=== PATIENT | female | born 1945 | race Caucasian/White ===

== ENCOUNTER 2025-06-29 09:47 | Emergency (ER) | payer BC, SELFPAY ==
[2025-06-29] VITALS (12 sets, daily range): BP systolic 107–180; BP diastolic 24–76; PULSE 50–60; RESP 14–22; TEMP 36.6–36.9; O2SAT 93–97; BMI 31.1
--- NOTE | ~2025-06-29 | CT_ITS ---
CLINICAL HISTORY: fall CT cervical spine without contrast Comparison: None provided Findings: Mild grade 1 anterolisthesis at C4-5 and C7-T1. Vertebral body height overall maintained. No acute fracture identified. Craniocervical junction is intact. Multilevel degenerative changes most significantly involving C5-6 and C6-7. Multilevel facet arthropathy Prevertebral soft tissues within normal limits. Thyroid is unremarkable. Bilateral atherosclerotic vascular disease. No consolidation or effusion at the lung apices. Mild emphysematous changes. IMPRESSION: 1. No acute findings. 2. Multilevel degenerative changes. 3. Mild grade 1 anterolisthesis C4-5 and C7-T1. This document has been electronically signed by: Sidra Ramirez MD on 06/29/2025 20:55:02
--- NOTE | ~2025-06-29 | XR_ITS ---
CLINICAL HISTORY: ams 1 view chest x-ray Comparison: None provided Findings: The heart is enlarged. Atherosclerotic vascular disease of the aortic arch. Low lung volumes. No definite consolidation, significant pleural effusion or pneumothorax. No acute fracture. Degenerative changes 3 views right shoulder and thoracic spine. Impression: No acute findings. This document has been electronically signed by: Sidra Ramirez MD on 06/29/2025 18:29:23
--- NOTE | ~2025-06-29 | CT_ITS ---
EXAMINATION: CT HEAD WITHOUT CONTRAST CLINICAL INFORMATION: ams, found laying on ground at somepoint COMPARISON: None available. TECHNIQUE: Contiguous axial imaging was performed from the skull base to vertex without intravenous administration of contrast. This CT examination was performed using dose optimization techniques as appropriate, variously including the following: *Automated exposure control *Adjustment of mA and/or kV according to patient size (this includes techniques or standardized protocols for targeted exams where dose is matched to indication/reason for exam; i.e. extremities or head) *Use of iterative reconstruction technique DLP: 732 mGy-cm FINDINGS: No acute cortical disruption in the bony calvarium or the included skull base. No acute intracranial hemorrhage, mass effect, midline shift, hydrocephalus or herniation. Bilateral multifocal patchy and confluent deep periventricular white matter hypodensities involving centrum semiovale and mckeon radiata both hemispheres. Questionable hypodensity in the left mid conrad. Normal position of the cerebellar tonsils. No gross masses in the sellar suprasellar region. Calcified plaques in the cavernous supracavernous segments both ICAs. Jain-white matter differentiation is normal. No air-fluid levels in the paranasal sinuses. Tympanic cavities and mastoid cells are aerated. No gross hemorrhage in the intraconal or extraconal compartments of the orbits. CT/CT head/brain wo IV con IMPRESSION: No acute fracture, bony calvarium. No acute intracranial hemorrhage. Extensive white matter disease likely related to small vessel occlusive disease. Superimposed acute nonhemorrhagic ischemia cannot be entirely excluded. Electronically signed by: Hugh Lorenz MD 06/29/2025 11:19 AM EDT
--- NOTE | ~2025-06-29 | CT_ITS ---
CLINICAL HISTORY: fall CT head without contrast Comparison: CT/SR - CT HEAD WITHOUT IV CONTRAST - 06/29/25 10:55 EDT Findings: No intra-axial mass, midline shift, hydrocephalus, or acute hemorrhage. There is atrophy. There are nonspecific bilateral supratentorial white matter hypodensities most suggestive of white matter ischemic changes. Atherosclerotic vascular disease. The visualized paranasal sinuses and mastoid air cells are normal. The orbits are unremarkable. Moderate size right frontal scalp hematoma and swelling. No skull fracture. IMPRESSION: 1. No acute intracranial findings. 2. Moderate right frontal scalp hematoma and swelling with no associated acute fracture. This document has been electronically signed by: Sidra Ramirez MD on 06/29/2025 20:59:09
--- NOTE | ~2025-06-29 | XR_ITS ---
CLINICAL HISTORY: fall 3 view left hand Comparison: None provided Findings: No acute fracture. No dislocation. Severe degenerative changes at 1st carpometacarpal joint and at articulation of scaphoid with the trapezium. Mild degenerative changes of interphalangeal joints. Diffuse demineralization. No erosions. IMPRESSION: 1. No acute findings. 2. Degenerative changes and diffuse demineralization. This document has been electronically signed by: Sidra Ramirez MD on 06/29/2025 19:43:12
--- NOTE | 2025-06-29 09:51 | ECG_ITS ---
Test Reason : AMS Blood Pressure : */* mmHG Vent. Rate : 55 BPM Atrial Rate : 55 BPM P-R Int : 166 ms QRS Dur : 82 ms QT Int : 448 ms P-R-T Axes : 36 -3 13 degrees QTcB Int : 428 ms Sinus bradycardia Septal infarct , age undetermined Abnormal ECG No previous ECGs available Referred By: Lashell Morejon Electronically Signed By: GE BARRERA
--- NOTE | 2025-06-29 09:53 | ED.GENADULT ---
HPI - General Adult General Chief complaint: Altered Mental Status Stated complaint: DEMENTIA Time Seen by Provider: 06/29/25 09:53 Source: patient and EMS Mode of arrival: EMS Limitations: altered mental status History of Present Illness ED Provider: JEREMIAH Morejon HPI narrative: 79-year-old female history of dementia presents from memory care unit with EMS where she lives reports that since Wednesday she has been having auditory hallucinations, they have found her lying on the ground speaking to the Silver[employer] . When I asked patient why she is here she says I do not know I feel fine they just picked me up and brought me here. She denies complaints of pain. She is only oriented to person, not place, time or situation. When I asked her who she lives with she tells me she lives with her step parents her siblings and other people at home EMS adamantly declines that this is the case. Patient is a very poor historian and is acutely confused. No known falls or trauma however unclear Related Data Home Medications ?Medication ?Instructions ?Recorded ?Confirmed acetaminophen 325 mg tablet 650 mg PO Q6H PRN Pain (Scale 06/30/25 06/30/25 Score 1-3) amlodipine 2.5 mg tablet 2.5 mg PO DAILY 06/30/25 06/30/25 ascorbic acid (vitamin C) 500 mg 500 mg PO BID 06/30/25 06/30/25 tablet aspirin 81 mg tablet,delayed 81 mg PO DAILY 06/30/25 06/30/25 release atorvastatin 80 mg tablet 80 mg PO BEDTIME 06/30/25 06/30/25 bupropion HCl 150 mg 24 hr tablet, 150 mg PO DAILY 06/30/25 extended release bupropion HCl 75 mg tablet 37.5 mg PO BID 06/30/25 calcium 600 mg (as 1 tab PO BID 06/30/25 06/30/25 carbonate)-vitamin D3 10 mcg (400 unit) tablet (Calcium 600 + D(3)) cholecalciferol (vitamin D3) 25 25 mcg PO DAILY 06/30/25 06/30/25 mcg (1,000 unit) tablet (Vitamin D3) dextromethorphan HBr 15 mg capsule 30 mg PO Q6H PRN Cough 06/30/25 06/30/25 docusate sodium 100 mg capsule 100 mg PO BID 06/30/25 06/30/25 donepezil 5 mg tablet 5 mg PO DAILY 06/30/25 06/30/25 gabapentin 100 mg capsule 100 mg PO BEDTIME 06/30/25 06/30/25 levothyroxine 75 mcg tablet 75 mcg PO DAILY@0606/30/25 06/30/25 melatonin 5 mg tablet 5 mg PO BEDTIME 06/30/25 06/30/25 mirtazapine 15 mg tablet 15 mg PO BEDTIME 06/30/25 06/30/25 multivitamin 1 tab PO DAILY 06/30/25 06/30/25 omeprazole 20 mg capsule,delayed 20 mg PO DAILY@0606/30/25 06/30/25 release propranolol 20 mg tablet 10 mg PO DAILY 06/30/25 06/30/25 propranolol 20 mg tablet 20 mg PO BEDTIME 06/30/25 06/30/25 pyridoxine (vitamin B6) 100 mg 100 mg PO BID 06/30/25 06/30/25 tablet risedronate 35 mg tablet 35 mg PO THOMAS@0606/30/25 06/30/25 sennosides 8.6 mg tablet (senna) 17.2 mg PO BEDTIME 06/30/25 06/30/25 simethicone 80 mg chewable tablet 80 mg PO BID 06/30/25 06/30/25 vitamin E (dl, acetate) 180 mg 540 mg PO DAILY 06/30/25 (400 unit) capsule Allergies Allergy/AdvReac Type Severity Reaction Status Date / Time Unable to Assess Allergy Verified 06/29/25 10:04 Review of Systems Review of Systems: Yes all other systems are reviewed and are negative PMFSH Past Medical History Attestation statement: The following information was validated with the patient. Source: old records reviewed and nursing notes reviewed Social History Social History Smoked in Last 30 Days: No Use of substances other than those prescribed or required for medical reasons: No Advance Directives: No Advance Directives Information Provided: Yes Do you have a plan to hurt others: No Plan Physical Exam ED Exam Exam: Appearance: Alert.? Oriented X1 to person not place, time or situation.? No acute distress.? Head: Normocephalic, atraumatic, no step-offs or deformities Eyes: Pupils equal, round and reactive to light.? ENT: Pharynx normal.? Neck: Normal inspection.? Neck supple.? CVS: Normal heart rate and rhythm.? Pulses normal.? Respiratory: No respiratory distress.? Breath sounds normal.? Abdomen: Soft and nontender.? Skin: Skin warm and dry.? Normal skin color.? Normal skin turgor.? Extremities: No lower extremity edema.? No calf ttp. 5/5 strength to bilateral upper and lower extremities Back: No midline tenderness, no C-spine tenderness, full range of motion, no CVA tenderness bilaterally Neuro: Oriented X 1.? No motor deficit.? No sensory deficit. Vital Signs: Vital Signs - 24 hr 06/29/25 16:48 06/29/25 18:10 06/29/25 19:12 Temperature 97.8 F 97.8 F 97.8 F Pulse Rate 54 55 57 Respiratory Rate 16 16 22 H Blood Pressure 124/62 115/52 L 155/60 H Pulse Oximetry 93 94 95 Oxygen Delivery Method Room Air Room Air Room Air Oxygen Flow Rate 06/29/25 19:25 06/29/25 19:48 06/29/25 20:10 Temperature 97.8 F 97.8 F 98.4 F Pulse Rate 57 52 50 Respiratory Rate 22 H 14 16 Blood Pressure 155/60 H 121/43 L 131/24 L Pulse Oximetry 95 95 93 Oxygen Delivery Method Room Air Room Air Oxygen Flow Rate 06/29/25 22:00 06/29/25 23:11 06/30/25 02:43 Temperature 97.8 F 97.7 F Pulse Rate 54 55 68 Respiratory Rate 19 16 14 Blood Pressure 134/42 L 107/39 L 115/44 L Pulse Oximetry 95 94 Oxygen Delivery Method Room Air Room Air Oxygen Flow Rate 06/30/25 04:00 06/30/25 08:33 06/30/25 15:13 Temperature 97.9 F Pulse Rate 55 65 61 Respiratory Rate 15 14 18 Blood Pressure 99/76 119/51 L 106/42 L Pulse Oximetry 92 97 96 Oxygen Delivery Method Room Air Nasal Cannula Room Air Oxygen Flow Rate 2 BMI result Body Mass Index 31.1 Course Reevaluation(s) Reevaluation #1: Unremarkable labs, UA. CXR pending. Head CT with no acute intracranial hemorrhage. Extensive white matter disease likely related to small-vessel occlusive disease superimposed acute nonhemorrhagic ischemia can not be entirely expose however no headache, dizziness, unremarkable neurological assessment. Plan- PT / CM, psych and PT . Patient is coming from a dementia unit however her mental status seems to be worsening. Would like clearance from care team. Time: 18:22 Reevaluation #2: Chest x-ray with no acute findings. Reevaluation #3: 06/30/25Dr. Kulwinder Parra's notes 06:30 Patient in physician observation for psychiatric evaluation.? Patient has been in the emergency department for 20 hours. No acute events reported overnight. No current complaints. VS stable.? Patient is pending CARE team and psychiatry evaluation to determine treatment and disposition. Will continue to monitor. 10:56 Patient was seen by care team. Patient does have dementia in his in a residential facility memory unit and has a guardian. The patient was sent in since she was found on the ground talking to God. According to the care team clinician, patient does not appear to be a danger to others or to herself. Care team's recommendation was to continue to pursue a psychiatric consult to see if this patient may benefit from medication changes or [facility] psychiatric admission. Patient will be kept in physician observation until disposition can be determined. We will continue to monito 15:48 Physician observation ended at 15:48 hours.The patient was seen by our psychiatrist, Dr. Froylan Bass. I did discuss the patient's presentation and disposition with him. At this time, he did not think that the patient needs to be admitted for [facility]-psychiatric evaluation and states the patient can be sent back to her memory unit for further management and evaluation by her providers. Therefore the patient will be discharged back to her long-term care facility. Medications Administered Discontinued Medications Generic Name Dose Route Start Last Admin Trade Name Freq PRN Reason Stop Dose Admin Acetaminophen 650 mg 06/29/25 22:04 06/29/25 22:08 Acetaminophen 325 Mg Tablet PO 06/29/25 22:05 650 mg ONCE ONE Administration Medical Decision Making Medical Decision Making [facility] Narrative: [id number] 79-year-old female presents with altered mental status &hallucinations coming in via ambulance. Physical exam patient pleasantly confused. only oriented to person. History and physical exam concerning for metabolic derangements, urinary infection . No signs of trauma less suspicious for intracranial hemorrhage, stroke. Plan labs, imaging, urine. 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 No signs of trauma less suspicious for intracranial hemorrhage, stroke.) Admission/Observation Consideration of admission/observation: Escalation of care including admission/observation considered (possible ) Lab Data MDM Lab Attestation statement: I reviewed the patient's lab results. 06/29/25 10:48 06/29/25 10:48 Labs: Lab Results 06/29/25 06/29/25 Range/Units 10:48 13:34 WBC 8.0 (4.8-10.8) X10*3/uL RBC 4.53 (4.20-5.50) X10*6/uL Hgb 13.4 (12.0-16.0) g/dl Hct 41.7 (37.0-47.0) % MCV 92.1 (80.0-98.0) fL MCH 29.6 (27.0-33.0) pg MCHC 32.1 (31.0-35.0) g/dl RDW 13.2 (11.0-16.0) % Plt Count 189 (160-400) X10*3/uL MPV 10.1 (9.4-12.3) fL Immature Gran % (Auto) 0.1 (0.0-0.4) % Neut % (Auto) 63.8 (45-73) % Lymph % (Auto) 22.9 (20-40) % Hunt % (Auto) 7.8 (2-11) % Eos % (Auto) 4.7 H (0-4) % Baso % (Auto) 0.7 (0-2) % Lymph # (Auto) 1.8 (1.2-4.9) X10*3/uL Hunt # (Auto) 0.6 (0.1-1.2) X10*3/uL Eos # (Auto) 0.4 (0.0-0.4) X10*3/uL Baso # (Auto) 0.1 (0.0-0.2) X10*3/uL Abs Immat Gran (auto) 0.01 (0.00-0.03) X10*3/uL Absolute Neuts (auto) 5.1 (2.0-8.3) x10*3/uL Absolute Nucleated RBC 0.000 (0.0-0.012) X10*3/uL Nucleated RBC % (auto) 0.0 (0.0-0.2) /100WBC Sodium 142 (135-145) mmol/L Potassium 4.1 (3.3-5.1) mmol/L Chloride 108 (96-108) mmol/L Carbon Dioxide 29 (22-29) mmol/L Anion Gap 9 L (12-20) BUN 20 H (9-16) mg/dL Creatinine 0.59 (0.5-1.4) mg/dL Estim Creat Clear Calc 80.1 Estimated GFR > 60 Random Glucose 83 (60-115) mg/dL Calcium 9.0 (8.4-10.2) mg/dL Magnesium 2.0 (1.6-2.6) mg/dL Total Bilirubin 0.7 (0.0-1.0) mg/dL AST 38 H (5-31) U/L ALT 37 H (0-31) U/L Alkaline Phosphatase 77 (39-117) U/L Troponin I High Sens < 2.7 (<3.5-17.0) ng/L Total Protein 7.0 (6.5-8.0) g/dL Albumin 3.9 (3.5-5.0) g/dL Urine Color Yellow Urine Appearance Clear Urine pH 7.0 (5.0-9.0) Ur Specific [place] 1.010 (1.005-1.025) Urine Protein Negative (Neg-Trace) mg/dL Urine Glucose (UA) Negative (Negative) mg/dL Urine Ketones Negative (Negative) mg/dL Urine Blood Negative (Negative) Urine Nitrite Negative (Negative) Ur Leukocyte Esterase Negative (Negative) Independent Interpretation I performed an independent interpretation of an: EKG Radiology Impression Discussion of test interpretation with radiology: I have reviewed the radiologist's reading. External Record Review No previous records to review on file Chronic Conditions Patient?s care impacted by: Other (dementia ) Social Determinants Patient?s care significantly limited by Social Determinants of Health including: Other Social Determinant of Health Critical Care Time Critical Care Time Critical Care Time: No Discharge Plan Discharge Clinical Impression: Altered mental status Patient Disposition: er [facility] Transfer Details: [facility] Additional Instructions: Your CBC, comprehensive metabolic panel, troponin and urinalysis were negative. The CT scan head revealed no intracranial findings that were significant, you did have a frontal lobe hematoma but no skull fracture/broken bones. You were seen by our care team clinician who did not think that you are a harm to herself or others You were seen by our psychiatrist Dr. Kaiden Bass. In his opinion, he did not think that you needed acute hospitalization in a [facility]-psychiatric unit and that you can be discharged back to your memory care unit for further treatment and management. Continue taking medications as prescribed by your providers. Follow-up with your doctor in 2 days. Please return to the emergency department if your symptoms get worse or if you develop any symptoms that are concerning to you. Prescriptions: No Action amlodipine 2.5 mg Tablet 2.5 mg PO DAILY aspirin 81 mg Tablet,Delayed Release (Dr/Ec) 81 mg PO DAILY atorvastatin 80 mg Tablet 80 mg PO BEDTIME bupropion HCl 150 mg Tablet Extended Release 24 Hr 150 mg PO DAILY bupropion HCl 75 mg Tablet 37.5 mg PO BID calcium carbonate-vitamin D3 [Calcium 600 + D(3)] 600 mg-10 mcg (400 unit) Tablet 1 tab PO BID dextromethorphan HBr 15 mg Capsule 30 mg PO Q6H PRN (Reason: Cough) Rx Instructions: DO NOT EXCEED 120 MG IN 24 HOURS docusate sodium 100 mg Capsule 100 mg PO BID donepezil 5 mg Tablet 5 mg PO DAILY gabapentin 100 mg Capsule 100 mg PO BEDTIME levothyroxine 75 mcg Tablet 75 mcg PO DAILY@0600 melatonin 5 mg Tablet 5 mg PO BEDTIME mirtazapine 15 mg Tablet 15 mg PO BEDTIME multivitamin Tablet 1 tab PO DAILY omeprazole 20 mg Capsule,Delayed Release(Dr/Ec) 20 mg PO DAILY@0630 propranolol 20 mg Tablet 10 mg PO DAILY propranolol 20 mg Tablet 20 mg PO BEDTIME risedronate 35 mg Tablet 35 mg PO THOMAS@0600 Rx Instructions: administer at least 30 minutes before the first food or drink of the day other than water. sennosides [senna] 8.6 mg Tablet 17.2 mg PO BEDTIME simethicone 80 mg Tablet,Chewable 80 mg PO BID acetaminophen 325 mg Tablet 650 mg PO Q6H PRN (Reason: Pain (Scale Score 1-3)) pyridoxine (vitamin B6) 100 mg Tablet 100 mg PO BID ascorbic acid (vitamin C) 500 mg Tablet 500 mg PO BID cholecalciferol (vitamin D3) [Vitamin D3] 25 mcg (1,000 unit) Tablet 25 mcg PO DAILY vitamin E (dl, acetate) 180 mg (400 unit) capsule 540 mg PO DAILY Print Language: Ukrainian
--- OUTSIDE RECORDS SUMMARY | 2025-06-29 10:43 | XMS_ITS | Encounter Summary ---
Author Organization [facility] Address [address] [place] [address] Care Team Providers Care Dbas Name Role Phone Physician, No Pcp Primary Care Provider Unavaila ble Encounter Details Date Type Department Care Team (Late st Contact Info) Description 05/15/2025 Lab Requisition [facility] - Main Lab [address] [facility] [place] [address] Calin Lobo FNP [address] [place] [id number] Hyperlipidemia, unspecified; Disorientation, unspecified; Weakness; Vitamin D deficiency, unspecified Social History Tobacco Use Types Packs/Day Years Used Date Smoking Tobacco: Never Assessed Comments Unknown Sex and Gender Information Value Date Recorded Sex Assigned at Female 10/25/2024 11:18 AM EST Legal Sex Female 4:43 PM EST Gender Identity Female 10/25/2024 11:18 AM EST Sexual Orientation Not on file documented as of this encounter Functional Status * Are you deaf or do you have serious difficulty hearing? Answer Date of Assessment Author No 10/21/2024 1:47 PM Maureen Carroll RN * Are you blind or do you have serious difficulty seeing, even when wearing glasses? Answer Date of Assessment Author No 10/21/2024 1:47 PM Maureen Carroll RN * Do you have serious difficulty walking or climbing stairs? Answer Date of Assessment Author No 10/21/2024 1:47 PM Maureen Carroll RN * Do you have serious difficulty dressing or bathing? Answer Date of Assessment Author No 10/21/2024 1:47 PM Maureen Carroll RN * Because of a physical, mental, or emotional condition, do you have serious difficulty doing errandsalone such as visiting the doctor? Answer Date of Assessment Author No 10/21/2024 1:47 PM Maureen Carroll RN documented as of this encounter Mental Status * Because of a physical, mental, or emotional condition, do you have serious difficulty concentrating, remembering, or making decisions? (5 years old or older) Answer Entry Date Author No 10/21/2024 1:47 PM Maureen Carroll RN documented in this encounter Plan of Treatment Not on file documented as of this encounter Procedures Procedure Name Priority Date/Time Associated Diagnosis Comments LIPID PANEL WITH REFLEX TO DIRECT LDL Routine 05/16/2025 6:17 AM EDT Hyperlipidemia, unspecified Disorientation, unspecified Weakness Vitamin D deficiency, unspecified VITAMIN D 25 HYDROXY Routine 05/16/2025 6:17 AM EDT Hyperlipidemia, unspecified Disorientation, unspecified Weakness Vitamin D deficiency, unspecified FOLATE Routine 05/16/2025 6:17 AM EDT Hyperlipidemia, unspecified Disorientation, unspecified Weakness Vitamin D deficiency, unspecified VITAMIN B12 Routine 05/16/2025 6:17 AM EDT Hyperlipidemia, unspecified Disorientation, unspecified Weakness Vitamin D deficiency, unspecified documented in this encounter Results * Vitamin D 25 hydroxy (05/16/2025 6:17 AM EDT) Vit D, 25-Hydroxy 44.6 30.0 - 80.0 ng/mL LAB CHEMISTRY METHOD 05/16/2025 11:24 AM EDT [facility] Blood Venous blood specimen / Unknown Venipuncture / Unknown 05/16/2025 6:17 AM EDT 05/16/2025 8:18 AM EDT aClin Lobo [employer] LAB BLOOD ORDERABLES Final Res ult Performing Organization Address [facility]/ZIP Co de Phone Number [facility] [address] [place] [address], [place] [phone] * Folate (05/16/2025 6:17 AM EDT) Pathologist [facility] Folate 5.6 2.8 - 17.0 ng/ml LAB CHEMISTRY METHOD 05/16/2025 9:40 AM EDT [facility] Blood Venous blood specimen / Unknown Venipuncture / Unknown 05/16/2025 6:17 AM EDT 05/16/2025 8:18 AM EDT us Calin Lobo [facility] BLOOD ORDERABLES Final Res ult Performing Organization Address [facility] Co de Phone Number [facility] [address] [place] [address], [place] [phone] * Vitamin B12 (05/16/2025 6:17 AM EDT) [facility] Vitamin B-12 430 250 - 900 pcg/mL LAB CHEMISTRY METHOD 05/16/2025 9:40 AM EDT [facility] Blood Venous blood specimen / Unknown Venipuncture / Unknown 05/16/2025 6:17 AM EDT 05/16/2025 8:18 AM EDT Calin Lobo [facility] BLOOD ORDERABLES Final Res ult Performing Organization Address [facility]/ZIP Co de Phone Number [facility] [address] [place] [address], [place] [phone] * Lipid panel with reflex to direct LDL (05/16/2025 6:17 AM EDT) [facility] Cholesterol 145 0 - 200 mg/dL LAB CHEMISTRY METHOD 05/16/2025 9:18 AM EDT [facility] Triglycerides 75 0 - 150 mg/dL LAB CHEMISTRY METHOD 05/16/2025 9:18 AM EDT [facility] HDL 54 >=40 mg/dL LAB CHEMISTRY METHOD 05/16/2025 9:18 AM EDT [facility] LDL Calculated 76 0 - 100 mg/dL LAB CHEMISTRY METHOD 05/16/2025 9:18 AM EDT [facility] VLDL Cholesterol Fredy 15 mg/dL LAB CHEMISTRY METHOD 05/16/2025 9:18 AM EDT [facility] Non HDL Chol. (LDL+VLDL) 91 <145 mg/dL LAB CHEMISTRY METHOD 05/16/2025 9:18 AM EDT [facility] Chol/HDL Ratio 2.7 0.0 - 4.4 LAB CHEMISTRY METHOD 05/16/2025 9:18 AM EDT [facility] Blood Venous blood specimen / Unknown Venipuncture / Unknown 05/16/2025 6:17 AM EDT 05/16/2025 8:18 AM EDT Calin SAPP LAB BLOOD ORDERABLES Final Res ult [facility] [address] [place] [address], documented in this encounter Visit Diagnoses Diagnosis Hyperlipidemia, unspecified Disorientation, unspecified Weakness Other malaise and fatigue Vitamin D deficiency, unspecified documented in this encounter Care Teams Dbas Relationship Specialty Start Date End Date Physician, No Pcp PCP - General 10/21/24 documented as of this encounter
[2025-06-29 10:52] LABS: MANUAL DIFF FLAG NO
[2025-06-29 10:57] LABS: Hematocrit 41.7 % (37.0-47.0); Hemoglobin 13.4 g/dl (12.0-16.0); Imm Gran Abs Auto 0.01 X10*3/uL (0.00-0.03); Imm Gran Pct Auto 0.1 % (0.0-0.4); Lymphocytes Absolute Auto 1.8 X10*3/uL (1.2-4.9); Mean Corpuscular HGB Conc 32.1 g/dl (31.0-35.0); Mean Corpuscular Hemoglobin 29.6 pg (27.0-33.0); Mean Corpuscular Volume 92.1 fL (80.0-98.0); NRBC Abs Auto 0.000 X10*3/uL (0.0-0.012); NRBC Pct Auto 0.0 /100WBC (0.0-0.2); Platelet Count 189 X10*3/uL (160-400); Red Blood Count 4.53 X10*6/uL (4.20-5.50); White Blood Count 8.0 X10*3/uL (4.8-10.8)
[2025-06-29 11:10] LABS: Alanine Aminotransferase 37 U/L (0-31); Albumin Level 3.9 g/dL (3.5-5.0); Alkaline Phosphatase 77 U/L (39-117); Anion Gap 9 (12-20); Aspartate Amino Transferase 38 U/L (5-31); Blood Urea Nitrogen 20 mg/dL (9-16); Calcium 9.0 mg/dL (8.4-10.2); Carbon Dioxide 29 mmol/L (22-29); Chloride 108 mmol/L (96-108); Creatinine Clr Calc Pharmacy 80.1; Estimated Glomerular Filt Rate > 60; Magnesium 2.0 mg/dL (1.6-2.6); Potassium 4.1 mmol/L (3.3-5.1); Sodium 142 mmol/L (135-145); Total Protein 7.0 g/dL (6.5-8.0)
[2025-06-29 11:18] LABS: Troponin-I High Sensitivity < 2.7 ng/L (<3.5-17.0)
--- NOTE | 2025-06-29 11:36 | PC.NURSE ---
Patient noted to be talking to herself. Patient only person in room. When asked who she was talking to? Patient replied Im talking to a doctor or a nurse in my head Patient denies SI HI from voices in her head
[2025-06-29 13:40] LABS: Appearance Urine Clear; Glucose Urine UA Negative (Negative); PH 7.0 (5.0-9.0); Specific Gravity - Urine 1.010 (1.005-1.025)
--- NOTE | 2025-06-29 19:15 | PC.NURSE ---
Addendum entered by Maria Teresa Gonsales RN 06/30/25 06:48: pt noted to desat while sleeping to 87-88%, placed pt on 2L and improvement to 93-96%. Addendum entered by Maria Teresa Gonsales RN 06/29/25 22:01: while reassessing pt at this time, noticed pt saying no aloud and asked her why she said no and pt stated someone in my head when asked who was in her head she said she thinks its her sister but cant remember what she said to her. Addendum entered by Maria Teresa Gonsales RN 06/29/25 21:02: this headline writer wrote right hand contusion in error it is the left hand. Original Note: assumed care for pt at 1900, pt was not in room at the time was in the restroom with EDT. Upon return to the room per EDT, pt was getting back into bed and slipped off the cushion of the bed and fell on the floor. Pt was able to get back into the bed with staff assistance. Pt reporting pain in head and right hand. Pt noted to have contusion on head and right hand. Pt assessed by MD Chicas, pending orders. Pt alert and oriented at her baseline, pupils PERRLA. Pt given ice pack for contusion to her head. Pt having xrays done at this time in room.
[2025-06-30 02:43] VITALS: BP 115/44; PULSE 68; RESP 14; TEMP 36.5; O2SAT 94
[2025-06-30 04:00] VITALS: BP 99/76; PULSE 55; RESP 15; O2SAT 92
[2025-06-30 08:33] VITALS: BP 119/51; PULSE 65; RESP 14; O2SAT 97
--- NOTE | 2025-06-30 10:10 | PC.NURSE ---
Assumed care of pt approx 0700, pt resting in bed quietly with resp even and unlabored. Denies any pain at this time
--- NOTE | 2025-06-30 10:44 | PHA.MEDREC ---
Pharmacy Consult ? Medication Reconciliation Pharmacy has completed the medication reconciliation.Med rec complete, based on list from [facility]
[2025-06-30 15:13] VITALS: BP 106/42; PULSE 61; RESP 18; TEMP 36.6; O2SAT 96
--- NOTE | 2025-06-30 17:24 | PM.PSYCN ---
History of Present Illness Date of Service: 06/30/25 Chief Complaint: DEMENTIA Requesting physician: Frankie Chicas Sources of Information: patient interviewed, chart reviewed and crisis/core team assessment reviewed HPI Narrative: 79 year old female with dementia, residing in a locked dementia unit. 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 Psychiatry was asked to assess whether patient needs to be hospitalized. Patient is seen in the ED. She is laying in a hospital bed. She is alert and awake and only oriented to person. She had a fall while in the ED and had a head CT with scalp hematoma but no intracranial pathology or fracture. Patient was observed by RN to be self dialoguing yesterday but not today. She reports she doesn't remember hearing voices or seeing visions. She denies feeling sad or depressed and feels fine . She has not had any aggression or behavioral dysregulation since being in the ED. There is a reported remote (dating back to 2016) record of her being on a Yo's order. She was reportedly on Abilify but it has since been discontinued. Past Psychiatric History: Full information not available at this time. Remote history of being on a Yo's order. [facility] Family History: Unavailable Social History: Lives on a memory unit since 2016. 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 Never . No children. Reports having a good childhood. Substance History: Unknown Trauma History: Unknown Diagnostics Vital Signs (24Hr): Vital Signs - 24 hr 06/29/25 18:10 06/29/25 19:12 06/29/25 19:25 Temperature 97.8 F 97.8 F 97.8 F Pulse Rate 55 57 57 Respiratory Rate 16 22 H 22 H Blood Pressure 115/52 L 155/60 H 155/60 H Pulse Oximetry 94 95 95 Oxygen Delivery Method Room Air Room Air Oxygen Flow Rate 06/29/25 19:48 06/29/25 20:10 06/29/25 22:00 Temperature 97.8 F 98.4 F 97.8 F Pulse Rate 52 50 54 Respiratory Rate 14 16 19 Blood Pressure 121/43 L 131/24 L 134/42 L Pulse Oximetry 95 93 95 Oxygen Delivery Method Room Air Room Air Room Air Oxygen Flow Rate 06/29/25 23:11 06/30/25 02:43 06/30/25 04:00 Temperature 97.7 F Pulse Rate 55 68 55 Respiratory Rate 16 14 15 Blood Pressure 107/39 L 115/44 L 99/76 Pulse Oximetry 94 92 Oxygen Delivery Method Room Air Room Air Oxygen Flow Rate 06/30/25 08:33 06/30/25 15:13 Temperature 97.9 F Pulse Rate 65 61 Respiratory Rate 14 18 Blood Pressure 119/51 L 106/42 L Pulse Oximetry 97 96 Oxygen Delivery Method Nasal Cannula Room Air Oxygen Flow Rate 2 BMI result Body Mass Index 31.1 Labs 06/29/25 10:48 06/29/25 10:48 Labs: Laboratory Results - last 48 hr 06/29/25 06/29/25 10:48 13:34 WBC 8.0 RBC 4.53 Hgb 13.4 Hct 41.7 MCV 92.1 MCH 29.6 MCHC 32.1 RDW 13.2 Plt Count 189 MPV 10.1 Immature Gran % (Auto) 0.1 Neut % (Auto) 63.8 Lymph % (Auto) 22.9 [place] % (Auto) 7.8 Eos % (Auto) 4.7 H Baso % (Auto) 0.7 Lymph # (Auto) 1.8 [place] # (Auto) 0.6 Eos # (Auto) 0.4 Baso # (Auto) 0.1 Abs Immat Gran (auto) 0.01 Absolute Neuts (auto) 5.1 Absolute Nucleated RBC 0.000 Nucleated RBC % (auto) 0.0 Sodium 142 Potassium 4.1 Chloride 108 Carbon Dioxide 29 Anion Gap 9 L BUN 20 H Creatinine 0.59 Estim Creat Clear Calc 80.1 Estimated GFR > 60 Random Glucose 83 Calcium 9.0 Magnesium 2.0 Total Bilirubin 0.7 AST 38 H ALT 37 H Alkaline Phosphatase 77 Troponin I High Sens < 2.7 Total Protein 7.0 Albumin 3.9 Urine Color Yellow Urine Appearance Clear Urine pH 7.0 Ur Specific [place] 1.010 Urine Protein Negative Urine Glucose (UA) Negative Urine Ketones Negative Urine Blood Negative Urine Nitrite Negative Ur Leukocyte Esterase Negative Imaging Radiology Impressions: ITS Impressions Head CT 06/29/25 10:55 IMPRESSION: No acute fracture, bony calvarium. No acute intracranial hemorrhage. Extensive white matter disease likely related to small vessel occlusive disease. Superimposed acute nonhemorrhagic ischemia cannot be entirely excluded. 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 Hallucinations: None (Reported she believed she was talking to [place] while at her residence) Delusions: Not Present (Reported she believed she was talking to [place] while at her residence) Thought Process: Disoriented and Confusion Thought Content: positive for Disoriented and positive for Poverty of Content Medications Allergies Allergies Allergy/AdvReac Type Severity Reaction Status Date / Time Unable to Assess Allergy Verified 06/29/25 10:04 Assessment & Plan Assessment & Plan (1) Dementia: Status: Acute Code(s): F03.90 - Unspecified dementia, unspecified severity, without behavioral disturbance, psychotic disturbance, mood disturbance, and anxiety (2) Altered mental status: Status: Acute Code(s): R41.82 - Altered mental status, unspecified Plan 79 year old with severe dementia with a remote unclear psychiatric history presented with altered mental status. She has not presented with gross psychosis, with agitation or behavioral disturbance while in the ED. Psychiatry was consulted to determine level of care. Based on her presentation, patient doesn't seem to warrant acute inpatient psychiatric hospitalization. She could benefit from further OP evaluation and clarification of her prior mental health diagnoses and subsequent management. Total time managing care of this patient today ____ minutes.
--- NOTE | 2025-06-30 17:34 | PC.NURSE ---
Attempted to call report to marco nevarez- was informed no nurse is available to give nurse to nurse. Memory unit staff aware pt will be d/c to them.
[2025-06-30 18:50] VITALS: BP 115/56; PULSE 57; RESP 16; TEMP 36.7; O2SAT 95
[2025-06-30 18:59] VITALS: BP 115/56; PULSE 57; RESP 16; TEMP 36.7; O2SAT 95
== END 2025-06-30 19:00 ==
PROVIDERS: Physician Assistant; Emergency Provider Emergency Medicine Emergency Medical Services; PCP Internal Medicine
DX: R41.82 Altered mental status, unspecified (principal); S09.90XA Unspecified injury of head, initial encounter; W19.XXXA Unspecified fall, initial encounter; Y93.9 Activity, unspecified; Y92.239 Unspecified place in hospital as the place of occurrence of the external cause; Y99.9 Unspecified external cause status; R44.0 Auditory hallucinations; F03.90 Unspecified dementia, unspecified severity, without behavioral disturbance, psychotic disturbance, mood disturbance, and anxiety
CPT/HCPCS: 36415; 70450; 71045; 72125; 73130; 80053; 81003; 83735; 84484; 85025; 93005; 99285; S9485

== ENCOUNTER → 2025-06-29 09:51 | Outpatient (BNV) | payer BC, SELFPAY | PROVIDERS: Emergency Provider Emergency Medicine Emergency Medical Services; PCP Internal Medicine; Visit Provider Internal Medicine | DX: R00.1 Bradycardia, unspecified (principal); R94.31 Abnormal electrocardiogram [ECG] [EKG] | CPT/HCPCS: 93010 ==

== ENCOUNTER → 2025-06-29 10:00 | Outpatient (BNV) | payer BC, SELFPAY | PROVIDERS: Emergency Provider Emergency Medicine Emergency Medical Services; PCP Internal Medicine; Visit Provider Radiology Diagnostic Radiology | DX: M50.322 Other cervical disc degeneration at C5-C6 level (principal); R41.82 Altered mental status, unspecified; I51.7 Cardiomegaly; M18.12 Unilateral primary osteoarthritis of first carpometacarpal joint, left hand | CPT/HCPCS: 70450; 71045; 72125; 73130 ==

== ENCOUNTER → 2025-06-29 10:23 | Outpatient (BNV) | payer BC, SELFPAY | PROVIDERS: Emergency Provider Emergency Medicine Emergency Medical Services; PCP Internal Medicine; Visit Provider Psychiatry & Neurology Psychiatry | DX: F03.90 Unspecified dementia, unspecified severity, without behavioral disturbance, psychotic disturbance, mood disturbance, and anxiety (principal); R41.82 Altered mental status, unspecified | CPT/HCPCS: 99284 ==

== ENCOUNTER 2025-07-01 11:24 | Inpatient (IN) | payer BC, SELFPAY ==
[2025-07-01] VITALS (9 sets, daily range): BP systolic 156–186; BP diastolic 70–80; PULSE 56–70; RESP 15–18; TEMP 36.3–37; O2SAT 96–99; BMI 31.8
--- NOTE | ~2025-07-01 | CT_ITS ---
EXAMINATION: CT HEAD WITHOUT CONTRAST CLINICAL INFORMATION: head trauma, repetitive, acute COMPARISON: Head CT on June 29, 2025 TECHNIQUE: Contiguous axial imaging was performed from the skull base to vertex without intravenous administration of contrast. This CT examination was performed using dose optimization techniques as appropriate, variously including the following: *Automated exposure control *Adjustment of mA and/or kV according to patient size (this includes techniques or standardized protocols for targeted exams where dose is matched to indication/reason for exam; i.e. extremities or head) *Use of iterative reconstruction technique FINDINGS: Brain parenchyma: No shift of midline structures. No mass effect or parenchymal hemorrhage. Moderate amount of confluent hypodensity in the white matter of bilateral cerebral hemispheres, likely representing a manifestation of chronic small vessel ischemic changes. Ventricles/extra-axial spaces: Prominence of the ventricles and extra-axial CSF spaces represents brain volume loss. Asymmetric enlargement of the left side sylvian fissure reflecting asymmetric more prominent local brain volume loss, likely sequela from prior insult/infarct. No hydrocephalus. No extra-axial fluid collection. Calvarium/extracranial structures: No depressed calvarial fracture. Interval decrease in size of the right frontal scalp hematoma. Paranasal sinuses are clear. Mastoid air cells are clear. CT/CT head/brain wo IV con IMPRESSION: 1. No acute intracranial findings. 2. Interval decrease in the right frontal scalp hematoma. Electronically signed by: Durga Benavides MD 07/04/2025 06:14 PM EDT
--- NOTE | ~2025-07-01 | XR_ITS ---
CLINICAL HISTORY: left hand pain 3 view left hand Comparison: CR - XR HAND LT MIN 3V - 06/29/25 19:11 EDT Findings: Bones intact. No dislocations. Moderately severe arthritic change, most pronounced at the level of the 1st carpometacarpal joint. No erosions. No radiopaque foreign body. IMPRESSION: 1. No acute findings This document has been electronically signed by: Nicci Garcia MD on 07/01/2025 14:25:49
--- NOTE | ~2025-07-01 | XR_ITS ---
CLINICAL HISTORY: rt wrist pain 4 view right wrist Comparison: None provided Findings: No acute fracture. No dislocation. Osteopenia is present. Moderately severe arthritic change. Multiple small degenerative cysts within the carpus. No radiopaque foreign body. IMPRESSION: 1. No acute findings This document has been electronically signed by: Nicci Garcia MD on 07/01/2025 14:20:29
--- NOTE | 2025-07-01 11:27 | ED.GENADULT ---
HPI - General Adult General Chief complaint: Altered Mental Status Stated complaint: AH,ERRATIC BEH,BRUISES/HAND,SEEN RECENTLY FOR SAME Time Seen by Provider: 07/01/25 11:25 Source: patient and EMS Mode of arrival: EMS Limitations: other (poor historian ) History of Present Illness ED Provider: JEREMIAH Morejon HPI narrative: This is a 79-year-old female hx dementia presenting with erratic behavior from a memory unit. She was seen here a few days for same complaint. According to EMS she has been hallucinating and hallucinations have been worsening over the past few days. EMS also notes that patient has bruising to the left hand, this is new. Unclear exactly how patient got bruising. Patient adamantly tells me that she did not fall or have any trauma however she is unable to tell me how she got the bruises. She denies pain. She is alert and oriented x4 however seems slightly agitated upon initial assessment. Denies chest pain, shortness breath, nausea, vomiting, abdominal pain, changes in urinary or bowel habits. Related Data Home Medications ?Medication ?Instructions ?Recorded ?Confirmed acetaminophen 325 mg tablet 650 mg PO Q6H PRN Pain (Scale 06/30/25 07/01/25 Score 1-3) amlodipine 2.5 mg tablet 2.5 mg PO DAILY 06/30/25 07/01/25 ascorbic acid (vitamin C) 500 mg 500 mg PO BID 06/30/25 07/01/25 tablet aspirin 81 mg tablet,delayed 81 mg PO DAILY 06/30/25 07/01/25 release atorvastatin 80 mg tablet 80 mg PO BEDTIME 06/30/25 07/01/25 bupropion HCl 75 mg tablet 37.5 mg PO BID 06/30/25 07/01/25 calcium 600 mg (as 1 tab PO BID 06/30/25 07/01/25 carbonate)-vitamin D3 10 mcg (400 unit) tablet (Calcium 600 + D(3)) cholecalciferol (vitamin D3) 25 25 mcg PO DAILY 06/30/25 07/01/25 mcg (1,000 unit) tablet (Vitamin D3) dextromethorphan HBr 15 mg capsule 30 mg PO Q6H PRN Cough 06/30/25 07/01/25 docusate sodium 100 mg capsule 100 mg PO BID 06/30/25 07/01/25 donepezil 5 mg tablet 5 mg PO DAILY 06/30/25 07/01/25 gabapentin 100 mg capsule 100 mg PO BEDTIME 06/30/25 07/01/25 levothyroxine 75 mcg tablet 75 mcg PO DAILY@0606/30/25 07/01/25 melatonin 5 mg tablet 5 mg PO BEDTIME 06/30/25 07/01/25 multivitamin 1 tab PO DAILY 06/30/25 07/01/25 omeprazole 20 mg capsule,delayed 20 mg PO DAILY@0606/30/25 07/01/25 release risedronate 35 mg tablet 35 mg PO THOMAS@0606/30/25 07/01/25 sennosides 8.6 mg tablet (senna) 17.2 mg PO BEDTIME 06/30/25 07/01/25 simethicone 80 mg chewable tablet 80 mg PO BID 06/30/25 07/01/25 vitamin E (dl, acetate) 180 mg 540 mg PO DAILY 06/30/25 07/01/25 (400 unit) capsule escitalopram oxalate 10 mg tablet 10 mg PO DAILY 07/01/25 07/01/25 acetylcysteine 600 mg capsule 600 mg PO BID 07/02/25 07/02/25 aripiprazole 5 mg tablet 5 mg PO DAILY 07/02/25 07/02/25 bismuth subsalicylate 262 mg 2 tab PO Q6H PRN Diarrhea 07/02/25 07/02/25 chewable tablet (Pepto-Bismol) fluticasone propionate 50 1 spray intranasal DAILY 07/02/25 07/02/25 mcg/actuation nasal spray,suspension mupirocin 2 % topical ointment 1 appl topical BID 07/02/25 07/02/25 olopatadine 0.2 % eye drops 1 drp ophthalmic (eye) DAILY 07/02/25 07/02/25 (Pataday Once Daily Relief) ondansetron 4 mg disintegrating 4 mg PO Q8H PRN Nausea And Vomiting 07/02/25 07/02/25 tablet trazodone 50 mg tablet 50 mg PO BEDTIME 07/02/25 07/02/25 triamcinolone acetonide 0.025 % 1 appl topical BID 07/02/25 07/02/25 topical cream Allergies Allergy/AdvReac Type Severity Reaction Status Date / Time Unable to Assess Allergy Verified 07/01/25 11:55 Review of Systems Review of Systems: Yes all other systems are reviewed and are negative [facility] Past Medical History Attestation statement: The following information was validated with the patient. Source: old records reviewed and nursing notes reviewed Social History Social History Household Members: Other Household Members Other:: Retirement/Memory Housing: Residential Do you presently have visiting nurse or other home services: Yes (Retirement/Memory) Alcohol intake: former Patient Tobacco Use Status: Never used Tobacco Smoked in Last 30 Days: No Use of substances other than those prescribed or required for medical reasons: No Currently Displaying Signs/Symptoms of Drug Intoxication Withdrawal: No Have you been hit, kicked, punched, or otherwise hurt by someone within the past year? If so, by whom?: No Do you feel safe in your current relationship?: Yes Is there a partner from a previous relationship who is making you feel unsafe now?: No Are you made to feel afraid or neglected: No Advance Directives: No Advance Directives Information Provided: Yes Do you have thoughts of harming others: None Do you have a plan to hurt others: No Plan Recently lost weight without trying: No Nutrition Risks: No Nutritional Risk Patient : No : No Poor oral hygiene: Yes service: No Sexual orientation: Straight/Heterosexual Physical Exam ED Exam Exam: Appearance: Alert.? Oriented X3.? No acute distress.? Head: Normocephalic, atraumatic, no step-offs or deformities Eyes: Pupils equal, round and reactive to light.? ENT: Pharynx normal.? Neck: Normal inspection.? Neck supple.? CVS: Normal heart rate and rhythm.? Pulses normal.? Respiratory: No respiratory distress.? Breath sounds normal.? Abdomen: Soft and nontender.? Skin: Skin warm and dry.? Normal skin color.? Normal skin turgor.? Extremities: No lower extremity edema.? No calf ttp. 5/5 strength to bilateral upper and lower extremities + right wrist w/ ecchymosis medial and lateral aspect. + right digits 2-5 w/ significant echymosis but full rom. Normal distatl sensation to b/l UE. Full rom to wrist and fingers Back: No midline tenderness, no C-spine tenderness, full range of motion, no CVA tenderness bilaterally Neuro: Oriented X 3.? No motor deficit.? No sensory deficit. CN 2-12 intact Vital Signs: Vital Signs - 24 hr 07/02/25 19:42 07/02/25 21:09 07/03/25 06:00 Temperature 98.2 F 97.8 F Pulse Rate 73 73 67 Respiratory Rate 16 18 Blood Pressure 147/65 H 147/65 H 148/75 H Pulse Oximetry 96 95 Oxygen Delivery Method Room Air Room Air 07/03/25 14:00 Temperature 98 F Pulse Rate 71 Respiratory Rate 16 Blood Pressure 140/64 H Pulse Oximetry 95 Oxygen Delivery Method Room Air BMI result Body Mass Index 31.8 vss Course Reevaluation(s) Reevaluation #1: Tried calling gaurdian, no answer. Left VM for call back. Time: 11:53 Reevaluation #2: Tried calling guardian again, no answer. Time: 12:31 Reevaluation #3: CBC unremarkable. Chemistry no acute findings needing intervention. Urine without infection. X-ray of hand and wrist with no acute findings. At this time patient will be placed into observation to allow more time to meet with care team as patient has been seen within the last few days and sent here twice for suspected psych. She has been medically cleared. Time: 17:18 Additional Reevaluation(s): To note, patient was seen here on 06/29/2025 and she had a head CT done which was negative it appears as though patient fell during that visit had a repeat scan and had moderate right frontal scalp hematoma and swelling with no fracture. Patient was seen by psychiatry at that time who deemed that patient did not need geriatric admission. Due to continuous psychiatric symptoms will order a psych consult at this time. At this time physician observation initiated. This will allow more time for patient to be observed by the psychiatric team. Time: 20:20 Date: 07/01/25 Provider: Kulwinder Parra MD Patient in physician observation for psychiatric evaluation.? Patient was evaluated by the CARE team clinician I obtained the following information. The patient was seen here yesterday for new onset of samaritan delusions, evaluated by care team and and our psychiatrist, Dr. Bass. The psychiatrist felt that the patient can be discharged back to her her care facility since she was in a locked memory unit and could get outpatient treatment for her delusions. According to the care team clinician, the patient was banging her head on the floor and was getting commands from God to hit herself. She apparently was jumping in stopping as well and was not able to be redirected by her memory unit staff therefore she was sent back to the emergency department. Given these findings, patient was placed on a Section 12 and needs to be considered for possible [facility]-psychiatric admission. Therefore I will obtain a psychiatric consult to help with the disposition. We will continue to monitor the patient until disposition can be determined. Time: 08:47 Date: 07/03/25 Provider: Destiny Vance DO Patient in physician observation for case management/ psychiatric needs. No acute events reported overnight.? No current issues or complaints. VS stable. Patient is had psych consult they felt she didn't warrant inpatient admission. I am touching base with CM this AM to figure out disposition. Will continue to monitor. 07/03/2025 14:56 patient will be admitted to psych unit this will end of the observation status Dr. Herrera Consultations Consultation #1: Time: 15:43 Date: 07/03/25 Provider: Destiny Vance DO Physician observation ended at 1543. Patient to be admitted as inpatient to psychiatry. Medications Administered Generic Name Dose Route Start Last Admin Trade Name oBbq PRN Reason Stop Dose Admin Amlodipine Besylate 2.5 mg 07/02/25 09:00 07/05/25 09:09 Amlodipine Besylate 2.5 Mg Tablet PO 2.5 mg DAILY DIANELYS Administration Protocol Aripiprazole 5 mg 07/04/25 21:00 07/04/25 20:52 Aripiprazole 5 Mg Tablet PO 5 mg BEDTIME DIANELYS Administration Ascorbic Acid 500 mg 07/02/25 09:00 07/05/25 09:08 Ascorbic Acid 500 Mg Tablet PO 500 mg BID DIANELYS Administration Aspirin 81 mg 07/02/25 09:00 07/05/25 09:07 Aspirin Enteric Coated 81 Mg Tablet. PO 81 mg DAILY DIANELYS Administration Atorvastatin Calcium 80 mg 07/02/25 21:00 07/04/25 20:53 Atorvastatin Calcium 80 Mg Tablet PO 80 mg BEDTIME DIANELYS Administration Calcium Carbonate/Cholecalciferol 500 mg 07/02/25 09:00 07/05/25 09:07 Calcium + Vitamin D 250 Mg Tablet PO 500 mg BID DIANELYS Administration Docusate Sodium 100 mg 07/01/25 21:45 07/05/25 09:09 Docusate Sodium 100 Mg Capsule PO 100 mg BID DIANELYS Administration Donepezil HCl 5 mg 07/02/25 09:00 07/05/25 09:08 Donepezil Hcl 5 Mg Tablet PO 5 mg DAILY DIANELYS Administration Escitalopram Oxalate 10 mg 07/02/25 09:00 07/05/25 09:08 Escitalopram Oxalate 10 Mg Tablet PO 10 mg DAILY DIANELYS Administration Fluticasone Propionate 1 spray 07/04/25 09:00 07/05/25 09:08 Fluticasone Propionate Nasal 16 Gm [place] NOSTRIL-B 1 spray DAILY DIANELYS Administration Gabapentin 100 mg 07/01/25 21:45 07/04/25 20:53 Gabapentin 100 Mg Capsule PO 100 mg BEDTIME DIANELYS Administration Ketotifen Fumarate 1 drop 07/03/25 21:00 07/05/25 09:09 Ketotifen Fumarate 0.025% Oph 5 Ml Drpbtl EYE-BOTH 1 drop BID DIANELYS Administration Levothyroxine Sodium 75 mcg 07/02/25 06:00 07/05/25 05:41 Levothyroxine Sodium 75 Mcg Tablet PO 75 mcg DAILY@0600 DIANELYS Administration Melatonin 6 mg 07/02/25 21:00 07/04/25 20:53 Melatonin 3 Mg Tablet PO 6 mg BEDTIME DIANELYS Administration Mirtazapine 15 mg 07/01/25 21:45 07/04/25 20:53 Mirtazapine 15 Mg Tablet PO 15 mg BEDTIME DIANELYS Administration Multivitamins/Vitamin C 1 tab 07/02/25 09:00 07/05/25 09:08 Multivitamin Tablet PO 1 tab DAILY DIANELYS Administration Omeprazole 20 mg 07/02/25 06:30 07/05/25 05:41 Omeprazole 20 Mg Capsule.Dr PO 20 mg DAILY@0630 DIANELYS Administration Propranolol HCl 10 mg 07/02/25 09:00 07/05/25 09:08 Propranolol Hcl 10 Mg Tablet PO 10 mg DAILY DIANELYS Administration Protocol Propranolol HCl 20 mg 07/01/25 21:45 07/04/25 20:52 Propranolol Hcl 20 Mg Tablet PO 20 mg BEDTIME DIANELYS Administration Protocol Pyridoxine HCl 100 mg 07/02/25 09:00 07/05/25 09:07 Pyridoxine Hcl (Vitamin B6) 50 Mg Tablet PO 100 mg BID DIANELYS Administration Senna 17.2 mg 07/01/25 21:45 07/04/25 20:52 Sennosides 8.6 Mg Tablet PO 17.2 mg BEDTIME DIANELYS Administration Simethicone 80 mg 07/01/25 21:45 07/05/25 09:09 Simethicone 80 Mg Tab.Chew PO 80 mg BID DIANELYS Administration Vitamin D 25 mcg 07/02/25 09:00 07/05/25 09:09 Cholecalciferol (Vitamin D3) 25 Mcg Tablet PO 25 mcg DAILY DIANELYS Administration Vitamin E 540 mg 07/02/25 09:00 07/05/25 09:07 Vitamin E (Dl,Tocopheryl Acet) 180 Mg (400 Unit) Capsule PO 540 mg DAILY DIANELYS Administration Discontinued Medications Generic Name Dose Route Start Last Admin Trade Name Freq PRN Reason Stop Dose Admin Bupropion HCl 37.5 mg 07/01/25 21:45 07/02/25 10:17 Bupropion Hcl 75 Mg Tablet PO 37.5 mg BID DIANELYS Administration Bupropion HCl 150 mg 07/02/25 09:00 07/05/25 09:07 Bupropion Hcl Xl 150 Mg Tab.Er.24h PO 150 mg DAILY DIANELYS Administration Melatonin 6 mg 07/01/25 21:41 07/01/25 22:52 Melatonin 3 Mg Tablet PO 07/01/25 21:42 6 mg ONCE STA Administration Melatonin 6 mg 07/02/25 02:38 07/02/25 02:43 Melatonin 3 Mg Tablet PO 07/02/25 02:39 6 mg ONCE ONE Administration Olanzapine 5 mg 07/02/25 13:03 07/02/25 19:57 Olanzapine 5 Mg Tablet PO 5 mg Q5H PRN Administration agitation Risperidone 0.5 mg 07/02/25 13:15 07/04/25 08:42 Risperidone 0.5 Mg Tablet PO 0.5 mg BID DIANELYS Administration Medical Decision Making Medical Decision Making [facility] Narrative: 1149 79-year-old female presents with altered mental status, hallucinations and erratic behavior from memory unit. She was seen here a few days medically cleared and discharged back there. She arrives with new bruises. Patient is not a good historian and I am unable to obtain a history or review of systems from this patient. On exam No lower extremity edema.? No calf ttp. 5/5 strength to bilateral upper and lower extremities + right wrist w/ ecchymosis medial and lateral aspect. + right digits 2-5 w/ significant echymosis but full rom. Normal distatl sensation to b/l UE. Full rom to wrist and fingers History and physical exam concerning for dementia versus psychosis versus UTI. Ecchymosis likely due to self-inflicted injuries unlikely fracture, dislocation, neurovascular compromise, threat to limb. Plan labs, imaging, urine, imaging Differential Diagnosis Differential Diagnoses: The differential diagnosis associated with the presentation includes (History and physical exam concerning for dementia versus psychosis versus UTI. Ecchymosis likely due to self-inflicted injuries unlikely fracture, dislocation, neurovascular compromise, threat to limb.) Admission/Observation Consideration of admission/observation: Escalation of care including admission/observation considered (possible ) Lab Data MDM Lab Attestation statement: I reviewed the patient's lab results. 07/01/25 12:43 07/01/25 12:43 Labs: Lab Results 07/01/25 07/01/25 07/02/25 Range/Units 12:43 16:10 13:09 WBC 7.4 (4.8-10.8) X10*3/uL RBC 4.39 (4.20-5.50) X10*6/uL Hgb 13.2 (12.0-16.0) g/dl Hct 40.6 (37.0-47.0) % MCV 92.5 (80.0-98.0) fL MCH 30.1 (27.0-33.0) pg MCHC 32.5 (31.0-35.0) g/dl RDW 13.2 (11.0-16.0) % Plt Count 211 (160-400) X10*3/uL MPV 10.6 (9.4-12.3) fL Immature Gran % (Auto) 0.4 (0.0-0.4) % Neut % (Auto) 64.0 (45-73) % Lymph % (Auto) 24.0 (20-40) % [place] % (Auto) 7.5 (2-11) % Eos % (Auto) 3.6 (0-4) % Baso % (Auto) 0.5 (0-2) % Lymph # (Auto) 1.8 (1.2-4.9) X10*3/uL [place] # (Auto) 0.6 (0.1-1.2) X10*3/uL Eos # (Auto) 0.3 (0.0-0.4) X10*3/uL Baso # (Auto) 0.0 (0.0-0.2) X10*3/uL Abs Immat Gran (auto) 0.03 (0.00-0.03) X10*3/uL Absolute Neuts (auto) 4.8 (2.0-8.3) x10*3/uL Absolute Nucleated RBC 0.000 (0.0-0.012) X10*3/uL Nucleated RBC % (auto) 0.0 (0.0-0.2) /100WBC Sodium 142 (135-145) mmol/L Potassium 4.0 (3.3-5.1) mmol/L Chloride 109 H (96-108) mmol/L Carbon Dioxide 25 (22-29) mmol/L Anion Gap 12 (12-20) BUN 30 H (9-16) mg/dL Creatinine 0.67 (0.5-1.4) mg/dL Estim Creat Clear Calc 71.3 Estimated GFR > 60 Random Glucose 117 H (60-115) mg/dL Calcium 8.9 (8.4-10.2) mg/dL Magnesium 1.9 (1.6-2.6) mg/dL Total Bilirubin 0.5 (0.0-1.0) mg/dL AST 36 H (5-31) U/L ALT 33 H (0-31) U/L Alkaline Phosphatase 73 (39-117) U/L Total Protein 7.1 (6.5-8.0) g/dL Albumin 3.9 (3.5-5.0) g/dL Triglycerides 144 (<150) mg/dL Cholesterol 162 (<200) mg/dL LDL Cholesterol, Calc 84 (<100) mg/dL HDL Cholesterol 50 (>40) mg/dL TSH 2.90 (0.32-4.0) uIU/mL Urine Color Yellow Urine Appearance Clear Urine pH 5.5 (5.0-9.0) Ur Specific [place] 1.025 (1.005-1.025) Urine Protein Negative (Neg-Trace) mg/dL Urine Glucose (UA) Negative (Negative) mg/dL Urine Ketones 15 (Negative) mg/dL Urine Blood Negative (Negative) Urine Nitrite Negative (Negative) Ur Leukocyte Esterase Small (1+) H (Negative) Urine RBC 0-2 (0-2) /HPF Urine WBC 6-10 H (0-5) /HPF Ur Squamous Epith Cells 0-2 (0-2) /HPF Urine Bacteria None Seen (None Seen) Hyaline Casts 0-2 (0-2) /LPF TETE Screen NEGATIVE (NEGATIVE) TETE Titer TNP TETE Titer 2 TNP TETE Titer 3 TNP TETE Pattern TNP TETE Pattern 2 TNP TETE Pattern 3 TNP Independent Interpretation I performed an independent interpretation of an: Plain X-Ray (negative hand and wrist ) Radiology Impression Discussion of test interpretation with radiology: I have reviewed the radiologist's reading. Independent Historian Clinical information obtained from an independent historian. History obtained from or confirmed by: EMS External Record Review External record reviewed: Inpatient record, Office record, Outpatient record, Prior outpatient labs, Prior outpatient radiology, Primary care record and Outside ED record Chronic Conditions Patient?s care impacted by: Other (dementia ) Critical Care Time Critical Care Time Critical Care Time: No Discharge Plan Discharge Clinical Impression: Dementia, Hallucinations, Psychosis Patient Disposition: Admitted As Inpatient Interventions: Admission Worksheet (ED) Last Done: 07/03/25 15:43 Discharge Date/Time: 07/03/25 15:46
--- NOTE | 2025-07-01 12:20 | PC.NURSE ---
Patient alert and responsive. Has bruising to bilateral hands- patients unable to recall how bruising occurred. She denies pain or discomfort, states she woke up this morning and next thing she recalls she was on her way to the hospital
--- OUTSIDE RECORDS SUMMARY | 2025-07-01 12:24 | XMS_ITS | Encounter Summary ---
Author Organization [facility] Address [address] [place] [address] Care Team Providers Care Traffic Control Technician Name Role Phone Physician, No Pcp Primary Care Provider Unavaila ble Encounter Details Date Type Department Care Team (Late st Contact Info) Description 05/15/2025 Lab Requisition [facility] - Main Lab [address] [facility] [place] [address] Calin Lobo FNP [address] [place] [id number] Hyperlipidemia, unspecified; Disorientation, unspecified; Weakness; Vitamin D [...] LAB CHEMISTRY METHOD 05/16/2025 11:24 AM EDT [facility] Blood Venous blood specimen / Unknown Venipuncture / Unknown 05/16/2025 6:17 AM EDT 05/16/2025 8:18 AM EDT Calin Lobo [employer] LAB BLOOD ORDERABLES Final Res ult Performing Organization Address [facility]/ZIP Co de Phone Number [facility] [address] [place] [address], [place] [phone] * Folate (05/16/2025 6:17 AM EDT) Pathologist [facility] Folate 5.6 2.8 - 17.0 ng/ml LAB CHEMISTRY METHOD 05/16/2025 9:40 AM EDT [facility] Blood Venous blood specimen / Unknown Venipuncture / Unknown 05/16/2025 6:17 AM EDT 05/16/2025 8:18 AM EDT us Calin Lobo [facility] LAB BLOOD ORDERABLES Final Res ult Performing Organization Address [facility] Co de Phone Number [facility] [address] [place] [address], [place] [phone] * Vitamin B12 (05/16/2025 6:17 AM EDT) [facility] Vitamin B-12 430 250 - 900 pcg/mL LAB CHEMISTRY METHOD 05/16/2025 9:40 AM EDT [facility] Blood Venous blood specimen / Unknown Venipuncture / Unknown 05/16/2025 6:17 AM EDT 05/16/2025 8:18 AM EDT Calin Lobo [facility] LAB BLOOD ORDERABLES Final Res ult Performing Organization Address [facility]/ZIP Co de Phone Number [facility] [address] [place] [address], [place] [phone] * Lipid panel with reflex to direct LDL (05/16/2025 6:17 AM EDT) [facility] Cholesterol 145 0 - 200 mg/dL LAB CHEMISTRY METHOD 05/16/2025 9:18 AM EDT [facility] Triglycerides 75 0 - 150 mg/dL LAB CHEMISTRY METHOD 05/16/2025 9:18 AM EDT [facility] HDL 54 >=40 mg/dL LAB CHEMISTRY METHOD 05/16/2025 9:18 AM EDT [facility] LDL Calculated 76 0 - 100 mg/dL LAB CHEMISTRY METHOD 05/16/2025 9:18 AM EDT [facility] VLDL Cholesterol Fredy 15 mg/dL LAB CHEMISTRY METHOD 05/16/2025 9:18 AM EDT [facility] Non HDL Chol. (LDL+VLDL) 91 <145 mg/dL LAB CHEMISTRY METHOD 05/16/2025 9:18 AM EDT [facility] Chol/HDL Ratio 2.7 0.0 - 4.4 LAB CHEMISTRY METHOD 05/16/2025 9:18 AM EDT [facility] Blood Venous blood specimen / Unknown Venipuncture / Unknown 05/16/2025 6:17 AM EDT 05/16/2025 8:18 AM EDT Calin SAPP LAB BLOOD ORDERABLES Final Res ult [facility] [address] [place] [address], documented in this encounter Visit Diagnoses Diagnosis Hyperlipidemia, unspecified Disorientation, unspecified Weakness Other malaise and fatigue Vitamin D deficiency, unspecified documented in this encounter Care Teams Traffic Control Technician Relationship Specialty Start Date End Date Physician, No Pcp PCP - General 10/21/24 documented as of this encounter
[2025-07-01 12:48] LABS: MANUAL DIFF FLAG NO
[2025-07-01 12:57] LABS: Hematocrit 40.6 % (37.0-47.0); Hemoglobin 13.2 g/dl (12.0-16.0); Imm Gran Abs Auto 0.03 X10*3/uL (0.00-0.03); Imm Gran Pct Auto 0.4 % (0.0-0.4); Lymphocytes Absolute Auto 1.8 X10*3/uL (1.2-4.9); Mean Corpuscular HGB Conc 32.5 g/dl (31.0-35.0); Mean Corpuscular Hemoglobin 30.1 pg (27.0-33.0); Mean Corpuscular Volume 92.5 fL (80.0-98.0); NRBC Abs Auto 0.000 X10*3/uL (0.0-0.012); NRBC Pct Auto 0.0 /100WBC (0.0-0.2); Platelet Count 211 X10*3/uL (160-400); Red Blood Count 4.39 X10*6/uL (4.20-5.50); White Blood Count 7.4 X10*3/uL (4.8-10.8)
[2025-07-01 13:03] LABS: Alanine Aminotransferase 33 U/L (0-31); Albumin Level 3.9 g/dL (3.5-5.0); Alkaline Phosphatase 73 U/L (39-117); Anion Gap 12 (12-20); Aspartate Amino Transferase 36 U/L (5-31); Blood Urea Nitrogen 30 mg/dL (9-16); Calcium 8.9 mg/dL (8.4-10.2); Carbon Dioxide 25 mmol/L (22-29); Chloride 109 mmol/L (96-108); Creatinine Clr Calc Pharmacy 71.3; Estimated Glomerular Filt Rate > 60; Magnesium 1.9 mg/dL (1.6-2.6); Potassium 4.0 mmol/L (3.3-5.1); Sodium 142 mmol/L (135-145); Total Protein 7.1 g/dL (6.5-8.0)
[2025-07-01 16:20] LABS: Appearance Urine Clear; Glucose Urine UA Negative (Negative); PH 5.5 (5.0-9.0); Specific Gravity - Urine 1.025 (1.005-1.025); UMIC TRIGGER UACC YES
[2025-07-01 16:34] LABS: UACC Culture Trigger YES
--- NOTE | 2025-07-01 17:04 | PC.NURSE ---
Ambulates to bathroom with assistance, diet order entered, denies pain or discomfort
--- NOTE | 2025-07-01 21:26 | PC.NURSE ---
Med req completed.
[2025-07-02] VITALS (8 sets, daily range): BP systolic 137–174; BP diastolic 64–82; PULSE 51–73; RESP 16–18; TEMP 36.5–36.9; O2SAT 93–96
--- NOTE | 2025-07-02 07:22 | PC.NURSE ---
Patient had liquid stool this am.
[2025-07-02] MEDS: Aspirin Enteric Coated 81 MG TABLET.DR PO (09:02)
[2025-07-02] MEDS: Vitamin E (Dl,Tocopheryl Acet) 180 MG (400 UNIT) CAPSULE 540 MG PO (09:02)
[2025-07-02] MEDS: Calcium + Vitamin D 250 MG TABLET 500 MG PO ×2 (09:02→19:57)
[2025-07-02] MEDS: buPROPion HCl XL 150 MG TAB.ER.24H PO (09:03)
--- NOTE | 2025-07-02 10:33 | PC.NURSE ---
Patient moved to overflow bed 2. Patient calm and cooperative, denies auditory/visual hallucinations at this time. Healed bruising noted on wrists and forehead. Denies pain and SOB. Call scott in reach. Patient awaiting psych consult.
--- NOTE | 2025-07-02 12:02 | PC.NURSE ---
Patient heard talking to herself. Asked patient who she was talking to, patient responded im talking to angels telling them im trying to help people Pt neeraj SI HI no visual hallucinations. Bed alarm on
--- NOTE | 2025-07-02 13:43 | PC.NURSE ---
Patient made multiple attempts to get out of bed unassisted, Patient stated I want to get on the floor and pray to god Patient easily redirected back to bed. Bed alarm activated and tab alarm secured to patients left upper shoulder.
[2025-07-02 13:45] LABS: Cholesterol 162 mg/dL (<200); HDL Cholesterol 50 mg/dL (>40); Triglycerides 144 mg/dL (<150)
--- NOTE | 2025-07-02 16:19 | PHA.MEDREC ---
Pharmacy Consult ? Medication Reconciliation Pharmacy has completed the medication reconciliation. Med rec completed by speaking to RN at [facility]
--- NOTE | 2025-07-03 04:55 | PC.NURSE ---
Patient very confused and self dialoguing. Cooperative with care and ambulated to br to void although high falls risk and unsteady on her feet. One assist with walker oob. Lip smacking or making chewing sounds with nothing in her mouth. Very poor dentation. No issues swallowing. Eyes reddened. Impulsive and attempting to get oob twice. Bed alarm and all safety measures in place. Patient slept throughout the night.
[2025-07-03 06:00] VITALS: BP 148/75; PULSE 67; RESP 18; TEMP 36.6; O2SAT 95
--- NOTE | 2025-07-03 07:36 | PC.NURSE ---
Patient is a 79 yo sent from her memory care unit for psychiatric evaluation.?She was recently evaluated for the same complaint of gross psychosis with agitation and behavioral disturbances. Patient was evaluated by the CARE team clinician. The patient was seen here yesterday for new onset of voodoo delusions, evaluated by care team and and our psychiatrist, Dr. Bass. The psychiatrist felt that the patient can be discharged back to her her care facility since she was in a locked memory unit and could get outpatient treatment for her delusions. According to the care team clinician, the patient was banging her head on the floor and was getting commands from God to hit herself. She apparently was jumping in stopping as well and was not able to be redirected by her memory unit staff therefore she was sent back to the emergency department. Given these findings, patient was placed on a Section 12 and needs to be considered for possible [facility]-psychiatric admission. Patient alert to name. Impulsive and noted to pick at her skin. Large bruises noted to bilat forehead and left hand. Respirations even and non-labored. Abdomen soft, non-tender with positive bowel sounds. Positive pedal pulses with no edema.
[2025-07-03] MEDS: Aspirin Enteric Coated 81 MG TABLET.DR PO (08:23)
[2025-07-03] MEDS: Calcium + Vitamin D 250 MG TABLET 500 MG PO ×2 (08:24→21:04)
[2025-07-03] MEDS: buPROPion HCl XL 150 MG TAB.ER.24H PO (08:24)
[2025-07-03] MEDS: Vitamin E (Dl,Tocopheryl Acet) 180 MG (400 UNIT) CAPSULE 540 MG PO (10:14)
[2025-07-03 14:00] VITALS: BP 140/64; PULSE 71; RESP 16; TEMP 36.6; O2SAT 95
--- NOTE | 2025-07-03 16:05 | PM.EVENT ---
Event Note Date of Service: 07/03/25 Event Note: records reviewed pt seen sec 12 b completed . Pt refused to sign Time Spent With Patient Time: Total time managing care of this patient today ____ minutes.
[2025-07-03 17:45] VITALS: BP 127/62; PULSE 65; RESP 18; TEMP 36.3; O2SAT 94
--- NOTE | 2025-07-03 18:13 | PC.NURSE ---
Farrah is a 79 year-old female, presented by sonia from [facility] memory unit. Pt with increased auditory hallucinations. Pt was banging her head on the floor, jumping/stomping. Has diagnosis of Dementia, unspecified psychosis, delusional D/o, and MDD. Upon arrival to the unit patient is alert, oriented to self only. VSS, wt 75.8 KG, Ht 5feet 3 inches. Skin check completed; bruising on entire forehead noted, left two fingers and right wrist. Denies pain or discomfort. Otherwise skin wnl. During assessment process patient with memory and cognitive impairments, tangential. Hearing voices, mostly angels talking to her/friendly voices. Pt believes she lives in an apartment in [facility]. Speech is clear. Patricia Noland is her legal guardian. Patient ambulates independently, no device. Legal status 12B.
[2025-07-03 19:29] VITALS: BMI 28.7
[2025-07-03 19:56] VITALS: BP 159/71; PULSE 60; RESP 16; TEMP 36.8; O2SAT 92
[2025-07-03 21:08] VITALS: BP 159/71; PULSE 60
[2025-07-03] MEDS: Ketotifen Fumarate 0.025% Oph 5 ML DRPBTL 1 DROP EYE-BOTH (21:08)
[2025-07-04 08:00] VITALS: BP 129/64; PULSE 58; RESP 16; TEMP 36.3; O2SAT 95
[2025-07-04] MEDS: Vitamin E (Dl,Tocopheryl Acet) 180 MG (400 UNIT) CAPSULE 540 MG PO (08:40)
[2025-07-04] MEDS: buPROPion HCl XL 150 MG TAB.ER.24H PO (08:40)
[2025-07-04 08:41] VITALS: BP 129/64
[2025-07-04 08:42] VITALS: BP 129/64
[2025-07-04] MEDS: Calcium + Vitamin D 250 MG TABLET 500 MG PO ×2 (08:42→20:52)
[2025-07-04] MEDS: Ketotifen Fumarate 0.025% Oph 5 ML DRPBTL 1 DROP EYE-BOTH ×2 (08:43→20:57)
[2025-07-04] MEDS: Aspirin Enteric Coated 81 MG TABLET.DR PO (08:47)
--- NOTE | 2025-07-04 09:07 | HO.PSYADMNOT ---
HPI Date of Service: 07/04/25 Chief Complaint: psychosis HPI Narrative: per CARE team claus, pt [facility] from [facility] memory care unit due to exacerbation of AH and self-harming behaviors (head-banging). reported h/o dementia, psychosis, depression. she was described as being not oriented to person, place, or time upon evaluation. she reported CAH of god telling me to hit myself. pt was recently tapered off of abilify for unclear reasons. presentation was described as off-baseline by legal guardian. on interview with MD, pt was quite sedated, very difficult to rouse. she was able to answer only a few questions briefly. history taken from chart and MIKAYLA Thao. Past Psychiatric History: Full information not available at this time. Remote history of being on a Yo's order. Medical Evaluation Reviewed: Yes PMF Narrative: HTN HLD hypothyroid Family History: Unavailable Social History: Lives on a memory unit since 2016. 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 Never . No children. Reports having a good childhood. Substance History: pt reports h/o alcohol use. denies recent use. no other substance use Hx available. Trauma History: Unknown Diagnostics Vital Signs (24Hr): Vital Signs - 24 hr 07/03/25 14:00 07/03/25 17:45 07/03/25 19:56 Temperature 98 F 97.3 F 98.2 F Pulse Rate 71 65 60 Respiratory Rate 16 18 16 Blood Pressure 140/64 H 127/62 159/71 H Pulse Oximetry 95 94 92 Oxygen Delivery Method Room Air Room Air Room Air 07/03/25 21:08 07/04/25 08:41 07/04/25 08:42 Temperature Pulse Rate 60 Respiratory Rate Blood Pressure 159/71 H 129/64 129/64 Pulse Oximetry Oxygen Delivery Method BMI result Body Mass Index 28.7 Labs 07/01/25 12:43 07/01/25 12:43 Labs: Laboratory Results - last 48 hr 07/02/25 13:09 Triglycerides 144 Cholesterol 162 LDL Cholesterol, Calc 84 HDL Cholesterol 50 TSH 2.90 Meds/Allergies Meds Home Medications ?Medication ?Instructions ?Recorded ?Confirmed ?Type acetaminophen 325 mg tablet 650 mg PO Q6H PRN Pain (Scale 06/30/25 07/01/25 History Score 1-3) amlodipine 2.5 mg tablet 2.5 mg PO DAILY 06/30/25 07/01/25 History ascorbic acid (vitamin C) 500 mg 500 mg PO BID 06/30/25 07/01/25 History tablet aspirin 81 mg tablet,delayed 81 mg PO DAILY 06/30/25 07/01/25 History release atorvastatin 80 mg tablet 80 mg PO BEDTIME 06/30/25 07/01/25 History bupropion HCl 75 mg tablet 37.5 mg PO BID 06/30/25 07/01/25 History calcium 600 mg (as 1 tab PO BID 06/30/25 07/01/25 History carbonate)-vitamin D3 10 mcg (400 unit) tablet (Calcium 600 + D(3)) cholecalciferol (vitamin D3) 25 25 mcg PO DAILY 06/30/25 07/01/25 History mcg (1,000 unit) tablet (Vitamin D3) dextromethorphan HBr 15 mg capsule 30 mg PO Q6H PRN Cough 06/30/25 07/01/25 History docusate sodium 100 mg capsule 100 mg PO BID 06/30/25 07/01/25 History donepezil 5 mg tablet 5 mg PO DAILY 06/30/25 07/01/25 History gabapentin 100 mg capsule 100 mg PO BEDTIME 06/30/25 07/01/25 History levothyroxine 75 mcg tablet 75 mcg PO DAILY@59906/30/25 07/01/25 History melatonin 5 mg tablet 5 mg PO BEDTIME 06/30/25 07/01/25 History multivitamin 1 tab PO DAILY 06/30/25 07/01/25 History omeprazole 20 mg capsule,delayed 20 mg PO DAILY@0606/30/25 07/01/25 History release risedronate 35 mg tablet 35 mg PO THOMAS@0606/30/25 07/01/25 History sennosides 8.6 mg tablet (senna) 17.2 mg PO BEDTIME 06/30/25 07/01/25 History simethicone 80 mg chewable tablet 80 mg PO BID 06/30/25 07/01/25 History vitamin E (dl, acetate) 180 mg 540 mg PO DAILY 06/30/25 07/01/25 History (400 unit) capsule escitalopram oxalate 10 mg tablet 10 mg PO DAILY 07/01/25 07/01/25 History acetylcysteine 600 mg capsule 600 mg PO BID 07/02/25 07/02/25 History aripiprazole 5 mg tablet 5 mg PO DAILY 07/02/25 07/02/25 History bismuth subsalicylate 262 mg 2 tab PO Q6H PRN Diarrhea 07/02/25 07/02/25 History chewable tablet (Pepto-Bismol) fluticasone propionate 50 1 spray intranasal DAILY 07/02/25 07/02/25 History mcg/actuation nasal spray,suspension mupirocin 2 % topical ointment 1 appl topical BID 07/02/25 07/02/25 History olopatadine 0.2 % eye drops 1 drp ophthalmic (eye) DAILY 07/02/25 07/02/25 History (Pataday Once Daily Relief) ondansetron 4 mg disintegrating 4 mg PO Q8H PRN Nausea And Vomiting 07/02/25 07/02/25 History tablet trazodone 50 mg tablet 50 mg PO BEDTIME 07/02/25 07/02/25 History triamcinolone acetonide 0.025 % 1 appl topical BID 07/02/25 07/02/25 History topical cream Allergies Allergies Allergy/AdvReac Type Severity Reaction Status Date / Time Unable to Assess Allergy Verified 07/01/25 11:55 Mental Status Exam Mental Status Exam Narrative: in bed sleeping, difficult to rouse, falling back asleep within seconds. able to say her mood is fine, denies SI/SIBI/HI. does not answer re AVH. hospital garb, soft mumbled speech. linear in brief interaction. Assessment & Plan Assessment & Plan (1) Dementia: Status: Acute Qualifiers: Dementia type: unspecified type Code(s): F03.90 - Unspecified dementia, unspecified severity, without behavioral disturbance, psychotic disturbance, mood disturbance, and anxiety (2) Psychosis: Status: Acute Qualifiers: Psychosis type: unspecified psychosis type Qualified Code(s): F29 - Unspecified psychosis not due to a substance or known physiological condition Code(s): F29 - Unspecified psychosis not due to a substance or known physiological condition Plan psychotic disorder, anti-psychotic recently stopped for unclear reasons. yo's order reviewed (abilify to 5 mg daily, seroquel to 50 mg daily are on the order). restart abilify 5 mg at HS. seroquel 25 BID PRN agitation. 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 Patient educated on: medication risk/benefits Reason for continued inpatient stay Substantial Risk for: harm to self, harm to others and inability to function Statement Statement: I have reviewed the history and physical and performed a pertinent examination on my patient. No changes have occurred unless specified. If the History and Physical was not performed prior to admission, the Hospitalist's service will be consulted for completing the admission physical. Time Spent With Patient Time: Total time managing care of this patient today _55___ minutes.
[2025-07-04 09:49] LABS: Anti Nuclear Antibody Screen NEGATIVE (NEGATIVE)
[2025-07-04 20:00] VITALS: BP 98/58; PULSE 76; RESP 18; TEMP 36.5; O2SAT 95
[2025-07-05 09:05] VITALS: BP 160/67; PULSE 50; RESP 18; TEMP 36.5; O2SAT 95
[2025-07-05] MEDS: Vitamin E (Dl,Tocopheryl Acet) 180 MG (400 UNIT) CAPSULE 540 MG PO (09:07)
[2025-07-05] MEDS: Calcium + Vitamin D 250 MG TABLET 500 MG PO ×2 (09:07→20:18)
[2025-07-05] MEDS: buPROPion HCl XL 150 MG TAB.ER.24H PO (09:07)
[2025-07-05] MEDS: Aspirin Enteric Coated 81 MG TABLET.DR PO (09:07)
[2025-07-05] MEDS: Ketotifen Fumarate 0.025% Oph 5 ML DRPBTL 1 DROP EYE-BOTH ×2 (09:09→20:21)
--- NOTE | 2025-07-05 11:54 | HO.PSYCHPN ---
Subjective Subjective Date of Service: 07/05/25 Reason For Visit: psychosis Interim History: awake, alert today. pleasant, cooperative. reports her mood is good. states she is eating and sleeping well. denies any pain. per staff, refusing PRNs. hot her head against the wall intentionally. citing CAH to bang head. eating well. sleepy much of the day. slept 8 hours overnight. taking scheduled meds. Mental Status Exam Mental Status Exam Narrative: adequately dressed and groomed, hospital attire. cooperative, no PMA/PMR. speech nml rate, decr amount, nml loudness, nml latency. thoughts linear and logical. affect flexible, normo-intense, non-labile. mood good. no SI/SIBI/HI/AVH expressed. Diagnostics Vital Signs (24Hr): Vital Signs - 24 hr 07/04/25 20:00 07/05/25 09:05 Temperature 97.7 F 97.7 F Pulse Rate 76 50 Respiratory Rate 18 18 Blood Pressure 98/58 L 160/67 H Pulse Oximetry 95 95 Oxygen Delivery Method Room Air Room Air BMI result Body Mass Index 28.7 Labs 07/01/25 12:43 07/01/25 12:43 Labs: Laboratory Results - last 48 hr 07/02/25 13:09 TEET Screen NEGATIVE TETE Titer TNP TETE Titer 2 TNP TETE Titer 3 TNP TETE Pattern TNP TETE Pattern 2 TNP TETE Pattern 3 TNP Imaging Radiology Impressions: ITS Impressions Head CT 07/04/25 16:13 IMPRESSION: 1. No acute intracranial findings. 2. Interval decrease in the right frontal scalp hematoma. Electronically signed by: Durga Benavides MD 07/04/2025 06:14 PM EDT Medications Medications Current Medications Acetaminophen (Acetaminophen 325 Mg Tablet) 650 mg PO Q6H PRN PRN Reason: Pain (Scale Score 1-3) Acetaminophen (Acetaminophen 325 Mg Tablet) 650 mg PO Q6H PRN PRN Reason: Headache/Pain, Scale 1-10 Al Hydroxide/Mg Hydroxide (Magnesium Hydrox/Alum Hydrox 30 Ml Oral.Susp) 30 ml PO Q6H PRN PRN Reason: Heartburn/Nausea Amlodipine Besylate (Amlodipine Besylate 2.5 Mg Tablet) 2.5 mg PO DAILY DIANELYS; Protocol Last Admin: 07/05/25 09:09 Dose: 2.5 mg Aripiprazole (Aripiprazole 5 Mg Tablet) 5 mg PO BEDTIME [facility] Last Admin: 07/04/25 20:52 Dose: 5 mg Ascorbic Acid (Ascorbic Acid 500 Mg Tablet) 500 mg PO BID [facility] Last Admin: 07/05/25 09:08 Dose: 500 mg Aspirin (Aspirin Enteric Coated 81 Mg Tablet.Dr) 81 mg PO DAILY [facility] Last Admin: 07/05/25 09:07 Dose: 81 mg Atorvastatin Calcium (Atorvastatin Calcium 80 Mg Tablet) 80 mg PO BEDTIME [facility] Last Admin: 07/04/25 20:53 Dose: 80 mg Bupropion HCl (Bupropion Hcl Xl 150 Mg Tab.Er.24h) 150 mg PO DAILY [facility] Last Admin: 07/05/25 09:07 Dose: 150 mg Calcium Carbonate/Cholecalciferol (Calcium + Vitamin D 250 Mg Tablet) 500 mg PO BID [facility] Last Admin: 07/05/25 09:07 Dose: 500 mg Docusate Sodium (Docusate Sodium 100 Mg Capsule) 100 mg PO BID [facility] Last Admin: 07/05/25 09:09 Dose: 100 mg Donepezil HCl (Donepezil Hcl 5 Mg Tablet) 5 mg PO DAILY [facility] Last Admin: 07/05/25 09:08 Dose: 5 mg Escitalopram Oxalate (Escitalopram Oxalate 10 Mg Tablet) 10 mg PO DAILY [facility] Last Admin: 07/05/25 09:08 Dose: 10 mg Fluticasone Propionate (Fluticasone Propionate Nasal 16 Gm [place]) 1 spray NOSTRIL-B DAILY [facility] Last Admin: 07/05/25 09:08 Dose: 1 spray Gabapentin (Gabapentin 100 Mg Capsule) 100 mg PO BEDTIME [facility] Last Admin: 07/04/25 20:53 Dose: 100 mg Hydroxyzine HCl (Hydroxyzine Hcl 25 Mg Tablet) 25 mg PO Q6H PRN PRN Reason: mild anxiety Ketotifen Fumarate (Ketotifen Fumarate 0.025% Oph 5 Ml Drpbtl) 1 drop EYE-BOTH BID [facility] Last Admin: 07/05/25 09:09 Dose: 1 drop Levothyroxine Sodium (Levothyroxine Sodium 75 Mcg Tablet) 75 mcg PO DAILY@0600 [facility] Last Admin: 07/05/25 05:41 Dose: 75 mcg Magnesium Hydroxide (Milk Of Magnesia 30 Ml Oral.Susp) 30 ml PO DAILY PRN PRN Reason: Constipation Melatonin (Melatonin 3 Mg Tablet) 6 mg PO BEDTIME [facility] Last Admin: 07/04/25 20:53 Dose: 6 mg Mirtazapine (Mirtazapine 15 Mg Tablet) 15 mg PO BEDTIME [facility] Last Admin: 07/04/25 20:53 Dose: 15 mg Multivitamins/Vitamin C (Multivitamin Tablet) 1 tab PO DAILY [facility] Last Admin: 07/05/25 09:08 Dose: 1 tab Omeprazole (Omeprazole 20 Mg Capsule.Dr) 20 mg PO DAILY@0630 [facility] Last Admin: 07/05/25 05:41 Dose: 20 mg Propranolol HCl (Propranolol Hcl 10 Mg Tablet) 10 mg PO DAILY [facility]; Protocol Last Admin: 07/05/25 09:08 Dose: 10 mg Propranolol HCl (Propranolol Hcl 20 Mg Tablet) 20 mg PO BEDTIME [facility]; Protocol Last Admin: 07/04/25 20:52 Dose: 20 mg Pyridoxine HCl (Pyridoxine Hcl (Vitamin B6) 50 Mg Tablet) 100 mg PO BID [facility] Last Admin: 07/05/25 09:07 Dose: 100 mg Quetiapine Fumarate (Quetiapine Fumarate 25 Mg Tablet) 25 mg PO BID PRN PRN Reason: agitation Senna (Sennosides 8.6 Mg Tablet) 17.2 mg PO BEDTIME [facility] Last Admin: 07/04/25 20:52 Dose: 17.2 mg Simethicone (Simethicone 80 Mg Tab.Chew) 80 mg PO BID [facility] Last Admin: 07/05/25 09:09 Dose: 80 mg Vitamin D (Cholecalciferol (Vitamin D3) 25 Mcg Tablet) 25 mcg PO DAILY [facility] Last Admin: 07/05/25 09:09 Dose: 25 mcg Vitamin E (Vitamin E (Dl,Tocopheryl Acet) 180 Mg (400 Unit) Capsule) 540 mg PO DAILY [facility] Last Admin: 07/05/25 09:07 Dose: 540 mg Allergies Allergies Allergy/AdvReac Type Severity Reaction Status Date / Time Unable to Assess Allergy Verified 07/01/25 11:55 Assessment & Plan Assessment & Plan (1) Dementia: Qualifiers: Dementia type: unspecified type Status: Acute Code(s): F03.90 - Unspecified dementia, unspecified severity, without behavioral disturbance, psychotic disturbance, mood disturbance, and anxiety (2) Psychosis: Qualifiers: Psychosis type: unspecified psychosis type Qualified Code(s): F29 - Unspecified psychosis not due to a substance or known physiological condition Status: Acute Code(s): F29 - Unspecified psychosis not due to a substance or known physiological condition Plan psychotic disorder, anti-psychotic recently stopped for unclear reasons. mina's order reviewed (abilify to 5 mg daily, seroquel to 50 mg daily are on the order). 07/04: restart abilify 5 mg at HS. seroquel 25 BID PRN agitation. 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 07/05: DC wellbutrin as it may increase anxiety and restlessness, increasing agitation. awake and alert today. no aggressive behaviors. continue current mgmt. Reason for continued inpatient stay Substantial Risk for: harm to others and inability to function Time Spent With Patient Time: Total time managing care of this patient today __25__ minutes.
[2025-07-05 20:00] VITALS: BP 117/58; PULSE 65; RESP 18; TEMP 36.4; O2SAT 93
[2025-07-05 20:19] VITALS: BP 117/58; PULSE 65
[2025-07-06 08:00] VITALS: BP 144/67; PULSE 61; RESP 16; TEMP 36.1; O2SAT 94
[2025-07-06] MEDS: Calcium + Vitamin D 250 MG TABLET 500 MG PO ×2 (08:25→20:36)
[2025-07-06] MEDS: Vitamin E (Dl,Tocopheryl Acet) 180 MG (400 UNIT) CAPSULE 540 MG PO (08:25)
[2025-07-06 08:26] VITALS: BP 144/67
[2025-07-06] MEDS: Aspirin Enteric Coated 81 MG TABLET.DR PO (08:26)
[2025-07-06] MEDS: Ketotifen Fumarate 0.025% Oph 5 ML DRPBTL 1 DROP EYE-BOTH (08:27)
[2025-07-06 08:31] VITALS: BP 144/67
--- NOTE | 2025-07-06 11:20 | P.PNPSI_ITS ---
Subjective Subjective Date of Service: 07/06/25 Reason For Visit: psychosis Interim History: in bed resting, rousable. bruises over forehead. pleasant, cooperative. reports some PEREZ as well as hand pain. some bruising on left hand, but hands with full ROM and use. pt states it is mild pain, willing to take tylenol. informed we will be continuing abilify to improve voices. pt acknowledges the effort on her behalf, thank susy SONI. does not recall head-banging episodes of last night. per staff, cheerful and relaxed. eating well. CAH not present yesterday days. taking meds. head-banging briefly at dinnertime and once more later in the evening, said voice of god was telling her to do it. slept well overnight. Mental Status Exam Mental Status Exam Narrative: adequately dressed and groomed, hospital attire. cooperative, no PMA/PMR. speech nml rate, decr amount, nml loudness, nml latency. thoughts linear and logical. affect flexible, normo-intense, non-labile. mood OK. no SI/SIBI/HI/AVH expressed. Diagnostics Vital Signs (24Hr): Vital Signs - 24 hr 07/05/25 20:00 07/05/25 20:19 07/06/25 08:00 Temperature 97.5 F 97 F Pulse Rate 65 65 61 Respiratory Rate 18 16 Blood Pressure 117/58 L 117/58 L 144/67 H Pulse Oximetry 93 94 Oxygen Delivery Method Room Air Room Air 07/06/25 08:26 07/06/25 08:31 Temperature Pulse Rate Respiratory Rate Blood Pressure 144/67 H 144/67 H Pulse Oximetry Oxygen Delivery Method BMI result Body Mass Index 28.7 Labs 07/01/25 12:43 07/01/25 12:43 Labs: Laboratory Results - last 48 hr 07/02/25 13:09 TETE Titer TNP TETE Titer 2 TNP TETE Titer 3 TNP TETE Pattern TNP TETE Pattern 2 TNP TETE Pattern 3 TNP Imaging Radiology Impressions: ITS Impressions Head CT 07/04/25 16:13 IMPRESSION: 1. No acute intracranial findings. 2. Interval decrease in the right frontal scalp hematoma. Electronically signed by: Durga Benavides MD 07/04/2025 06:14 PM EDT Medications Medications Current Medications Acetaminophen (Acetaminophen 325 Mg Tablet) 650 mg PO Q6H PRN PRN Reason: Pain (Scale Score 1-3) Acetaminophen (Acetaminophen 325 Mg Tablet) 650 mg PO Q6H PRN PRN Reason: Headache/Pain, Scale 1-10 Al Hydroxide/Mg Hydroxide (Magnesium Hydrox/Alum Hydrox 30 Ml Oral.Susp) 30 ml PO Q6H PRN PRN Reason: Heartburn/Nausea Amlodipine Besylate (Amlodipine Besylate 2.5 Mg Tablet) 2.5 mg PO DAILY [facility]; Protocol Last Admin: 07/06/25 08:26 Dose: 2.5 mg Aripiprazole (Aripiprazole 5 Mg Tablet) 5 mg PO BEDTIME [facility] Last Admin: 07/05/25 20:20 Dose: 5 mg Ascorbic Acid (Ascorbic Acid 500 Mg Tablet) 500 mg PO BID [facility] Last Admin: 07/06/25 08:26 Dose: 500 mg Aspirin (Aspirin Enteric Coated 81 Mg Tablet.Dr) 81 mg PO DAILY [facility] Last Admin: 07/06/25 08:26 Dose: 81 mg Atorvastatin Calcium (Atorvastatin Calcium 80 Mg Tablet) 80 mg PO BEDTIME [facility] Last Admin: 07/05/25 20:18 Dose: 80 mg Calcium Carbonate/Cholecalciferol (Calcium + Vitamin D 250 Mg Tablet) 500 mg PO BID [facility] Last Admin: 07/06/25 08:25 Dose: 500 mg Docusate Sodium (Docusate Sodium 100 Mg Capsule) 100 mg PO BID [facility] Last Admin: 07/06/25 08:26 Dose: 100 mg Donepezil HCl (Donepezil Hcl 5 Mg Tablet) 5 mg PO DAILY [facility] Last Admin: 07/06/25 08:24 Dose: 5 mg Escitalopram Oxalate (Escitalopram Oxalate 10 Mg Tablet) 10 mg PO DAILY [facility] Last Admin: 07/06/25 08:26 Dose: 10 mg Fluticasone Propionate (Fluticasone Propionate Nasal 16 Gm [place]) 1 spray NOSTRIL-B DAILY [facility] Last Admin: 07/06/25 08:27 Dose: 1 spray Gabapentin (Gabapentin 100 Mg Capsule) 100 mg PO BEDTIME [facility] Last Admin: 07/05/25 20:20 Dose: 100 mg Hydroxyzine HCl (Hydroxyzine Hcl 25 Mg Tablet) 25 mg PO Q6H PRN PRN Reason: mild anxiety Ketotifen Fumarate (Ketotifen Fumarate 0.025% Oph 5 Ml Drpbtl) 1 drop EYE-BOTH BID [facility] Last Admin: 07/06/25 08:27 Dose: 1 drop Levothyroxine Sodium (Levothyroxine Sodium 75 Mcg Tablet) 75 mcg PO DAILY@0600 [facility] Last Admin: 07/06/25 05:01 Dose: 75 mcg Magnesium Hydroxide (Milk Of Magnesia 30 Ml Oral.Susp) 30 ml PO DAILY PRN PRN Reason: Constipation Melatonin (Melatonin 3 Mg Tablet) 6 mg PO BEDTIME [facility] Last Admin: 07/05/25 20:17 Dose: 6 mg Mirtazapine (Mirtazapine 15 Mg Tablet) 15 mg PO BEDTIME [facility] Last Admin: 07/05/25 20:23 Dose: 15 mg Multivitamins/Vitamin C (Multivitamin Tablet) 1 tab PO DAILY [facility] Last Admin: 07/06/25 08:25 Dose: 1 tab Omeprazole (Omeprazole 20 Mg Capsule.Dr) 20 mg PO DAILY@0630 [facility] Last Admin: 07/06/25 05:49 Dose: 20 mg Propranolol HCl (Propranolol Hcl 10 Mg Tablet) 10 mg PO DAILY [facility]; Protocol Last Admin: 07/06/25 08:31 Dose: 10 mg Propranolol HCl (Propranolol Hcl 20 Mg Tablet) 20 mg PO BEDTIME [facility]; Protocol Last Admin: 07/05/25 20:19 Dose: 20 mg Pyridoxine HCl (Pyridoxine Hcl (Vitamin B6) 50 Mg Tablet) 100 mg PO BID [facility] Last Admin: 07/06/25 08:25 Dose: 100 mg Quetiapine Fumarate (Quetiapine Fumarate 25 Mg Tablet) 25 mg PO BID PRN PRN Reason: agitation Last Admin: 07/05/25 17:10 Dose: 25 mg Senna (Sennosides 8.6 Mg Tablet) 17.2 mg PO BEDTIME [facility] Last Admin: 07/05/25 20:19 Dose: 17.2 mg Simethicone (Simethicone 80 Mg Tab.Chew) 80 mg PO BID [facility] Last Admin: 07/06/25 08:24 Dose: 80 mg Vitamin D (Cholecalciferol (Vitamin D3) 25 Mcg Tablet) 25 mcg PO DAILY [facility] Last Admin: 07/06/25 08:25 Dose: 25 mcg Vitamin E (Vitamin E (Dl,Tocopheryl Acet) 180 Mg (400 Unit) Capsule) 540 mg PO DAILY [facility] Last Admin: 07/06/25 08:25 Dose: 540 mg Allergies Allergies Allergy/AdvReac Type Severity Reaction Status Date / Time Unable to Assess Allergy Verified 07/01/25 11:55 Assessment & Plan Assessment & Plan (1) Dementia: Qualifiers: Dementia behavioral or psychological symptom: unspecified whether behavioral, psychotic, or mood disturbance or anxiety Dementia severity: u nspecified severity Dementia type: unspecified type Qualified Code(s): F03.90 - Unspecified dementia, unspecified severity, without behavioral disturbance, psychotic disturbance, mood disturbance, and anxiety Status: Acute Code(s): F03.90 - Unspecified dementia, unspecified severity, without behavioral disturbance, psychotic disturbance, mood disturbance, and anxiety (2) Psychosis: Qualifiers: Psychosis type: unspecified psychosis type Qualified Code(s): F29 - Unspecified psychosis not due to a substance or known physiological condition Status: Acute Code(s): F29 - Unspecified psychosis not due to a substance or known physiological condition Plan psychotic disorder, anti-psychotic recently stopped for unclear reasons. mina's order reviewed (abilify to 5 mg daily, seroquel to 50 mg daily are on the order). 07/04: restart abilify 5 mg at HS. seroquel 25 BID PRN agitation. 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 07/05: DC wellbutrin as it may increase anxiety and restlessness, increasing agitation. awake and alert today. no aggressive behaviors. continue current mgmt. 07/06: remains calm and pleasant. 2 episodes of head-banging yesterday evening. commitment paperwork filed. Reason for continued inpatient stay Substantial Risk for: harm to self, inability to function and rapid decompensation Time Spent With Patient Time: Total time managing care of this patient today __35__ minutes.
[2025-07-06 20:00] VITALS: BP 135/63; PULSE 64; RESP 16; TEMP 36.8; O2SAT 94
[2025-07-07 08:00] VITALS: BP 132/62; PULSE 75; RESP 18; TEMP 36.6; O2SAT 98
[2025-07-07] MEDS: Vitamin E (Dl,Tocopheryl Acet) 180 MG (400 UNIT) CAPSULE 540 MG PO (09:10)
[2025-07-07] MEDS: Calcium + Vitamin D 250 MG TABLET 500 MG PO ×2 (09:10→20:57)
[2025-07-07] MEDS: Aspirin Enteric Coated 81 MG TABLET.DR PO (09:11)
[2025-07-07] MEDS: Ketotifen Fumarate 0.025% Oph 5 ML DRPBTL 1 DROP EYE-BOTH ×2 (09:14→20:56)
--- NOTE | 2025-07-07 10:25 | P.PNPSI_ITS ---
Subjective Subjective Date of Service: 07/07/25 Reason For Visit: psychosis Interim History: no issues. doesn't recall CAH to bang head. denies PEREZ, states mood is good. per staff, delusional, confused, religiously preoccupied. CAH to bang head on floor. remains on 1:1. Mental Status Exam Mental Status Exam Narrative: adequately dressed and groomed, own attire. cooperative, no PMA/PMR. speech nml rate, decr amount, nml loudness, nml latency. thoughts linear and logical. affect flexible, normo-intense, non-labile. mood good. denies AVH. no SI/SIBI/HI expressed. Diagnostics Vital Signs (24Hr): Vital Signs - 24 hr 07/06/25 20:00 Temperature 98.2 F Pulse Rate 64 Respiratory Rate 16 Blood Pressure 135/63 Pulse Oximetry 94 Oxygen Delivery Method Room Air BMI result Body Mass Index 28.7 Labs 07/01/25 12:43 07/01/25 12:43 Imaging Radiology Impressions: ITS Impressions Head CT 07/04/25 16:13 IMPRESSION: 1. No acute intracranial findings. 2. Interval decrease in the right frontal scalp hematoma. Electronically signed by: Durga Benavides MD 07/04/2025 06:14 PM EDT RP Medications Medications Current Medications Acetaminophen (Acetaminophen 325 Mg Tablet) 650 mg PO Q6H PRN PRN Reason: Pain (Scale Score 1-3) Acetaminophen (Acetaminophen 325 Mg Tablet) 650 mg PO Q6H PRN PRN Reason: Headache/Pain, Scale 1-10 Al Hydroxide/Mg Hydroxide (Magnesium Hydrox/Alum Hydrox 30 Ml Oral.Susp) 30 ml PO Q6H PRN PRN Reason: Heartburn/Nausea Amlodipine Besylate (Amlodipine Besylate 2.5 Mg Tablet) 2.5 mg PO DAILY [facility]; Protocol Last Admin: 07/07/25 09:11 Dose: 2.5 mg Aripiprazole (Aripiprazole 5 Mg Tablet) 5 mg PO BEDTIME [facility] Last Admin: 07/06/25 20:36 Dose: 5 mg Ascorbic Acid (Ascorbic Acid 500 Mg Tablet) 500 mg PO BID [facility] Last Admin: 07/07/25 09:11 Dose: 500 mg Aspirin (Aspirin Enteric Coated 81 Mg Tablet.) 81 mg PO DAILY [facility] Last Admin: 07/07/25 09:11 Dose: 81 mg Atorvastatin Calcium (Atorvastatin Calcium 80 Mg Tablet) 80 mg PO BEDTIME [facility] Last Admin: 07/06/25 20:37 Dose: 80 mg Calcium Carbonate/Cholecalciferol (Calcium + Vitamin D 250 Mg Tablet) 500 mg PO BID [facility] Last Admin: 07/07/25 09:10 Dose: 500 mg Docusate Sodium (Docusate Sodium 100 Mg Capsule) 100 mg PO BID [facility] Last Admin: 07/07/25 09:11 Dose: 100 mg Donepezil HCl (Donepezil Hcl 5 Mg Tablet) 5 mg PO DAILY [facility] Last Admin: 07/07/25 09:11 Dose: 5 mg Escitalopram Oxalate (Escitalopram Oxalate 10 Mg Tablet) 10 mg PO DAILY [facility] Last Admin: 07/07/25 09:11 Dose: 10 mg Fluticasone Propionate (Fluticasone Propionate Nasal 16 Gm [place]) 1 spray NOSTRIL-B DAILY [facility] Last Admin: 07/07/25 09:11 Dose: 1 spray Gabapentin (Gabapentin 100 Mg Capsule) 100 mg PO BEDTIME [facility] Last Admin: 07/06/25 20:36 Dose: 100 mg Hydroxyzine HCl (Hydroxyzine Hcl 25 Mg Tablet) 25 mg PO Q6H PRN PRN Reason: mild anxiety Ketotifen Fumarate (Ketotifen Fumarate 0.025% Oph 5 Ml Drpbtl) 1 drop EYE-BOTH BID [facility] Last Admin: 07/07/25 09:14 Dose: 1 drop Levothyroxine Sodium (Levothyroxine Sodium 75 Mcg Tablet) 75 mcg PO DAILY@0600 [facility] Last Admin: 07/07/25 05:48 Dose: 75 mcg Magnesium Hydroxide (Milk Of Magnesia 30 Ml Oral.Susp) 30 ml PO DAILY PRN PRN Reason: Constipation Melatonin (Melatonin 3 Mg Tablet) 6 mg PO BEDTIME [facility] Last Admin: 07/06/25 20:36 Dose: 6 mg Mirtazapine (Mirtazapine 15 Mg Tablet) 15 mg PO BEDTIME [facility] Last Admin: 07/06/25 20:36 Dose: 15 mg Multivitamins/Vitamin C (Multivitamin Tablet) 1 tab PO DAILY [facility] Last Admin: 07/07/25 09:11 Dose: 1 tab Omeprazole (Omeprazole 20 Mg Capsule.Dr) 20 mg PO DAILY@0630 [facility] Last Admin: 07/07/25 06:06 Dose: 20 mg Propranolol HCl (Propranolol Hcl 10 Mg Tablet) 10 mg PO DAILY [facility]; Protocol Last Admin: 07/07/25 09:11 Dose: 10 mg Propranolol HCl (Propranolol Hcl 20 Mg Tablet) 20 mg PO BEDTIME [facility]; Protocol Last Admin: 07/06/25 20:48 Dose: Not Given Pyridoxine HCl (Pyridoxine Hcl (Vitamin B6) 50 Mg Tablet) 100 mg PO BID [facility] Last Admin: 07/07/25 09:10 Dose: 100 mg Quetiapine Fumarate (Quetiapine Fumarate 25 Mg Tablet) 25 mg PO BID PRN PRN Reason: agitation Last Admin: 07/06/25 14:04 Dose: 25 mg Senna (Sennosides 8.6 Mg Tablet) 17.2 mg PO BEDTIME [facility] Last Admin: 07/06/25 20:37 Dose: 17.2 mg Simethicone (Simethicone 80 Mg Tab.Chew) 80 mg PO BID [facility] Last Admin: 07/07/25 09:11 Dose: 80 mg Vitamin D (Cholecalciferol (Vitamin D3) 25 Mcg Tablet) 25 mcg PO DAILY [facility] Last Admin: 07/07/25 09:11 Dose: 25 mcg Vitamin E (Vitamin E (Dl,Tocopheryl Acet) 180 Mg (400 Unit) Capsule) 540 mg PO DAILY [facility] Last Admin: 07/07/25 09:10 Dose: 540 mg Allergies Allergies Allergy/AdvReac Type Severity Reaction Status Date / Time Unable to Assess Allergy Verified 07/01/25 11:55 Assessment & Plan Assessment & Plan (1) Dementia: Qualifiers: Dementia behavioral or psychological symptom: unspecified whether behavioral, psychotic, or mood disturbance or anxiety Dementia severity: u nspecified severity Dementia type: unspecified type Qualified Code(s): F03.90 - Unspecified dementia, unspecified severity, without behavioral disturbance, psychotic disturbance, mood disturbance, and anxiety Status: Acute Code(s): F03.90 - Unspecified dementia, unspecified severity, without behavioral disturbance, psychotic disturbance, mood disturbance, and anxiety (2) Psychosis: Qualifiers: Psychosis type: unspecified psychosis type Qualified Code(s): F29 - Unspecified psychosis not due to a substance or known physiological condition Status: Acute Code(s): F29 - Unspecified psychosis not due to a substance or known physiological condition Plan psychotic disorder, anti-psychotic recently stopped for unclear reasons. mina's order reviewed (abilify to 5 mg daily, seroquel to 50 mg daily are on the order). 07/04: restart abilify 5 mg at HS. seroquel 25 BID PRN agitation. 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 07/05: DC wellbutrin as it may increase anxiety and restlessness, increasing agitation. awake and alert today. no aggressive behaviors. continue current mgmt. 07/06: remains calm and pleasant. 2 episodes of head-banging yesterday evening. commitment paperwork filed. 07/07: intermitten head-banging continues in response to CAH. change seroquel from PRN to scheduled. otherwise continue current mgmt. Reason for continued inpatient stay Substantial Risk for: harm to self and inability to function Time Spent With Patient Time: Total time managing care of this patient today __25__ minutes.
[2025-07-07 20:00] VITALS: BP 114/55; PULSE 70; RESP 18; TEMP 37; O2SAT 93
[2025-07-07 20:57] VITALS: BP 114/55; PULSE 70
[2025-07-08 08:00] VITALS: BP 138/62; PULSE 61; RESP 18; TEMP 36.8; O2SAT 94
[2025-07-08] MEDS: Aspirin Enteric Coated 81 MG TABLET.DR PO (09:18)
[2025-07-08] MEDS: Calcium + Vitamin D 250 MG TABLET 500 MG PO ×2 (09:18→21:01)
[2025-07-08] MEDS: Vitamin E (Dl,Tocopheryl Acet) 180 MG (400 UNIT) CAPSULE 540 MG PO (09:19)
[2025-07-08] MEDS: Ketotifen Fumarate 0.025% Oph 5 ML DRPBTL 1 DROP EYE-BOTH ×2 (09:19→22:07)
--- NOTE | 2025-07-08 14:03 | P.PNPSI_ITS ---
Subjective Subjective Date of Service: 07/08/25 Reason For Visit: psychosis Interim History: pleasant, cooperative. no complaints or requests. slept well, can't recall banging her head last night. per staff, head-banging much last night. slept OK. Mental Status Exam Mental Status Exam Narrative: adequately dressed and groomed, own attire. cooperative, no PMA/PMR. speech nml rate, decr amount, nml loudness, nml latency. thoughts linear and logical. affect flexible, normo-intense, non-labile. mood good. denies AVH. no SI/SIBI/HI expressed. Diagnostics Vital Signs (24Hr): Vital Signs - 24 hr 07/07/25 20:00 07/07/25 20:57 07/08/25 08:00 Temperature 98.6 F 98.2 F Pulse Rate 70 70 61 Respiratory Rate 18 18 Blood Pressure 114/55 L 114/55 L 138/62 Pulse Oximetry 93 94 Oxygen Delivery Method Room Air Room Air BMI result Body Mass Index 28.7 Labs 07/01/25 12:43 07/01/25 12:43 Imaging Radiology Impressions: ITS Impressions Head CT 07/04/25 16:13 IMPRESSION: 1. No acute intracranial findings. 2. Interval decrease in the right frontal scalp hematoma. Electronically signed by: Durga Benavides MD 07/04/2025 06:14 PM EDT Medications Medications Current Medications Acetaminophen (Acetaminophen 325 Mg Tablet) 650 mg PO Q6H PRN PRN Reason: Pain (Scale Score 1-3) Acetaminophen (Acetaminophen 325 Mg Tablet) 650 mg PO Q6H PRN PRN Reason: Headache/Pain, Scale 1-10 Al Hydroxide/Mg Hydroxide (Magnesium Hydrox/Alum Hydrox 30 Ml Oral.Susp) 30 ml PO Q6H PRN PRN Reason: Heartburn/Nausea Amlodipine Besylate (Amlodipine Besylate 2.5 Mg Tablet) 2.5 mg PO DAILY [facility]; Protocol Last Admin: 07/08/25 09:18 Dose: 2.5 mg Aripiprazole (Aripiprazole 5 Mg Tablet) 5 mg PO BEDTIME [facility] Last Admin: 07/07/25 20:57 Dose: 5 mg Ascorbic Acid (Ascorbic Acid 500 Mg Tablet) 500 mg PO BID [facility] Last Admin: 07/08/25 09:19 Dose: 500 mg Aspirin (Aspirin Enteric Coated 81 Mg Tablet.) 81 mg PO DAILY [facility] Last Admin: 07/08/25 09:18 Dose: 81 mg Atorvastatin Calcium (Atorvastatin Calcium 80 Mg Tablet) 80 mg PO BEDTIME [facility] Last Admin: 07/07/25 20:56 Dose: 80 mg Calcium Carbonate/Cholecalciferol (Calcium + Vitamin D 250 Mg Tablet) 500 mg PO BID [facility] Last Admin: 07/08/25 09:18 Dose: 500 mg Docusate Sodium (Docusate Sodium 100 Mg Capsule) 100 mg PO BID [facility] Last Admin: 07/08/25 09:19 Dose: 100 mg Donepezil HCl (Donepezil Hcl 5 Mg Tablet) 5 mg PO DAILY [facility] Last Admin: 07/08/25 09:18 Dose: 5 mg Escitalopram Oxalate (Escitalopram Oxalate 10 Mg Tablet) 10 mg PO DAILY [facility] Last Admin: 07/08/25 09:19 Dose: 10 mg Fluticasone Propionate (Fluticasone Propionate Nasal 16 Gm [place]) 1 spray NOSTRIL-B DAILY [facility] Last Admin: 07/08/25 09:19 Dose: 1 spray Gabapentin (Gabapentin 100 Mg Capsule) 100 mg PO BEDTIME [facility] Last Admin: 07/07/25 20:57 Dose: 100 mg Hydroxyzine HCl (Hydroxyzine Hcl 25 Mg Tablet) 25 mg PO Q6H PRN PRN Reason: mild anxiety Ketotifen Fumarate (Ketotifen Fumarate 0.025% Oph 5 Ml Drpb) 1 drop EYE-BOTH BID [facility] Last Admin: 07/08/25 09:19 Dose: 1 drop Levothyroxine Sodium (Levothyroxine Sodium 75 Mcg Tablet) 75 mcg PO DAILY@0600 [facility] Last Admin: 07/08/25 06:33 Dose: 75 mcg Magnesium Hydroxide (Milk Of Magnesia 30 Ml Oral.Susp) 30 ml PO DAILY PRN PRN Reason: Constipation Melatonin (Melatonin 3 Mg Tablet) 6 mg PO BEDTIME [facility] Last Admin: 07/07/25 20:56 Dose: 6 mg Mirtazapine (Mirtazapine 15 Mg Tablet) 15 mg PO BEDTIME [facility] Last Admin: 07/07/25 20:57 Dose: 15 mg Multivitamins/Vitamin C (Multivitamin Tablet) 1 tab PO DAILY [facility] Last Admin: 07/08/25 09:18 Dose: 1 tab Omeprazole (Omeprazole 20 Mg Capsule.) 20 mg PO DAILY@0630 [facility] Last Admin: 07/08/25 06:33 Dose: 20 mg Propranolol HCl (Propranolol Hcl 10 Mg Tablet) 10 mg PO DAILY [facility]; Protocol Last Admin: 07/08/25 09:19 Dose: 10 mg Propranolol HCl (Propranolol Hcl 20 Mg Tablet) 20 mg PO BEDTIME [facility]; Protocol Last Admin: 07/07/25 20:57 Dose: 20 mg Pyridoxine HCl (Pyridoxine Hcl (Vitamin B6) 50 Mg Tablet) 100 mg PO BID [facility] Last Admin: 07/08/25 09:19 Dose: 100 mg Quetiapine Fumarate (Quetiapine Fumarate 50 Mg Tablet) 50 mg PO BEDTIME [facility] Last Admin: 07/07/25 20:56 Dose: 50 mg Senna (Sennosides 8.6 Mg Tablet) 17.2 mg PO BEDTIME [facility] Last Admin: 07/07/25 20:57 Dose: 17.2 mg Simethicone (Simethicone 80 Mg Tab.Chew) 80 mg PO BID [facility] Last Admin: 07/08/25 09:18 Dose: 80 mg Vitamin D (Cholecalciferol (Vitamin D3) 25 Mcg Tablet) 25 mcg PO DAILY [facility] Last Admin: 07/08/25 09:18 Dose: 25 mcg Vitamin E (Vitamin E (Dl,Tocopheryl Acet) 180 Mg (400 Unit) Capsule) 540 mg PO DAILY [facility] Last Admin: 07/08/25 09:19 Dose: 540 mg Allergies Allergies Allergy/AdvReac Type Severity Reaction Status Date / Time Unable to Assess Allergy Verified 07/01/25 11:55 Assessment & Plan Assessment & Plan (1) Dementia: Qualifiers: Dementia behavioral or psychological symptom: unspecified whether behavioral, psychotic, or mood disturbance or anxiety Dementia severity: u nspecified severity Dementia type: unspecified type Qualified Code(s): F03.90 - Unspecified dementia, unspecified severity, without behavioral disturbance, psychotic disturbance, mood disturbance, and anxiety Status: Acute Code(s): F03.90 - Unspecified dementia, unspecified severity, without behavioral disturbance, psychotic disturbance, mood disturbance, and anxiety (2) Psychosis: Qualifiers: Psychosis type: unspecified psychosis type Qualified Code(s): F29 - Unspecified psychosis not due to a substance or known physiological condition Status: Acute Code(s): F29 - Unspecified psychosis not due to a substance or known physiological condition Plan psychotic disorder, anti-psychotic recently stopped for unclear reasons. mina's order reviewed (abilify to 5 mg daily, seroquel to 50 mg daily are on the order). 07/04: restart abilify 5 mg at HS. seroquel 25 BID PRN agitation. 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 07/05: DC wellbutrin as it may increase anxiety and restlessness, increasing agitation. awake and alert today. no aggressive behaviors. continue current mgmt. 07/06: remains calm and pleasant. 2 episodes of head-banging yesterday evening. commitment paperwork filed. 07/07: intermittent head-banging continues in response to CAH. change seroquel from PRN to scheduled. otherwise continue current mgmt. 07/08: head-banging yesterday simon. slept well overnight. continue current mgmt. Reason for continued inpatient stay Substantial Risk for: harm to self and inability to function Time Spent With Patient Time: Total time managing care of this patient today ____ minutes.
--- NOTE | 2025-07-08 17:49 | PC.NURSE ---
Pt attempting to get down on the floor and bang her head numerous times, redirected pt with prayers and coloring. Provider aware Zyprexa 5mg given with effect. Pt states I want to show respect to God. The angels are talking to me, telling me to tap my head on the floor. The livia wants me to tap my head on the ground a thousand times. Staff has to verbally redirect patient several times to keep her from tapping her head. pt continues on 1:1 for safety
[2025-07-08 19:40] VITALS: BP 147/97; PULSE 61; RESP 18; TEMP 36.9; O2SAT 94
[2025-07-08 21:02] VITALS: BP 147/67; PULSE 72
[2025-07-09 08:00] VITALS: BP 145/67; PULSE 62; RESP 18; TEMP 36.8; O2SAT 94
[2025-07-09] MEDS: Vitamin E (Dl,Tocopheryl Acet) 180 MG (400 UNIT) CAPSULE 540 MG PO (09:21)
[2025-07-09] MEDS: Calcium + Vitamin D 250 MG TABLET 500 MG PO ×2 (09:21→20:21)
[2025-07-09 09:22] VITALS: BP 145/67; PULSE 62
[2025-07-09] MEDS: Aspirin Enteric Coated 81 MG TABLET.DR PO (09:22)
[2025-07-09] MEDS: Ketotifen Fumarate 0.025% Oph 5 ML DRPBTL 1 DROP EYE-BOTH ×2 (09:23→20:22)
--- NOTE | 2025-07-09 12:24 | HO.PSYCHPN ---
Subjective Subjective Date of Service: 07/09/25 Reason For Visit: psychosis Interim History: stable presentation. does acknowledge AH today, says she can't recall what they say but that they were being polite. no requests or complaints. states she doesn't know why she is here, her recent h/o CAH to self-harm and her resultant SIB reviewed. Mental Status Exam Mental Status Exam Narrative: adequately dressed and groomed, own attire. cooperative, no PMA/PMR. speech nml rate, decr amount, nml loudness, nml latency. thoughts linear and logical. affect flexible, normo-intense, non-labile. mood good. endorses polite AH. no SI/SIBI/HI/VH expressed. Diagnostics Vital Signs (24Hr): Vital Signs - 24 hr 07/08/25 19:40 07/08/25 21:02 07/09/25 08:00 Temperature 98.4 F 98.2 F Pulse Rate 61 72 62 Respiratory Rate 18 18 Blood Pressure 147/97 H 147/67 H 145/67 H Pulse Oximetry 94 94 Oxygen Delivery Method Room Air Room Air 07/09/25 09:22 07/09/25 09:22 Temperature Pulse Rate 62 Respiratory Rate Blood Pressure 145/67 H 145/67 H Pulse Oximetry Oxygen Delivery Method BMI result Body Mass Index 28.7 Labs 07/01/25 12:43 07/01/25 12:43 Imaging Radiology Impressions: ITS Impressions Head CT 07/04/25 16:13 IMPRESSION: 1. No acute intracranial findings. 2. Interval decrease in the right frontal scalp hematoma. Electronically signed by: Durga Benavides MD 07/04/2025 06:14 PM EDT Medications Medications Current Medications Acetaminophen (Acetaminophen 325 Mg Tablet) 650 mg PO Q6H PRN PRN Reason: Pain (Scale Score 1-3) Acetaminophen (Acetaminophen 325 Mg Tablet) 650 mg PO Q6H PRN PRN Reason: Headache/Pain, Scale 1-10 Al Hydroxide/Mg Hydroxide (Magnesium Hydrox/Alum Hydrox 30 Ml Oral.Susp) 30 ml PO Q6H PRN PRN Reason: Heartburn/Nausea Amlodipine Besylate (Amlodipine Besylate 2.5 Mg Tablet) 2.5 mg PO DAILY [facility]; Protocol Last Admin: 07/09/25 09:22 Dose: 2.5 mg Aripiprazole (Aripiprazole 5 Mg Tablet) 5 mg PO BEDTIME [facility] Last Admin: 07/08/25 21:03 Dose: 5 mg Ascorbic Acid (Ascorbic Acid 500 Mg Tablet) 500 mg PO BID [facility] Last Admin: 07/09/25 09:20 Dose: 500 mg Aspirin (Aspirin Enteric Coated 81 Mg Tablet.Dr) 81 mg PO DAILY [facility] Last Admin: 07/09/25 09:22 Dose: 81 mg Atorvastatin Calcium (Atorvastatin Calcium 80 Mg Tablet) 80 mg PO BEDTIME [facility] Last Admin: 07/08/25 21:03 Dose: 80 mg Calcium Carbonate/Cholecalciferol (Calcium + Vitamin D 250 Mg Tablet) 500 mg PO BID [facility] Last Admin: 07/09/25 09:21 Dose: 500 mg Docusate Sodium (Docusate Sodium 100 Mg Capsule) 100 mg PO BID [facility] Last Admin: 07/09/25 09:20 Dose: 100 mg Donepezil HCl (Donepezil Hcl 5 Mg Tablet) 5 mg PO DAILY [facility] Last Admin: 07/09/25 09:21 Dose: 5 mg Escitalopram Oxalate (Escitalopram Oxalate 10 Mg Tablet) 10 mg PO DAILY [facility] Last Admin: 07/09/25 09:21 Dose: 10 mg Fluticasone Propionate (Fluticasone Propionate Nasal 16 Gm [place]) 1 spray NOSTRIL-B DAILY [facility] Last Admin: 07/09/25 09:23 Dose: 1 spray Gabapentin (Gabapentin 100 Mg Capsule) 100 mg PO BEDTIME [facility] Last Admin: 07/08/25 21:01 Dose: 100 mg Hydroxyzine HCl (Hydroxyzine Hcl 25 Mg Tablet) 25 mg PO Q6H PRN PRN Reason: mild anxiety Ketotifen Fumarate (Ketotifen Fumarate 0.025% Oph 5 Ml Drpbtl) 1 drop EYE-BOTH BID [facility] Last Admin: 07/09/25 09:23 Dose: 1 drop Levothyroxine Sodium (Levothyroxine Sodium 75 Mcg Tablet) 75 mcg PO DAILY@0600 [facility] Last Admin: 07/09/25 06:07 Dose: 75 mcg Magnesium Hydroxide (Milk Of Magnesia 30 Ml Oral.Susp) 30 ml PO DAILY PRN PRN Reason: Constipation Melatonin (Melatonin 3 Mg Tablet) 6 mg PO BEDTIME [facility] Last Admin: 07/08/25 21:03 Dose: 6 mg Mirtazapine (Mirtazapine 15 Mg Tablet) 15 mg PO BEDTIME [facility] Last Admin: 07/08/25 21:01 Dose: 15 mg Multivitamins/Vitamin C (Multivitamin Tablet) 1 tab PO DAILY [facility] Last Admin: 07/09/25 09:22 Dose: 1 tab Olanzapine (Olanzapine 5 Mg Tablet) 5 mg PO TID PRN PRN Reason: agitation Last Admin: 07/08/25 17:47 Dose: 5 mg Omeprazole (Omeprazole 20 Mg Capsule.Dr) 20 mg PO DAILY@0630 [facility] Last Admin: 07/09/25 06:07 Dose: 20 mg Propranolol HCl (Propranolol Hcl 10 Mg Tablet) 10 mg PO DAILY [facility]; Protocol Last Admin: 07/09/25 09:22 Dose: 10 mg Propranolol HCl (Propranolol Hcl 20 Mg Tablet) 20 mg PO BEDTIME [facility]; Protocol Last Admin: 07/08/25 21:02 Dose: 20 mg Pyridoxine HCl (Pyridoxine Hcl (Vitamin B6) 50 Mg Tablet) 100 mg PO BID [facility] Last Admin: 07/09/25 09:21 Dose: 100 mg Quetiapine Fumarate (Quetiapine Fumarate 50 Mg Tablet) 50 mg PO BEDTIME [facility] Last Admin: 07/08/25 21:03 Dose: 50 mg Senna (Sennosides 8.6 Mg Tablet) 17.2 mg PO BEDTIME [facility] Last Admin: 07/08/25 21:03 Dose: 17.2 mg Simethicone (Simethicone 80 Mg Tab.Chew) 80 mg PO BID [facility] Last Admin: 07/09/25 09:20 Dose: 80 mg Vitamin D (Cholecalciferol (Vitamin D3) 25 Mcg Tablet) 25 mcg PO DAILY [facility] Last Admin: 07/09/25 09:21 Dose: 25 mcg Vitamin E (Vitamin E (Dl,Tocopheryl Acet) 180 Mg (400 Unit) Capsule) 540 mg PO DAILY [facility] Last Admin: 07/09/25 09:21 Dose: 540 mg Allergies Allergies Allergy/AdvReac Type Severity Reaction Status Date / Time Unable to Assess Allergy Verified 07/01/25 11:55 Assessment & Plan Assessment & Plan (1) Dementia: Qualifiers: Dementia behavioral or psychological symptom: unspecified whether behavioral, psychotic, or mood disturbance or anxiety Dementia severity: unspecified severity Dementia type: unspecified type Qualified Code(s): F03.90 - Unspecified dementia, unspecified severity, without behavioral disturbance, psychotic disturbance, mood disturbance, and anxiety Status: Acute Code(s): F03.90 - Unspecified dementia, unspecified severity, without behavioral disturbance, psychotic disturbance, mood disturbance, and anxiety (2) Psychosis: Qualifiers: Psychosis type: unspecified psychosis type Qualified Code(s): F29 - Unspecified psychosis not due to a substance or known physiological condition Status: Acute Code(s): F29 - Unspecified psychosis not due to a substance or known physiological condition Plan psychotic disorder, anti-psychotic recently stopped for unclear reasons. mina's order reviewed (abilify to 5 mg daily, seroquel to 50 mg daily are on the order). 07/04: restart abilify 5 mg at HS. seroquel 25 BID PRN agitation. 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 07/05: DC wellbutrin as it may increase anxiety and restlessness, increasing agitation. awake and alert today. no aggressive behaviors. continue current mgmt. 07/06: remains calm and pleasant. 2 episodes of head-banging yesterday evening. commitment paperwork filed. 07/07: intermittent head-banging continues in response to CAH. change seroquel from PRN to scheduled. otherwise continue current mgmt. 07/08: head-banging yesterday simon. slept well overnight. continue current mgmt. 07/09: needing redirection from head-banging. slept 8 hours. pleasant, cooperative. continue current mgmt. Reason for continued inpatient stay Substantial Risk for: harm to self Time Spent With Patient Time: Total time managing care of this patient today ____ minutes.
[2025-07-09 20:00] VITALS: BP 113/60; PULSE 74; RESP 16; TEMP 36.3; O2SAT 93
[2025-07-10 08:50] VITALS: BP 146/66; PULSE 60; RESP 18; TEMP 36.4; O2SAT 97
[2025-07-10] MEDS: Vitamin E (Dl,Tocopheryl Acet) 180 MG (400 UNIT) CAPSULE 540 MG PO (09:09)
[2025-07-10] MEDS: Aspirin Enteric Coated 81 MG TABLET.DR PO (09:13)
[2025-07-10] MEDS: Ketotifen Fumarate 0.025% Oph 5 ML DRPBTL 1 DROP EYE-BOTH ×2 (09:14→22:19)
[2025-07-10] MEDS: Calcium + Vitamin D 250 MG TABLET 500 MG PO ×2 (09:18→22:21)
--- NOTE | 2025-07-10 12:22 | HO.PSYCHPN ---
Subjective Subjective Date of Service: 07/10/25 Reason For Visit: psychosis Interim History: initially denies PEREZ, then states she has a slight PEREZ. RN informed. denies any knowledge of CAH or head-banging, acting as if such things have never occurred and she is surprised to be hearing of them. per staff, anxiety 03/31. CAH to bang head, lower herself to floor yesteryday afternoon. eating. self-dialoguing eves, no SIB eves. slept 8 hours. Mental Status Exam Mental Status Exam Narrative: adequately dressed and groomed, hospital attire. cooperative, no PMA/PMR. speech nml rate, decr amount, nml loudness, nml latency. thoughts linear and logical. affect flexible, normo-intense, non-labile. mood good. denies AH. no SI/SIBI/HI/VH expressed. Diagnostics Vital Signs (24Hr): Vital Signs - 24 hr 07/09/25 20:00 07/10/25 08:50 Temperature 97.4 F 97.5 F Pulse Rate 74 60 Respiratory Rate 16 18 Blood Pressure 113/60 146/66 H Pulse Oximetry 93 97 Oxygen Delivery Method Room Air Room Air BMI result Body Mass Index 28.7 Labs 07/01/25 12:43 07/01/25 12:43 Imaging Radiology Impressions: [facility] Impressions Head CT 07/04/25 16:13 IMPRESSION: 1. No acute intracranial findings. 2. Interval decrease in the right frontal scalp hematoma. Electronically signed by: Durga Benavides MD 07/04/2025 06:14 PM EDT RP Medications Medications Current Medications Acetaminophen (Acetaminophen 325 Mg Tablet) 650 mg PO Q6H PRN PRN Reason: Pain (Scale Score 1-3) Acetaminophen (Acetaminophen 325 Mg Tablet) 650 mg PO Q6H PRN PRN Reason: Headache/Pain, Scale 1-10 Al Hydroxide/Mg Hydroxide (Magnesium Hydrox/Alum Hydrox 30 Ml Oral.Susp) 30 ml PO Q6H PRN PRN Reason: Heartburn/Nausea Amlodipine Besylate (Amlodipine Besylate 2.5 Mg Tablet) 2.5 mg PO DAILY [facility]; Protocol Last Admin: 07/10/25 09:11 Dose: 2.5 mg Aripiprazole (Aripiprazole 5 Mg Tablet) 5 mg PO BEDTIME [facility] Last Admin: 07/09/25 20:20 Dose: 5 mg Ascorbic Acid (Ascorbic Acid 500 Mg Tablet) 500 mg PO BID [facility] Last Admin: 07/10/25 09:10 Dose: 500 mg Aspirin (Aspirin Enteric Coated 81 Mg Tablet.Dr) 81 mg PO DAILY [facility] Last Admin: 07/10/25 09:13 Dose: 81 mg Atorvastatin Calcium (Atorvastatin Calcium 80 Mg Tablet) 80 mg PO BEDTIME [facility] Last Admin: 07/09/25 20:20 Dose: 80 mg Calcium Carbonate/Cholecalciferol (Calcium + Vitamin D 250 Mg Tablet) 500 mg PO BID [facility] Last Admin: 07/10/25 09:18 Dose: 500 mg Docusate Sodium (Docusate Sodium 100 Mg Capsule) 100 mg PO BID [facility] Last Admin: 07/10/25 09:17 Dose: 100 mg Donepezil HCl (Donepezil Hcl 5 Mg Tablet) 5 mg PO DAILY [facility] Last Admin: 07/10/25 09:11 Dose: 5 mg Escitalopram Oxalate (Escitalopram Oxalate 10 Mg Tablet) 10 mg PO DAILY [facility] Last Admin: 07/10/25 09:11 Dose: 10 mg Fluticasone Propionate (Fluticasone Propionate Nasal 16 Gm [place]) 1 spray NOSTRIL-B DAILY [facility] Last Admin: 07/10/25 09:18 Dose: 1 spray Gabapentin (Gabapentin 100 Mg Capsule) 100 mg PO BEDTIME [facility] Last Admin: 07/09/25 20:21 Dose: 100 mg Hydroxyzine HCl (Hydroxyzine Hcl 25 Mg Tablet) 25 mg PO Q6H PRN PRN Reason: mild anxiety Ketotifen Fumarate (Ketotifen Fumarate 0.025% Oph 5 Ml Drpbtl) 1 drop EYE-BOTH BID [facility] Last Admin: 07/10/25 09:14 Dose: 1 drop Levothyroxine Sodium (Levothyroxine Sodium 75 Mcg Tablet) 75 mcg PO DAILY@0600 [facility] Last Admin: 07/10/25 05:00 Dose: 75 mcg Magnesium Hydroxide (Milk Of Magnesia 30 Ml Oral.Susp) 30 ml PO DAILY PRN PRN Reason: Constipation Melatonin (Melatonin 3 Mg Tablet) 6 mg PO BEDTIME [facility] Last Admin: 07/09/25 20:20 Dose: 6 mg Mirtazapine (Mirtazapine 15 Mg Tablet) 15 mg PO BEDTIME [facility] Last Admin: 07/09/25 20:21 Dose: 15 mg Multivitamins/Vitamin C (Multivitamin Tablet) 1 tab PO DAILY [facility] Last Admin: 07/10/25 09:13 Dose: 1 tab Omeprazole (Omeprazole 20 Mg Capsule.Dr) 20 mg PO DAILY@0630 [facility] Last Admin: 07/10/25 05:30 Dose: 20 mg Propranolol HCl (Propranolol Hcl 10 Mg Tablet) 10 mg PO DAILY [facility]; Protocol Last Admin: 07/10/25 09:11 Dose: 10 mg Propranolol HCl (Propranolol Hcl 20 Mg Tablet) 20 mg PO BEDTIME [facility]; Protocol Last Admin: 07/09/25 20:20 Dose: 20 mg Pyridoxine HCl (Pyridoxine Hcl (Vitamin B6) 50 Mg Tablet) 100 mg PO BID [facility] Last Admin: 07/10/25 09:12 Dose: 100 mg Quetiapine Fumarate (Quetiapine Fumarate 50 Mg Tablet) 50 mg PO BEDTIME [facility] Last Admin: 07/09/25 20:21 Dose: 50 mg Senna (Sennosides 8.6 Mg Tablet) 17.2 mg PO BEDTIME [facility] Last Admin: 07/09/25 20:20 Dose: 17.2 mg Simethicone (Simethicone 80 Mg Tab.Chew) 80 mg PO BID [facility] Last Admin: 07/10/25 09:10 Dose: 80 mg Vitamin D (Cholecalciferol (Vitamin D3) 25 Mcg Tablet) 25 mcg PO DAILY [facility] Last Admin: 07/10/25 09:10 Dose: 25 mcg Vitamin E (Vitamin E (Dl,Tocopheryl Acet) 180 Mg (400 Unit) Capsule) 540 mg PO DAILY [facility] Last Admin: 07/10/25 09:09 Dose: 540 mg Allergies Allergies Allergy/AdvReac Type Severity Reaction Status Date / Time egg Allergy Intermediate Unknown Verified 07/10/25 03:24 monosodium glutamate (MSG) Allergy Intermediate Unknown Verified 07/10/25 03:25 caffeine Allergy Mild Unknown Verified 07/10/25 03:23 Assessment & Plan Assessment & Plan (1) Dementia: Qualifiers: Dementia behavioral or psychological symptom: unspecified whether behavioral, psychotic, or mood disturbance or anxiety Dementia severity: unspecified severity Dementia type: unspecified type Qualified Code(s): F03.90 - Unspecified dementia, unspecified severity, without behavioral disturbance, psychotic disturbance, mood disturbance, and anxiety Status: Acute Code(s): F03.90 - Unspecified dementia, unspecified severity, without behavioral disturbance, psychotic disturbance, mood disturbance, and anxiety (2) Psychosis: Qualifiers: Psychosis type: unspecified psychosis type Qualified Code(s): F29 - Unspecified psychosis not due to a substance or known physiological condition Status: Acute Code(s): F29 - Unspecified psychosis not due to a substance or known physiological condition Plan psychotic disorder, anti-psychotic recently stopped for unclear reasons. mina's order reviewed (abilify to 5 mg daily, seroquel to 50 mg daily are on the order). 07/04: restart abilify 5 mg at HS. seroquel 25 BID PRN agitation. 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 07/05: DC wellbutrin as it may increase anxiety and restlessness, increasing agitation. awake and alert today. no aggressive behaviors. continue current mgmt. 07/06: remains calm and pleasant. 2 episodes of head-banging yesterday evening. commitment paperwork filed. 07/07: intermittent head-banging continues in response to CAH. change seroquel from PRN to scheduled. otherwise continue current mgmt. 07/08: head-banging yesterday simon. slept well overnight. continue current mgmt. 07/09: needing redirection from head-banging. slept 8 hours. pleasant, cooperative. continue current mgmt. 07/10: some head-banging yesterday afternoon. self-dialoguing eves. none overnight, slept well. hearing continued to 07/26. continue current mgmt. Reason for continued inpatient stay Substantial Risk for: harm to self and inability to function Time Spent With Patient Time: Total time managing care of this patient today ____ minutes.
[2025-07-10 20:00] VITALS: BP 132/58; PULSE 73; RESP 18; TEMP 36.8; O2SAT 92
[2025-07-11 08:00] VITALS: BP 157/72; PULSE 67; RESP 14; TEMP 2.7; TEMP 36.9; O2SAT 94
[2025-07-11] MEDS: Aspirin Enteric Coated 81 MG TABLET.DR PO (08:29)
[2025-07-11] MEDS: Vitamin E (Dl,Tocopheryl Acet) 180 MG (400 UNIT) CAPSULE 540 MG PO (08:29)
[2025-07-11 08:30] VITALS: BP 157/72
[2025-07-11] MEDS: Calcium + Vitamin D 250 MG TABLET 500 MG PO ×2 (08:31→20:49)
--- NOTE | 2025-07-11 15:37 | HO.PSYCHPN ---
Subjective Subjective Date of Service: 07/11/25 Reason For Visit: psychosis Subjective Notes: Section 7 Interim History: Patient found lying in bed with sitter present in the room. She is calm and cooperative. She notes that she is eating and sleeping well. Pleasantly confused. She denies acute symptoms. According to staff, she attempted banging her head 30-40 times yesterday but none today; she still hears voices but they have not instructed her to bang her head today. Medication Compliance: Yes Side effects from medications: No Review of Systems Acute medical concerns: No Mental Status Exam Mental Status Exam Narrative: Appearance: Casually dressed, adequate hygiene Behavior: Calm and cooperative throughout the interview. Eye contact is appropriate, and there are no signs of psychomotor agitation or retardation Speech: Normal volume and prosody Thought process: Logical and goal-directed Thought content: Future oriented no self-harming thoughts, self dialoguing Mood: Euthymic Affect: Full, mood-congruent SI:denies HI:denies VH/AH: Hears voices Delusions: None Insight/judgment: Impaired insight and judgment Memory/cog: Alert, oriented to person Diagnostics Vital Signs (24Hr): Vital Signs - 24 hr 07/10/25 20:00 07/11/25 08:00 07/11/25 08:30 Temperature 98.2 F 36.9 F L Pulse Rate 73 67 Respiratory Rate 18 14 Blood Pressure 132/58 L 157/72 H 157/72 H Pulse Oximetry 92 94 Oxygen Delivery Method Room Air Room Air 07/11/25 08:30 Temperature Pulse Rate Respiratory Rate Blood Pressure 157/72 H Pulse Oximetry Oxygen Delivery Method BMI result Body Mass Index 28.7 Labs 07/01/25 12:43 07/01/25 12:43 Imaging Radiology Impressions: [facility] Impressions Head CT 07/04/25 16:13 IMPRESSION: 1. No acute intracranial findings. 2. Interval decrease in the right frontal scalp hematoma. Electronically signed by: Durga Benavides MD 07/04/2025 06:14 PM EDT Medications Medications Current Medications Acetaminophen (Acetaminophen 325 Mg Tablet) 650 mg PO Q6H PRN PRN Reason: Pain (Scale Score 1-3) Acetaminophen (Acetaminophen 325 Mg Tablet) 650 mg PO Q6H PRN PRN Reason: Headache/Pain, Scale 1-10 Al Hydroxide/Mg Hydroxide (Magnesium Hydrox/Alum Hydrox 30 Ml Oral.Susp) 30 ml PO Q6H PRN PRN Reason: Heartburn/Nausea Amlodipine Besylate (Amlodipine Besylate 2.5 Mg Tablet) 2.5 mg PO DAILY [facility]; Protocol Last Admin: 07/11/25 08:30 Dose: 2.5 mg Aripiprazole (Aripiprazole 5 Mg Tablet) 5 mg PO BEDTIME [facility] Last Admin: 07/10/25 21:38 Dose: 5 mg Ascorbic Acid (Ascorbic Acid 500 Mg Tablet) 500 mg PO BID [facility] Last Admin: 07/11/25 08:30 Dose: 500 mg Aspirin (Aspirin Enteric Coated 81 Mg Tablet.Dr) 81 mg PO DAILY [facility] Last Admin: 07/11/25 08:29 Dose: 81 mg Atorvastatin Calcium (Atorvastatin Calcium 80 Mg Tablet) 80 mg PO BEDTIME [facility] Last Admin: 07/10/25 22:03 Dose: 80 mg Calcium Carbonate/Cholecalciferol (Calcium + Vitamin D 250 Mg Tablet) 500 mg PO BID [facility] Last Admin: 07/11/25 08:31 Dose: 500 mg Docusate Sodium (Docusate Sodium 100 Mg Capsule) 100 mg PO BID [facility] Last Admin: 07/11/25 08:34 Dose: Not Given Donepezil HCl (Donepezil Hcl 5 Mg Tablet) 5 mg PO DAILY [facility] Last Admin: 07/11/25 08:30 Dose: 5 mg Escitalopram Oxalate (Escitalopram Oxalate 10 Mg Tablet) 10 mg PO DAILY [facility] Last Admin: 07/11/25 08:30 Dose: 10 mg Fluticasone Propionate (Fluticasone Propionate Nasal 16 Gm [place]) 1 spray NOSTRIL-B DAILY [facility] Last Admin: 07/11/25 12:53 Dose: Not Given Gabapentin (Gabapentin 100 Mg Capsule) 100 mg PO BEDTIME [facility] Last Admin: 07/10/25 21:37 Dose: 100 mg Hydroxyzine HCl (Hydroxyzine Hcl 25 Mg Tablet) 25 mg PO Q6H PRN PRN Reason: mild anxiety Ketotifen Fumarate (Ketotifen Fumarate 0.025% Oph 5 Ml Drpbtl) 1 drop EYE-BOTH BID [facility] Last Admin: 07/11/25 12:53 Dose: Not Given Levothyroxine Sodium (Levothyroxine Sodium 75 Mcg Tablet) 75 mcg PO DAILY@0600 [facility] Last Admin: 07/11/25 05:39 Dose: 75 mcg Magnesium Hydroxide (Milk Of Magnesia 30 Ml Oral.Susp) 30 ml PO DAILY PRN PRN Reason: Constipation Melatonin (Melatonin 3 Mg Tablet) 6 mg PO BEDTIME [facility] Last Admin: 07/10/25 21:36 Dose: 6 mg Mirtazapine (Mirtazapine 15 Mg Tablet) 15 mg PO BEDTIME [facility] Last Admin: 07/10/25 21:37 Dose: 15 mg Multivitamins/Vitamin C (Multivitamin Tablet) 1 tab PO DAILY [facility] Last Admin: 07/11/25 08:29 Dose: 1 tab Omeprazole (Omeprazole 20 Mg Capsule.Dr) 20 mg PO DAILY@0630 [facility] Last Admin: 07/11/25 06:10 Dose: 20 mg Propranolol HCl (Propranolol Hcl 10 Mg Tablet) 10 mg PO DAILY [facility]; Protocol Last Admin: 07/11/25 08:30 Dose: 10 mg Propranolol HCl (Propranolol Hcl 20 Mg Tablet) 20 mg PO BEDTIME [facility]; Protocol Last Admin: 07/10/25 21:37 Dose: 20 mg Pyridoxine HCl (Pyridoxine Hcl (Vitamin B6) 50 Mg Tablet) 100 mg PO BID [facility] Last Admin: 07/11/25 08:29 Dose: 100 mg Quetiapine Fumarate (Quetiapine Fumarate 50 Mg Tablet) 50 mg PO BEDTIME [facility] Last Admin: 07/10/25 21:37 Dose: 50 mg Senna (Sennosides 8.6 Mg Tablet) 17.2 mg PO BEDTIME [facility] Last Admin: 07/10/25 21:37 Dose: 17.2 mg Simethicone (Simethicone 80 Mg Tab.Chew) 80 mg PO BID [facility] Last Admin: 07/11/25 08:31 Dose: 80 mg Vitamin D (Cholecalciferol (Vitamin D3) 25 Mcg Tablet) 25 mcg PO DAILY [facility] Last Admin: 07/11/25 08:30 Dose: 25 mcg Vitamin E (Vitamin E (Dl,Tocopheryl Acet) 180 Mg (400 Unit) Capsule) 540 mg PO DAILY [facility] Last Admin: 07/11/25 08:29 Dose: 540 mg Allergies Allergies Allergy/AdvReac Type Severity Reaction Status Date / Time egg Allergy Intermediate Unknown Verified 07/10/25 03:24 monosodium glutamate (MSG) Allergy Intermediate Unknown Verified 07/10/25 03:25 caffeine Allergy Mild Unknown Verified 07/10/25 03:23 Assessment & Plan Assessment & Plan (1) Dementia: Qualifiers: Dementia behavioral or psychological symptom: unspecified whether behavioral, psychotic, or mood disturbance or anxiety Dementia severity: unspecified severity Dementia type: unspecified type Qualified Code(s): F03.90 - Unspecified dementia, unspecified severity, without behavioral disturbance, psychotic disturbance, mood disturbance, and anxiety Status: Acute Code(s): F03.90 - Unspecified dementia, unspecified severity, without behavioral disturbance, psychotic disturbance, mood disturbance, and anxiety (2) Psychosis: Qualifiers: Psychosis type: unspecified psychosis type Qualified Code(s): F29 - Unspecified psychosis not due to a substance or known physiological condition Status: Acute Code(s): F29 - Unspecified psychosis not due to a substance or known physiological condition Plan psychotic disorder, anti-psychotic recently stopped for unclear reasons. mina's order reviewed (abilify to 5 mg daily, seroquel to 50 mg daily are on the order). 07/04: restart abilify 5 mg at HS. seroquel 25 BID PRN agitation. 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 07/05: DC wellbutrin as it may increase anxiety and restlessness, increasing agitation. awake and alert today. no aggressive behaviors. continue current mgmt. 07/06: remains calm and pleasant. 2 episodes of head-banging yesterday evening. commitment paperwork filed. 07/07: intermittent head-banging continues in response to CAH. change seroquel from PRN to scheduled. otherwise continue current mgmt. 07/08: head-banging yesterday simon. slept well overnight. continue current mgmt. 07/09: needing redirection from head-banging. slept 8 hours. pleasant, cooperative. continue current mgmt. 07/10: some head-banging yesterday afternoon. self-dialoguing eves. none overnight, slept well. hearing continued to 07/26. continue current mgmt. 07/11: No head-banging today. Still hears voices but they have not instructed her to bang her head today. Self-dialoguing. Slept well. Pleasantly confused. Continue current treatment regimen. Reason for continued inpatient stay Substantial Risk for: harm to self and rapid decompensation Time Spent With Patient Time: Total time managing care of this patient today ____ minutes.
[2025-07-11 20:00] VITALS: BP 110/62; PULSE 66; RESP 16; TEMP 36.7; O2SAT 92
[2025-07-11] MEDS: Ketotifen Fumarate 0.025% Oph 5 ML DRPBTL 1 DROP EYE-BOTH (21:09)
[2025-07-12 08:00] VITALS: BP 142/67; PULSE 67; RESP 16; TEMP 36.1; O2SAT 94
[2025-07-12] MEDS: Vitamin E (Dl,Tocopheryl Acet) 180 MG (400 UNIT) CAPSULE 540 MG PO (08:52)
[2025-07-12] MEDS: Aspirin Enteric Coated 81 MG TABLET.DR PO (08:52)
[2025-07-12] MEDS: Calcium + Vitamin D 250 MG TABLET 500 MG PO ×2 (08:52→19:59)
[2025-07-12 08:53] VITALS: BP 142/67
[2025-07-12] MEDS: Ketotifen Fumarate 0.025% Oph 5 ML DRPBTL 1 DROP EYE-BOTH ×2 (08:53→20:05)
--- NOTE | 2025-07-12 10:48 | HO.PSYCHPN ---
Subjective Subjective Date of Service: 07/12/25 Reason For Visit: psychosis Interim History: lying in bed, pleasant, calm. cannot recall last head banging or CAH to do so. bruises on forehead less prominent than prior. reports she is sleeping fine. no other complaints or requests. per staff, denies dep/anx. c/o AH. eating well. flat, withdrawn. denies psych Sx. slept 8 hours. Mental Status Exam Mental Status Exam Narrative: adequately dressed and groomed, hospital attire. cooperative, no PMA/PMR. speech nml rate, decr amount, nml loudness, nml latency. thoughts linear and logical. affect flexible, normo-intense, non-labile. mood good. denies AH. no SI/SIBI/HI/VH expressed. Diagnostics Vital Signs (24Hr): Vital Signs - 24 hr 07/11/25 20:00 07/12/25 08:00 07/12/25 08:53 Temperature 98.1 F 96.9 F Pulse Rate 66 67 Respiratory Rate 16 16 Blood Pressure 110/62 142/67 H 142/67 H Pulse Oximetry 92 94 Oxygen Delivery Method Room Air Room Air 07/12/25 08:53 Temperature Pulse Rate Respiratory Rate Blood Pressure 142/67 H Pulse Oximetry Oxygen Delivery Method BMI result Body Mass Index 28.7 Labs 07/01/25 12:43 07/01/25 12:43 Imaging Radiology Impressions: ITS Impressions Head CT 07/04/25 16:13 IMPRESSION: 1. No acute intracranial findings. 2. Interval decrease in the right frontal scalp hematoma. Electronically signed by: Durga Benavides MD 07/04/2025 06:14 PM EDT Medications Medications Current Medications Acetaminophen (Acetaminophen 325 Mg Tablet) 650 mg PO Q6H PRN PRN Reason: Pain (Scale Score 1-3) Acetaminophen (Acetaminophen 325 Mg Tablet) 650 mg PO Q6H PRN PRN Reason: Headache/Pain, Scale 1-10 Al Hydroxide/Mg Hydroxide (Magnesium Hydrox/Alum Hydrox 30 Ml Oral.Susp) 30 ml PO Q6H PRN PRN Reason: Heartburn/Nausea Amlodipine Besylate (Amlodipine Besylate 2.5 Mg Tablet) 2.5 mg PO DAILY [facility]; Protocol Last Admin: 07/12/25 08:53 Dose: 2.5 mg Aripiprazole (Aripiprazole 5 Mg Tablet) 5 mg PO BEDTIME [facility] Last Admin: 07/11/25 20:48 Dose: 5 mg Ascorbic Acid (Ascorbic Acid 500 Mg Tablet) 500 mg PO BID [facility] Last Admin: 07/12/25 08:52 Dose: 500 mg Aspirin (Aspirin Enteric Coated 81 Mg Tablet.Dr) 81 mg PO DAILY [facility] Last Admin: 07/12/25 08:52 Dose: 81 mg Atorvastatin Calcium (Atorvastatin Calcium 80 Mg Tablet) 80 mg PO BEDTIME [facility] Last Admin: 07/11/25 20:48 Dose: 80 mg Calcium Carbonate/Cholecalciferol (Calcium + Vitamin D 250 Mg Tablet) 500 mg PO BID [facility] Last Admin: 07/12/25 08:52 Dose: 500 mg Docusate Sodium (Docusate Sodium 100 Mg Capsule) 100 mg PO BID [facility] Last Admin: 07/11/25 20:47 Dose: 100 mg Donepezil HCl (Donepezil Hcl 5 Mg Tablet) 5 mg PO DAILY [facility] Last Admin: 07/12/25 08:52 Dose: 5 mg Escitalopram Oxalate (Escitalopram Oxalate 10 Mg Tablet) 10 mg PO DAILY [facility] Last Admin: 07/12/25 08:53 Dose: 10 mg Fluticasone Propionate (Fluticasone Propionate Nasal 16 Gm [place]) 1 spray NOSTRIL-B DAILY [facility] Last Admin: 07/12/25 08:53 Dose: 1 spray Gabapentin (Gabapentin 100 Mg Capsule) 100 mg PO BEDTIME [facility] Last Admin: 07/11/25 20:47 Dose: 100 mg Hydroxyzine HCl (Hydroxyzine Hcl 25 Mg Tablet) 25 mg PO Q6H PRN PRN Reason: mild anxiety Ketotifen Fumarate (Ketotifen Fumarate 0.025% Oph 5 Ml Drpbtl) 1 drop EYE-BOTH BID [facility] Last Admin: 07/12/25 08:53 Dose: 1 drop Levothyroxine Sodium (Levothyroxine Sodium 75 Mcg Tablet) 75 mcg PO DAILY@0600 [facility] Last Admin: 07/12/25 05:50 Dose: 75 mcg Magnesium Hydroxide (Milk Of Magnesia 30 Ml Oral.Susp) 30 ml PO DAILY PRN PRN Reason: Constipation Melatonin (Melatonin 3 Mg Tablet) 6 mg PO BEDTIME [facility] Last Admin: 07/11/25 20:48 Dose: 6 mg Mirtazapine (Mirtazapine 15 Mg Tablet) 15 mg PO BEDTIME [facility] Last Admin: 07/11/25 20:49 Dose: 15 mg Multivitamins/Vitamin C (Multivitamin Tablet) 1 tab PO DAILY [facility] Last Admin: 07/12/25 08:52 Dose: 1 tab Omeprazole (Omeprazole 20 Mg Capsule.Dr) 20 mg PO DAILY@0630 [facility] Last Admin: 07/12/25 09:28 Dose: Not Given Propranolol HCl (Propranolol Hcl 10 Mg Tablet) 10 mg PO DAILY [facility]; Protocol Last Admin: 07/12/25 08:53 Dose: 10 mg Propranolol HCl (Propranolol Hcl 20 Mg Tablet) 20 mg PO BEDTIME [facility]; Protocol Last Admin: 07/11/25 20:48 Dose: 20 mg Pyridoxine HCl (Pyridoxine Hcl (Vitamin B6) 50 Mg Tablet) 100 mg PO BID [facility] Last Admin: 07/12/25 08:53 Dose: 100 mg Quetiapine Fumarate (Quetiapine Fumarate 50 Mg Tablet) 50 mg PO BEDTIME [facility] Last Admin: 07/11/25 20:48 Dose: 50 mg Senna (Sennosides 8.6 Mg Tablet) 17.2 mg PO BEDTIME [facility] Last Admin: 07/11/25 20:47 Dose: 17.2 mg Simethicone (Simethicone 80 Mg Tab.Chew) 80 mg PO BID [facility] Last Admin: 07/12/25 08:52 Dose: 80 mg Vitamin D (Cholecalciferol (Vitamin D3) 25 Mcg Tablet) 25 mcg PO DAILY [facility] Last Admin: 07/11/25 08:30 Dose: 25 mcg Vitamin E (Vitamin E (Dl,Tocopheryl Acet) 180 Mg (400 Unit) Capsule) 540 mg PO DAILY [facility] Last Admin: 07/12/25 08:52 Dose: 540 mg Allergies Allergies Allergy/AdvReac Type Severity Reaction Status Date / Time egg Allergy Intermediate Unknown Verified 07/10/25 03:24 monosodium glutamate (MSG) Allergy Intermediate Unknown Verified 07/10/25 03:25 caffeine Allergy Mild Unknown Verified 07/10/25 03:23 Assessment & Plan Assessment & Plan (1) Dementia: Qualifiers: Dementia behavioral or psychological symptom: unspecified whether behavioral, psychotic, or mood disturbance or anxiety Dementia severity: unspecified severity Dementia type: unspecified type Qualified Code(s): F03.90 - Unspecified dementia, unspecified severity, without behavioral disturbance, psychotic disturbance, mood disturbance, and anxiety Status: Acute Code(s): F03.90 - Unspecified dementia, unspecified severity, without behavioral disturbance, psychotic disturbance, mood disturbance, and anxiety (2) Psychosis: Qualifiers: Psychosis type: unspecified psychosis type Qualified Code(s): F29 - Unspecified psychosis not due to a substance or known physiological condition Status: Acute Code(s): F29 - Unspecified psychosis not due to a substance or known physiological condition Plan psychotic disorder, anti-psychotic recently stopped for unclear reasons. mina's order reviewed (abilify to 5 mg daily, seroquel to 50 mg daily are on the order). 07/04: restart abilify 5 mg at HS. seroquel 25 BID PRN agitation. 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 07/05: DC wellbutrin as it may increase anxiety and restlessness, increasing agitation. awake and alert today. no aggressive behaviors. continue current mgmt. 07/06: remains calm and pleasant. 2 episodes of head-banging yesterday evening. commitment paperwork filed. 07/07: intermittent head-banging continues in response to CAH. change seroquel from PRN to scheduled. otherwise continue current mgmt. 07/08: head-banging yesterday simon. slept well overnight. continue current mgmt. 07/09: needing redirection from head-banging. slept 8 hours. pleasant, cooperative. continue current mgmt. 07/10: some head-banging yesterday afternoon. self-dialoguing eves. none overnight, slept well. hearing continued to 07/26. continue current mgmt. 07/11: No head-banging today. Still hears voices but they have not instructed her to bang her head today. Self-dialoguing. Slept well. Pleasantly confused. Continue current treatment regimen. 07/12: can't recall last head banging or CAH to do so. sleeping well, eating well. no SIB in the past 24H. continue current mgmt. Reason for continued inpatient stay Substantial Risk for: harm to self, inability to function and rapid decompensation Time Spent With Patient Time: Total time managing care of this patient today ____ minutes.
[2025-07-12 20:00] VITALS: BP 112/54; PULSE 64; RESP 16; TEMP 36.9; O2SAT 92
--- NOTE | 2025-07-12 21:44 | PC.NURSE ---
Pt BP 112/54, held Propranolol
[2025-07-13 08:15] VITALS: BP 138/70; PULSE 63; RESP 14; TEMP 36.7; O2SAT 93
[2025-07-13] MEDS: Ketotifen Fumarate 0.025% Oph 5 ML DRPBTL 1 DROP EYE-BOTH ×2 (08:16→20:31)
[2025-07-13] MEDS: Vitamin E (Dl,Tocopheryl Acet) 180 MG (400 UNIT) CAPSULE 540 MG PO (08:16)
[2025-07-13] MEDS: Aspirin Enteric Coated 81 MG TABLET.DR PO (08:21)
[2025-07-13] MEDS: Calcium + Vitamin D 250 MG TABLET 500 MG PO ×2 (08:24→20:28)
--- NOTE | 2025-07-13 11:35 | HO.PSYCHPN ---
Subjective Subjective Date of Service: 07/13/25 Reason For Visit: psychosis Interim History: resting in bed after breakfast. denies any recollection of SIB last night or CAH recently. able to recall that that has been an issue for her recently, however. no questions or complaints. per staff, attempted to hit self in the head several times. isolative, fatigued, sleeping much of the day. taking meds. slept 8 hours overnight. Mental Status Exam Mental Status Exam Narrative: adequately dressed and groomed, hospital attire. cooperative, no PMA/PMR. speech nml rate, decr amount, nml loudness, nml latency. thoughts linear and logical. affect flexible, normo-intense, non-labile. mood good. denies AH. no SI/SIBI/HI/VH expressed. Diagnostics Vital Signs (24Hr): Vital Signs - 24 hr 07/12/25 20:00 07/13/25 08:15 Temperature 98.4 F 98.0 F Pulse Rate 64 63 Respiratory Rate 16 14 Blood Pressure 112/54 L 138/70 Pulse Oximetry 92 93 Oxygen Delivery Method Room Air Room Air BMI result Body Mass Index 28.7 Labs 07/01/25 12:43 07/01/25 12:43 Imaging Radiology Impressions: ITS Impressions Head CT 07/04/25 16:13 IMPRESSION: 1. No acute intracranial findings. 2. Interval decrease in the right frontal scalp hematoma. Electronically signed by: Durga Benavides MD 07/04/2025 06:14 PM EDT RP Medications Medications Current Medications Acetaminophen (Acetaminophen 325 Mg Tablet) 650 mg PO Q6H PRN PRN Reason: Pain (Scale Score 1-3) Acetaminophen (Acetaminophen 325 Mg Tablet) 650 mg PO Q6H PRN PRN Reason: Headache/Pain, Scale 1-10 Al Hydroxide/Mg Hydroxide (Magnesium Hydrox/Alum Hydrox 30 Ml Oral.Susp) 30 ml PO Q6H PRN PRN Reason: Heartburn/Nausea Amlodipine Besylate (Amlodipine Besylate 2.5 Mg Tablet) 2.5 mg PO DAILY [facility]; Protocol Last Admin: 07/13/25 08:21 Dose: 2.5 mg Aripiprazole (Aripiprazole 5 Mg Tablet) 5 mg PO BEDTIME [facility] Last Admin: 07/12/25 19:57 Dose: 5 mg Ascorbic Acid (Ascorbic Acid 500 Mg Tablet) 500 mg PO BID [facility] Last Admin: 07/13/25 08:18 Dose: 500 mg Aspirin (Aspirin Enteric Coated 81 Mg Tablet.Dr) 81 mg PO DAILY [facility] Last Admin: 07/13/25 08:21 Dose: 81 mg Atorvastatin Calcium (Atorvastatin Calcium 80 Mg Tablet) 80 mg PO BEDTIME [facility] Last Admin: 07/12/25 19:57 Dose: 80 mg Calcium Carbonate/Cholecalciferol (Calcium + Vitamin D 250 Mg Tablet) 500 mg PO BID [facility] Last Admin: 07/13/25 08:24 Dose: 500 mg Docusate Sodium (Docusate Sodium 100 Mg Capsule) 100 mg PO BID [facility] Last Admin: 07/13/25 08:23 Dose: Not Given Donepezil HCl (Donepezil Hcl 5 Mg Tablet) 5 mg PO DAILY [facility] Last Admin: 07/13/25 08:22 Dose: 5 mg Escitalopram Oxalate (Escitalopram Oxalate 10 Mg Tablet) 10 mg PO DAILY [facility] Last Admin: 07/13/25 08:22 Dose: 10 mg Fluticasone Propionate (Fluticasone Propionate Nasal 16 Gm [place]) 1 spray NOSTRIL-B DAILY [facility] Last Admin: 07/13/25 08:16 Dose: 1 spray Gabapentin (Gabapentin 100 Mg Capsule) 100 mg PO BEDTIME [facility] Last Admin: 07/12/25 19:59 Dose: 100 mg Hydroxyzine HCl (Hydroxyzine Hcl 25 Mg Tablet) 25 mg PO Q6H PRN PRN Reason: mild anxiety Last Admin: 07/12/25 14:44 Dose: 25 mg Ketotifen Fumarate (Ketotifen Fumarate 0.025% Oph 5 Ml Drpbtl) 1 drop EYE-BOTH BID [facility] Last Admin: 07/13/25 08:16 Dose: 1 drop Levothyroxine Sodium (Levothyroxine Sodium 75 Mcg Tablet) 75 mcg PO DAILY@0600 [facility] Last Admin: 07/13/25 05:53 Dose: 75 mcg Magnesium Hydroxide (Milk Of Magnesia 30 Ml Oral.Susp) 30 ml PO DAILY PRN PRN Reason: Constipation Melatonin (Melatonin 3 Mg Tablet) 6 mg PO BEDTIME [facility] Last Admin: 07/12/25 19:59 Dose: 6 mg Mirtazapine (Mirtazapine 15 Mg Tablet) 15 mg PO BEDTIME [facility] Last Admin: 07/12/25 19:59 Dose: 15 mg Multivitamins/Vitamin C (Multivitamin Tablet) 1 tab PO DAILY [facility] Last Admin: 07/13/25 08:22 Dose: 1 tab Omeprazole (Omeprazole 20 Mg Capsule.Dr) 20 mg PO DAILY@0630 [facility] Last Admin: 07/13/25 06:33 Dose: 20 mg Propranolol HCl (Propranolol Hcl 10 Mg Tablet) 10 mg PO DAILY [facility]; Protocol Last Admin: 07/13/25 08:18 Dose: 10 mg Propranolol HCl (Propranolol Hcl 20 Mg Tablet) 20 mg PO BEDTIME [facility]; Protocol Last Admin: 07/12/25 22:30 Dose: Not Given Pyridoxine HCl (Pyridoxine Hcl (Vitamin B6) 50 Mg Tablet) 100 mg PO BID [facility] Last Admin: 07/13/25 08:18 Dose: 100 mg Quetiapine Fumarate (Quetiapine Fumarate 50 Mg Tablet) 50 mg PO BEDTIME [facility] Last Admin: 07/12/25 19:58 Dose: 50 mg Senna (Sennosides 8.6 Mg Tablet) 17.2 mg PO BEDTIME [facility] Last Admin: 07/12/25 19:59 Dose: 17.2 mg Simethicone (Simethicone 80 Mg Tab.Chew) 80 mg PO BID [facility] Last Admin: 07/13/25 08:18 Dose: 80 mg Vitamin D (Cholecalciferol (Vitamin D3) 25 Mcg Tablet) 25 mcg PO DAILY [facility] Last Admin: 07/13/25 08:21 Dose: 25 mcg Vitamin E (Vitamin E (Dl,Tocopheryl Acet) 180 Mg (400 Unit) Capsule) 540 mg PO DAILY [facility] Last Admin: 07/13/25 08:16 Dose: 540 mg Allergies Allergies Allergy/AdvReac Type Severity Reaction Status Date / Time egg Allergy Intermediate Unknown Verified 07/10/25 03:24 monosodium glutamate (MSG) Allergy Intermediate Unknown Verified 07/10/25 03:25 caffeine Allergy Mild Unknown Verified 07/10/25 03:23 Assessment & Plan Assessment & Plan (1) Dementia: Qualifiers: Dementia behavioral or psychological symptom: unspecified whether behavioral, psychotic, or mood disturbance or anxiety Dementia severity: unspecified severity Dementia type: unspecified type Qualified Code(s): F03.90 - Unspecified dementia, unspecified severity, without behavioral disturbance, psychotic disturbance, mood disturbance, and anxiety Status: Acute Code(s): F03.90 - Unspecified dementia, unspecified severity, without behavioral disturbance, psychotic disturbance, mood disturbance, and anxiety (2) Psychosis: Qualifiers: Psychosis type: unspecified psychosis type Qualified Code(s): F29 - Unspecified psychosis not due to a substance or known physiological condition Status: Acute Code(s): F29 - Unspecified psychosis not due to a substance or known physiological condition Plan psychotic disorder, anti-psychotic recently stopped for unclear reasons. mina's order reviewed (abilify to 5 mg daily, seroquel to 50 mg daily are on the order). 07/04: restart abilify 5 mg at HS. seroquel 25 BID PRN agitation. 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 07/05: DC wellbutrin as it may increase anxiety and restlessness, increasing agitation. awake and alert today. no aggressive behaviors. continue current mgmt. 07/06: remains calm and pleasant. 2 episodes of head-banging yesterday evening. commitment paperwork filed. 07/07: intermittent head-banging continues in response to CAH. change seroquel from PRN to scheduled. otherwise continue current mgmt. 07/08: head-banging yesterday simon. slept well overnight. continue current mgmt. 07/09: needing redirection from head-banging. slept 8 hours. pleasant, cooperative. continue current mgmt. 07/10: some head-banging yesterday afternoon. self-dialoguing eves. none overnight, slept well. hearing continued to 07/26. continue current mgmt. 07/11: No head-banging today. Still hears voices but they have not instructed her to bang her head today. Self-dialoguing. Slept well. Pleasantly confused. Continue current treatment regimen. 07/12: can't recall last head banging or CAH to do so. sleeping well, eating well. no SIB in the past 24H. continue current mgmt. 07/13: head-banging again last night, say she doesn't recall it. calm, pleasant, cooperative today. continue current mgmt. Reason for continued inpatient stay Substantial Risk for: harm to self and inability to function Time Spent With Patient Time: Total time managing care of this patient today ____ minutes.
[2025-07-13 20:00] VITALS: BP 126/58; PULSE 67; RESP 16; TEMP 36.3; O2SAT 94
--- NOTE | 2025-07-14 07:47 | HO.PSYCHPN ---
Subjective Subjective Date of Service: 07/14/25 Reason For Visit: psychosis Subjective Notes: Section 7 Interim History: one-to-one observation for head banging, although none since 07/12. No management issues. Sleeping well. Reports not feeling depressed. Feels safe. No medication concerns. Appetite good. Medication Compliance: Yes Side effects from medications: No Review of Systems Acute medical concerns: No Review of Systems Review of Systems Nothing of note Mental Status Exam Mental Status Exam Narrative: adequately dressed and groomed, hospital attire. cooperative, no PMA/PMR. speech nml rate, decr amount, nml loudness, nml latency. thoughts linear and logical. affect flexible, normo-intense, non-labile. mood ok denies AH. feels safe. no SI/SIBI/HI/VH expressed. Diagnostics Vital Signs (24Hr): Vital Signs - 24 hr 07/13/25 08:15 07/13/25 20:00 Temperature 98.0 F 97.3 F Pulse Rate 63 67 Respiratory Rate 14 16 Blood Pressure 138/70 126/58 L Pulse Oximetry 93 94 Oxygen Delivery Method Room Air Room Air BMI result Body Mass Index 28.7 Labs 07/01/25 12:43 07/01/25 12:43 Imaging Radiology Impressions: ITS Impressions Head CT 07/04/25 16:13 IMPRESSION: 1. No acute intracranial findings. 2. Interval decrease in the right frontal scalp hematoma. Electronically signed by: Durga Benavides MD 07/04/2025 06:14 PM EDT RP Medications Medications Current Medications Acetaminophen (Acetaminophen 325 Mg Tablet) 650 mg PO Q6H PRN PRN Reason: Pain (Scale Score 1-3) Acetaminophen (Acetaminophen 325 Mg Tablet) 650 mg PO Q6H PRN PRN Reason: Headache/Pain, Scale 1-10 Al Hydroxide/Mg Hydroxide (Magnesium Hydrox/Alum Hydrox 30 Ml Oral.Susp) 30 ml PO Q6H PRN PRN Reason: Heartburn/Nausea Amlodipine Besylate (Amlodipine Besylate 2.5 Mg Tablet) 2.5 mg PO DAILY [facility]; Protocol Last Admin: 07/13/25 08:21 Dose: 2.5 mg Aripiprazole (Aripiprazole 5 Mg Tablet) 5 mg PO BEDTIME [facility] Last Admin: 07/13/25 20:28 Dose: 5 mg Ascorbic Acid (Ascorbic Acid 500 Mg Tablet) 500 mg PO BID [facility] Last Admin: 07/13/25 20:31 Dose: 500 mg Aspirin (Aspirin Enteric Coated 81 Mg Tablet.Dr) 81 mg PO DAILY [facility] Last Admin: 07/13/25 08:21 Dose: 81 mg Atorvastatin Calcium (Atorvastatin Calcium 80 Mg Tablet) 80 mg PO BEDTIME [facility] Last Admin: 07/13/25 20:29 Dose: 80 mg Calcium Carbonate/Cholecalciferol (Calcium + Vitamin D 250 Mg Tablet) 500 mg PO BID [facility] Last Admin: 07/13/25 20:28 Dose: 500 mg Docusate Sodium (Docusate Sodium 100 Mg Capsule) 100 mg PO BID [facility] Last Admin: 07/13/25 20:28 Dose: 100 mg Donepezil HCl (Donepezil Hcl 5 Mg Tablet) 5 mg PO DAILY [facility] Last Admin: 07/13/25 08:22 Dose: 5 mg Escitalopram Oxalate (Escitalopram Oxalate 10 Mg Tablet) 10 mg PO DAILY [facility] Last Admin: 07/13/25 08:22 Dose: 10 mg Fluticasone Propionate (Fluticasone Propionate Nasal 16 Gm [place]) 1 spray NOSTRIL-B DAILY [facility] Last Admin: 07/13/25 08:16 Dose: 1 spray Gabapentin (Gabapentin 100 Mg Capsule) 100 mg PO BEDTIME [facility] Last Admin: 07/13/25 20:31 Dose: 100 mg Hydroxyzine HCl (Hydroxyzine Hcl 25 Mg Tablet) 25 mg PO Q6H PRN PRN Reason: mild anxiety Last Admin: 07/12/25 14:44 Dose: 25 mg Ketotifen Fumarate (Ketotifen Fumarate 0.025% Oph 5 Ml Drpbtl) 1 drop EYE-BOTH BID [facility] Last Admin: 07/13/25 20:31 Dose: 1 drop Levothyroxine Sodium (Levothyroxine Sodium 75 Mcg Tablet) 75 mcg PO DAILY@0600 [facility] Last Admin: 07/14/25 06:08 Dose: 75 mcg Magnesium Hydroxide (Milk Of Magnesia 30 Ml Oral.Susp) 30 ml PO DAILY PRN PRN Reason: Constipation Melatonin (Melatonin 3 Mg Tablet) 6 mg PO BEDTIME [facility] Last Admin: 07/13/25 20:27 Dose: 6 mg Mirtazapine (Mirtazapine 15 Mg Tablet) 15 mg PO BEDTIME [facility] Last Admin: 07/13/25 20:31 Dose: 15 mg Multivitamins/Vitamin C (Multivitamin Tablet) 1 tab PO DAILY [facility] Last Admin: 07/13/25 08:22 Dose: 1 tab Omeprazole (Omeprazole 20 Mg Capsule.Dr) 20 mg PO DAILY@0630 [facility] Last Admin: 07/14/25 06:08 Dose: 20 mg Propranolol HCl (Propranolol Hcl 10 Mg Tablet) 10 mg PO DAILY [facility]; Protocol Last Admin: 07/13/25 08:18 Dose: 10 mg Propranolol HCl (Propranolol Hcl 20 Mg Tablet) 20 mg PO BEDTIME [facility]; Protocol Last Admin: 07/13/25 20:33 Dose: 20 mg Pyridoxine HCl (Pyridoxine Hcl (Vitamin B6) 50 Mg Tablet) 100 mg PO BID [facility] Last Admin: 07/13/25 20:31 Dose: 100 mg Quetiapine Fumarate (Quetiapine Fumarate 50 Mg Tablet) 50 mg PO BEDTIME [facility] Last Admin: 07/13/25 20:31 Dose: 50 mg Senna (Sennosides 8.6 Mg Tablet) 17.2 mg PO BEDTIME [facility] Last Admin: 07/13/25 20:31 Dose: 17.2 mg Simethicone (Simethicone 80 Mg Tab.Chew) 80 mg PO BID [facility] Last Admin: 07/13/25 20:27 Dose: 80 mg Vitamin D (Cholecalciferol (Vitamin D3) 25 Mcg Tablet) 25 mcg PO DAILY [facility] Last Admin: 07/13/25 08:21 Dose: 25 mcg Vitamin E (Vitamin E (Dl,Tocopheryl Acet) 180 Mg (400 Unit) Capsule) 540 mg PO DAILY [facility] Last Admin: 07/13/25 08:16 Dose: 540 mg Allergies Allergies Allergy/AdvReac Type Severity Reaction Status Date / Time egg Allergy Intermediate Unknown Verified 07/10/25 03:24 monosodium glutamate (MSG) Allergy Intermediate Unknown Verified 07/10/25 03:25 caffeine Allergy Mild Unknown Verified 07/10/25 03:23 Assessment & Plan Assessment & Plan (1) Dementia: Qualifiers: Dementia behavioral or psychological symptom: unspecified whether behavioral, psychotic, or mood disturbance or anxiety Dementia severity: unspecified severity Dementia type: unspecified type Qualified Code(s): F03.90 - Unspecified dementia, unspecified severity, without behavioral disturbance, psychotic disturbance, mood disturbance, and anxiety Status: Acute Code(s): F03.90 - Unspecified dementia, unspecified severity, without behavioral disturbance, psychotic disturbance, mood disturbance, and anxiety (2) Psychosis: Qualifiers: Psychosis type: unspecified psychosis type Qualified Code(s): F29 - Unspecified psychosis not due to a substance or known physiological condition Status: Acute Code(s): F29 - Unspecified psychosis not due to a substance or known physiological condition Plan psychotic disorder, anti-psychotic recently stopped for unclear reasons. mina's order reviewed (abilify to 5 mg daily, seroquel to 50 mg daily are on the order). 07/04: restart abilify 5 mg at HS. seroquel 25 BID PRN agitation. 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 07/05: DC wellbutrin as it may increase anxiety and restlessness, increasing agitation. awake and alert today. no aggressive behaviors. continue current mgmt. 07/06: remains calm and pleasant. 2 episodes of head-banging yesterday evening. commitment paperwork filed. 07/07: intermittent head-banging continues in response to CAH. change seroquel from PRN to scheduled. otherwise continue current mgmt. 07/08: head-banging yesterday simon. slept well overnight. continue current mgmt. 07/09: needing redirection from head-banging. slept 8 hours. pleasant, cooperative. continue current mgmt. 07/10: some head-banging yesterday afternoon. self-dialoguing eves. none overnight, slept well. hearing continued to 07/26. continue current mgmt. 07/11: No head-banging today. Still hears voices but they have not instructed her to bang her head today. Self-dialoguing. Slept well. Pleasantly confused. Continue current treatment regimen. 07/12: can't recall last head banging or CAH to do so. sleeping well, eating well. no SIB in the past 24H. continue current mgmt. 07/13: head-banging again last night, say she doesn't recall it. calm, pleasant, cooperative today. continue current mgmt. 07/14: No changes Reason for continued inpatient stay Substantial Risk for: harm to self and inability to function Time Spent With Patient Time: Total time managing care of this patient today ____ minutes.
[2025-07-14 07:55] VITALS: BP 140/63; PULSE 68; RESP 18; TEMP 36.5; O2SAT 94
[2025-07-14] MEDS: Aspirin Enteric Coated 81 MG TABLET.DR PO (08:17)
[2025-07-14] MEDS: Vitamin E (Dl,Tocopheryl Acet) 180 MG (400 UNIT) CAPSULE 540 MG PO (08:17)
[2025-07-14] MEDS: Calcium + Vitamin D 250 MG TABLET 500 MG PO ×2 (08:18→21:23)
[2025-07-14] MEDS: Ketotifen Fumarate 0.025% Oph 5 ML DRPBTL 1 DROP EYE-BOTH ×2 (08:19→21:23)
[2025-07-14 20:00] VITALS: BP 109/63; PULSE 69; RESP 16; TEMP 36.4; O2SAT 94
[2025-07-15 08:00] VITALS: BP 115/61; PULSE 66; RESP 18; TEMP 36.6; O2SAT 93
[2025-07-15] MEDS: Ketotifen Fumarate 0.025% Oph 5 ML DRPBTL 1 DROP EYE-BOTH ×2 (08:28→20:02)
[2025-07-15 08:30] VITALS: BP 115/61; PULSE 66
[2025-07-15] MEDS: Aspirin Enteric Coated 81 MG TABLET.DR PO (08:31)
[2025-07-15] MEDS: Vitamin E (Dl,Tocopheryl Acet) 180 MG (400 UNIT) CAPSULE 540 MG PO (08:31)
[2025-07-15] MEDS: Calcium + Vitamin D 250 MG TABLET 500 MG PO ×2 (08:31→20:01)
--- NOTE | 2025-07-15 10:22 | HO.PSYCHPN ---
Subjective Subjective Date of Service: 07/15/25 Reason For Visit: psychosis Subjective Notes: Section 7 Interim History: Remains on one-to-one observation for head banging- none since 07/12. No management issues. Sleeping well. Watching TV and pleasant. Reports not feeling depressed. Feels safe. No medication concerns. Appetite good. Review of Systems Review of Systems Nothing of note Mental Status Exam Mental Status Exam Narrative: adequately dressed and groomed, hospital attire in day are watching TV. cooperative, no PMA/PMR. speech nml rate, decr amount, nml loudness, nml latency. thoughts linear and logical. affect flexible, normo-intense, non-labile. mood ok denies AH. feels safe. no SI/SIBI/HI/VH expressed. Diagnostics Vital Signs (24Hr): Vital Signs - 24 hr 07/14/25 20:00 07/15/25 08:30 07/15/25 08:30 Temperature 97.5 F Pulse Rate 69 66 Respiratory Rate 16 Blood Pressure 109/63 115/61 115/61 Pulse Oximetry 94 Oxygen Delivery Method Room Air BMI result Body Mass Index 28.7 Labs 07/01/25 12:43 07/01/25 12:43 Imaging Radiology Impressions: ITS Impressions Head CT 07/04/25 16:13 IMPRESSION: 1. No acute intracranial findings. 2. Interval decrease in the right frontal scalp hematoma. Electronically signed by: Durga Benavides MD 07/04/2025 06:14 PM EDT RP Medications Medications Current Medications Acetaminophen (Acetaminophen 325 Mg Tablet) 650 mg PO Q6H PRN PRN Reason: Pain (Scale Score 1-3) Acetaminophen (Acetaminophen 325 Mg Tablet) 650 mg PO Q6H PRN PRN Reason: Headache/Pain, Scale 1-10 Al Hydroxide/Mg Hydroxide (Magnesium Hydrox/Alum Hydrox 30 Ml Oral.Susp) 30 ml PO Q6H PRN PRN Reason: Heartburn/Nausea Amlodipine Besylate (Amlodipine Besylate 2.5 Mg Tablet) 2.5 mg PO DAILY [facility]; Protocol Last Admin: 07/15/25 08:30 Dose: 2.5 mg Aripiprazole (Aripiprazole 5 Mg Tablet) 5 mg PO BEDTIME [facility] Last Admin: 07/14/25 21:24 Dose: 5 mg Ascorbic Acid (Ascorbic Acid 500 Mg Tablet) 500 mg PO BID [facility] Last Admin: 07/15/25 08:31 Dose: 500 mg Aspirin (Aspirin Enteric Coated 81 Mg Tablet.Dr) 81 mg PO DAILY [facility] Last Admin: 07/15/25 08:31 Dose: 81 mg Atorvastatin Calcium (Atorvastatin Calcium 80 Mg Tablet) 80 mg PO BEDTIME [facility] Last Admin: 07/14/25 21:24 Dose: 80 mg Calcium Carbonate/Cholecalciferol (Calcium + Vitamin D 250 Mg Tablet) 500 mg PO BID [facility] Last Admin: 07/15/25 08:31 Dose: 500 mg Docusate Sodium (Docusate Sodium 100 Mg Capsule) 100 mg PO BID [facility] Last Admin: 07/15/25 08:31 Dose: 100 mg Donepezil HCl (Donepezil Hcl 5 Mg Tablet) 5 mg PO DAILY [facility] Last Admin: 07/15/25 08:31 Dose: 5 mg Escitalopram Oxalate (Escitalopram Oxalate 10 Mg Tablet) 10 mg PO DAILY [facility] Last Admin: 07/15/25 08:31 Dose: 10 mg Fluticasone Propionate (Fluticasone Propionate Nasal 16 Gm [place]) 1 spray NOSTRIL-B DAILY [facility] Last Admin: 07/15/25 08:28 Dose: 1 spray Gabapentin (Gabapentin 100 Mg Capsule) 100 mg PO BEDTIME [facility] Last Admin: 07/14/25 21:24 Dose: 100 mg Hydroxyzine HCl (Hydroxyzine Hcl 25 Mg Tablet) 25 mg PO Q6H PRN PRN Reason: mild anxiety Last Admin: 07/12/25 14:44 Dose: 25 mg Ketotifen Fumarate (Ketotifen Fumarate 0.025% Oph 5 Ml Drpbtl) 1 drop EYE-BOTH BID [facility] Last Admin: 07/15/25 08:28 Dose: 1 drop Levothyroxine Sodium (Levothyroxine Sodium 75 Mcg Tablet) 75 mcg PO DAILY@0600 [facility] Last Admin: 07/15/25 05:31 Dose: 75 mcg Magnesium Hydroxide (Milk Of Magnesia 30 Ml Oral.Susp) 30 ml PO DAILY PRN PRN Reason: Constipation Melatonin (Melatonin 3 Mg Tablet) 6 mg PO BEDTIME [facility] Last Admin: 07/14/25 21:24 Dose: 6 mg Mirtazapine (Mirtazapine 15 Mg Tablet) 15 mg PO BEDTIME [facility] Last Admin: 07/14/25 21:24 Dose: 15 mg Multivitamins/Vitamin C (Multivitamin Tablet) 1 tab PO DAILY [facility] Last Admin: 07/15/25 08:30 Dose: 1 tab Omeprazole (Omeprazole 20 Mg Capsule.Dr) 20 mg PO DAILY@0630 [facility] Last Admin: 07/15/25 06:00 Dose: 20 mg Propranolol HCl (Propranolol Hcl 10 Mg Tablet) 10 mg PO DAILY [facility]; Protocol Last Admin: 07/15/25 08:30 Dose: 10 mg Propranolol HCl (Propranolol Hcl 20 Mg Tablet) 20 mg PO BEDTIME [facility]; Protocol Last Admin: 07/14/25 21:24 Dose: 20 mg Pyridoxine HCl (Pyridoxine Hcl (Vitamin B6) 50 Mg Tablet) 100 mg PO BID [facility] Last Admin: 07/15/25 08:30 Dose: 100 mg Quetiapine Fumarate (Quetiapine Fumarate 50 Mg Tablet) 50 mg PO BEDTIME [facility] Last Admin: 07/14/25 21:24 Dose: 50 mg Senna (Sennosides 8.6 Mg Tablet) 17.2 mg PO BEDTIME [facility] Last Admin: 07/14/25 21:23 Dose: 17.2 mg Simethicone (Simethicone 80 Mg Tab.Chew) 80 mg PO BID [facility] Last Admin: 07/15/25 08:31 Dose: 80 mg Vitamin D (Cholecalciferol (Vitamin D3) 25 Mcg Tablet) 25 mcg PO DAILY [facility] Last Admin: 07/15/25 08:31 Dose: 25 mcg Vitamin E (Vitamin E (Dl,Tocopheryl Acet) 180 Mg (400 Unit) Capsule) 540 mg PO DAILY [facility] Last Admin: 07/15/25 08:31 Dose: 540 mg Allergies Allergies Allergy/AdvReac Type Severity Reaction Status Date / Time egg Allergy Intermediate Unknown Verified 07/10/25 03:24 monosodium glutamate (MSG) Allergy Intermediate Unknown Verified 07/10/25 03:25 caffeine Allergy Mild Unknown Verified 07/10/25 03:23 Assessment & Plan Assessment & Plan (1) Dementia: Qualifiers: Dementia behavioral or psychological symptom: unspecified whether behavioral, psychotic, or mood disturbance or anxiety Dementia severity: unspecified severity Dementia type: unspecified type Qualified Code(s): F03.90 - Unspecified dementia, unspecified severity, without behavioral disturbance, psychotic disturbance, mood disturbance, and anxiety Status: Acute Code(s): F03.90 - Unspecified dementia, unspecified severity, without behavioral disturbance, psychotic disturbance, mood disturbance, and anxiety (2) Psychosis: Qualifiers: Psychosis type: unspecified psychosis type Qualified Code(s): F29 - Unspecified psychosis not due to a substance or known physiological condition Status: Acute Code(s): F29 - Unspecified psychosis not due to a substance or known physiological condition Plan psychotic disorder, anti-psychotic recently stopped for unclear reasons. mina's order reviewed (abilify to 5 mg daily, seroquel to 50 mg daily are on the order). 07/04: restart abilify 5 mg at HS. seroquel 25 BID PRN agitation. 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 07/05: DC wellbutrin as it may increase anxiety and restlessness, increasing agitation. awake and alert today. no aggressive behaviors. continue current mgmt. 07/06: remains calm and pleasant. 2 episodes of head-banging yesterday evening. commitment paperwork filed. 07/07: intermittent head-banging continues in response to CAH. change seroquel from PRN to scheduled. otherwise continue current mgmt. 07/08: head-banging yesterday simon. slept well overnight. continue current mgmt. 07/09: needing redirection from head-banging. slept 8 hours. pleasant, cooperative. continue current mgmt. 07/10: some head-banging yesterday afternoon. self-dialoguing eves. none overnight, slept well. hearing continued to 07/26. continue current mgmt. 07/11: No head-banging today. Still hears voices but they have not instructed her to bang her head today. Self-dialoguing. Slept well. Pleasantly confused. Continue current treatment regimen. 07/12: can't recall last head banging or CAH to do so. sleeping well, eating well. no SIB in the past 24H. continue current mgmt. 07/13: head-banging again last night, say she doesn't recall it. calm, pleasant, cooperative today. continue current mgmt. 07/15: No changes Reason for continued inpatient stay Substantial Risk for: rapid decompensation Time Spent With Patient Time: Total time managing care of this patient today ____ minutes.
[2025-07-15 20:00] VITALS: BP 132/59; PULSE 70; RESP 18; TEMP 36.7; O2SAT 92
[2025-07-16 08:30] VITALS: BP 152/68; PULSE 68; RESP 16; TEMP 36.6; O2SAT 94
[2025-07-16] MEDS: Vitamin E (Dl,Tocopheryl Acet) 180 MG (400 UNIT) CAPSULE 540 MG PO (08:45)
[2025-07-16] MEDS: Calcium + Vitamin D 250 MG TABLET 500 MG PO ×2 (08:46→20:06)
[2025-07-16 08:47] VITALS: BP 152/68
[2025-07-16 08:48] VITALS: BP 152/68; PULSE 68
[2025-07-16] MEDS: Aspirin Enteric Coated 81 MG TABLET.DR PO (08:48)
[2025-07-16] MEDS: Ketotifen Fumarate 0.025% Oph 5 ML DRPBTL 1 DROP EYE-BOTH ×2 (08:49→20:27)
--- NOTE | 2025-07-16 11:35 | P.PNPSI_ITS ---
Subjective Subjective Date of Service: 07/16/25 Reason For Visit: psychosis Interim History: resting in bed, rousable. pleasant. unable to recall last AH or last SIB. reports sleeping well. per staff, eating. alert, oriented to self only. remains on 1:1, no SIB over the weekend. +AH morning. taking meds. no SIB since before wednesday. Mental Status Exam Mental Status Exam Narrative: adequately dressed and groomed, hospital attire. cooperative, no PMA/PMR. speech nml rate, decr amount, nml loudness, nml latency. thoughts linear and logical. affect flexible, normo-intense, non-labile. mood good. denies AH. no SI/SIBI/HI/VH expressed. Diagnostics Vital Signs (24Hr): Vital Signs - 24 hr 07/15/25 20:00 07/16/25 08:30 07/16/25 08:47 Temperature 98.1 F 97.8 F Pulse Rate 70 68 Respiratory Rate 18 16 Blood Pressure 132/59 L 152/68 H 152/68 H Pulse Oximetry 92 94 Oxygen Delivery Method Room Air Room Air 07/16/25 08:48 Temperature Pulse Rate 68 Respiratory Rate Blood Pressure 152/68 H Pulse Oximetry Oxygen Delivery Method BMI result Body Mass Index 28.7 Labs 07/01/25 12:43 07/01/25 12:43 Imaging Radiology Impressions: ITS Impressions Head CT 07/04/25 16:13 IMPRESSION: 1. No acute intracranial findings. 2. Interval decrease in the right frontal scalp hematoma. Electronically signed by: Durga Benavides MD 07/04/2025 06:14 PM EDT Medications Medications Current Medications Acetaminophen (Acetaminophen 325 Mg Tablet) 650 mg PO Q6H PRN PRN Reason: Pain (Scale Score 1-3) Acetaminophen (Acetaminophen 325 Mg Tablet) 650 mg PO Q6H PRN PRN Reason: Headache/Pain, Scale 1-10 Al Hydroxide/Mg Hydroxide (Magnesium Hydrox/Alum Hydrox 30 Ml Oral.Susp) 30 ml PO Q6H PRN PRN Reason: Heartburn/Nausea Amlodipine Besylate (Amlodipine Besylate 2.5 Mg Tablet) 2.5 mg PO DAILY [facility]; Protocol Last Admin: 07/16/25 08:47 Dose: 2.5 mg Aripiprazole (Aripiprazole 5 Mg Tablet) 5 mg PO BEDTIME [facility] Last Admin: 07/15/25 20:02 Dose: 5 mg Ascorbic Acid (Ascorbic Acid 500 Mg Tablet) 500 mg PO BID [facility] Last Admin: 07/16/25 08:47 Dose: 500 mg Aspirin (Aspirin Enteric Coated 81 Mg Tablet.Dr) 81 mg PO DAILY [facility] Last Admin: 07/16/25 08:48 Dose: 81 mg Atorvastatin Calcium (Atorvastatin Calcium 80 Mg Tablet) 80 mg PO BEDTIME [facility] Last Admin: 07/15/25 20:01 Dose: 80 mg Calcium Carbonate/Cholecalciferol (Calcium + Vitamin D 250 Mg Tablet) 500 mg PO BID [facility] Last Admin: 07/16/25 08:46 Dose: 500 mg Docusate Sodium (Docusate Sodium 100 Mg Capsule) 100 mg PO BID [facility] Last Admin: 07/16/25 08:46 Dose: 100 mg Donepezil HCl (Donepezil Hcl 5 Mg Tablet) 5 mg PO DAILY [facility] Last Admin: 07/16/25 08:47 Dose: 5 mg Escitalopram Oxalate (Escitalopram Oxalate 10 Mg Tablet) 10 mg PO DAILY [facility] Last Admin: 07/16/25 08:47 Dose: 10 mg Fluticasone Propionate (Fluticasone Propionate Nasal 16 Gm [place]) 1 spray NOSTRIL-B DAILY [facility] Last Admin: 07/16/25 08:49 Dose: 1 spray Gabapentin (Gabapentin 100 Mg Capsule) 100 mg PO BEDTIME [facility] Last Admin: 07/15/25 20:02 Dose: 100 mg Hydroxyzine HCl (Hydroxyzine Hcl 25 Mg Tablet) 25 mg PO Q6H PRN PRN Reason: mild anxiety Last Admin: 07/12/25 14:44 Dose: 25 mg Ketotifen Fumarate (Ketotifen Fumarate 0.025% Oph 5 Ml Drpbtl) 1 drop EYE-BOTH BID [facility] Last Admin: 07/16/25 08:49 Dose: 1 drop Levothyroxine Sodium (Levothyroxine Sodium 75 Mcg Tablet) 75 mcg PO DAILY@0600 [facility] Last Admin: 07/16/25 06:02 Dose: 75 mcg Magnesium Hydroxide (Milk Of Magnesia 30 Ml Oral.Susp) 30 ml PO DAILY PRN PRN Reason: Constipation Melatonin (Melatonin 3 Mg Tablet) 6 mg PO BEDTIME [facility] Last Admin: 07/15/25 20:01 Dose: 6 mg Mirtazapine (Mirtazapine 15 Mg Tablet) 15 mg PO BEDTIME [facility] Last Admin: 07/15/25 20:02 Dose: 15 mg Multivitamins/Vitamin C (Multivitamin Tablet) 1 tab PO DAILY [facility] Last Admin: 07/16/25 08:48 Dose: 1 tab Omeprazole (Omeprazole 20 Mg Capsule.Dr) 20 mg PO DAILY@0630 [facility] Last Admin: 07/16/25 06:29 Dose: 20 mg Propranolol HCl (Propranolol Hcl 10 Mg Tablet) 10 mg PO DAILY [facility]; Protocol Last Admin: 07/16/25 08:48 Dose: 10 mg Propranolol HCl (Propranolol Hcl 20 Mg Tablet) 20 mg PO BEDTIME [facility]; Protocol Last Admin: 07/15/25 21:40 Dose: 20 mg Pyridoxine HCl (Pyridoxine Hcl (Vitamin B6) 50 Mg Tablet) 100 mg PO BID [facility] Last Admin: 07/16/25 08:46 Dose: 100 mg Quetiapine Fumarate (Quetiapine Fumarate 50 Mg Tablet) 50 mg PO BEDTIME [facility] Last Admin: 07/15/25 20:02 Dose: 50 mg Senna (Sennosides 8.6 Mg Tablet) 17.2 mg PO BEDTIME [facility] Last Admin: 07/15/25 20:02 Dose: 17.2 mg Simethicone (Simethicone 80 Mg Tab.Chew) 80 mg PO BID [facility] Last Admin: 07/16/25 08:46 Dose: 80 mg Vitamin D (Cholecalciferol (Vitamin D3) 25 Mcg Tablet) 25 mcg PO DAILY [facility] Last Admin: 07/16/25 08:48 Dose: 25 mcg Vitamin E (Vitamin E (Dl,Tocopheryl Acet) 180 Mg (400 Unit) Capsule) 540 mg PO DAILY [facility] Last Admin: 07/16/25 08:45 Dose: 540 mg Allergies Allergies Allergy/AdvReac Type Severity Reaction Status Date / Time egg Allergy Intermediate Unknown Verified 07/10/25 03:24 monosodium glutamate (MSG) Allergy Intermediate Unknown Verified 07/10/25 03:25 caffeine Allergy Mild Unknown Verified 07/10/25 03:23 Assessment & Plan Assessment & Plan (1) Dementia: Qualifiers: Dementia behavioral or psychological symptom: unspecified whether behavioral, psychotic, or mood disturbance or anxiety Dementia severity: u nspecified severity Dementia type: unspecified type Qualified Code(s): F03.90 - Unspecified dementia, unspecified severity, without behavioral disturbance, psychotic disturbance, mood disturbance, and anxiety Status: Acute Code(s): F03.90 - Unspecified dementia, unspecified severity, without behavioral disturbance, psychotic disturbance, mood disturbance, and anxiety (2) Psychosis: Qualifiers: Psychosis type: unspecified psychosis type Qualified Code(s): F29 - Unspecified psychosis not due to a substance or known physiological condition Status: Acute Code(s): F29 - Unspecified psychosis not due to a substance or known physiological condition Plan psychotic disorder, anti-psychotic recently stopped for unclear reasons. mina's order reviewed (abilify to 5 mg daily, seroquel to 50 mg daily are on the order). 07/04: restart abilify 5 mg at HS. seroquel 25 BID PRN agitation. 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 07/05: DC wellbutrin as it may increase anxiety and restlessness, increasing agitation. awake and alert today. no aggressive behaviors. continue current mgmt. 07/06: remains calm and pleasant. 2 episodes of head-banging yesterday evening. commitment paperwork filed. 07/07: intermittent head-banging continues in response to CAH. change seroquel from PRN to scheduled. otherwise continue current mgmt. 07/08: head-banging yesterday simon. slept well overnight. continue current mgmt. 07/09: needing redirection from head-banging. slept 8 hours. pleasant, cooperative. continue current mgmt. 07/10: some head-banging yesterday afternoon. self-dialoguing eves. none overnight, slept well. hearing continued to 07/26. continue current mgmt. 07/11: No head-banging today. Still hears voices but they have not instructed her to bang her head today. Self-dialoguing. Slept well. Pleasantly confused. Continue current treatment regimen. 07/12: can't recall last head banging or CAH to do so. sleeping well, eating well. no SIB in the past 24H. continue current mgmt. 07/13: head-banging again last night, say she doesn't recall it. calm, pleasant, cooperative today. continue current mgmt. 07/15: No changes 07/16: no SIB for the past few days. as per usual, cannot recall any AH or SIB episodes. contiue current mgmt. Reason for continued inpatient stay Substantial Risk for: harm to self and inability to function Time Spent With Patient Time: Total time managing care of this patient today ____ minutes.
[2025-07-16 20:00] VITALS: BP 160/67; PULSE 73; RESP 18; TEMP 37.5; O2SAT 93
[2025-07-17 08:19] VITALS: BP 162/74; PULSE 60; RESP 16; TEMP 36.7; O2SAT 95
[2025-07-17] MEDS: Vitamin E (Dl,Tocopheryl Acet) 180 MG (400 UNIT) CAPSULE 540 MG PO (08:20)
[2025-07-17] MEDS: Aspirin Enteric Coated 81 MG TABLET.DR PO (08:20)
[2025-07-17] MEDS: Ketotifen Fumarate 0.025% Oph 5 ML DRPBTL 1 DROP EYE-BOTH ×2 (08:21→20:00)
[2025-07-17] MEDS: Calcium + Vitamin D 250 MG TABLET 500 MG PO ×2 (08:21→19:52)
--- NOTE | 2025-07-17 12:37 | P.PNPSI_ITS ---
Subjective Subjective Date of Service: 07/17/25 Reason For Visit: psychosis Interim History: resting in bed, easily rousable. denies any recollection of SIB yesterday, denies any AVH or recollection of MRE. 1:1 at bedside. states she is eating, sleeping, toileting well, denies any physical complaints. per staff, eating. visible. was put on Q5s briefly yesterday but began banging her head on the floor and was placed back on 1:1. sooperative otherwise, slept well. Mental Status Exam Mental Status Exam Narrative: adequately dressed and groomed, hospital attire. cooperative, no PMA/PMR. speech nml rate, decr amount, nml loudness, nml latency. thoughts linear and logical. affect flexible, normo-intense, non-labile. mood good. denies AH. no SI/SIBI/HI/VH expressed. Diagnostics Vital Signs (24Hr): Vital Signs - 24 hr 07/16/25 20:00 07/17/25 08:19 Temperature 99.5 F 98.1 F Pulse Rate 73 60 Respiratory Rate 18 16 Blood Pressure 160/67 H 162/74 H Pulse Oximetry 93 95 Oxygen Delivery Method Room Air Room Air BMI result Body Mass Index 28.7 Labs 07/01/25 12:43 07/01/25 12:43 Imaging Radiology Impressions: ITS Impressions Head CT 07/04/25 16:13 IMPRESSION: 1. No acute intracranial findings. 2. Interval decrease in the right frontal scalp hematoma. Electronically signed by: Durga Benavides MD 07/04/2025 06:14 PM EDT Medications Medications Current Medications Acetaminophen (Acetaminophen 325 Mg Tablet) 650 mg PO Q6H PRN PRN Reason: Pain (Scale Score 1-3) Acetaminophen (Acetaminophen 325 Mg Tablet) 650 mg PO Q6H PRN PRN Reason: Headache/Pain, Scale 1-10 Al Hydroxide/Mg Hydroxide (Magnesium Hydrox/Alum Hydrox 30 Ml Oral.Susp) 30 ml PO Q6H PRN PRN Reason: Heartburn/Nausea Amlodipine Besylate (Amlodipine Besylate 2.5 Mg Tablet) 2.5 mg PO DAILY [facility]; Protocol Last Admin: 07/17/25 08:20 Dose: 2.5 mg Aripiprazole (Aripiprazole 5 Mg Tablet) 5 mg PO BEDTIME [facility] Last Admin: 07/16/25 20:07 Dose: 5 mg Ascorbic Acid (Ascorbic Acid 500 Mg Tablet) 500 mg PO BID [facility] Last Admin: 07/17/25 08:20 Dose: 500 mg Aspirin (Aspirin Enteric Coated 81 Mg Tablet.Dr) 81 mg PO DAILY [facility] Last Admin: 07/17/25 08:20 Dose: 81 mg Atorvastatin Calcium (Atorvastatin Calcium 80 Mg Tablet) 80 mg PO BEDTIME [facility] Last Admin: 07/16/25 20:07 Dose: 80 mg Calcium Carbonate/Cholecalciferol (Calcium + Vitamin D 250 Mg Tablet) 500 mg PO BID [facility] Last Admin: 07/17/25 08:21 Dose: 500 mg Docusate Sodium (Docusate Sodium 100 Mg Capsule) 100 mg PO BID [facility] Last Admin: 07/17/25 08:21 Dose: 100 mg Donepezil HCl (Donepezil Hcl 5 Mg Tablet) 5 mg PO DAILY [facility] Last Admin: 07/17/25 08:21 Dose: 5 mg Escitalopram Oxalate (Escitalopram Oxalate 10 Mg Tablet) 10 mg PO DAILY [facility] Last Admin: 07/17/25 08:21 Dose: 10 mg Fluticasone Propionate (Fluticasone Propionate Nasal 16 Gm [place]) 1 spray NOSTRIL-B DAILY [facility] Last Admin: 07/17/25 08:21 Dose: 1 spray Gabapentin (Gabapentin 100 Mg Capsule) 100 mg PO BEDTIME [facility] Last Admin: 07/16/25 20:06 Dose: 100 mg Hydroxyzine HCl (Hydroxyzine Hcl 25 Mg Tablet) 25 mg PO Q6H PRN PRN Reason: mild anxiety Last Admin: 07/12/25 14:44 Dose: 25 mg Ketotifen Fumarate (Ketotifen Fumarate 0.025% Oph 5 Ml Drpbtl) 1 drop EYE-BOTH BID [facility] Last Admin: 07/17/25 08:21 Dose: 1 drop Levothyroxine Sodium (Levothyroxine Sodium 75 Mcg Tablet) 75 mcg PO DAILY@0600 [facility] Last Admin: 07/17/25 06:01 Dose: 75 mcg Magnesium Hydroxide (Milk Of Magnesia 30 Ml Oral.Susp) 30 ml PO DAILY PRN PRN Reason: Constipation Melatonin (Melatonin 3 Mg Tablet) 6 mg PO BEDTIME [facility] Last Admin: 07/16/25 20:07 Dose: 6 mg Mirtazapine (Mirtazapine 15 Mg Tablet) 15 mg PO BEDTIME [facility] Last Admin: 07/16/25 20:07 Dose: 15 mg Multivitamins/Vitamin C (Multivitamin Tablet) 1 tab PO DAILY [facility] Last Admin: 07/17/25 08:20 Dose: 1 tab Omeprazole (Omeprazole 20 Mg Capsule.Dr) 20 mg PO DAILY@0630 [facility] Last Admin: 07/17/25 06:33 Dose: 20 mg Propranolol HCl (Propranolol Hcl 10 Mg Tablet) 10 mg PO DAILY [facility]; Protocol Last Admin: 07/17/25 08:20 Dose: 10 mg Propranolol HCl (Propranolol Hcl 20 Mg Tablet) 20 mg PO BEDTIME [facility]; Protocol Last Admin: 07/16/25 20:07 Dose: 20 mg Pyridoxine HCl (Pyridoxine Hcl (Vitamin B6) 50 Mg Tablet) 100 mg PO BID [facility] Last Admin: 07/17/25 08:20 Dose: 100 mg Quetiapine Fumarate (Quetiapine Fumarate 50 Mg Tablet) 50 mg PO BEDTIME [facility] Last Admin: 07/16/25 20:06 Dose: 50 mg Senna (Sennosides 8.6 Mg Tablet) 17.2 mg PO BEDTIME [facility] Last Admin: 07/16/25 20:07 Dose: 17.2 mg Simethicone (Simethicone 80 Mg Tab.Chew) 80 mg PO BID [facility] Last Admin: 07/17/25 08:20 Dose: 80 mg Vitamin D (Cholecalciferol (Vitamin D3) 25 Mcg Tablet) 25 mcg PO DAILY [facility] Last Admin: 07/17/25 08:21 Dose: 25 mcg Vitamin E (Vitamin E (Dl,Tocopheryl Acet) 180 Mg (400 Unit) Capsule) 540 mg PO DAILY [facility] Last Admin: 07/17/25 08:20 Dose: 540 mg Allergies Allergies Allergy/AdvReac Type Severity Reaction Status Date / Time egg Allergy Intermediate Unknown Verified 07/10/25 03:24 monosodium glutamate (MSG) Allergy Intermediate Unknown Verified 07/10/25 03:25 caffeine Allergy Mild Unknown Verified 07/10/25 03:23 Assessment & Plan Assessment & Plan (1) Dementia: Qualifiers: Dementia behavioral or psychological symptom: unspecified whether behavioral, psychotic, or mood disturbance or anxiety Dementia severity: u nspecified severity Dementia type: unspecified type Qualified Code(s): F03.90 - Unspecified dementia, unspecified severity, without behavioral disturbance, psychotic disturbance, mood disturbance, and anxiety Status: Acute Code(s): F03.90 - Unspecified dementia, unspecified severity, without behavioral disturbance, psychotic disturbance, mood disturbance, and anxiety (2) Psychosis: Qualifiers: Psychosis type: unspecified psychosis type Qualified Code(s): F29 - Unspecified psychosis not due to a substance or known physiological condition Status: Acute Code(s): F29 - Unspecified psychosis not due to a substance or known physiological condition Plan psychotic disorder, anti-psychotic recently stopped for unclear reasons. mnia's order reviewed (abilify to 5 mg daily, seroquel to 50 mg daily are on the order). 07/04: restart abilify 5 mg at HS. seroquel 25 BID PRN agitation. 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 07/05: DC wellbutrin as it may increase anxiety and restlessness, increasing agitation. awake and alert today. no aggressive behaviors. continue current mgmt. 07/06: remains calm and pleasant. 2 episodes of head-banging yesterday evening. commitment paperwork filed. 07/07: intermittent head-banging continues in response to CAH. change seroquel from PRN to scheduled. otherwise continue current mgmt. 07/08: head-banging yesterday simon. slept well overnight. continue current mgmt. 07/09: needing redirection from head-banging. slept 8 hours. pleasant, cooperative. continue current mgmt. 07/10: some head-banging yesterday afternoon. self-dialoguing eves. none overnight, slept well. hearing continued to 07/26. continue current mgmt. 07/11: No head-banging today. Still hears voices but they have not instructed her to bang her head today. Self-dialoguing. Slept well. Pleasantly confused. Continue current treatment regimen. 07/12: can't recall last head banging or CAH to do so. sleeping well, eating well. no SIB in the past 24H. continue current mgmt. 07/13: head-banging again last night, say she doesn't recall it. calm, pleasant, cooperative today. continue current mgmt. 07/15: No changes 07/16: no SIB for the past few days. as per usual, cannot recall any AH or SIB episodes. continue current mgmt. 07/17: tried on Q5 min checks yesterday but started head-banging, placed back on 1:1. today denies any recollection of the event, denies Sx. continue current mgmt. affidavit for extension of Tx plan completed. Reason for continued inpatient stay Substantial Risk for: harm to self Time Spent With Patient Time: Total time managing care of this patient today __35__ minutes.
[2025-07-17 19:47] VITALS: BP 131/64; PULSE 69; RESP 16; TEMP 36.1; O2SAT 96
[2025-07-18] MEDS: Vitamin E (Dl,Tocopheryl Acet) 180 MG (400 UNIT) CAPSULE 540 MG PO (08:36)
[2025-07-18] MEDS: Ketotifen Fumarate 0.025% Oph 5 ML DRPBTL 1 DROP EYE-BOTH (08:36)
[2025-07-18] MEDS: Calcium + Vitamin D 250 MG TABLET 500 MG PO (08:36)
[2025-07-18] MEDS: Aspirin Enteric Coated 81 MG TABLET.DR PO (08:38)
[2025-07-18 08:40] VITALS: BP 143/67; PULSE 70; RESP 16; TEMP 36.7; O2SAT 93
--- NOTE | 2025-07-18 11:24 | HO.PSYCHPN ---
Subjective Subjective Date of Service: 07/18/25 Reason For Visit: psychosis Interim History: resting in bed, rousable. pleasant, cooperative. denies any problems, denies AH, denies SIBI. per staff, flat, withdrawn. quiet. unclear if experiencing AH. no head-banging yesterday. Mental Status Exam Mental Status Exam Narrative: adequately dressed and groomed, hospital attire. cooperative, no PMA/PMR. speech nml rate, decr amount, nml loudness, nml latency. thoughts linear and logical. affect flexible, normo-intense, non-labile. mood good. denies AH, SIBI. no SI/HI/VH expressed. Diagnostics Vital Signs (24Hr): Vital Signs - 24 hr 07/17/25 19:47 07/18/25 08:40 Temperature 97 F 98.1 F Pulse Rate 69 70 Respiratory Rate 16 16 Blood Pressure 131/64 143/67 H Pulse Oximetry 96 93 Oxygen Delivery Method Room Air Room Air BMI result Body Mass Index 28.7 Labs 07/01/25 12:43 07/01/25 12:43 Imaging Radiology Impressions: ITS Impressions Head CT 07/04/25 16:13 IMPRESSION: 1. No acute intracranial findings. 2. Interval decrease in the right frontal scalp hematoma. Electronically signed by: Durga Benavides MD 07/04/2025 06:14 PM EDT Medications Medications Current Medications Acetaminophen (Acetaminophen 325 Mg Tablet) 650 mg PO Q6H PRN PRN Reason: Pain (Scale Score 1-3) Acetaminophen (Acetaminophen 325 Mg Tablet) 650 mg PO Q6H PRN PRN Reason: Headache/Pain, Scale 1-10 Al Hydroxide/Mg Hydroxide (Magnesium Hydrox/Alum Hydrox 30 Ml Oral.Susp) 30 ml PO Q6H PRN PRN Reason: Heartburn/Nausea Amlodipine Besylate (Amlodipine Besylate 2.5 Mg Tablet) 2.5 mg PO DAILY [facility]; Protocol Last Admin: 07/18/25 08:39 Dose: 2.5 mg Aripiprazole (Aripiprazole 5 Mg Tablet) 5 mg PO BEDTIME [facility] Last Admin: 07/17/25 19:51 Dose: 5 mg Ascorbic Acid (Ascorbic Acid 500 Mg Tablet) 500 mg PO BID [facility] Last Admin: 07/18/25 08:38 Dose: 500 mg Aspirin (Aspirin Enteric Coated 81 Mg Tablet.Dr) 81 mg PO DAILY [facility] Last Admin: 07/18/25 08:38 Dose: 81 mg Atorvastatin Calcium (Atorvastatin Calcium 80 Mg Tablet) 80 mg PO BEDTIME [facility] Last Admin: 07/17/25 19:50 Dose: 80 mg Calcium Carbonate/Cholecalciferol (Calcium + Vitamin D 250 Mg Tablet) 500 mg PO BID [facility] Last Admin: 07/18/25 08:36 Dose: 500 mg Docusate Sodium (Docusate Sodium 100 Mg Capsule) 100 mg PO BID [facility] Last Admin: 07/18/25 08:41 Dose: 100 mg Donepezil HCl (Donepezil Hcl 5 Mg Tablet) 5 mg PO DAILY [facility] Last Admin: 07/18/25 08:39 Dose: 5 mg Escitalopram Oxalate (Escitalopram Oxalate 10 Mg Tablet) 10 mg PO DAILY [facility] Last Admin: 07/18/25 08:39 Dose: 10 mg Fluticasone Propionate (Fluticasone Propionate Nasal 16 Gm [place]) 1 spray NOSTRIL-B DAILY [facility] Last Admin: 07/18/25 08:36 Dose: 1 spray Gabapentin (Gabapentin 100 Mg Capsule) 100 mg PO BEDTIME [facility] Last Admin: 07/17/25 20:09 Dose: 100 mg Hydroxyzine HCl (Hydroxyzine Hcl 25 Mg Tablet) 25 mg PO Q6H PRN PRN Reason: mild anxiety Last Admin: 07/12/25 14:44 Dose: 25 mg Ketotifen Fumarate (Ketotifen Fumarate 0.025% Oph 5 Ml Drpbtl) 1 drop EYE-BOTH BID [facility] Last Admin: 07/18/25 08:36 Dose: 1 drop Levothyroxine Sodium (Levothyroxine Sodium 75 Mcg Tablet) 75 mcg PO DAILY@0600 [facility] Last Admin: 07/18/25 05:56 Dose: 75 mcg Magnesium Hydroxide (Milk Of Magnesia 30 Ml Oral.Susp) 30 ml PO DAILY PRN PRN Reason: Constipation Melatonin (Melatonin 3 Mg Tablet) 6 mg PO BEDTIME [facility] Last Admin: 07/17/25 19:50 Dose: 6 mg Mirtazapine (Mirtazapine 15 Mg Tablet) 15 mg PO BEDTIME [facility] Last Admin: 07/17/25 19:51 Dose: 15 mg Multivitamins/Vitamin C (Multivitamin Tablet) 1 tab PO DAILY [facility] Last Admin: 07/18/25 08:41 Dose: 1 tab Omeprazole (Omeprazole 20 Mg Capsule.Dr) 20 mg PO DAILY@0630 [facility] Last Admin: 07/18/25 06:21 Dose: 20 mg Propranolol HCl (Propranolol Hcl 10 Mg Tablet) 10 mg PO DAILY [facility]; Protocol Last Admin: 07/18/25 08:40 Dose: 10 mg Propranolol HCl (Propranolol Hcl 20 Mg Tablet) 20 mg PO BEDTIME [facility]; Protocol Last Admin: 07/17/25 19:50 Dose: 20 mg Pyridoxine HCl (Pyridoxine Hcl (Vitamin B6) 50 Mg Tablet) 100 mg PO BID [facility] Last Admin: 07/18/25 08:38 Dose: 100 mg Quetiapine Fumarate (Quetiapine Fumarate 50 Mg Tablet) 50 mg PO BEDTIME [facility] Last Admin: 07/17/25 19:50 Dose: 50 mg Senna (Sennosides 8.6 Mg Tablet) 17.2 mg PO BEDTIME [facility] Last Admin: 07/17/25 19:50 Dose: 17.2 mg Simethicone (Simethicone 80 Mg Tab.Chew) 80 mg PO BID [facility] Last Admin: 07/18/25 08:37 Dose: 80 mg Vitamin D (Cholecalciferol (Vitamin D3) 25 Mcg Tablet) 25 mcg PO DAILY [facility] Last Admin: 07/18/25 08:38 Dose: 25 mcg Vitamin E (Vitamin E (Dl,Tocopheryl Acet) 180 Mg (400 Unit) Capsule) 540 mg PO DAILY [facility] Last Admin: 07/18/25 08:36 Dose: 540 mg Allergies Allergies Allergy/AdvReac Type Severity Reaction Status Date / Time egg Allergy Intermediate Unknown Verified 07/10/25 03:24 monosodium glutamate (MSG) Allergy Intermediate Unknown Verified 07/10/25 03:25 caffeine Allergy Mild Unknown Verified 07/10/25 03:23 Assessment & Plan Assessment & Plan (1) Dementia: Qualifiers: Dementia behavioral or psychological symptom: unspecified whether behavioral, psychotic, or mood disturbance or anxiety Dementia severity: unspecified severity Dementia type: unspecified type Qualified Code(s): F03.90 - Unspecified dementia, unspecified severity, without behavioral disturbance, psychotic disturbance, mood disturbance, and anxiety Status: Acute Code(s): F03.90 - Unspecified dementia, unspecified severity, without behavioral disturbance, psychotic disturbance, mood disturbance, and anxiety (2) Psychosis: Qualifiers: Psychosis type: unspecified psychosis type Qualified Code(s): F29 - Unspecified psychosis not due to a substance or known physiological condition Status: Acute Code(s): F29 - Unspecified psychosis not due to a substance or known physiological condition Plan psychotic disorder, anti-psychotic recently stopped for unclear reasons. mina's order reviewed (abilify to 5 mg daily, seroquel to 50 mg daily are on the order). 07/04: restart abilify 5 mg at HS. seroquel 25 BID PRN agitation. 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 07/05: DC wellbutrin as it may increase anxiety and restlessness, increasing agitation. awake and alert today. no aggressive behaviors. continue current mgmt. 07/06: remains calm and pleasant. 2 episodes of head-banging yesterday evening. commitment paperwork filed. 07/07: intermittent head-banging continues in response to CAH. change seroquel from PRN to scheduled. otherwise continue current mgmt. 07/08: head-banging yesterday simon. slept well overnight. continue current mgmt. 07/09: needing redirection from head-banging. slept 8 hours. pleasant, cooperative. continue current mgmt. 07/10: some head-banging yesterday afternoon. self-dialoguing eves. none overnight, slept well. hearing continued to 07/26. continue current mgmt. 07/11: No head-banging today. Still hears voices but they have not instructed her to bang her head today. Self-dialoguing. Slept well. Pleasantly confused. Continue current treatment regimen. 07/12: can't recall last head banging or CAH to do so. sleeping well, eating well. no SIB in the past 24H. continue current mgmt. 07/13: head-banging again last night, say she doesn't recall it. calm, pleasant, cooperative today. continue current mgmt. 07/15: No changes 07/16: no SIB for the past few days. as per usual, cannot recall any AH or SIB episodes. continue current mgmt. 07/17: tried on Q5 min checks yesterday but started head-banging, placed back on 1:1. today denies any recollection of the event, denies Sx. continue current mgmt. affidavit for extension of Tx plan completed. 07/18: no head-banging in past 24H. denies Sx. remains on 1:1. continue current mgmt. Reason for continued inpatient stay Substantial Risk for: harm to self and inability to function Time Spent With Patient Time: Total time managing care of this patient today ____ minutes.
[2025-07-18 20:00] VITALS: BP 128/61; PULSE 62; RESP 16; TEMP 36.7; O2SAT 94
[2025-07-18 22:20] VITALS: BP 120/56; PULSE 60; RESP 18; TEMP 36.4; O2SAT 94
--- NOTE | 2025-07-18 22:22 | PC.NURSE ---
Patient received medication of other patient by mistake. Provider made aware/ordered to assess vitals while awake/hold HS medication/initiate fall precaution/close observation. Vital assess within limit. Mental status at baseline. Patient is on 1:1 for safety check.
--- NOTE | 2025-07-19 00:22 | PC.NURSE ---
patient is in bed appears sleeping, no distress observed/reported, respiration +/=/non-labored bilaterally, 5 minutes safety check with bed alarm on, will continue to monitor
[2025-07-19 03:00] VITALS: BP 165/72; PULSE 57; RESP 16; TEMP 35.6; O2SAT 96
--- NOTE | 2025-07-19 03:13 | PC.NURSE ---
Patient woke up at 0300 came out out in milieu or refreshment, drank 2 cups of [place]iah st[place], talked with staff member, vital assessed/baseline/documented, no distress observed/reported, currently in bed appears sleeping, will continue to monitor
[2025-07-19 07:00] VITALS: BMI 29.9
[2025-07-19 08:00] VITALS: BP 126/58; PULSE 60; RESP 16; TEMP 36.7; O2SAT 94
[2025-07-19 08:33] VITALS: BP 126/58
[2025-07-19] MEDS: Ketotifen Fumarate 0.025% Oph 5 ML DRPBTL 1 DROP EYE-BOTH ×2 (08:33→21:02)
[2025-07-19] MEDS: Vitamin E (Dl,Tocopheryl Acet) 180 MG (400 UNIT) CAPSULE 540 MG PO (08:34)
[2025-07-19] MEDS: Aspirin Enteric Coated 81 MG TABLET.DR PO (08:34)
[2025-07-19] MEDS: Calcium + Vitamin D 250 MG TABLET 500 MG PO ×2 (08:34→21:02)
[2025-07-19 08:35] VITALS: BP 126/58; PULSE 60
--- NOTE | 2025-07-19 11:08 | P.PNPSI_ITS ---
Subjective Subjective Date of Service: 07/19/25 Reason For Visit: psychosis Subjective Notes: Conditional Voluntary Interim History: Pt slept 5hrs. She reports she is doing well. No overt paranoid content reported or noted. She has been on a one to one due to head banding due to underlying psychosis. She is currently on abilify, may consider more effective antipsychotic such as risperidone. continue to monitor self injurious behaviors and need for one to one. She is taking medications as prescribed. VS stable. Medication Compliance: Yes Diagnostics Vital Signs (24Hr): Vital Signs - 24 hr 07/18/25 20:00 07/18/25 22:20 07/19/25 03:00 Temperature 98.1 F 97.6 F 96.1 F L Pulse Rate 62 60 57 Respiratory Rate 16 18 16 Blood Pressure 128/61 120/56 L 165/72 H Pulse Oximetry 94 94 96 Oxygen Delivery Method Room Air Room Air Room Air 07/19/25 08:00 07/19/25 08:33 07/19/25 08:35 Temperature 98.1 F Pulse Rate 60 60 Respiratory Rate 16 Blood Pressure 126/58 L 126/58 L 126/58 L Pulse Oximetry 94 Oxygen Delivery Method Room Air BMI result Body Mass Index 28.7 Labs 07/01/25 12:43 07/19/25 11:05 Imaging Radiology Impressions: ITS Impressions Head CT 07/04/25 16:13 IMPRESSION: 1. No acute intracranial findings. 2. Interval decrease in the right frontal scalp hematoma. Electronically signed by: Durga Benavides MD 07/04/2025 06:14 PM EDT Medications Medications Current Medications Acetaminophen (Acetaminophen 325 Mg Tablet) 650 mg PO Q6H PRN PRN Reason: Pain (Scale Score 1-3) Acetaminophen (Acetaminophen 325 Mg Tablet) 650 mg PO Q6H PRN PRN Reason: Headache/Pain, Scale 1-10 Al Hydroxide/Mg Hydroxide (Magnesium Hydrox/Alum Hydrox 30 Ml Oral.Susp) 30 ml PO Q6H PRN PRN Reason: Heartburn/Nausea Amlodipine Besylate (Amlodipine Besylate 2.5 Mg Tablet) 2.5 mg PO DAILY [facility]; Protocol Last Admin: 07/19/25 08:33 Dose: 2.5 mg Aripiprazole (Aripiprazole 5 Mg Tablet) 5 mg PO BEDTIME [facility] Last Admin: 07/18/25 22:22 Dose: Not Given Ascorbic Acid (Ascorbic Acid 500 Mg Tablet) 500 mg PO BID [facility] Last Admin: 07/19/25 08:34 Dose: 500 mg Aspirin (Aspirin Enteric Coated 81 Mg Tablet.Dr) 81 mg PO DAILY [facility] Last Admin: 07/19/25 08:34 Dose: 81 mg Atorvastatin Calcium (Atorvastatin Calcium 80 Mg Tablet) 80 mg PO BEDTIME [facility] Last Admin: 07/18/25 22:22 Dose: Not Given Calcium Carbonate/Cholecalciferol (Calcium + Vitamin D 250 Mg Tablet) 500 mg PO BID [facility] Last Admin: 07/19/25 08:34 Dose: 500 mg Docusate Sodium (Docusate Sodium 100 Mg Capsule) 100 mg PO BID [facility] Last Admin: 07/19/25 08:34 Dose: 100 mg Donepezil HCl (Donepezil Hcl 5 Mg Tablet) 5 mg PO DAILY [facility] Last Admin: 07/19/25 08:36 Dose: 5 mg Escitalopram Oxalate (Escitalopram Oxalate 10 Mg Tablet) 10 mg PO DAILY [facility] Last Admin: 07/19/25 08:34 Dose: 10 mg Fluticasone Propionate (Fluticasone Propionate Nasal 16 Gm [place]) 1 spray NOSTRIL-B DAILY [facility] Last Admin: 07/19/25 08:32 Dose: 1 spray Gabapentin (Gabapentin 100 Mg Capsule) 100 mg PO BEDTIME [facility] Last Admin: 07/18/25 22:21 Dose: Not Given Hydroxyzine HCl (Hydroxyzine Hcl 25 Mg Tablet) 25 mg PO Q6H PRN PRN Reason: mild anxiety Last Admin: 07/12/25 14:44 Dose: 25 mg Ketotifen Fumarate (Ketotifen Fumarate 0.025% Oph 5 Ml Drpbtl) 1 drop EYE-BOTH BID [facility] Last Admin: 07/19/25 08:33 Dose: 1 drop Levothyroxine Sodium (Levothyroxine Sodium 75 Mcg Tablet) 75 mcg PO DAILY@0600 [facility] Last Admin: 07/19/25 06:12 Dose: 75 mcg Magnesium Hydroxide (Milk Of Magnesia 30 Ml Oral.Susp) 30 ml PO DAILY PRN PRN Reason: Constipation Melatonin (Melatonin 3 Mg Tablet) 6 mg PO BEDTIME [facility] Last Admin: 07/18/25 22:21 Dose: Not Given Mirtazapine (Mirtazapine 15 Mg Tablet) 15 mg PO BEDTIME [facility] Last Admin: 07/18/25 22:20 Dose: Not Given Multivitamins/Vitamin C (Multivitamin Tablet) 1 tab PO DAILY [facility] Last Admin: 07/19/25 08:34 Dose: 1 tab Omeprazole (Omeprazole 20 Mg Capsule.Dr) 20 mg PO DAILY@0630 [facility] Last Admin: 07/19/25 06:38 Dose: 20 mg Propranolol HCl (Propranolol Hcl 10 Mg Tablet) 10 mg PO DAILY [facility]; Protocol Last Admin: 07/19/25 08:35 Dose: 10 mg Propranolol HCl (Propranolol Hcl 20 Mg Tablet) 20 mg PO BEDTIME [facility]; Protocol Last Admin: 07/18/25 22:20 Dose: Not Given Pyridoxine HCl (Pyridoxine Hcl (Vitamin B6) 50 Mg Tablet) 100 mg PO BID [facility] Last Admin: 07/19/25 08:35 Dose: 100 mg Quetiapine Fumarate (Quetiapine Fumarate 50 Mg Tablet) 50 mg PO BEDTIME [facility] Last Admin: 07/18/25 22:22 Dose: Not Given Senna (Sennosides 8.6 Mg Tablet) 17.2 mg PO BEDTIME [facility] Last Admin: 07/18/25 22:23 Dose: Not Given Simethicone (Simethicone 80 Mg Tab.Chew) 80 mg PO BID [facility] Last Admin: 07/19/25 08:33 Dose: 80 mg Vitamin D (Cholecalciferol (Vitamin D3) 25 Mcg Tablet) 25 mcg PO DAILY [facility] Last Admin: 07/19/25 08:36 Dose: 25 mcg Vitamin E (Vitamin E (Dl,Tocopheryl Acet) 180 Mg (400 Unit) Capsule) 540 mg PO DAILY [facility] Last Admin: 07/19/25 08:34 Dose: 540 mg Allergies Allergies Allergy/AdvReac Type Severity Reaction Status Date / Time egg Allergy Intermediate Unknown Verified 07/10/25 03:24 monosodium glutamate (MSG) Allergy Intermediate Unknown Verified 07/10/25 03:25 caffeine Allergy Mild Unknown Verified 07/10/25 03:23 Assessment & Plan Assessment & Plan (1) Major neurocognitive disorder due to multiple etiologies, with psychotic disturbance: Status: Acute Code(s): F02.82 - Dementia in other diseases classified elsewhere, unspecified severity, with psychotic disturbance Plan psychotic disorder, anti-psychotic recently stopped for unclear reasons. mina's order reviewed (abilify to 5 mg daily, seroquel to 50 mg daily are on the order). 07/04: restart abilify 5 mg at HS. seroquel 25 BID PRN agitation. 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 07/05: DC wellbutrin as it may increase anxiety and restlessness, increasing agitation. awake and alert today. no aggressive behaviors. continue current mgmt. 07/06: remains calm and pleasant. 2 episodes of head-banging yesterday evening. commitment paperwork filed. 07/07: intermittent head-banging continues in response to CAH. change seroquel from PRN to scheduled. otherwise continue current mgmt. 07/08: head-banging yesterday simon. slept well overnight. continue current mgmt. 07/09: needing redirection from head-banging. slept 8 hours. pleasant, cooperative. continue current mgmt. 07/10: some head-banging yesterday afternoon. self-dialoguing eves. none overnight, slept well. hearing continued to 07/26. continue current mgmt. 07/11: No head-banging today. Still hears voices but they have not instructed her to bang her head today. Self-dialoguing. Slept well. Pleasantly confused. Continue current treatment regimen. 07/12: can't recall last head banging or CAH to do so. sleeping well, eating well. no SIB in the past 24H. continue current mgmt. 07/13: head-banging again last night, say she doesn't recall it. calm, pleasant, cooperative today. continue current mgmt. 07/15: No changes 07/16: no SIB for the past few days. as per usual, cannot recall any AH or SIB episodes. continue current mgmt. 07/17: tried on Q5 min checks yesterday but started head-banging, placed back on 1:1. today denies any recollection of the event, denies Sx. continue current mgmt. affidavit for extension of Tx plan completed. 07/18: no head-banging in past 24H. denies Sx. remains on 1:1. continue current mgmt. 07/19 continue current tx, may consider changing antipsychotic to more effective one such as risperidone. continue on one to one, but if stable will change to 5 minutes checks. Reason for continued inpatient stay Substantial Risk for: inability to function Time Spent With Patient Time: Total time managing care of this patient today ____ minutes.
[2025-07-19 11:28] LABS: Alanine Aminotransferase 44 U/L (0-31); Albumin Level 3.4 g/dL (3.5-5.0); Alkaline Phosphatase 63 U/L (39-117); Anion Gap 7 (12-20); Aspartate Amino Transferase 41 U/L (5-31); Blood Urea Nitrogen 18 mg/dL (9-16); Calcium 8.4 mg/dL (8.4-10.2); Carbon Dioxide 25 mmol/L (22-29); Chloride 111 mmol/L (96-108); Creatinine Clr Calc Pharmacy 56.0; Estimated Glomerular Filt Rate > 60; Potassium 4.4 mmol/L (3.3-5.1); Sodium 139 mmol/L (135-145); Total Protein 6.3 g/dL (6.5-8.0)
[2025-07-19 20:00] VITALS: BP 102/61; PULSE 69; RESP 16; TEMP 37; O2SAT 92
[2025-07-20 08:00] VITALS: BP 118/59; PULSE 68; RESP 16; TEMP 36.6; O2SAT 95
[2025-07-20] MEDS: Vitamin E (Dl,Tocopheryl Acet) 180 MG (400 UNIT) CAPSULE 540 MG PO (09:34)
[2025-07-20] MEDS: Ketotifen Fumarate 0.025% Oph 5 ML DRPBTL 1 DROP EYE-BOTH ×2 (09:34→22:13)
[2025-07-20 09:35] VITALS: BP 118/59
[2025-07-20] MEDS: Aspirin Enteric Coated 81 MG TABLET.DR PO (09:35)
[2025-07-20] MEDS: Calcium + Vitamin D 250 MG TABLET 500 MG PO ×2 (09:35→20:30)
[2025-07-20 09:36] VITALS: BP 118/59; PULSE 68
--- NOTE | 2025-07-20 16:14 | P.PNPSI_ITS ---
Subjective Subjective Date of Service: 07/20/25 Reason For Visit: psychosis Subjective Notes: Conditional Voluntary Interim History: Pt reports doing well. She does not provide much information. She denied any physical concerns. She has not engaged in head banging behaviors, will try 5 minutes checks. VS stable. Medication Compliance: Yes Review of Systems Review of Systems Nothing of note Yes all other systems are reviewed and are negative Mental Status Exam Mental Status Exam Narrative: adequately dressed and groomed, hospital attire. cooperative, no PMA/PMR. speech nml rate, decr amount, nml loudness, nml latency. thoughts linear and logical. affect flexible, normo-intense, non-labile. mood good. denies AH, SIBI. no SI/HI/VH expressed. Diagnostics Vital Signs (24Hr): Vital Signs - 24 hr 07/19/25 20:00 07/20/25 08:00 07/20/25 09:35 Temperature 98.6 F 97.9 F Pulse Rate 69 68 Respiratory Rate 16 16 Blood Pressure 102/61 118/59 L 118/59 L Pulse Oximetry 92 95 Oxygen Delivery Method Room Air Room Air 07/20/25 09:36 Temperature Pulse Rate 68 Respiratory Rate Blood Pressure 118/59 L Pulse Oximetry Oxygen Delivery Method BMI result Body Mass Index 29.9 Labs 07/01/25 12:43 07/19/25 11:05 Labs: Laboratory Results - last 48 hr 07/19/25 11:05 Sodium 139 Potassium 4.4 Chloride 111 H Carbon Dioxide 25 Anion Gap 7 L BUN 18 H Creatinine 0.81 Estim Creat Clear Calc 56.0 Estimated GFR > 60 Random Glucose 104 Calcium 8.4 Total Bilirubin 0.5 AST 41 H ALT 44 H Alkaline Phosphatase 63 Total Protein 6.3 L Albumin 3.4 L Imaging Radiology Impressions: ITS Impressions Head CT 07/04/25 16:13 IMPRESSION: 1. No acute intracranial findings. 2. Interval decrease in the right frontal scalp hematoma. Electronically signed by: Durga Benavides MD 07/04/2025 06:14 PM EDT RP Medications Medications Current Medications Acetaminophen (Acetaminophen 325 Mg Tablet) 650 mg PO Q6H PRN PRN Reason: Pain (Scale Score 1-3) Acetaminophen (Acetaminophen 325 Mg Tablet) 650 mg PO Q6H PRN PRN Reason: Headache/Pain, Scale 1-10 Al Hydroxide/Mg Hydroxide (Magnesium Hydrox/Alum Hydrox 30 Ml Oral.Susp) 30 ml PO Q6H PRN PRN Reason: Heartburn/Nausea Amlodipine Besylate (Amlodipine Besylate 2.5 Mg Tablet) 2.5 mg PO DAILY [facility]; Protocol Last Admin: 07/20/25 09:35 Dose: 2.5 mg Ascorbic Acid (Ascorbic Acid 500 Mg Tablet) 500 mg PO BID [facility] Last Admin: 07/20/25 09:35 Dose: 500 mg Aspirin (Aspirin Enteric Coated 81 Mg Tablet.Dr) 81 mg PO DAILY [facility] Last Admin: 07/20/25 09:35 Dose: 81 mg Atorvastatin Calcium (Atorvastatin Calcium 80 Mg Tablet) 80 mg PO BEDTIME [facility] Last Admin: 07/19/25 21:02 Dose: 80 mg Calcium Carbonate/Cholecalciferol (Calcium + Vitamin D 250 Mg Tablet) 500 mg PO BID [facility] Last Admin: 07/20/25 09:35 Dose: 500 mg Docusate Sodium (Docusate Sodium 100 Mg Capsule) 100 mg PO BID [facility] Last Admin: 07/20/25 09:35 Dose: 100 mg Donepezil HCl (Donepezil Hcl 5 Mg Tablet) 5 mg PO DAILY [facility] Last Admin: 07/20/25 09:36 Dose: 5 mg Escitalopram Oxalate (Escitalopram Oxalate 10 Mg Tablet) 10 mg PO DAILY [facility] Last Admin: 07/20/25 09:36 Dose: 10 mg Fluticasone Propionate (Fluticasone Propionate Nasal 16 Gm Uneeda) 1 spray NOSTRIL-B DAILY [facility] Last Admin: 07/20/25 09:34 Dose: 1 spray Gabapentin (Gabapentin 100 Mg Capsule) 100 mg PO BEDTIME [facility] Last Admin: 07/19/25 21:03 Dose: 100 mg Hydroxyzine HCl (Hydroxyzine Hcl 25 Mg Tablet) 25 mg PO Q6H PRN PRN Reason: mild anxiety Last Admin: 07/12/25 14:44 Dose: 25 mg Ketotifen Fumarate (Ketotifen Fumarate 0.025% Oph 5 Ml Drpbtl) 1 drop EYE-BOTH BID [facility] Last Admin: 07/20/25 09:34 Dose: 1 drop Levothyroxine Sodium (Levothyroxine Sodium 75 Mcg Tablet) 75 mcg PO DAILY@0600 [facility] Last Admin: 07/20/25 05:30 Dose: 75 mcg Magnesium Hydroxide (Milk Of Magnesia 30 Ml Oral.Susp) 30 ml PO DAILY PRN PRN Reason: Constipation Melatonin (Melatonin 3 Mg Tablet) 6 mg PO BEDTIME [facility] Last Admin: 07/19/25 23:35 Dose: 6 mg Mirtazapine (Mirtazapine 15 Mg Tablet) 15 mg PO BEDTIME [facility] Last Admin: 07/19/25 21:04 Dose: 15 mg Multivitamins/Vitamin C (Multivitamin Tablet) 1 tab PO DAILY [facility] Last Admin: 07/20/25 09:36 Dose: 1 tab Omeprazole (Omeprazole 20 Mg Capsule.Dr) 20 mg PO DAILY@0630 [facility] Last Admin: 07/20/25 06:16 Dose: 20 mg Propranolol HCl (Propranolol Hcl 10 Mg Tablet) 10 mg PO DAILY [facility]; Protocol Last Admin: 07/20/25 09:36 Dose: 10 mg Propranolol HCl (Propranolol Hcl 20 Mg Tablet) 20 mg PO BEDTIME [facility]; Protocol Last Admin: 07/19/25 21:08 Dose: 20 mg Pyridoxine HCl (Pyridoxine Hcl (Vitamin B6) 50 Mg Tablet) 100 mg PO BID [facility] Last Admin: 07/20/25 09:35 Dose: 100 mg Quetiapine Fumarate (Quetiapine Fumarate 50 Mg Tablet) 50 mg PO BEDTIME [facility] Last Admin: 07/19/25 21:02 Dose: 50 mg Risperidone (Risperidone 0.5 Mg Tablet) 0.5 mg PO BID [facility] Last Admin: 07/20/25 12:58 Dose: 0.5 mg Senna (Sennosides 8.6 Mg Tablet) 17.2 mg PO BEDTIME [facility] Last Admin: 07/19/25 21:02 Dose: 17.2 mg Simethicone (Simethicone 80 Mg Tab.Chew) 80 mg PO BID [facility] Last Admin: 07/20/25 09:35 Dose: 80 mg Vitamin D (Cholecalciferol (Vitamin D3) 25 Mcg Tablet) 25 mcg PO DAILY [facility] Last Admin: 07/20/25 09:35 Dose: 25 mcg Vitamin E (Vitamin E (Dl,Tocopheryl Acet) 180 Mg (400 Unit) Capsule) 540 mg PO DAILY [facility] Last Admin: 07/20/25 09:34 Dose: 540 mg Allergies Allergies Allergy/AdvReac Type Severity Reaction Status Date / Time egg Allergy Intermediate Unknown Verified 07/10/25 03:24 monosodium glutamate (MSG) Allergy Intermediate Unknown Verified 07/10/25 03:25 caffeine Allergy Mild Unknown Verified 07/10/25 03:23 Assessment & Plan Assessment & Plan (1) Major neurocognitive disorder due to multiple etiologies, with psychotic disturbance: Status: Acute Code(s): F02.82 - Dementia in other diseases classified elsewhere, unspecified severity, with psychotic disturbance Plan psychotic disorder, anti-psychotic recently stopped for unclear reasons. mina's order reviewed (abilify to 5 mg daily, seroquel to 50 mg daily are on the order). 07/04: restart abilify 5 mg at HS. seroquel 25 BID PRN agitation. 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 07/05: DC wellbutrin as it may increase anxiety and restlessness, increasing agitation. awake and alert today. no aggressive behaviors. continue current mgmt. 07/06: remains calm and pleasant. 2 episodes of head-banging yesterday evening. commitment paperwork filed. 07/07: intermittent head-banging continues in response to CAH. change seroquel from PRN to scheduled. otherwise continue current mgmt. 07/08: head-banging yesterday simon. slept well overnight. continue current mgmt. 07/09: needing redirection from head-banging. slept 8 hours. pleasant, cooperative. continue current mgmt. 07/10: some head-banging yesterday afternoon. self-dialoguing eves. none overnight, slept well. hearing continued to 07/26. continue current mgmt. 07/11: No head-banging today. Still hears voices but they have not instructed her to bang her head today. Self-dialoguing. Slept well. Pleasantly confused. Continue current treatment regimen. 07/12: can't recall last head banging or CAH to do so. sleeping well, eating well. no SIB in the past 24H. continue current mgmt. 07/13: head-banging again last night, say she doesn't recall it. calm, pleasant, cooperative today. continue current mgmt. 07/15: No changes 07/16: no SIB for the past few days. as per usual, cannot recall any AH or SIB episodes. continue current mgmt. 07/17: tried on Q5 min checks yesterday but started head-banging, placed back on 1:1. today denies any recollection of the event, denies Sx. continue current mgmt. affidavit for extension of Tx plan completed. 07/18: no head-banging in past 24H. denies Sx. remains on 1:1. continue current mgmt. 07/19 continue current tx, may consider changing antipsychotic to more effective one such as risperidone. continue on one to one, but if stable will change to 5 minutes checks. 07/20 continue tx. try 5 minutes checks. Reason for continued inpatient stay Substantial Risk for: inability to function Time Spent With Patient Time: Total time managing care of this patient today ____ minutes.
[2025-07-20 20:00] VITALS: BP 130/53; PULSE 69; RESP 16; TEMP 36.9; O2SAT 93
[2025-07-21 08:00] VITALS: BP 103/55; PULSE 57; RESP 16; TEMP 36.4; O2SAT 94
--- NOTE | 2025-07-21 09:11 | P.PNPSI_ITS ---
Subjective Subjective Date of Service: 07/21/25 Reason For Visit: psychosis Interim History: Reports she feels content . Pleasant and calm on approach. No behavioral outbursts noted. Adherent to medications. Eating and sleeping well. No pain reported. continue to monitor self injurious behaviors and need for one to one. Review of Systems Review of Systems Nothing of note Yes all other systems are reviewed and are negative Mental Status Exam Mental Status Exam Narrative: adequately dressed and groomed, hospital attire. cooperative, no PMA/PMR. speech nml rate, decr amount, nml loudness, nml latency. thoughts linear and logical. affect flexible, normo-intense, non-labile. mood good. denies AH, SIBI. no SI/HI/VH expressed. Diagnostics Vital Signs (24Hr): Vital Signs - 24 hr 07/20/25 09:35 07/20/25 09:36 07/20/25 20:00 Temperature 98.5 F Pulse Rate 68 69 Respiratory Rate 16 Blood Pressure 118/59 L 118/59 L 130/53 L Pulse Oximetry 93 Oxygen Delivery Method Room Air 07/21/25 08:00 Temperature 97.5 F Pulse Rate 57 Respiratory Rate 16 Blood Pressure 103/55 L Pulse Oximetry 94 Oxygen Delivery Method Room Air BMI result Body Mass Index 29.9 Labs 07/01/25 12:43 07/19/25 11:05 Labs: Laboratory Results - last 48 hr 07/19/25 11:05 Sodium 139 Potassium 4.4 Chloride 111 H Carbon Dioxide 25 Anion Gap 7 L BUN 18 H Creatinine 0.81 Estim Creat Clear Calc 56.0 Estimated GFR > 60 Random Glucose 104 Calcium 8.4 Total Bilirubin 0.5 AST 41 H ALT 44 H Alkaline Phosphatase 63 Total Protein 6.3 L Albumin 3.4 L Imaging Radiology Impressions: ITS Impressions Head CT 07/04/25 16:13 IMPRESSION: 1. No acute intracranial findings. 2. Interval decrease in the right frontal scalp hematoma. Electronically signed by: Durga Benavides MD 07/04/2025 06:14 PM EDT Medications Medications Current Medications Acetaminophen (Acetaminophen 325 Mg Tablet) 650 mg PO Q6H PRN PRN Reason: Pain (Scale Score 1-3) Acetaminophen (Acetaminophen 325 Mg Tablet) 650 mg PO Q6H PRN PRN Reason: Headache/Pain, Scale 1-10 Al Hydroxide/Mg Hydroxide (Magnesium Hydrox/Alum Hydrox 30 Ml Oral.Susp) 30 ml PO Q6H PRN PRN Reason: Heartburn/Nausea Amlodipine Besylate (Amlodipine Besylate 2.5 Mg Tablet) 2.5 mg PO DAILY [facility]; Protocol Last Admin: 07/20/25 09:35 Dose: 2.5 mg Ascorbic Acid (Ascorbic Acid 500 Mg Tablet) 500 mg PO BID [facility] Last Admin: 07/20/25 20:30 Dose: 500 mg Aspirin (Aspirin Enteric Coated 81 Mg Tablet.Dr) 81 mg PO DAILY [facility] Last Admin: 07/20/25 09:35 Dose: 81 mg Atorvastatin Calcium (Atorvastatin Calcium 80 Mg Tablet) 80 mg PO BEDTIME [facility] Last Admin: 07/20/25 20:31 Dose: 80 mg Calcium Carbonate/Cholecalciferol (Calcium + Vitamin D 250 Mg Tablet) 500 mg PO BID [facility] Last Admin: 07/20/25 20:30 Dose: 500 mg Docusate Sodium (Docusate Sodium 100 Mg Capsule) 100 mg PO BID [facility] Last Admin: 07/20/25 20:32 Dose: 100 mg Donepezil HCl (Donepezil Hcl 5 Mg Tablet) 5 mg PO DAILY [facility] Last Admin: 07/20/25 09:36 Dose: 5 mg Escitalopram Oxalate (Escitalopram Oxalate 10 Mg Tablet) 10 mg PO DAILY [facility] Last Admin: 07/20/25 09:36 Dose: 10 mg Fluticasone Propionate (Fluticasone Propionate Nasal 16 Gm Loco) 1 spray NOSTRIL-B DAILY [facility] Last Admin: 07/20/25 09:34 Dose: 1 spray Gabapentin (Gabapentin 100 Mg Capsule) 100 mg PO BEDTIME [facility] Last Admin: 07/20/25 20:31 Dose: 100 mg Hydroxyzine HCl (Hydroxyzine Hcl 25 Mg Tablet) 25 mg PO Q6H PRN PRN Reason: mild anxiety Last Admin: 07/12/25 14:44 Dose: 25 mg Ketotifen Fumarate (Ketotifen Fumarate 0.025% Oph 5 Ml Drpbtl) 1 drop EYE-BOTH BID [facility] Last Admin: 07/20/25 22:13 Dose: 1 drop Levothyroxine Sodium (Levothyroxine Sodium 75 Mcg Tablet) 75 mcg PO DAILY@0600 [facility] Last Admin: 07/21/25 06:18 Dose: 75 mcg Magnesium Hydroxide (Milk Of Magnesia 30 Ml Oral.Susp) 30 ml PO DAILY PRN PRN Reason: Constipation Melatonin (Melatonin 3 Mg Tablet) 6 mg PO BEDTIME [facility] Last Admin: 07/20/25 20:31 Dose: 6 mg Mirtazapine (Mirtazapine 15 Mg Tablet) 15 mg PO BEDTIME [facility] Last Admin: 07/20/25 20:32 Dose: 15 mg Multivitamins/Vitamin C (Multivitamin Tablet) 1 tab PO DAILY [facility] Last Admin: 07/20/25 09:36 Dose: 1 tab Omeprazole (Omeprazole 20 Mg Capsule.Dr) 20 mg PO DAILY@0630 [facility] Last Admin: 07/21/25 06:18 Dose: 20 mg Propranolol HCl (Propranolol Hcl 10 Mg Tablet) 10 mg PO DAILY [facility]; Protocol Last Admin: 07/20/25 09:36 Dose: 10 mg Propranolol HCl (Propranolol Hcl 20 Mg Tablet) 20 mg PO BEDTIME [facility]; Protocol Last Admin: 07/20/25 20:31 Dose: 20 mg Pyridoxine HCl (Pyridoxine Hcl (Vitamin B6) 50 Mg Tablet) 100 mg PO BID [facility] Last Admin: 07/20/25 20:32 Dose: 100 mg Quetiapine Fumarate (Quetiapine Fumarate 50 Mg Tablet) 50 mg PO BEDTIME [facility] Last Admin: 07/20/25 20:33 Dose: 50 mg Risperidone (Risperidone 0.5 Mg Tablet) 0.5 mg PO BID [facility] Last Admin: 07/20/25 20:31 Dose: 0.5 mg Senna (Sennosides 8.6 Mg Tablet) 17.2 mg PO BEDTIME [facility] Last Admin: 07/20/25 20:30 Dose: 17.2 mg Simethicone (Simethicone 80 Mg Tab.Chew) 80 mg PO BID [facility] Last Admin: 07/20/25 20:32 Dose: 80 mg Vitamin D (Cholecalciferol (Vitamin D3) 25 Mcg Tablet) 25 mcg PO DAILY [facility] Last Admin: 07/20/25 09:35 Dose: 25 mcg Vitamin E (Vitamin E (Dl,Tocopheryl Acet) 180 Mg (400 Unit) Capsule) 540 mg PO DAILY [facility] Last Admin: 07/20/25 09:34 Dose: 540 mg Allergies Allergies Allergy/AdvReac Type Severity Reaction Status Date / Time egg Allergy Intermediate Unknown Verified 07/10/25 03:24 monosodium glutamate (MSG) Allergy Intermediate Unknown Verified 07/10/25 03:25 caffeine Allergy Mild Unknown Verified 07/10/25 03:23 Assessment & Plan Assessment & Plan (1) Major neurocognitive disorder due to multiple etiologies, with psychotic disturbance: Status: Acute Code(s): F02.82 - Dementia in other diseases classified elsewhere, unspecified severity, with psychotic disturbance Plan psychotic disorder, anti-psychotic recently stopped for unclear reasons. mina's order reviewed (abilify to 5 mg daily, seroquel to 50 mg daily are on the order). 07/04: restart abilify 5 mg at HS. seroquel 25 BID PRN agitation. 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 07/05: DC wellbutrin as it may increase anxiety and restlessness, increasing agitation. awake and alert today. no aggressive behaviors. continue current mgmt. 07/06: remains calm and pleasant. 2 episodes of head-banging yesterday evening. commitment paperwork filed. 07/07: intermittent head-banging continues in response to CAH. change seroquel from PRN to scheduled. otherwise continue current mgmt. 07/08: head-banging yesterday simon. slept well overnight. continue current mgmt. 07/09: needing redirection from head-banging. slept 8 hours. pleasant, cooperative. continue current mgmt. 07/10: some head-banging yesterday afternoon. self-dialoguing eves. none overnight, slept well. hearing continued to 07/26. continue current mgmt. 07/11: No head-banging today. Still hears voices but they have not instructed her to bang her head today. Self-dialoguing. Slept well. Pleasantly confused. Continue current treatment regimen. 07/12: can't recall last head banging or CAH to do so. sleeping well, eating well. no SIB in the past 24H. continue current mgmt. 07/13: head-banging again last night, say she doesn't recall it. calm, pleasant, cooperative today. continue current mgmt. 07/15: No changes 07/16: no SIB for the past few days. as per usual, cannot recall any AH or SIB episodes. continue current mgmt. 07/17: tried on Q5 min checks yesterday but started head-banging, placed back on 1:1. today denies any recollection of the event, denies Sx. continue current mgmt. affidavit for extension of Tx plan completed. 07/18: no head-banging in past 24H. denies Sx. remains on 1:1. continue current mgmt. 07/19 continue current tx, may consider changing antipsychotic to more effective one such as risperidone. continue on one to one, but if stable will change to 5 minutes checks. 07/21: continue current management and treatment plan. Reason for continued inpatient stay Substantial Risk for: inability to function, rapid decompensation and med/psych decompensation Time Spent With Patient Time: Total time managing care of this patient today ____ minutes.
[2025-07-21] MEDS: Vitamin E (Dl,Tocopheryl Acet) 180 MG (400 UNIT) CAPSULE 540 MG PO (09:40)
[2025-07-21 09:41] VITALS: BP 103/55; PULSE 57
[2025-07-21] MEDS: Calcium + Vitamin D 250 MG TABLET 500 MG PO ×2 (09:42→21:30)
[2025-07-21] MEDS: Aspirin Enteric Coated 81 MG TABLET.DR PO (09:42)
[2025-07-21] MEDS: Ketotifen Fumarate 0.025% Oph 5 ML DRPBTL 1 DROP EYE-BOTH ×2 (09:43→21:50)
[2025-07-21 21:15] VITALS: BP 146/81; PULSE 67
[2025-07-22 08:00] VITALS: BP 135/63; PULSE 58; RESP 16; TEMP 35.3; O2SAT 94
[2025-07-22 08:23] VITALS: BP 135/63
[2025-07-22 08:24] VITALS: BP 135/63; PULSE 58
[2025-07-22] MEDS: Vitamin E (Dl,Tocopheryl Acet) 180 MG (400 UNIT) CAPSULE 540 MG PO (08:25)
[2025-07-22] MEDS: Aspirin Enteric Coated 81 MG TABLET.DR PO (08:26)
[2025-07-22] MEDS: Ketotifen Fumarate 0.025% Oph 5 ML DRPBTL 1 DROP EYE-BOTH ×2 (08:26→20:38)
--- NOTE | 2025-07-22 08:45 | HO.PSYCHPN ---
Subjective Subjective Date of Service: 07/22/25 Reason For Visit: psychosis Interim History: Reports she feels good emotionally. Denies depression. Denies pain. She is pleasant and calm on approach. No behavioral outbursts noted. Adherent to medications. Eating and sleeping well. No SI. Review of Systems Review of Systems Nothing of note Yes all other systems are reviewed and are negative Mental Status Exam Mental Status Exam Narrative: adequately dressed and groomed, hospital attire. cooperative, no PMA/PMR. speech nml rate, decr amount, nml loudness, nml latency. thoughts linear and logical. affect flexible, normo-intense, non-labile. mood good. denies AH, SIBI. no SI/HI/VH expressed. Diagnostics Vital Signs (24Hr): Vital Signs - 24 hr 07/21/25 09:41 07/21/25 21:15 07/22/25 08:00 Temperature 95.5 F L Pulse Rate 57 67 58 Respiratory Rate 16 Blood Pressure 103/55 L 146/81 H 135/63 Pulse Oximetry 94 Oxygen Delivery Method Room Air 07/22/25 08:23 07/22/25 08:24 Temperature Pulse Rate 58 Respiratory Rate Blood Pressure 135/63 135/63 Pulse Oximetry Oxygen Delivery Method BMI result Body Mass Index 29.9 Labs 07/01/25 12:43 07/19/25 11:05 Imaging Radiology Impressions: ITS Impressions Head CT 07/04/25 16:13 IMPRESSION: 1. No acute intracranial findings. 2. Interval decrease in the right frontal scalp hematoma. Electronically signed by: Durga Benavides MD 07/04/2025 06:14 PM EDT Medications Medications Current Medications Acetaminophen (Acetaminophen 325 Mg Tablet) 650 mg PO Q6H PRN PRN Reason: Pain (Scale Score 1-3) Acetaminophen (Acetaminophen 325 Mg Tablet) 650 mg PO Q6H PRN PRN Reason: Headache/Pain, Scale 1-10 Al Hydroxide/Mg Hydroxide (Magnesium Hydrox/Alum Hydrox 30 Ml Oral.Susp) 30 ml PO Q6H PRN PRN Reason: Heartburn/Nausea Amlodipine Besylate (Amlodipine Besylate 2.5 Mg Tablet) 2.5 mg PO DAILY [facility]; Protocol Last Admin: 07/22/25 08:23 Dose: 2.5 mg Ascorbic Acid (Ascorbic Acid 500 Mg Tablet) 500 mg PO BID [facility] Last Admin: 07/22/25 08:25 Dose: 500 mg Aspirin (Aspirin Enteric Coated 81 Mg Tablet.Dr) 81 mg PO DAILY [facility] Last Admin: 07/22/25 08:26 Dose: 81 mg Atorvastatin Calcium (Atorvastatin Calcium 80 Mg Tablet) 80 mg PO BEDTIME [facility] Last Admin: 07/21/25 21:31 Dose: 80 mg Calcium Carbonate/Cholecalciferol (Calcium + Vitamin D 250 Mg Tablet) 500 mg PO BID [facility] Last Admin: 07/21/25 21:30 Dose: 500 mg Docusate Sodium (Docusate Sodium 100 Mg Capsule) 100 mg PO BID [facility] Last Admin: 07/22/25 08:22 Dose: 100 mg Donepezil HCl (Donepezil Hcl 5 Mg Tablet) 5 mg PO DAILY [facility] Last Admin: 07/22/25 08:29 Dose: 5 mg Escitalopram Oxalate (Escitalopram Oxalate 10 Mg Tablet) 10 mg PO DAILY [facility] Last Admin: 07/22/25 08:25 Dose: 10 mg Fluticasone Propionate (Fluticasone Propionate Nasal 16 Gm [place]) 1 spray NOSTRIL-B DAILY [facility] Last Admin: 07/22/25 08:26 Dose: 1 spray Gabapentin (Gabapentin 100 Mg Capsule) 100 mg PO BEDTIME [facility] Last Admin: 07/21/25 21:31 Dose: 100 mg Hydroxyzine HCl (Hydroxyzine Hcl 25 Mg Tablet) 25 mg PO Q6H PRN PRN Reason: mild anxiety Last Admin: 07/12/25 14:44 Dose: 25 mg Ketotifen Fumarate (Ketotifen Fumarate 0.025% Oph 5 Ml Drpbtl) 1 drop EYE-BOTH BID [facility] Last Admin: 07/22/25 08:26 Dose: 1 drop Levothyroxine Sodium (Levothyroxine Sodium 75 Mcg Tablet) 75 mcg PO DAILY@0600 [facility] Last Admin: 07/22/25 06:28 Dose: 75 mcg Magnesium Hydroxide (Milk Of Magnesia 30 Ml Oral.Susp) 30 ml PO DAILY PRN PRN Reason: Constipation Melatonin (Melatonin 3 Mg Tablet) 6 mg PO BEDTIME [facility] Last Admin: 07/21/25 21:31 Dose: 6 mg Mirtazapine (Mirtazapine 15 Mg Tablet) 15 mg PO BEDTIME [facility] Last Admin: 07/21/25 21:31 Dose: 15 mg Multivitamins/Vitamin C (Multivitamin Tablet) 1 tab PO DAILY [facility] Last Admin: 07/22/25 08:24 Dose: 1 tab Omeprazole (Omeprazole 20 Mg Capsule.Dr) 20 mg PO DAILY@0630 [facility] Last Admin: 07/22/25 06:28 Dose: 20 mg Propranolol HCl (Propranolol Hcl 10 Mg Tablet) 10 mg PO DAILY [facility]; Protocol Last Admin: 07/22/25 08:24 Dose: 10 mg Propranolol HCl (Propranolol Hcl 20 Mg Tablet) 20 mg PO BEDTIME [facility]; Protocol Last Admin: 07/21/25 21:31 Dose: 20 mg Pyridoxine HCl (Pyridoxine Hcl (Vitamin B6) 50 Mg Tablet) 100 mg PO BID [facility] Last Admin: 07/22/25 08:24 Dose: 100 mg Quetiapine Fumarate (Quetiapine Fumarate 50 Mg Tablet) 50 mg PO BEDTIME [facility] Last Admin: 07/21/25 21:31 Dose: 50 mg Risperidone (Risperidone 0.5 Mg Tablet) 0.5 mg PO BID [facility] Last Admin: 07/22/25 08:26 Dose: 0.5 mg Senna (Sennosides 8.6 Mg Tablet) 17.2 mg PO BEDTIME [facility] Last Admin: 07/21/25 21:31 Dose: 17.2 mg Simethicone (Simethicone 80 Mg Tab.Chew) 80 mg PO BID [facility] Last Admin: 07/22/25 08:25 Dose: 80 mg Vitamin D (Cholecalciferol (Vitamin D3) 25 Mcg Tablet) 25 mcg PO DAILY [facility] Last Admin: 07/22/25 08:22 Dose: 25 mcg Vitamin E (Vitamin E (Dl,Tocopheryl Acet) 180 Mg (400 Unit) Capsule) 540 mg PO DAILY [facility] Last Admin: 07/22/25 08:25 Dose: 540 mg Allergies Allergies Allergy/AdvReac Type Severity Reaction Status Date / Time egg Allergy Intermediate Unknown Verified 07/10/25 03:24 monosodium glutamate (MSG) Allergy Intermediate Unknown Verified 07/10/25 03:25 caffeine Allergy Mild Unknown Verified 07/10/25 03:23 Assessment & Plan Assessment & Plan (1) Major neurocognitive disorder due to multiple etiologies, with psychotic disturbance: Status: Acute Code(s): F02.82 - Dementia in other diseases classified elsewhere, unspecified severity, with psychotic disturbance Plan psychotic disorder, anti-psychotic recently stopped for unclear reasons. mina's order reviewed (abilify to 5 mg daily, seroquel to 50 mg daily are on the order). 07/04: restart abilify 5 mg at HS. seroquel 25 BID PRN agitation. 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 07/05: DC wellbutrin as it may increase anxiety and restlessness, increasing agitation. awake and alert today. no aggressive behaviors. continue current mgmt. 07/06: remains calm and pleasant. 2 episodes of head-banging yesterday evening. commitment paperwork filed. 07/07: intermittent head-banging continues in response to CAH. change seroquel from PRN to scheduled. otherwise continue current mgmt. 07/08: head-banging yesterday simon. slept well overnight. continue current mgmt. 07/09: needing redirection from head-banging. slept 8 hours. pleasant, cooperative. continue current mgmt. 07/10: some head-banging yesterday afternoon. self-dialoguing eves. none overnight, slept well. hearing continued to 07/26. continue current mgmt. 07/11: No head-banging today. Still hears voices but they have not instructed her to bang her head today. Self-dialoguing. Slept well. Pleasantly confused. Continue current treatment regimen. 07/12: can't recall last head banging or CAH to do so. sleeping well, eating well. no SIB in the past 24H. continue current mgmt. 07/13: head-banging again last night, say she doesn't recall it. calm, pleasant, cooperative today. continue current mgmt. 07/15: No changes 07/16: no SIB for the past few days. as per usual, cannot recall any AH or SIB episodes. continue current mgmt. 07/17: tried on Q5 min checks yesterday but started head-banging, placed back on 1:1. today denies any recollection of the event, denies Sx. continue current mgmt. affidavit for extension of Tx plan completed. 07/18: no head-banging in past 24H. denies Sx. remains on 1:1. continue current mgmt. 07/19 continue current tx, may consider changing antipsychotic to more effective one such as risperidone. continue on one to one, but if stable will change to 5 minutes checks. 07/21: continue current management and treatment plan. 07/22: continue current management and treatment plan. Reason for continued inpatient stay Substantial Risk for: inability to function and rapid decompensation Time Spent With Patient Time: Total time managing care of this patient today ____ minutes.
[2025-07-22] MEDS: Calcium + Vitamin D 250 MG TABLET 500 MG PO ×2 (11:54→20:38)
[2025-07-22 20:00] VITALS: BP 114/64; PULSE 92; RESP 16; TEMP 36.3; O2SAT 92
[2025-07-23 08:00] VITALS: BP 134/69; PULSE 85; RESP 16; TEMP 36.3; O2SAT 93
[2025-07-23] MEDS: Ketotifen Fumarate 0.025% Oph 5 ML DRPBTL 1 DROP EYE-BOTH ×2 (08:56→21:16)
[2025-07-23] MEDS: Vitamin E (Dl,Tocopheryl Acet) 180 MG (400 UNIT) CAPSULE 540 MG PO (08:57)
[2025-07-23] MEDS: Calcium + Vitamin D 250 MG TABLET 500 MG PO ×2 (08:57→21:10)
[2025-07-23] MEDS: Aspirin Enteric Coated 81 MG TABLET.DR PO (08:58)
--- NOTE | 2025-07-23 12:04 | HO.PSYCHPN ---
Subjective Subjective Date of Service: 07/23/25 Reason For Visit: psychosis Interim History: Reports she feels good today . Remains disoriented. Denies depression. Denies pain. She is pleasant and calm on approach. No behavioral outbursts noted. Adherent to medications. Eating and sleeping well. No SI. Review of Systems Review of Systems Nothing of note Yes all other systems are reviewed and are negative Mental Status Exam Mental Status Exam Narrative: adequately dressed and groomed, hospital attire. cooperative, no PMA/PMR. speech nml rate, decr amount, nml loudness, nml latency. thoughts linear and logical. affect flexible, normo-intense, non-labile. mood good. denies AH, SIBI. no SI/HI/VH expressed. Diagnostics Vital Signs (24Hr): Vital Signs - 24 hr 07/22/25 20:00 07/23/25 08:00 Temperature 97.3 F 97.3 F Pulse Rate 92 85 Respiratory Rate 16 16 Blood Pressure 114/64 134/69 Pulse Oximetry 92 93 Oxygen Delivery Method Room Air Room Air BMI result Body Mass Index 29.9 Labs 07/01/25 12:43 07/19/25 11:05 Imaging Radiology Impressions: [facility] Impressions Head CT 07/04/25 16:13 IMPRESSION: 1. No acute intracranial findings. 2. Interval decrease in the right frontal scalp hematoma. Electronically signed by: Durga Benavides MD 07/04/2025 06:14 PM EDT RP Medications Medications Current Medications Acetaminophen (Acetaminophen 325 Mg Tablet) 650 mg PO Q6H PRN PRN Reason: Pain (Scale Score 1-3) Acetaminophen (Acetaminophen 325 Mg Tablet) 650 mg PO Q6H PRN PRN Reason: Headache/Pain, Scale 1-10 Al Hydroxide/Mg Hydroxide (Magnesium Hydrox/Alum Hydrox 30 Ml Oral.Susp) 30 ml PO Q6H PRN PRN Reason: Heartburn/Nausea Amlodipine Besylate (Amlodipine Besylate 2.5 Mg Tablet) 2.5 mg PO DAILY [facility]; Protocol Last Admin: 07/23/25 08:57 Dose: 2.5 mg Ascorbic Acid (Ascorbic Acid 500 Mg Tablet) 500 mg PO BID [facility] Last Admin: 07/23/25 08:57 Dose: 500 mg Aspirin (Aspirin Enteric Coated 81 Mg Tablet.) 81 mg PO DAILY [facility] Last Admin: 07/23/25 08:58 Dose: 81 mg Atorvastatin Calcium (Atorvastatin Calcium 80 Mg Tablet) 80 mg PO BEDTIME [facility] Last Admin: 07/22/25 20:39 Dose: 80 mg Calcium Carbonate/Cholecalciferol (Calcium + Vitamin D 250 Mg Tablet) 500 mg PO BID [facility] Last Admin: 07/23/25 08:57 Dose: 500 mg Docusate Sodium (Docusate Sodium 100 Mg Capsule) 100 mg PO BID [facility] Last Admin: 07/23/25 08:57 Dose: 100 mg Donepezil HCl (Donepezil Hcl 5 Mg Tablet) 5 mg PO DAILY [facility] Last Admin: 07/23/25 08:57 Dose: 5 mg Escitalopram Oxalate (Escitalopram Oxalate 10 Mg Tablet) 10 mg PO DAILY [facility] Last Admin: 07/23/25 08:58 Dose: 10 mg Fluticasone Propionate (Fluticasone Propionate Nasal 16 Gm [place]) 1 spray NOSTRIL-B DAILY [facility] Last Admin: 07/23/25 08:56 Dose: 1 spray Gabapentin (Gabapentin 100 Mg Capsule) 100 mg PO BEDTIME [facility] Last Admin: 07/22/25 20:39 Dose: 100 mg Hydroxyzine HCl (Hydroxyzine Hcl 25 Mg Tablet) 25 mg PO Q6H PRN PRN Reason: mild anxiety Last Admin: 07/12/25 14:44 Dose: 25 mg Ketotifen Fumarate (Ketotifen Fumarate 0.025% Oph 5 Ml Drpbtl) 1 drop EYE-BOTH BID [facility] Last Admin: 07/23/25 08:56 Dose: 1 drop Levothyroxine Sodium (Levothyroxine Sodium 75 Mcg Tablet) 75 mcg PO DAILY@0600 [facility] Last Admin: 07/23/25 05:46 Dose: 75 mcg Magnesium Hydroxide (Milk Of Magnesia 30 Ml Oral.Susp) 30 ml PO DAILY PRN PRN Reason: Constipation Melatonin (Melatonin 3 Mg Tablet) 6 mg PO BEDTIME [facility] Last Admin: 07/22/25 20:39 Dose: 6 mg Mirtazapine (Mirtazapine 15 Mg Tablet) 15 mg PO BEDTIME [facility] Last Admin: 07/22/25 20:38 Dose: 15 mg Multivitamins/Vitamin C (Multivitamin Tablet) 1 tab PO DAILY [facility] Last Admin: 07/23/25 08:58 Dose: 1 tab Omeprazole (Omeprazole 20 Mg Capsule.Dr) 20 mg PO DAILY@0630 [facility] Last Admin: 07/23/25 06:26 Dose: 20 mg Propranolol HCl (Propranolol Hcl 10 Mg Tablet) 10 mg PO DAILY [facility]; Protocol Last Admin: 07/23/25 08:58 Dose: 10 mg Propranolol HCl (Propranolol Hcl 20 Mg Tablet) 20 mg PO BEDTIME [facility]; Protocol Last Admin: 07/22/25 20:39 Dose: 20 mg Pyridoxine HCl (Pyridoxine Hcl (Vitamin B6) 50 Mg Tablet) 100 mg PO BID [facility] Last Admin: 07/23/25 08:57 Dose: 100 mg Quetiapine Fumarate (Quetiapine Fumarate 50 Mg Tablet) 50 mg PO BEDTIME [facility] Last Admin: 07/22/25 20:38 Dose: 50 mg Risperidone (Risperidone 0.5 Mg Tablet) 0.5 mg PO BID [facility] Last Admin: 07/23/25 08:58 Dose: 0.5 mg Senna (Sennosides 8.6 Mg Tablet) 17.2 mg PO BEDTIME [facility] Last Admin: 07/22/25 20:38 Dose: 17.2 mg Simethicone (Simethicone 80 Mg Tab.Chew) 80 mg PO BID [facility] Last Admin: 07/23/25 08:57 Dose: 80 mg Vitamin D (Cholecalciferol (Vitamin D3) 25 Mcg Tablet) 25 mcg PO DAILY [facility] Last Admin: 07/23/25 08:58 Dose: 25 mcg Vitamin E (Vitamin E (Dl,Tocopheryl Acet) 180 Mg (400 Unit) Capsule) 540 mg PO DAILY [facility] Last Admin: 07/23/25 08:57 Dose: 540 mg Allergies Allergies Allergy/AdvReac Type Severity Reaction Status Date / Time egg Allergy Intermediate Unknown Verified 07/10/25 03:24 monosodium glutamate (MSG) Allergy Intermediate Unknown Verified 07/10/25 03:25 caffeine Allergy Mild Unknown Verified 07/10/25 03:23 Assessment & Plan Assessment & Plan (1) Major neurocognitive disorder due to multiple etiologies, with psychotic disturbance: Status: Acute Code(s): F02.82 - Dementia in other diseases classified elsewhere, unspecified severity, with psychotic disturbance Plan psychotic disorder, anti-psychotic recently stopped for unclear reasons. mina's order reviewed (abilify to 5 mg daily, seroquel to 50 mg daily are on the order). 07/04: restart abilify 5 mg at HS. seroquel 25 BID PRN agitation. 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 07/05: DC wellbutrin as it may increase anxiety and restlessness, increasing agitation. awake and alert today. no aggressive behaviors. continue current mgmt. 07/06: remains calm and pleasant. 2 episodes of head-banging yesterday evening. commitment paperwork filed. 07/07: intermittent head-banging continues in response to CAH. change seroquel from PRN to scheduled. otherwise continue current mgmt. 07/08: head-banging yesterday simon. slept well overnight. continue current mgmt. 07/09: needing redirection from head-banging. slept 8 hours. pleasant, cooperative. continue current mgmt. 07/10: some head-banging yesterday afternoon. self-dialoguing eves. none overnight, slept well. hearing continued to 07/26. continue current mgmt. 07/11: No head-banging today. Still hears voices but they have not instructed her to bang her head today. Self-dialoguing. Slept well. Pleasantly confused. Continue current treatment regimen. 07/12: can't recall last head banging or CAH to do so. sleeping well, eating well. no SIB in the past 24H. continue current mgmt. 07/13: head-banging again last night, say she doesn't recall it. calm, pleasant, cooperative today. continue current mgmt. 07/15: No changes 07/16: no SIB for the past few days. as per usual, cannot recall any AH or SIB episodes. continue current mgmt. 07/17: tried on Q5 min checks yesterday but started head-banging, placed back on 1:1. today denies any recollection of the event, denies Sx. continue current mgmt. affidavit for extension of Tx plan completed. 07/18: no head-banging in past 24H. denies Sx. remains on 1:1. continue current mgmt. 07/19 continue current tx, may consider changing antipsychotic to more effective one such as risperidone. continue on one to one, but if stable will change to 5 minutes checks. 07/21: continue current management and treatment plan. 07/22: continue current management and treatment plan. 07/23: Continue current management and treatment plan. Reason for continued inpatient stay Substantial Risk for: inability to function and rapid decompensation Time Spent With Patient Time: Total time managing care of this patient today ____ minutes.
[2025-07-23 20:00] VITALS: BP 141/65; PULSE 60; RESP 16; TEMP 36.9; O2SAT 93
[2025-07-23 21:12] VITALS: BP 141/65
--- NOTE | 2025-07-24 09:08 | P.PNPSI_ITS ---
Subjective Subjective Date of Service: 07/24/25 Reason For Visit: psychosis Subjective Notes: Conditional Voluntary Interim History: Pt slept through the night. She was sleeping most of the morning. No behavioral concerns. She is taking medications as prescribed. VS stable- lower side but she was in bed, usually SBP in 140s. No self injurious behaviors. Pt oriented only to self. Medication Compliance: Yes Review of Systems Review of Systems Nothing of note Yes all other systems are reviewed and are negative Mental Status Exam Mental Status Exam Narrative: adequately dressed and groomed, hospital attire. cooperative, no PMA/PMR. speech nml rate, decr amount, nml loudness, nml latency. thoughts linear and logical. affect flexible, normo-intense, non-labile. mood good. denies AH, SIBI. no SI/HI/VH expressed. Diagnostics Vital Signs (24Hr): Vital Signs - 24 hr 07/23/25 20:00 07/23/25 21:12 Temperature 98.4 F Pulse Rate 60 Respiratory Rate 16 Blood Pressure 141/65 H 141/65 H Pulse Oximetry 93 Oxygen Delivery Method Room Air BMI result Body Mass Index 29.9 Labs 07/01/25 12:43 07/19/25 11:05 Imaging Radiology Impressions: ITS Impressions Head CT 07/04/25 16:13 IMPRESSION: 1. No acute intracranial findings. 2. Interval decrease in the right frontal scalp hematoma. Electronically signed by: Durga Benavides MD 07/04/2025 06:14 PM EDT RP Medications Medications Current Medications Acetaminophen (Acetaminophen 325 Mg Tablet) 650 mg PO Q6H PRN PRN Reason: Pain (Scale Score 1-3) Acetaminophen (Acetaminophen 325 Mg Tablet) 650 mg PO Q6H PRN PRN Reason: Headache/Pain, Scale 1-10 Al Hydroxide/Mg Hydroxide (Magnesium Hydrox/Alum Hydrox 30 Ml Oral.Susp) 30 ml PO Q6H PRN PRN Reason: Heartburn/Nausea Amlodipine Besylate (Amlodipine Besylate 2.5 Mg Tablet) 2.5 mg PO DAILY [facility]; Protocol Last Admin: 07/23/25 08:57 Dose: 2.5 mg Ascorbic Acid (Ascorbic Acid 500 Mg Tablet) 500 mg PO BID [facility] Last Admin: 07/23/25 21:10 Dose: 500 mg Aspirin (Aspirin Enteric Coated 81 Mg Tablet.Dr) 81 mg PO DAILY [facility] Last Admin: 07/23/25 08:58 Dose: 81 mg Atorvastatin Calcium (Atorvastatin Calcium 80 Mg Tablet) 80 mg PO BEDTIME [facility] Last Admin: 07/23/25 21:11 Dose: 80 mg Calcium Carbonate/Cholecalciferol (Calcium + Vitamin D 250 Mg Tablet) 500 mg PO BID [facility] Last Admin: 07/23/25 21:10 Dose: 500 mg Docusate Sodium (Docusate Sodium 100 Mg Capsule) 100 mg PO BID [facility] Last Admin: 07/23/25 21:12 Dose: 100 mg Donepezil HCl (Donepezil Hcl 5 Mg Tablet) 5 mg PO DAILY [facility] Last Admin: 07/23/25 08:57 Dose: 5 mg Escitalopram Oxalate (Escitalopram Oxalate 10 Mg Tablet) 10 mg PO DAILY [facility] Last Admin: 07/23/25 08:58 Dose: 10 mg Fluticasone Propionate (Fluticasone Propionate Nasal 16 Gm [place]) 1 spray NOSTRIL-B DAILY [facility] Last Admin: 07/23/25 08:56 Dose: 1 spray Gabapentin (Gabapentin 100 Mg Capsule) 100 mg PO BEDTIME [facility] Last Admin: 07/23/25 21:10 Dose: 100 mg Hydroxyzine HCl (Hydroxyzine Hcl 25 Mg Tablet) 25 mg PO Q6H PRN PRN Reason: mild anxiety Last Admin: 07/12/25 14:44 Dose: 25 mg Ketotifen Fumarate (Ketotifen Fumarate 0.025% Oph 5 Ml [place]) 1 drop EYE-BOTH BID [facility] Last Admin: 07/23/25 21:16 Dose: 1 drop Levothyroxine Sodium (Levothyroxine Sodium 75 Mcg Tablet) 75 mcg PO DAILY@0600 [facility] Last Admin: 07/24/25 06:14 Dose: 75 mcg Magnesium Hydroxide (Milk Of Magnesia 30 Ml Oral.Susp) 30 ml PO DAILY PRN PRN Reason: Constipation Melatonin (Melatonin 3 Mg Tablet) 6 mg PO BEDTIME [facility] Last Admin: 07/23/25 21:08 Dose: 6 mg Mirtazapine (Mirtazapine 15 Mg Tablet) 15 mg PO BEDTIME [facility] Last Admin: 07/23/25 21:13 Dose: 15 mg Multivitamins/Vitamin C (Multivitamin Tablet) 1 tab PO DAILY [facility] Last Admin: 07/23/25 08:58 Dose: 1 tab Omeprazole (Omeprazole 20 Mg Capsule.Dr) 20 mg PO DAILY@0630 [facility] Last Admin: 07/24/25 06:40 Dose: 20 mg Propranolol HCl (Propranolol Hcl 10 Mg Tablet) 10 mg PO DAILY [facility]; Protocol Last Admin: 07/23/25 08:58 Dose: 10 mg Propranolol HCl (Propranolol Hcl 20 Mg Tablet) 20 mg PO BEDTIME [facility]; Protocol Last Admin: 07/23/25 21:12 Dose: 20 mg Pyridoxine HCl (Pyridoxine Hcl (Vitamin B6) 50 Mg Tablet) 100 mg PO BID [facility] Last Admin: 07/23/25 21:09 Dose: 100 mg Quetiapine Fumarate (Quetiapine Fumarate 50 Mg Tablet) 50 mg PO BEDTIME [facility] Last Admin: 07/23/25 21:09 Dose: 50 mg Risperidone (Risperidone 0.5 Mg Tablet) 0.5 mg PO BID [facility] Last Admin: 07/23/25 21:12 Dose: 0.5 mg Senna (Sennosides 8.6 Mg Tablet) 17.2 mg PO BEDTIME [facility] Last Admin: 07/23/25 21:11 Dose: 17.2 mg Simethicone (Simethicone 80 Mg Tab.Chew) 80 mg PO BID [facility] Last Admin: 07/23/25 21:11 Dose: 80 mg Vitamin D (Cholecalciferol (Vitamin D3) 25 Mcg Tablet) 25 mcg PO DAILY [facility] Last Admin: 07/23/25 08:58 Dose: 25 mcg Vitamin E (Vitamin E (Dl,Tocopheryl Acet) 180 Mg (400 Unit) Capsule) 540 mg PO DAILY [facility] Last Admin: 07/23/25 08:57 Dose: 540 mg Allergies Allergies Allergy/AdvReac Type Severity Reaction Status Date / Time egg Allergy Intermediate Unknown Verified 07/10/25 03:24 monosodium glutamate (MSG) Allergy Intermediate Unknown Verified 07/10/25 03:25 caffeine Allergy Mild Unknown Verified 07/10/25 03:23 Assessment & Plan Assessment & Plan (1) Major neurocognitive disorder due to multiple etiologies, with psychotic disturbance: Status: Acute Code(s): F02.82 - Dementia in other diseases classified elsewhere, unspecified severity, with psychotic disturbance Plan psychotic disorder, anti-psychotic recently stopped for unclear reasons. mina's order reviewed (abilify to 5 mg daily, seroquel to 50 mg daily are on the order). 07/04: restart abilify 5 mg at HS. seroquel 25 BID PRN agitation. 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 07/05: DC wellbutrin as it may increase anxiety and restlessness, increasing agitation. awake and alert today. no aggressive behaviors. continue current mgmt. 07/06: remains calm and pleasant. 2 episodes of head-banging yesterday evening. commitment paperwork filed. 07/07: intermittent head-banging continues in response to CAH. change seroquel from PRN to scheduled. otherwise continue current mgmt. 07/08: head-banging yesterday simon. slept well overnight. continue current mgmt. 07/09: needing redirection from head-banging. slept 8 hours. pleasant, cooperative. continue current mgmt. 07/10: some head-banging yesterday afternoon. self-dialoguing eves. none overnight, slept well. hearing continued to 07/26. continue current mgmt. 07/11: No head-banging today. Still hears voices but they have not instructed her to bang her head today. Self-dialoguing. Slept well. Pleasantly confused. Continue current treatment regimen. 07/12: can't recall last head banging or CAH to do so. sleeping well, eating well. no SIB in the past 24H. continue current mgmt. 07/13: head-banging again last night, say she doesn't recall it. calm, pleasant, cooperative today. continue current mgmt. 07/15: No changes 07/16: no SIB for the past few days. as per usual, cannot recall any AH or SIB episodes. continue current mgmt. 07/17: tried on Q5 min checks yesterday but started head-banging, placed back on 1:1. today denies any recollection of the event, denies Sx. continue current mgmt. affidavit for extension of Tx plan completed. 07/18: no head-banging in past 24H. denies Sx. remains on 1:1. continue current mgmt. 07/19 continue current tx, may consider changing antipsychotic to more effective one such as risperidone. continue on one to one, but if stable will change to 5 minutes checks. 07/20 continue tx. try 5 minutes checks. 07/24 continue tx. no self injurious behaviors. Reason for continued inpatient stay Substantial Risk for: inability to function Time Spent With Patient Time: Total time managing care of this patient today ____ minutes.
[2025-07-24 10:10] VITALS: BP 109/53; PULSE 54; RESP 16; TEMP 36.4; O2SAT 90
[2025-07-24] MEDS: Calcium + Vitamin D 250 MG TABLET 500 MG PO ×2 (10:13→20:33)
[2025-07-24] MEDS: Aspirin Enteric Coated 81 MG TABLET.DR PO (10:14)
[2025-07-24 10:15] VITALS: BP 109/53; PULSE 54
[2025-07-24] MEDS: Ketotifen Fumarate 0.025% Oph 5 ML DRPBTL 1 DROP EYE-BOTH ×2 (10:16→22:18)
[2025-07-24] MEDS: Vitamin E (Dl,Tocopheryl Acet) 180 MG (400 UNIT) CAPSULE 540 MG PO (10:17)
[2025-07-24 20:00] VITALS: BP 112/60; PULSE 66; RESP 16; TEMP 36.4; O2SAT 92
[2025-07-25 08:00] VITALS: BP 135/66; PULSE 56; RESP 16; TEMP 36.8; O2SAT 93
--- NOTE | 2025-07-25 09:16 | HO.PSYCHPN ---
Subjective Subjective Date of Service: 07/25/25 Reason For Visit: psychosis Subjective Notes: Conditional Voluntary Guardianship: Yes Interim History: Pt slept through the night. Pt appears more relax but content is limited. She has not engage in self harm behaviors such as head banging. She does seem to have bilat resting tremors more exacerbated with risperidone. May have to consider going back to [facility]. Pending amendment of mina's order. VS stable although on low end, will continue to monitor. She is eating well. Mental Status Exam Mental Status Exam Narrative: adequately dressed and groomed, hospital attire. cooperative, no PMA/PMR. speech nml rate, decr amount, nml loudness, nml latency. thoughts linear and logical. affect flexible, normo-intense, non-labile. mood good. denies AH, SIBI. no SI/HI/VH expressed. Diagnostics Vital Signs (24Hr): Vital Signs - 24 hr 07/24/25 10:10 07/24/25 10:15 07/24/25 10:15 Temperature 97.5 F Pulse Rate 54 54 Respiratory Rate 16 Blood Pressure 109/53 L 109/53 L 109/53 L Pulse Oximetry 90 L Oxygen Delivery Method Room Air 07/24/25 20:00 Temperature 97.5 F Pulse Rate 66 Respiratory Rate 16 Blood Pressure 112/60 Pulse Oximetry 92 Oxygen Delivery Method Room Air BMI result Body Mass Index 29.9 Labs 07/01/25 12:43 07/19/25 11:05 Imaging Radiology Impressions: ITS Impressions Head CT 07/04/25 16:13 IMPRESSION: 1. No acute intracranial findings. 2. Interval decrease in the right frontal scalp hematoma. Electronically signed by: Durga Benavides MD 07/04/2025 06:14 PM EDT RP Medications Medications Current Medications Acetaminophen (Acetaminophen 325 Mg Tablet) 650 mg PO Q6H PRN PRN Reason: Pain (Scale Score 1-3) Acetaminophen (Acetaminophen 325 Mg Tablet) 650 mg PO Q6H PRN PRN Reason: Headache/Pain, Scale 1-10 Al Hydroxide/Mg Hydroxide (Magnesium Hydrox/Alum Hydrox 30 Ml Oral.Susp) 30 ml PO Q6H PRN PRN Reason: Heartburn/Nausea Amlodipine Besylate (Amlodipine Besylate 2.5 Mg Tablet) 2.5 mg PO DAILY [facility]; Protocol Last Admin: 07/24/25 10:15 Dose: 2.5 mg Ascorbic Acid (Ascorbic Acid 500 Mg Tablet) 500 mg PO BID [facility] Last Admin: 07/24/25 20:33 Dose: 500 mg Aspirin (Aspirin Enteric Coated 81 Mg Tablet.Dr) 81 mg PO DAILY [facility] Last Admin: 07/24/25 10:14 Dose: 81 mg Atorvastatin Calcium (Atorvastatin Calcium 80 Mg Tablet) 80 mg PO BEDTIME [facility] Last Admin: 07/24/25 20:33 Dose: 80 mg Calcium Carbonate/Cholecalciferol (Calcium + Vitamin D 250 Mg Tablet) 500 mg PO BID [facility] Last Admin: 07/24/25 20:33 Dose: 500 mg Docusate Sodium (Docusate Sodium 100 Mg Capsule) 100 mg PO BID [facility] Last Admin: 07/24/25 20:33 Dose: 100 mg Donepezil HCl (Donepezil Hcl 5 Mg Tablet) 5 mg PO DAILY [facility] Last Admin: 07/24/25 10:15 Dose: 5 mg Escitalopram Oxalate (Escitalopram Oxalate 10 Mg Tablet) 10 mg PO DAILY [facility] Last Admin: 07/24/25 10:15 Dose: 10 mg Fluticasone Propionate (Fluticasone Propionate Nasal 16 Gm [place]) 1 spray NOSTRIL-B DAILY [facility] Last Admin: 07/24/25 10:16 Dose: 1 spray Gabapentin (Gabapentin 100 Mg Capsule) 100 mg PO BEDTIME [facility] Last Admin: 07/24/25 20:33 Dose: 100 mg Hydroxyzine HCl (Hydroxyzine Hcl 25 Mg Tablet) 25 mg PO Q6H PRN PRN Reason: mild anxiety Last Admin: 07/12/25 14:44 Dose: 25 mg Ketotifen Fumarate (Ketotifen Fumarate 0.025% Oph 5 Ml [place]) 1 drop EYE-BOTH BID [facility] Last Admin: 07/24/25 22:18 Dose: 1 drop Levothyroxine Sodium (Levothyroxine Sodium 75 Mcg Tablet) 75 mcg PO DAILY@0600 [facility] Last Admin: 07/25/25 05:52 Dose: 75 mcg Magnesium Hydroxide (Milk Of Magnesia 30 Ml Oral.Susp) 30 ml PO DAILY PRN PRN Reason: Constipation Melatonin (Melatonin 3 Mg Tablet) 6 mg PO BEDTIME [facility] Last Admin: 07/24/25 20:33 Dose: 6 mg Mirtazapine (Mirtazapine 15 Mg Tablet) 15 mg PO BEDTIME [facility] Last Admin: 07/24/25 20:33 Dose: 15 mg Multivitamins/Vitamin C (Multivitamin Tablet) 1 tab PO DAILY [facility] Last Admin: 07/24/25 10:16 Dose: 1 tab Omeprazole (Omeprazole 20 Mg Capsule.Dr) 20 mg PO DAILY@0630 [facility] Last Admin: 07/25/25 05:52 Dose: 20 mg Propranolol HCl (Propranolol Hcl 10 Mg Tablet) 10 mg PO DAILY [facility]; Protocol Last Admin: 07/24/25 10:15 Dose: 10 mg Propranolol HCl (Propranolol Hcl 20 Mg Tablet) 20 mg PO BEDTIME [facility]; Protocol Last Admin: 07/24/25 20:33 Dose: 20 mg Pyridoxine HCl (Pyridoxine Hcl (Vitamin B6) 50 Mg Tablet) 100 mg PO BID [facility] Last Admin: 07/24/25 20:33 Dose: 100 mg Quetiapine Fumarate (Quetiapine Fumarate 50 Mg Tablet) 50 mg PO BEDTIME [facility] Last Admin: 07/24/25 20:33 Dose: 50 mg Risperidone (Risperidone 0.5 Mg Tablet) 0.5 mg PO BID [facility] Last Admin: 07/24/25 20:33 Dose: 0.5 mg Senna (Sennosides 8.6 Mg Tablet) 17.2 mg PO BEDTIME [facility] Last Admin: 07/24/25 20:33 Dose: 17.2 mg Simethicone (Simethicone 80 Mg Tab.Chew) 80 mg PO BID [facility] Last Admin: 07/24/25 20:33 Dose: 80 mg Vitamin D (Cholecalciferol (Vitamin D3) 25 Mcg Tablet) 25 mcg PO DAILY [facility] Last Admin: 07/24/25 10:14 Dose: 25 mcg Vitamin E (Vitamin E (Dl,Tocopheryl Acet) 180 Mg (400 Unit) Capsule) 540 mg PO DAILY [facility] Last Admin: 07/24/25 10:17 Dose: 540 mg Allergies Allergies Allergy/AdvReac Type Severity Reaction Status Date / Time egg Allergy Intermediate Unknown Verified 07/10/25 03:24 monosodium glutamate (MSG) Allergy Intermediate Unknown Verified 07/10/25 03:25 caffeine Allergy Mild Unknown Verified 07/10/25 03:23 Assessment & Plan Assessment & Plan (1) Major neurocognitive disorder due to multiple etiologies, with psychotic disturbance: Status: Acute Code(s): F02.82 - Dementia in other diseases classified elsewhere, unspecified severity, with psychotic disturbance Plan psychotic disorder, anti-psychotic recently stopped for unclear reasons. mina's order reviewed (abilify to 5 mg daily, seroquel to 50 mg daily are on the order). 07/04: restart abilify 5 mg at HS. seroquel 25 BID PRN agitation. 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 07/05: DC wellbutrin as it may increase anxiety and restlessness, increasing agitation. awake and alert today. no aggressive behaviors. continue current mgmt. 07/06: remains calm and pleasant. 2 episodes of head-banging yesterday evening. commitment paperwork filed. 07/07: intermittent head-banging continues in response to CAH. change seroquel from PRN to scheduled. otherwise continue current mgmt. 07/08: head-banging yesterday simon. slept well overnight. continue current mgmt. 07/09: needing redirection from head-banging. slept 8 hours. pleasant, cooperative. continue current mgmt. 07/10: some head-banging yesterday afternoon. self-dialoguing eves. none overnight, slept well. hearing continued to 07/26. continue current mgmt. 07/11: No head-banging today. Still hears voices but they have not instructed her to bang her head today. Self-dialoguing. Slept well. Pleasantly confused. Continue current treatment regimen. 07/12: can't recall last head banging or CAH to do so. sleeping well, eating well. no SIB in the past 24H. continue current mgmt. 07/13: head-banging again last night, say she doesn't recall it. calm, pleasant, cooperative today. continue current mgmt. 07/15: No changes 07/16: no SIB for the past few days. as per usual, cannot recall any AH or SIB episodes. continue current mgmt. 07/17: tried on Q5 min checks yesterday but started head-banging, placed back on 1:1. today denies any recollection of the event, denies Sx. continue current mgmt. affidavit for extension of Tx plan completed. 07/18: no head-banging in past 24H. denies Sx. remains on 1:1. continue current mgmt. 07/19 continue current tx, may consider changing antipsychotic to more effective one such as risperidone. continue on one to one, but if stable will change to 5 minutes checks. 07/20 continue tx. try 5 minutes checks. 07/24 continue tx. no self injurious behaviors. 07/25 continue tx. noted increase resting tremors UE bilat. continue to monitor EPS. Reason for continued inpatient stay Substantial Risk for: inability to function Time Spent With Patient Time: Total time managing care of this patient today ____ minutes.
[2025-07-25] MEDS: Aspirin Enteric Coated 81 MG TABLET.DR PO (09:37)
[2025-07-25] MEDS: Vitamin E (Dl,Tocopheryl Acet) 180 MG (400 UNIT) CAPSULE 540 MG PO (09:37)
[2025-07-25] MEDS: Calcium + Vitamin D 250 MG TABLET 500 MG PO ×2 (09:38→20:07)
[2025-07-25] MEDS: Ketotifen Fumarate 0.025% Oph 5 ML DRPBTL 1 DROP EYE-BOTH ×2 (09:39→20:06)
[2025-07-25 20:00] VITALS: BP 130/60; PULSE 63; RESP 16; TEMP 36.4; O2SAT 94
[2025-07-26 08:00] VITALS: BP 162/81; PULSE 62; RESP 16; TEMP 36.3; O2SAT 93
[2025-07-26] MEDS: Ketotifen Fumarate 0.025% Oph 5 ML DRPBTL 1 DROP EYE-BOTH ×2 (08:38→20:27)
[2025-07-26] MEDS: Aspirin Enteric Coated 81 MG TABLET.DR PO (08:40)
[2025-07-26] MEDS: Vitamin E (Dl,Tocopheryl Acet) 180 MG (400 UNIT) CAPSULE 540 MG PO (08:40)
[2025-07-26 08:41] VITALS: BP 162/81; PULSE 62
[2025-07-26] MEDS: Calcium + Vitamin D 250 MG TABLET 500 MG PO ×2 (08:41→20:28)
[2025-07-26 08:44] VITALS: BP 162/81
[2025-07-26 13:43] VITALS: BMI 30.1
--- NOTE | 2025-07-26 16:39 | P.PNPSI_ITS ---
Subjective Subjective Date of Service: 07/26/25 Reason For Visit: psychosis Subjective Notes: Conditional Voluntary Guardianship: Yes Interim History: Pt slept through the night. She had one episode of banging head while sitting in dinning table. BUt stopped when asked. Not able to provide much detail as to why, when asked again by this movie writer 5 minutes after, pt reports she does not remember. Noted EPS- resting bilat tremors, suspect due to risperidone, will change back to abilify. Medication Compliance: Yes Review of Systems Review of Systems Nothing of note Yes all other systems are reviewed and are negative Mental Status Exam Mental Status Exam Narrative: adequately dressed and groomed, hospital attire. cooperative, no PMA/PMR. speech nml rate, decr amount, nml loudness, nml latency. thoughts linear and logical. affect flexible, normo-intense, non-labile. mood good. denies AH, SIBI. no SI/HI/VH expressed. Diagnostics Vital Signs (24Hr): Vital Signs - 24 hr 07/25/25 20:00 07/26/25 08:00 07/26/25 08:41 Temperature 97.5 F 97.3 F Pulse Rate 63 62 62 Respiratory Rate 16 16 Blood Pressure 130/60 162/81 H 162/81 H Pulse Oximetry 94 93 Oxygen Delivery Method Room Air 07/26/25 08:44 Temperature Pulse Rate Respiratory Rate Blood Pressure 162/81 H Pulse Oximetry Oxygen Delivery Method BMI result Body Mass Index 30.1 Labs 07/01/25 12:43 07/19/25 11:05 Imaging Radiology Impressions: ITS Impressions Head CT 07/04/25 16:13 IMPRESSION: 1. No acute intracranial findings. 2. Interval decrease in the right frontal scalp hematoma. Electronically signed by: Durga Benavides MD 07/04/2025 06:14 PM EDT Medications Medications Current Medications Acetaminophen (Acetaminophen 325 Mg Tablet) 650 mg PO Q6H PRN PRN Reason: Pain (Scale Score 1-3) Al Hydroxide/Mg Hydroxide (Magnesium Hydrox/Alum Hydrox 30 Ml Oral.Susp) 30 ml PO Q6H PRN PRN Reason: Heartburn/Nausea Amlodipine Besylate (Amlodipine Besylate 2.5 Mg Tablet) 2.5 mg PO DAILY [facility]; Protocol Last Admin: 07/26/25 08:44 Dose: 2.5 mg Aripiprazole (Aripiprazole 15 Mg Tablet) 15 mg PO DAILY [facility] Ascorbic Acid (Ascorbic Acid 500 Mg Tablet) 500 mg PO BID [facility] Last Admin: 07/26/25 08:40 Dose: 500 mg Aspirin (Aspirin Enteric Coated 81 Mg Tablet.Dr) 81 mg PO DAILY [facility] Last Admin: 07/26/25 08:40 Dose: 81 mg Atorvastatin Calcium (Atorvastatin Calcium 80 Mg Tablet) 80 mg PO BEDTIME [facility] Last Admin: 07/25/25 20:06 Dose: 80 mg Calcium Carbonate/Cholecalciferol (Calcium + Vitamin D 250 Mg Tablet) 500 mg PO BID [facility] Last Admin: 07/26/25 08:41 Dose: 500 mg Docusate Sodium (Docusate Sodium 100 Mg Capsule) 100 mg PO BID [facility] Last Admin: 07/26/25 08:40 Dose: 100 mg Donepezil HCl (Donepezil Hcl 5 Mg Tablet) 5 mg PO DAILY [facility] Last Admin: 07/26/25 08:40 Dose: 5 mg Escitalopram Oxalate (Escitalopram Oxalate 10 Mg Tablet) 10 mg PO DAILY [facility] Last Admin: 07/26/25 08:41 Dose: 10 mg Fluticasone Propionate (Fluticasone Propionate Nasal 16 Gm [place]) 1 spray NOSTRIL-B DAILY [facility] Last Admin: 07/26/25 08:39 Dose: 1 spray Gabapentin (Gabapentin 100 Mg Capsule) 100 mg PO BEDTIME [facility] Last Admin: 07/25/25 20:07 Dose: 100 mg Hydroxyzine HCl (Hydroxyzine Hcl 25 Mg Tablet) 25 mg PO Q6H PRN PRN Reason: mild anxiety Last Admin: 07/12/25 14:44 Dose: 25 mg Ketotifen Fumarate (Ketotifen Fumarate 0.025% Oph 5 Ml Drpbtl) 1 drop EYE-BOTH BID [facility] Last Admin: 07/26/25 08:38 Dose: 1 drop Levothyroxine Sodium (Levothyroxine Sodium 75 Mcg Tablet) 75 mcg PO DAILY@0600 [facility] Last Admin: 07/26/25 05:46 Dose: 75 mcg Magnesium Hydroxide (Milk Of Magnesia 30 Ml Oral.Susp) 30 ml PO DAILY PRN PRN Reason: Constipation Melatonin (Melatonin 3 Mg Tablet) 6 mg PO BEDTIME [facility] Last Admin: 07/25/25 20:07 Dose: 6 mg Mirtazapine (Mirtazapine 15 Mg Tablet) 15 mg PO BEDTIME [facility] Last Admin: 07/25/25 20:07 Dose: 15 mg Multivitamins/Vitamin C (Multivitamin Tablet) 1 tab PO DAILY [facility] Last Admin: 07/26/25 08:40 Dose: 1 tab Omeprazole (Omeprazole 20 Mg Capsule.Dr) 20 mg PO DAILY@0630 [facility] Last Admin: 07/26/25 06:32 Dose: 20 mg Propranolol HCl (Propranolol Hcl 10 Mg Tablet) 10 mg PO DAILY [facility]; Protocol Last Admin: 07/26/25 08:41 Dose: 10 mg Propranolol HCl (Propranolol Hcl 20 Mg Tablet) 20 mg PO BEDTIME [facility]; Protocol Last Admin: 07/25/25 20:06 Dose: 20 mg Pyridoxine HCl (Pyridoxine Hcl (Vitamin B6) 50 Mg Tablet) 100 mg PO BID [facility] Last Admin: 07/26/25 08:40 Dose: 100 mg Quetiapine Fumarate (Quetiapine Fumarate 50 Mg Tablet) 50 mg PO BEDTIME [facility] Last Admin: 07/25/25 20:07 Dose: 50 mg Senna (Sennosides 8.6 Mg Tablet) 17.2 mg PO BEDTIME [facility] Last Admin: 07/25/25 20:07 Dose: 17.2 mg Simethicone (Simethicone 80 Mg Tab.Chew) 80 mg PO BID [facility] Last Admin: 07/26/25 08:40 Dose: 80 mg Vitamin D (Cholecalciferol (Vitamin D3) 25 Mcg Tablet) 25 mcg PO DAILY [facility] Last Admin: 07/26/25 08:40 Dose: 25 mcg Vitamin E (Vitamin E (Dl,Tocopheryl Acet) 180 Mg (400 Unit) Capsule) 540 mg PO DAILY [facility] Last Admin: 07/26/25 08:40 Dose: 540 mg Allergies Allergies Allergy/AdvReac Type Severity Reaction Status Date / Time egg Allergy Intermediate Unknown Verified 07/10/25 03:24 monosodium glutamate (MSG) Allergy Intermediate Unknown Verified 07/10/25 03:25 caffeine Allergy Mild Unknown Verified 07/10/25 03:23 Assessment & Plan Assessment & Plan (1) Major neurocognitive disorder due to multiple etiologies, with psychotic disturbance: Status: Acute Code(s): F02.82 - Dementia in other diseases classified elsewhere, unspecified severity, with psychotic disturbance Plan psychotic disorder, anti-psychotic recently stopped for unclear reasons. mina's order reviewed (abilify to 5 mg daily, seroquel to 50 mg daily are on the order). 07/04: restart abilify 5 mg at HS. seroquel 25 BID PRN agitation. 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 07/05: DC wellbutrin as it may increase anxiety and restlessness, increasing agitation. awake and alert today. no aggressive behaviors. continue current mgmt. 07/06: remains calm and pleasant. 2 episodes of head-banging yesterday evening. commitment paperwork filed. 07/07: intermittent head-banging continues in response to CAH. change seroquel from PRN to scheduled. otherwise continue current mgmt. 07/08: head-banging yesterday simon. slept well overnight. continue current mgmt. 07/09: needing redirection from head-banging. slept 8 hours. pleasant, cooperative. continue current mgmt. 07/10: some head-banging yesterday afternoon. self-dialoguing eves. none overnight, slept well. hearing continued to 07/26. continue current mgmt. 07/11: No head-banging today. Still hears voices but they have not instructed her to bang her head today. Self-dialoguing. Slept well. Pleasantly confused. Continue current treatment regimen. 07/12: can't recall last head banging or CAH to do so. sleeping well, eating well. no SIB in the past 24H. continue current mgmt. 07/13: head-banging again last night, say she doesn't recall it. calm, pleasant, cooperative today. continue current mgmt. 07/15: No changes 07/16: no SIB for the past few days. as per usual, cannot recall any AH or SIB episodes. continue current mgmt. 07/17: tried on Q5 min checks yesterday but started head-banging, placed back on 1:1. today denies any recollection of the event, denies Sx. continue current mgmt. affidavit for extension of Tx plan completed. 07/18: no head-banging in past 24H. denies Sx. remains on 1:1. continue current mgmt. 07/19 continue current tx, may consider changing antipsychotic to more effective one such as risperidone. continue on one to one, but if stable will change to 5 minutes checks. 07/20 continue tx. try 5 minutes checks. 07/24 continue tx. no self injurious behaviors. 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 Reason for continued inpatient stay Substantial Risk for: inability to function Time Spent With Patient Time: Total time managing care of this patient today ____ minutes.
[2025-07-26 20:00] VITALS: BP 109/60; PULSE 64; RESP 16; TEMP 36.3; O2SAT 92
[2025-07-27 09:08] VITALS: BP 114/56; PULSE 59; RESP 16; TEMP 36.8; O2SAT 93
[2025-07-27] MEDS: Ketotifen Fumarate 0.025% Oph 5 ML DRPBTL 1 DROP EYE-BOTH ×2 (09:10→20:30)
[2025-07-27] MEDS: Vitamin E (Dl,Tocopheryl Acet) 180 MG (400 UNIT) CAPSULE 540 MG PO (09:11)
[2025-07-27] MEDS: Calcium + Vitamin D 250 MG TABLET 500 MG PO ×2 (09:11→20:26)
[2025-07-27] MEDS: Aspirin Enteric Coated 81 MG TABLET.DR PO (09:11)
--- NOTE | 2025-07-27 11:08 | P.PNPSI_ITS ---
Subjective Subjective Date of Service: 07/27/25 Reason For Visit: psychosis Interim History: lying in bed resting after breakfast. calm, pleasant, friendly. denies any AH, can't recall last time she banged her head. states she is sleeping, eating, toileting, and showering well. no requests or complaints. off of 1:1. per staff, had EPS from risperidone, back on abilify. less head-banging, off 1:1. Mental Status Exam Mental Status Exam Narrative: adequately dressed and groomed, hospital attire. cooperative, no PMA/PMR. speech nml rate, decr amount, nml loudness, nml latency. thoughts linear and logical. affect flexible, normo-intense, non-labile. mood fine. denies AH, SIBI. no SI/HI/VH expressed. Diagnostics Vital Signs (24Hr): Vital Signs - 24 hr 07/26/25 20:00 07/27/25 09:08 Temperature 97.3 F 98.2 F Pulse Rate 64 59 Respiratory Rate 16 16 Blood Pressure 109/60 114/56 L Pulse Oximetry 92 93 Oxygen Delivery Method Room Air Room Air BMI result Body Mass Index 30.1 Labs 07/01/25 12:43 07/19/25 11:05 Imaging Radiology Impressions: ITS Impressions Head CT 07/04/25 16:13 IMPRESSION: 1. No acute intracranial findings. 2. Interval decrease in the right frontal scalp hematoma. Electronically signed by: Durga Benavides MD 07/04/2025 06:14 PM EDT RP Medications Medications Current Medications Acetaminophen (Acetaminophen 325 Mg Tablet) 650 mg PO Q6H PRN PRN Reason: Pain (Scale Score 1-3) Al Hydroxide/Mg Hydroxide (Magnesium Hydrox/Alum Hydrox 30 Ml Oral.Susp) 30 ml PO Q6H PRN PRN Reason: Heartburn/Nausea Amlodipine Besylate (Amlodipine Besylate 2.5 Mg Tablet) 2.5 mg PO DAILY [facility]; Protocol Last Admin: 07/27/25 09:13 Dose: 2.5 mg Aripiprazole (Aripiprazole 15 Mg Tablet) 15 mg PO DAILY [facility] Last Admin: 07/27/25 09:13 Dose: 15 mg Ascorbic Acid (Ascorbic Acid 500 Mg Tablet) 500 mg PO BID [facility] Last Admin: 07/27/25 09:12 Dose: 500 mg Aspirin (Aspirin Enteric Coated 81 Mg Tablet.Dr) 81 mg PO DAILY [facility] Last Admin: 07/27/25 09:11 Dose: 81 mg Atorvastatin Calcium (Atorvastatin Calcium 80 Mg Tablet) 80 mg PO BEDTIME [facility] Last Admin: 07/26/25 20:27 Dose: 80 mg Calcium Carbonate/Cholecalciferol (Calcium + Vitamin D 250 Mg Tablet) 500 mg PO BID [facility] Last Admin: 07/27/25 09:11 Dose: 500 mg Docusate Sodium (Docusate Sodium 100 Mg Capsule) 100 mg PO BID [facility] Last Admin: 07/27/25 09:12 Dose: 100 mg Donepezil HCl (Donepezil Hcl 5 Mg Tablet) 5 mg PO DAILY [facility] Last Admin: 07/27/25 09:12 Dose: 5 mg Escitalopram Oxalate (Escitalopram Oxalate 10 Mg Tablet) 10 mg PO DAILY [facility] Last Admin: 07/27/25 09:11 Dose: 10 mg Fluticasone Propionate (Fluticasone Propionate Nasal 16 Gm [place]) 1 spray NOSTRIL-B DAILY [facility] Last Admin: 07/27/25 09:10 Dose: 1 spray Gabapentin (Gabapentin 100 Mg Capsule) 100 mg PO BEDTIME [facility] Last Admin: 07/26/25 20:28 Dose: 100 mg Hydroxyzine HCl (Hydroxyzine Hcl 25 Mg Tablet) 25 mg PO Q6H PRN PRN Reason: mild anxiety Last Admin: 07/12/25 14:44 Dose: 25 mg Ketotifen Fumarate (Ketotifen Fumarate 0.025% Oph 5 Ml Drpbtl) 1 drop EYE-BOTH BID [facility] Last Admin: 07/27/25 09:10 Dose: 1 drop Levothyroxine Sodium (Levothyroxine Sodium 75 Mcg Tablet) 75 mcg PO DAILY@0600 [facility] Last Admin: 07/27/25 06:00 Dose: 75 mcg Magnesium Hydroxide (Milk Of Magnesia 30 Ml Oral.Susp) 30 ml PO DAILY PRN PRN Reason: Constipation Melatonin (Melatonin 3 Mg Tablet) 6 mg PO BEDTIME [facility] Last Admin: 07/26/25 20:27 Dose: 6 mg Mirtazapine (Mirtazapine 15 Mg Tablet) 15 mg PO BEDTIME [facility] Last Admin: 07/26/25 20:28 Dose: 15 mg Multivitamins/Vitamin C (Multivitamin Tablet) 1 tab PO DAILY [facility] Last Admin: 07/27/25 09:12 Dose: 1 tab Omeprazole (Omeprazole 20 Mg Capsule.Dr) 20 mg PO DAILY@0630 [facility] Last Admin: 07/27/25 06:26 Dose: 20 mg Propranolol HCl (Propranolol Hcl 10 Mg Tablet) 10 mg PO DAILY [facility]; Protocol Last Admin: 07/27/25 09:13 Dose: Not Given Propranolol HCl (Propranolol Hcl 20 Mg Tablet) 20 mg PO BEDTIME [facility]; Protocol Last Admin: 07/26/25 20:27 Dose: 20 mg Pyridoxine HCl (Pyridoxine Hcl (Vitamin B6) 50 Mg Tablet) 100 mg PO BID [facility] Last Admin: 07/27/25 09:11 Dose: 100 mg Quetiapine Fumarate (Quetiapine Fumarate 50 Mg Tablet) 50 mg PO BEDTIME [facility] Last Admin: 07/26/25 20:28 Dose: 50 mg Senna (Sennosides 8.6 Mg Tablet) 17.2 mg PO BEDTIME [facility] Last Admin: 07/26/25 20:27 Dose: 17.2 mg Simethicone (Simethicone 80 Mg Tab.Chew) 80 mg PO BID [facility] Last Admin: 07/27/25 09:11 Dose: 80 mg Vitamin D (Cholecalciferol (Vitamin D3) 25 Mcg Tablet) 25 mcg PO DAILY [facility] Last Admin: 07/27/25 09:11 Dose: 25 mcg Vitamin E (Vitamin E (Dl,Tocopheryl Acet) 180 Mg (400 Unit) Capsule) 540 mg PO DAILY [facility] Last Admin: 07/27/25 09:11 Dose: 540 mg Allergies Allergies Allergy/AdvReac Type Severity Reaction Status Date / Time egg Allergy Intermediate Unknown Verified 07/10/25 03:24 monosodium glutamate (MSG) Allergy Intermediate Unknown Verified 07/10/25 03:25 caffeine Allergy Mild Unknown Verified 07/10/25 03:23 Assessment & Plan Assessment & Plan (1) Major neurocognitive disorder due to multiple etiologies, with psychotic disturbance: Status: Acute Code(s): F02.82 - Dementia in other diseases classified elsewhere, unspecified severity, with psychotic disturbance Plan psychotic disorder, anti-psychotic recently stopped for unclear reasons. mina's order reviewed (abilify to 5 mg daily, seroquel to 50 mg daily are on the order). 07/04: restart abilify 5 mg at HS. seroquel 25 BID PRN agitation. 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 07/05: DC wellbutrin as it may increase anxiety and restlessness, increasing agitation. awake and alert today. no aggressive behaviors. continue current mgmt. 07/06: remains calm and pleasant. 2 episodes of head-banging yesterday evening. commitment paperwork filed. 07/07: intermittent head-banging continues in response to CAH. change seroquel from PRN to scheduled. otherwise continue current mgmt. 07/08: head-banging yesterday simon. slept well overnight. continue current mgmt. 07/09: needing redirection from head-banging. slept 8 hours. pleasant, cooperative. continue current mgmt. 07/10: some head-banging yesterday afternoon. self-dialoguing eves. none overnight, slept well. hearing continued to 07/26. continue current mgmt. 07/11: No head-banging today. Still hears voices but they have not instructed her to bang her head today. Self-dialoguing. Slept well. Pleasantly confused. Continue current treatment regimen. 07/12: can't recall last head banging or CAH to do so. sleeping well, eating well. no SIB in the past 24H. continue current mgmt. 07/13: head-banging again last night, say she doesn't recall it. calm, pleasant, cooperative today. continue current mgmt. 07/15: No changes 07/16: no SIB for the past few days. as per usual, cannot recall any AH or SIB episodes. continue current mgmt. 07/17: tried on Q5 min checks yesterday but started head-banging, placed back on 1:1. today denies any recollection of the event, denies Sx. continue current mgmt. affidavit for extension of Tx plan completed. 07/18: no head-banging in past 24H. denies Sx. remains on 1:1. continue current mgmt. 07/19 continue current tx, may consider changing antipsychotic to more effective one such as risperidone. continue on one to one, but if stable will change to 5 minutes checks. 07/20 continue tx. try 5 minutes checks. 07/24 continue tx. no self injurious behaviors. 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 07/27: calm, cooperative. off of 1:1, can't recall last time head-banging. denies AH. continue current mgmt. Reason for continued inpatient stay Substantial Risk for: harm to self and inability to function Time Spent With Patient Time: Total time managing care of this patient today ____ minutes.
[2025-07-27 20:00] VITALS: BP 138/67; PULSE 74; RESP 16; TEMP 36.2; O2SAT 92
--- NOTE | 2025-07-28 07:41 | P.PNPSI_ITS ---
Subjective Subjective Date of Service: 07/28/25 Reason For Visit: psychosis Subjective Notes: Section 8 Interim History: per staff, had EPS from risperidone, back on abilify. has been doing okay off one-to-one observation without any head banging. Patient reports being well cared for. Feeling safe. Bright affect. Denies hallucinations. Denies SI. Slept well. Medication Compliance: Yes Side effects from medications: No Attending Groups: No Review of Systems Acute medical concerns: No Review of Systems Review of Systems Nothing of note Mental Status Exam Mental Status Exam Narrative: adequately dressed and groomed, hospital attire. cooperative, no PMA/PMR. speech nml rate, decr amount, nml loudness, nml latency. thoughts linear and logical. affect flexible, normo-intense, non-labile. mood Good. denies AH, SIBI. no SI/HI/VH expressed. Diagnostics Vital Signs (24Hr): Vital Signs - 24 hr 07/27/25 09:08 07/27/25 20:00 Temperature 98.2 F 97.2 F Pulse Rate 59 74 Respiratory Rate 16 16 Blood Pressure 114/56 L 138/67 Pulse Oximetry 93 92 Oxygen Delivery Method Room Air Room Air BMI result Body Mass Index 30.1 Labs 07/01/25 12:43 07/19/25 11:05 Imaging Radiology Impressions: ITS Impressions Head CT 07/04/25 16:13 IMPRESSION: 1. No acute intracranial findings. 2. Interval decrease in the right frontal scalp hematoma. Electronically signed by: Durga Benavides MD 07/04/2025 06:14 PM EDT Medications Medications Current Medications Acetaminophen (Acetaminophen 325 Mg Tablet) 650 mg PO Q6H PRN PRN Reason: Pain (Scale Score 1-3) Al Hydroxide/Mg Hydroxide (Magnesium Hydrox/Alum Hydrox 30 Ml Oral.Susp) 30 ml PO Q6H PRN PRN Reason: Heartburn/Nausea Amlodipine Besylate (Amlodipine Besylate 2.5 Mg Tablet) 2.5 mg PO DAILY [facility]; Protocol Last Admin: 07/27/25 09:13 Dose: 2.5 mg Aripiprazole (Aripiprazole 15 Mg Tablet) 15 mg PO DAILY [facility] Last Admin: 07/27/25 09:13 Dose: 15 mg Ascorbic Acid (Ascorbic Acid 500 Mg Tablet) 500 mg PO BID [facility] Last Admin: 07/27/25 20:26 Dose: 500 mg Aspirin (Aspirin Enteric Coated 81 Mg Tablet.Dr) 81 mg PO DAILY [facility] Last Admin: 07/27/25 09:11 Dose: 81 mg Atorvastatin Calcium (Atorvastatin Calcium 80 Mg Tablet) 80 mg PO BEDTIME [facility] Last Admin: 07/27/25 20:26 Dose: 80 mg Calcium Carbonate/Cholecalciferol (Calcium + Vitamin D 250 Mg Tablet) 500 mg PO BID [facility] Last Admin: 07/27/25 20:26 Dose: 500 mg Docusate Sodium (Docusate Sodium 100 Mg Capsule) 100 mg PO BID [facility] Last Admin: 07/27/25 20:26 Dose: 100 mg Donepezil HCl (Donepezil Hcl 5 Mg Tablet) 5 mg PO DAILY [facility] Last Admin: 07/27/25 09:12 Dose: 5 mg Escitalopram Oxalate (Escitalopram Oxalate 10 Mg Tablet) 10 mg PO DAILY [facility] Last Admin: 07/27/25 09:11 Dose: 10 mg Fluticasone Propionate (Fluticasone Propionate Nasal 16 Gm [place]) 1 spray NOSTRIL-B DAILY [facility] Last Admin: 07/27/25 09:10 Dose: 1 spray Gabapentin (Gabapentin 100 Mg Capsule) 100 mg PO BEDTIME [facility] Last Admin: 07/27/25 20:26 Dose: 100 mg Hydroxyzine HCl (Hydroxyzine Hcl 25 Mg Tablet) 25 mg PO Q6H PRN PRN Reason: mild anxiety Last Admin: 07/12/25 14:44 Dose: 25 mg Ketotifen Fumarate (Ketotifen Fumarate 0.025% Oph 5 Ml Drpbtl) 1 drop EYE-BOTH BID [facility] Last Admin: 07/27/25 20:30 Dose: 1 drop Levothyroxine Sodium (Levothyroxine Sodium 75 Mcg Tablet) 75 mcg PO DAILY@0600 [facility] Last Admin: 07/28/25 05:30 Dose: 75 mcg Magnesium Hydroxide (Milk Of Magnesia 30 Ml Oral.Susp) 30 ml PO DAILY PRN PRN Reason: Constipation Melatonin (Melatonin 3 Mg Tablet) 6 mg PO BEDTIME [facility] Last Admin: 07/27/25 20:25 Dose: 6 mg Mirtazapine (Mirtazapine 15 Mg Tablet) 15 mg PO BEDTIME [facility] Last Admin: 07/27/25 20:26 Dose: 15 mg Multivitamins/Vitamin C (Multivitamin Tablet) 1 tab PO DAILY [facility] Last Admin: 07/27/25 09:12 Dose: 1 tab Omeprazole (Omeprazole 20 Mg Capsule.Dr) 20 mg PO DAILY@0630 [facility] Last Admin: 07/28/25 06:01 Dose: 20 mg Propranolol HCl (Propranolol Hcl 10 Mg Tablet) 10 mg PO DAILY [facility]; Protocol Last Admin: 07/27/25 09:13 Dose: Not Given Propranolol HCl (Propranolol Hcl 20 Mg Tablet) 20 mg PO BEDTIME [facility]; Protocol Last Admin: 07/27/25 20:25 Dose: 20 mg Pyridoxine HCl (Pyridoxine Hcl (Vitamin B6) 50 Mg Tablet) 100 mg PO BID [facility] Last Admin: 07/27/25 20:26 Dose: 100 mg Quetiapine Fumarate (Quetiapine Fumarate 50 Mg Tablet) 50 mg PO BEDTIME [facility] Last Admin: 07/27/25 20:26 Dose: 50 mg Senna (Sennosides 8.6 Mg Tablet) 17.2 mg PO BEDTIME [facility] Last Admin: 07/27/25 20:25 Dose: 17.2 mg Simethicone (Simethicone 80 Mg Tab.Chew) 80 mg PO BID [facility] Last Admin: 07/27/25 20:26 Dose: 80 mg Vitamin D (Cholecalciferol (Vitamin D3) 25 Mcg Tablet) 25 mcg PO DAILY [facility] Last Admin: 07/27/25 09:11 Dose: 25 mcg Vitamin E (Vitamin E (Dl,Tocopheryl Acet) 180 Mg (400 Unit) Capsule) 540 mg PO DAILY [facility] Last Admin: 07/27/25 09:11 Dose: 540 mg Allergies Allergies Allergy/AdvReac Type Severity Reaction Status Date / Time egg Allergy Intermediate Unknown Verified 07/10/25 03:24 monosodium glutamate (MSG) Allergy Intermediate Unknown Verified 07/10/25 03:25 caffeine Allergy Mild Unknown Verified 07/10/25 03:23 Assessment & Plan Assessment & Plan (1) Major neurocognitive disorder due to multiple etiologies, with psychotic disturbance: Status: Acute Code(s): F02.82 - Dementia in other diseases classified elsewhere, unspecified severity, with psychotic disturbance Plan psychotic disorder, anti-psychotic recently stopped for unclear reasons. mina's order reviewed (abilify to 5 mg daily, seroquel to 50 mg daily are on the order). 07/04: restart abilify 5 mg at HS. seroquel 25 BID PRN agitation. 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 07/05: DC wellbutrin as it may increase anxiety and restlessness, increasing agitation. awake and alert today. no aggressive behaviors. continue current mgmt. 07/06: remains calm and pleasant. 2 episodes of head-banging yesterday evening. commitment paperwork filed. 07/07: intermittent head-banging continues in response to CAH. change seroquel from PRN to scheduled. otherwise continue current mgmt. 07/08: head-banging yesterday simon. slept well overnight. continue current mgmt. 07/09: needing redirection from head-banging. slept 8 hours. pleasant, cooperative. continue current mgmt. 07/10: some head-banging yesterday afternoon. self-dialoguing eves. none overnight, slept well. hearing continued to 07/26. continue current mgmt. 07/11: No head-banging today. Still hears voices but they have not instructed her to bang her head today. Self-dialoguing. Slept well. Pleasantly confused. Continue current treatment regimen. 07/12: can't recall last head banging or CAH to do so. sleeping well, eating well. no SIB in the past 24H. continue current mgmt. 07/13: head-banging again last night, say she doesn't recall it. calm, pleasant, cooperative today. continue current mgmt. 07/15: No changes 07/16: no SIB for the past few days. as per usual, cannot recall any AH or SIB episodes. continue current mgmt. 07/17: tried on Q5 min checks yesterday but started head-banging, placed back on 1:1. today denies any recollection of the event, denies Sx. continue current mgmt. affidavit for extension of Tx plan completed. 07/18: no head-banging in past 24H. denies Sx. remains on 1:1. continue current mgmt. 07/19 continue current tx, may consider changing antipsychotic to more effective one such as risperidone. continue on one to one, but if stable will change to 5 minutes checks. 07/20 continue tx. try 5 minutes checks. 07/24 continue tx. no self injurious behaviors. 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 07/27: calm, cooperative. off of 1:1, can't recall last time head-banging. denies AH. continue current mgmt. 07/28/2025: Continue current management Reason for continued inpatient stay Substantial Risk for: harm to self and rapid decompensation Time Spent With Patient Time: Total time managing care of this patient today ____ minutes.
[2025-07-28 08:00] VITALS: BP 158/68; PULSE 62; RESP 16; TEMP 36.6; O2SAT 93
[2025-07-28] MEDS: Vitamin E (Dl,Tocopheryl Acet) 180 MG (400 UNIT) CAPSULE 540 MG PO (09:29)
[2025-07-28] MEDS: Calcium + Vitamin D 250 MG TABLET 500 MG PO ×2 (09:29→20:49)
[2025-07-28] MEDS: Aspirin Enteric Coated 81 MG TABLET.DR PO (09:30)
[2025-07-28] MEDS: Ketotifen Fumarate 0.025% Oph 5 ML DRPBTL 1 DROP EYE-BOTH ×2 (09:34→20:47)
[2025-07-28 20:00] VITALS: BP 119/60; PULSE 61; RESP 16; TEMP 36.3; O2SAT 93
--- NOTE | 2025-07-29 06:26 | PC.NURSE ---
Staff reported that Farrah has been making frequyent trips to the [facility] during the night, spoke with Farrah and she stated she feels as though she has to go, denies burning on urination or any pain.
[2025-07-29 08:00] VITALS: BP 127/59; PULSE 59; RESP 14; TEMP 36.2; O2SAT 93
[2025-07-29] MEDS: Aspirin Enteric Coated 81 MG TABLET.DR PO (08:21)
[2025-07-29] MEDS: Calcium + Vitamin D 250 MG TABLET 500 MG PO ×2 (08:21→21:06)
[2025-07-29] MEDS: Vitamin E (Dl,Tocopheryl Acet) 180 MG (400 UNIT) CAPSULE 540 MG PO (08:22)
[2025-07-29] MEDS: Ketotifen Fumarate 0.025% Oph 5 ML DRPBTL 1 DROP EYE-BOTH ×2 (08:23→21:04)
--- NOTE | 2025-07-29 11:26 | HO.PSYCHPN ---
Subjective Subjective Date of Service: 07/29/25 Reason For Visit: psychosis Interim History: Overall continues to be doing okay off one-to-one observation without any head banging. Does appear slightly more internally preoccupied today. Has been in the milieu and did attend groups today. Overall reports feeling safe. Not depressed. Denies psychotic symptoms . Sleeping well. Medication Compliance: Yes Side effects from medications: No Attending Groups: Intermittent Review of Systems Acute medical concerns: No Review of Systems Review of Systems Nothing of note Mental Status Exam Mental Status Exam Narrative: adequately dressed and groomed, hospital attire. cooperative, no PMA/PMR. speech nml rate, decr amount, nml loudness, nml latency. thoughts linear and logical. affect flexible, normo-intense, non-labile. mood Good. denies AH, SIBI. no SI/HI/VH expressed. Diagnostics Vital Signs (24Hr): Vital Signs - 24 hr 07/28/25 20:00 07/29/25 08:00 Temperature 97.3 F 97.2 F Pulse Rate 61 59 Respiratory Rate 16 14 Blood Pressure 119/60 127/59 L Pulse Oximetry 93 93 Oxygen Delivery Method Room Air Room Air BMI result Body Mass Index 30.1 Labs 07/01/25 12:43 07/19/25 11:05 Imaging Radiology Impressions: ITS Impressions Head CT 07/04/25 16:13 IMPRESSION: 1. No acute intracranial findings. 2. Interval decrease in the right frontal scalp hematoma. Electronically signed by: Durga Benavides MD 07/04/2025 06:14 PM EDT Medications Medications Current Medications Acetaminophen (Acetaminophen 325 Mg Tablet) 650 mg PO Q6H PRN PRN Reason: Pain (Scale Score 1-3) Al Hydroxide/Mg Hydroxide (Magnesium Hydrox/Alum Hydrox 30 Ml Oral.Susp) 30 ml PO Q6H PRN PRN Reason: Heartburn/Nausea Amlodipine Besylate (Amlodipine Besylate 2.5 Mg Tablet) 2.5 mg PO DAILY [facility]; Protocol Last Admin: 07/29/25 08:22 Dose: 2.5 mg Aripiprazole (Aripiprazole 15 Mg Tablet) 15 mg PO DAILY [facility] Last Admin: 07/29/25 08:21 Dose: 15 mg Ascorbic Acid (Ascorbic Acid 500 Mg Tablet) 500 mg PO BID [facility] Last Admin: 07/29/25 08:21 Dose: 500 mg Aspirin (Aspirin Enteric Coated 81 Mg Tablet.Dr) 81 mg PO DAILY [facility] Last Admin: 07/29/25 08:21 Dose: 81 mg Atorvastatin Calcium (Atorvastatin Calcium 80 Mg Tablet) 80 mg PO BEDTIME [facility] Last Admin: 07/28/25 20:48 Dose: 80 mg Calcium Carbonate/Cholecalciferol (Calcium + Vitamin D 250 Mg Tablet) 500 mg PO BID [facility] Last Admin: 07/29/25 08:21 Dose: 500 mg Docusate Sodium (Docusate Sodium 100 Mg Capsule) 100 mg PO BID [facility] Last Admin: 07/29/25 08:21 Dose: 100 mg Donepezil HCl (Donepezil Hcl 5 Mg Tablet) 5 mg PO DAILY [facility] Last Admin: 07/29/25 08:22 Dose: 5 mg Escitalopram Oxalate (Escitalopram Oxalate 10 Mg Tablet) 10 mg PO DAILY [facility] Last Admin: 07/29/25 08:23 Dose: 10 mg Fluticasone Propionate (Fluticasone Propionate Nasal 16 Gm [place]) 1 spray NOSTRIL-B DAILY [facility] Last Admin: 07/29/25 08:23 Dose: 1 spray Gabapentin (Gabapentin 100 Mg Capsule) 100 mg PO BEDTIME [facility] Last Admin: 07/28/25 20:48 Dose: 100 mg Hydroxyzine HCl (Hydroxyzine Hcl 25 Mg Tablet) 25 mg PO Q6H PRN PRN Reason: mild anxiety Last Admin: 07/12/25 14:44 Dose: 25 mg Ketotifen Fumarate (Ketotifen Fumarate 0.025% Oph 5 Ml Drpbtl) 1 drop EYE-BOTH BID [facility] Last Admin: 07/29/25 08:23 Dose: 1 drop Levothyroxine Sodium (Levothyroxine Sodium 75 Mcg Tablet) 75 mcg PO DAILY@0600 [facility] Last Admin: 07/29/25 05:45 Dose: 75 mcg Magnesium Hydroxide (Milk Of Magnesia 30 Ml Oral.Susp) 30 ml PO DAILY PRN PRN Reason: Constipation Melatonin (Melatonin 3 Mg Tablet) 6 mg PO BEDTIME [facility] Last Admin: 07/28/25 20:49 Dose: 6 mg Mirtazapine (Mirtazapine 15 Mg Tablet) 15 mg PO BEDTIME [facility] Last Admin: 07/28/25 20:48 Dose: 15 mg Multivitamins/Vitamin C (Multivitamin Tablet) 1 tab PO DAILY [facility] Last Admin: 07/29/25 08:21 Dose: 1 tab Omeprazole (Omeprazole 20 Mg Capsule.Dr) 20 mg PO DAILY@0630 [facility] Last Admin: 07/29/25 06:21 Dose: 20 mg Propranolol HCl (Propranolol Hcl 10 Mg Tablet) 10 mg PO DAILY [facility]; Protocol Last Admin: 07/29/25 08:22 Dose: 10 mg Propranolol HCl (Propranolol Hcl 20 Mg Tablet) 20 mg PO BEDTIME [facility]; Protocol Last Admin: 07/28/25 20:48 Dose: 20 mg Pyridoxine HCl (Pyridoxine Hcl (Vitamin B6) 50 Mg Tablet) 100 mg PO BID [facility] Last Admin: 07/29/25 08:21 Dose: 100 mg Quetiapine Fumarate (Quetiapine Fumarate 50 Mg Tablet) 50 mg PO BEDTIME [facility] Last Admin: 07/28/25 20:48 Dose: 50 mg Senna (Sennosides 8.6 Mg Tablet) 17.2 mg PO BEDTIME [facility] Last Admin: 07/28/25 20:49 Dose: 17.2 mg Simethicone (Simethicone 80 Mg Tab.Chew) 80 mg PO BID [facility] Last Admin: 07/29/25 08:21 Dose: 80 mg Vitamin D (Cholecalciferol (Vitamin D3) 25 Mcg Tablet) 25 mcg PO DAILY [facility] Last Admin: 07/29/25 08:22 Dose: 25 mcg Vitamin E (Vitamin E (Dl,Tocopheryl Acet) 180 Mg (400 Unit) Capsule) 540 mg PO DAILY [facility] Last Admin: 07/29/25 08:22 Dose: 540 mg Allergies Allergies Allergy/AdvReac Type Severity Reaction Status Date / Time egg Allergy Intermediate Unknown Verified 07/10/25 03:24 monosodium glutamate (MSG) Allergy Intermediate Unknown Verified 07/10/25 03:25 caffeine Allergy Mild Unknown Verified 07/10/25 03:23 Assessment & Plan Assessment & Plan (1) Major neurocognitive disorder due to multiple etiologies, with psychotic disturbance: Status: Acute Code(s): F02.82 - Dementia in other diseases classified elsewhere, unspecified severity, with psychotic disturbance Plan psychotic disorder, anti-psychotic recently stopped for unclear reasons. mina's order reviewed (abilify to 5 mg daily, seroquel to 50 mg daily are on the order). 07/04: restart abilify 5 mg at HS. seroquel 25 BID PRN agitation. 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 07/05: DC wellbutrin as it may increase anxiety and restlessness, increasing agitation. awake and alert today. no aggressive behaviors. continue current mgmt. 07/06: remains calm and pleasant. 2 episodes of head-banging yesterday evening. commitment paperwork filed. 07/07: intermittent head-banging continues in response to CAH. change seroquel from PRN to scheduled. otherwise continue current mgmt. 07/08: head-banging yesterday simon. slept well overnight. continue current mgmt. 07/09: needing redirection from head-banging. slept 8 hours. pleasant, cooperative. continue current mgmt. 07/10: some head-banging yesterday afternoon. self-dialoguing eves. none overnight, slept well. hearing continued to 07/26. continue current mgmt. 07/11: No head-banging today. Still hears voices but they have not instructed her to bang her head today. Self-dialoguing. Slept well. Pleasantly confused. Continue current treatment regimen. 07/12: can't recall last head banging or CAH to do so. sleeping well, eating well. no SIB in the past 24H. continue current mgmt. 07/13: head-banging again last night, say she doesn't recall it. calm, pleasant, cooperative today. continue current mgmt. 07/15: No changes 07/16: no SIB for the past few days. as per usual, cannot recall any AH or SIB episodes. continue current mgmt. 07/17: tried on Q5 min checks yesterday but started head-banging, placed back on 1:1. today denies any recollection of the event, denies Sx. continue current mgmt. affidavit for extension of Tx plan completed. 07/18: no head-banging in past 24H. denies Sx. remains on 1:1. continue current mgmt. 07/19 continue current tx, may consider changing antipsychotic to more effective one such as risperidone. continue on one to one, but if stable will change to 5 minutes checks. 07/20 continue tx. try 5 minutes checks. 07/24 continue tx. no self injurious behaviors. 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 07/27: calm, cooperative. off of 1:1, can't recall last time head-banging. denies AH. continue current mgmt. 07/28/2025: Continue current management Reason for continued inpatient stay Substantial Risk for: inability to function Time Spent With Patient Time: Total time managing care of this patient today ____ minutes.
[2025-07-29 12:12] LABS: Appearance Urine Clear; Glucose Urine UA Negative (Negative); PH 5.0 (5.0-9.0); Specific Gravity - Urine 1.025 (1.005-1.025)
[2025-07-29 20:00] VITALS: BP 137/66; PULSE 82; RESP 16; TEMP 36.3; O2SAT 93
--- NOTE | 2025-07-30 07:48 | HO.PSYCHPN ---
Subjective Subjective Date of Service: 07/30/25 Reason For Visit: psychosis Subjective Notes: Conditional Voluntary Interim History: Pt slept through the night. Pt presents with brighter affect, denies any concerns including physical pain or emotional in terms of depression or anxiety. Pt denies hearing voices or need to self-harm. She is taking medications as prescribed. VS stable. Review of Systems Review of Systems Nothing of note Yes all other systems are reviewed and are negative Mental Status Exam Mental Status Exam Narrative: adequately dressed and groomed, hospital attire. cooperative, no PMA/PMR. speech nml rate, decr amount, nml loudness, nml latency. thoughts linear and logical. affect flexible, normo-intense, non-labile. mood good. denies AH, SIBI. no SI/HI/VH expressed. Diagnostics Vital Signs (24Hr): Vital Signs - 24 hr 07/29/25 08:00 07/29/25 20:00 Temperature 97.2 F 97.3 F Pulse Rate 59 82 Respiratory Rate 14 16 Blood Pressure 127/59 L 137/66 Pulse Oximetry 93 93 Oxygen Delivery Method Room Air Room Air BMI result Body Mass Index 30.1 Labs 07/01/25 12:43 07/19/25 11:05 Labs: Laboratory Results - last 48 hr 07/29/25 11:30 Urine Color Dark Yellow Urine Appearance Clear Urine pH 5.0 Ur Specific [place] 1.025 Urine Protein Negative Urine Glucose (UA) Negative Urine Ketones Negative Urine Blood Negative Urine Nitrite Negative Ur Leukocyte Esterase Negative Imaging Radiology Impressions: ITS Impressions Head CT 07/04/25 16:13 IMPRESSION: 1. No acute intracranial findings. 2. Interval decrease in the right frontal scalp hematoma. Electronically signed by: Durga Benavides MD 07/04/2025 06:14 PM EDT RP Medications Medications Current Medications Acetaminophen (Acetaminophen 325 Mg Tablet) 650 mg PO Q6H PRN PRN Reason: Pain (Scale Score 1-3) Al Hydroxide/Mg Hydroxide (Magnesium Hydrox/Alum Hydrox 30 Ml Oral.Susp) 30 ml PO Q6H PRN PRN Reason: Heartburn/Nausea Amlodipine Besylate (Amlodipine Besylate 2.5 Mg Tablet) 2.5 mg PO DAILY [facility]; Protocol Last Admin: 07/29/25 08:22 Dose: 2.5 mg Aripiprazole (Aripiprazole 15 Mg Tablet) 15 mg PO DAILY [facility] Last Admin: 07/29/25 08:21 Dose: 15 mg Ascorbic Acid (Ascorbic Acid 500 Mg Tablet) 500 mg PO BID [facility] Last Admin: 07/29/25 21:06 Dose: 500 mg Aspirin (Aspirin Enteric Coated 81 Mg Tablet.Dr) 81 mg PO DAILY [facility] Last Admin: 07/29/25 08:21 Dose: 81 mg Atorvastatin Calcium (Atorvastatin Calcium 80 Mg Tablet) 80 mg PO BEDTIME [facility] Last Admin: 07/29/25 21:05 Dose: 80 mg Calcium Carbonate/Cholecalciferol (Calcium + Vitamin D 250 Mg Tablet) 500 mg PO BID [facility] Last Admin: 07/29/25 21:06 Dose: 500 mg Docusate Sodium (Docusate Sodium 100 Mg Capsule) 100 mg PO BID [facility] Last Admin: 07/29/25 21:06 Dose: 100 mg Donepezil HCl (Donepezil Hcl 5 Mg Tablet) 5 mg PO DAILY [facility] Last Admin: 07/29/25 08:22 Dose: 5 mg Escitalopram Oxalate (Escitalopram Oxalate 10 Mg Tablet) 10 mg PO DAILY [facility] Last Admin: 07/29/25 08:23 Dose: 10 mg Fluticasone Propionate (Fluticasone Propionate Nasal 16 Gm [place]) 1 spray NOSTRIL-B DAILY [facility] Last Admin: 07/29/25 08:23 Dose: 1 spray Gabapentin (Gabapentin 100 Mg Capsule) 100 mg PO BEDTIME [facility] Last Admin: 07/29/25 21:05 Dose: 100 mg Hydroxyzine HCl (Hydroxyzine Hcl 25 Mg Tablet) 25 mg PO Q6H PRN PRN Reason: mild anxiety Last Admin: 07/12/25 14:44 Dose: 25 mg Ketotifen Fumarate (Ketotifen Fumarate 0.025% Oph 5 Ml Drpbtl) 1 drop EYE-BOTH BID [facility] Last Admin: 07/29/25 21:04 Dose: 1 drop Levothyroxine Sodium (Levothyroxine Sodium 75 Mcg Tablet) 75 mcg PO DAILY@0600 [facility] Last Admin: 07/30/25 05:30 Dose: 75 mcg Magnesium Hydroxide (Milk Of Magnesia 30 Ml Oral.Susp) 30 ml PO DAILY PRN PRN Reason: Constipation Melatonin (Melatonin 3 Mg Tablet) 6 mg PO BEDTIME [facility] Last Admin: 07/29/25 21:05 Dose: 6 mg Mirtazapine (Mirtazapine 15 Mg Tablet) 15 mg PO BEDTIME [facility] Last Admin: 07/29/25 21:06 Dose: 15 mg Multivitamins/Vitamin C (Multivitamin Tablet) 1 tab PO DAILY [facility] Last Admin: 07/29/25 08:21 Dose: 1 tab Omeprazole (Omeprazole 20 Mg Capsule.Dr) 20 mg PO DAILY@0630 [facility] Last Admin: 07/30/25 06:19 Dose: 20 mg Propranolol HCl (Propranolol Hcl 10 Mg Tablet) 10 mg PO DAILY [facility]; Protocol Last Admin: 07/29/25 08:22 Dose: 10 mg Propranolol HCl (Propranolol Hcl 20 Mg Tablet) 20 mg PO BEDTIME [facility]; Protocol Last Admin: 07/29/25 21:05 Dose: 20 mg Pyridoxine HCl (Pyridoxine Hcl (Vitamin B6) 50 Mg Tablet) 100 mg PO BID [facility] Last Admin: 07/29/25 21:06 Dose: 100 mg Quetiapine Fumarate (Quetiapine Fumarate 50 Mg Tablet) 50 mg PO BEDTIME [facility] Last Admin: 07/29/25 21:05 Dose: 50 mg Senna (Sennosides 8.6 Mg Tablet) 17.2 mg PO BEDTIME [facility] Last Admin: 07/29/25 21:06 Dose: 17.2 mg Simethicone (Simethicone 80 Mg Tab.Chew) 80 mg PO BID [facility] Last Admin: 07/29/25 21:05 Dose: 80 mg Vitamin D (Cholecalciferol (Vitamin D3) 25 Mcg Tablet) 25 mcg PO DAILY [facility] Last Admin: 07/29/25 08:22 Dose: 25 mcg Vitamin E (Vitamin E (Dl,Tocopheryl Acet) 180 Mg (400 Unit) Capsule) 540 mg PO DAILY [facility] Last Admin: 07/29/25 08:22 Dose: 540 mg Allergies Allergies Allergy/AdvReac Type Severity Reaction Status Date / Time egg Allergy Intermediate Unknown Verified 07/10/25 03:24 monosodium glutamate (MSG) Allergy Intermediate Unknown Verified 07/10/25 03:25 caffeine Allergy Mild Unknown Verified 07/10/25 03:23 Assessment & Plan Assessment & Plan (1) Major neurocognitive disorder due to multiple etiologies, with psychotic disturbance: Status: Acute Code(s): F02.82 - Dementia in other diseases classified elsewhere, unspecified severity, with psychotic disturbance Plan psychotic disorder, anti-psychotic recently stopped for unclear reasons. mina's order reviewed (abilify to 5 mg daily, seroquel to 50 mg daily are on the order). 07/04: restart abilify 5 mg at HS. seroquel 25 BID PRN agitation. 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 07/05: DC wellbutrin as it may increase anxiety and restlessness, increasing agitation. awake and alert today. no aggressive behaviors. continue current mgmt. 07/06: remains calm and pleasant. 2 episodes of head-banging yesterday evening. commitment paperwork filed. 07/07: intermittent head-banging continues in response to CAH. change seroquel from PRN to scheduled. otherwise continue current mgmt. 07/08: head-banging yesterday simon. slept well overnight. continue current mgmt. 07/09: needing redirection from head-banging. slept 8 hours. pleasant, cooperative. continue current mgmt. 07/10: some head-banging yesterday afternoon. self-dialoguing eves. none overnight, slept well. hearing continued to 07/26. continue current mgmt. 07/11: No head-banging today. Still hears voices but they have not instructed her to bang her head today. Self-dialoguing. Slept well. Pleasantly confused. Continue current treatment regimen. 07/12: can't recall last head banging or CAH to do so. sleeping well, eating well. no SIB in the past 24H. continue current mgmt. 07/13: head-banging again last night, say she doesn't recall it. calm, pleasant, cooperative today. continue current mgmt. 07/15: No changes 07/16: no SIB for the past few days. as per usual, cannot recall any AH or SIB episodes. continue current mgmt. 07/17: tried on Q5 min checks yesterday but started head-banging, placed back on 1:1. today denies any recollection of the event, denies Sx. continue current mgmt. affidavit for extension of Tx plan completed. 07/18: no head-banging in past 24H. denies Sx. remains on 1:1. continue current mgmt. 07/19 continue current tx, may consider changing antipsychotic to more effective one such as risperidone. continue on one to one, but if stable will change to 5 minutes checks. 07/20 continue tx. try 5 minutes checks. 07/24 continue tx. no self injurious behaviors. 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 07/27: calm, cooperative. off of 1:1, can't recall last time head-banging. denies AH. continue current mgmt. 07/28/2025: Continue current management Reason for continued inpatient stay Substantial Risk for: inability to function Time Spent With Patient Time: Total time managing care of this patient today ____ minutes.
[2025-07-30 08:00] VITALS: BP 134/70; PULSE 65; RESP 16; TEMP 36.2; O2SAT 93
[2025-07-30] MEDS: Vitamin E (Dl,Tocopheryl Acet) 180 MG (400 UNIT) CAPSULE 540 MG PO (09:06)
[2025-07-30] MEDS: Calcium + Vitamin D 250 MG TABLET 500 MG PO ×2 (09:06→20:50)
[2025-07-30 09:07] VITALS: BP 134/70; PULSE 65
[2025-07-30 09:09] VITALS: BP 134/70
[2025-07-30] MEDS: Aspirin Enteric Coated 81 MG TABLET.DR PO (09:12)
[2025-07-30] MEDS: Ketotifen Fumarate 0.025% Oph 5 ML DRPBTL 1 DROP EYE-BOTH ×2 (14:04→20:48)
--- NOTE | 2025-07-30 14:04 | PC.NURSE ---
Eye drops not available at am, pharmacy notified. Administered upon receiving them from pharmacy.
[2025-07-30 20:00] VITALS: BP 133/64; PULSE 65; RESP 16; TEMP 36.4; O2SAT 93
[2025-07-31 08:00] VITALS: BP 134/64; PULSE 62; RESP 16; TEMP 36.2; O2SAT 93
[2025-07-31] MEDS: Vitamin E (Dl,Tocopheryl Acet) 180 MG (400 UNIT) CAPSULE 540 MG PO (08:53)
[2025-07-31] MEDS: Aspirin Enteric Coated 81 MG TABLET.DR PO (08:53)
[2025-07-31] MEDS: Ketotifen Fumarate 0.025% Oph 5 ML DRPBTL 1 DROP EYE-BOTH ×2 (08:54→20:55)
[2025-07-31] MEDS: Calcium + Vitamin D 250 MG TABLET 500 MG PO ×2 (09:27→20:57)
--- NOTE | 2025-07-31 18:16 | HO.PSYCHPN ---
Subjective Subjective Date of Service: 07/31/25 Reason For Visit: psychosis Subjective Notes: Conditional Voluntary Healthcare Proxy: Yes Interim History: Pt slept through the night.Pt reports doing well. She denies any physical concerns. She denies any fear or anxious mood. No self harm behaviors. VS stable SBP 140's. taking medication as prescribed. Review of Systems Review of Systems Nothing of note Yes all other systems are reviewed and are negative Mental Status Exam Mental Status Exam Narrative: adequately dressed and groomed, hospital attire. cooperative, no PMA/PMR. speech nml rate, decr amount, nml loudness, nml latency. thoughts linear and logical. affect flexible, normo-intense, non-labile. mood good. denies AH, SIBI. no SI/HI/VH expressed. Diagnostics Vital Signs (24Hr): Vital Signs - 24 hr 07/30/25 20:00 07/31/25 08:00 Temperature 97.6 F 97.1 F Pulse Rate 65 62 Respiratory Rate 16 16 Blood Pressure 133/64 134/64 Pulse Oximetry 93 93 Oxygen Delivery Method Room Air Room Air BMI result Body Mass Index 30.1 Labs 07/01/25 12:43 07/19/25 11:05 Imaging Radiology Impressions: [facility] Impressions Head CT 07/04/25 16:13 IMPRESSION: 1. No acute intracranial findings. 2. Interval decrease in the right frontal scalp hematoma. Electronically signed by: Durga Benavides MD 07/04/2025 06:14 PM EDT RP Medications Medications Current Medications Acetaminophen (Acetaminophen 325 Mg Tablet) 650 mg PO Q6H PRN PRN Reason: Pain (Scale Score 1-3) Al Hydroxide/Mg Hydroxide (Magnesium Hydrox/Alum Hydrox 30 Ml Oral.Susp) 30 ml PO Q6H PRN PRN Reason: Heartburn/Nausea Amlodipine Besylate (Amlodipine Besylate 2.5 Mg Tablet) 2.5 mg PO DAILY [facility]; Protocol Last Admin: 07/31/25 08:54 Dose: 2.5 mg Aripiprazole (Aripiprazole 15 Mg Tablet) 15 mg PO DAILY [facility] Last Admin: 07/31/25 08:54 Dose: 15 mg Ascorbic Acid (Ascorbic Acid 500 Mg Tablet) 500 mg PO BID [facility] Last Admin: 07/31/25 08:54 Dose: 500 mg Aspirin (Aspirin Enteric Coated 81 Mg Tablet.) 81 mg PO DAILY [facility] Last Admin: 07/31/25 08:53 Dose: 81 mg Atorvastatin Calcium (Atorvastatin Calcium 80 Mg Tablet) 80 mg PO BEDTIME [facility] [place] Last Admin: 07/30/25 20:49 Dose: 80 mg Calcium Carbonate/Cholecalciferol (Calcium + Vitamin D 250 Mg Tablet) 500 mg PO BID [facility] [place] Last Admin: 07/31/25 09:27 Dose: 500 mg Docusate Sodium (Docusate Sodium 100 Mg Capsule) 100 mg PO BID [facility] [place] Last Admin: 07/31/25 08:54 Dose: 100 mg Donepezil HCl (Donepezil Hcl 5 Mg Tablet) 5 mg PO DAILY [facility] [place] Last Admin: 07/31/25 08:54 Dose: 5 mg Escitalopram Oxalate (Escitalopram Oxalate 10 Mg Tablet) 10 mg PO DAILY [facility] [place] Last Admin: 07/31/25 08:54 Dose: 10 mg Fluticasone Propionate (Fluticasone Propionate Nasal 16 Gm [place]) 1 spray NOSTRIL-B DAILY [facility] [place] Last Admin: 07/31/25 08:55 Dose: 1 spray Gabapentin (Gabapentin 100 Mg Capsule) 100 mg PO BEDTIME [facility] Last Admin: 07/30/25 20:49 Dose: 100 mg Hydroxyzine HCl (Hydroxyzine Hcl 25 Mg Tablet) 25 mg PO Q6H PRN PRN Reason: mild anxiety Last Admin: 07/12/25 14:44 Dose: 25 mg Ketotifen Fumarate (Ketotifen Fumarate 0.025% Oph 5 Ml Drpbtl) 1 drop EYE-BOTH BID [facility] [place] Last Admin: 07/31/25 08:54 Dose: 1 drop Levothyroxine Sodium (Levothyroxine Sodium 75 Mcg Tablet) 75 mcg PO DAILY@0600 [facility] [place] Last Admin: 07/31/25 06:00 Dose: 75 mcg Magnesium Hydroxide (Milk Of Magnesia 30 Ml Oral.Susp) 30 ml PO DAILY PRN PRN Reason: Constipation Melatonin (Melatonin 3 Mg Tablet) 6 mg PO BEDTIME [facility] Last Admin: 07/30/25 20:49 Dose: 6 mg Mirtazapine (Mirtazapine 15 Mg Tablet) 15 mg PO BEDTIME [facility] Last Admin: 07/30/25 20:51 Dose: 15 mg Multivitamins/Vitamin C (Multivitamin Tablet) 1 tab PO DAILY [facility] Last Admin: 07/31/25 08:53 Dose: 1 tab Nystatin (Nystatin Powder 15 Gm Bottle) 1 appl TOPICAL BID [facility] [place]; Protocol Last Admin: 07/31/25 16:55 Dose: Not Given Omeprazole (Omeprazole 20 Mg Capsule.Dr) 20 mg PO DAILY@0630 [facility] [place] Last Admin: 07/31/25 06:27 Dose: 20 mg Propranolol HCl (Propranolol Hcl 10 Mg Tablet) 10 mg PO DAILY [facility]; Protocol Last Admin: 07/31/25 08:54 Dose: 10 mg Propranolol HCl (Propranolol Hcl 20 Mg Tablet) 20 mg PO BEDTIME [facility] [place]; Protocol Last Admin: 07/30/25 20:49 Dose: 20 mg Pyridoxine HCl (Pyridoxine Hcl (Vitamin B6) 50 Mg Tablet) 100 mg PO BID [facility] [place] [place] Last Admin: 07/31/25 08:54 Dose: 100 mg Quetiapine Fumarate (Quetiapine Fumarate 50 Mg Tablet) 50 mg PO BEDTIME [facility] [place] Last Admin: 07/30/25 20:49 Dose: 50 mg Senna (Sennosides 8.6 Mg Tablet) 17.2 mg PO BEDTIME [facility] [place] [place] Last Admin: 07/30/25 20:50 Dose: 17.2 mg Simethicone (Simethicone 80 Mg Tab.Chew) 80 mg PO BID [facility] [place] Last Admin: 07/31/25 08:53 Dose: 80 mg Vitamin D (Cholecalciferol (Vitamin D3) 25 Mcg Tablet) 25 mcg PO DAILY [facility] Last Admin: 07/31/25 08:54 Dose: 25 mcg Vitamin E (Vitamin E (Dl,Tocopheryl Acet) 180 Mg (400 Unit) Capsule) 540 mg PO DAILY [facility] Last Admin: 07/31/25 08:53 Dose: 540 mg Allergies Allergies Allergy/AdvReac Type Severity Reaction Status Date / Time egg Allergy Intermediate Unknown Verified 07/10/25 03:24 monosodium glutamate (MSG) Allergy Intermediate Unknown Verified 07/10/25 03:25 caffeine Allergy Mild Unknown Verified 07/10/25 03:23 Assessment & Plan Assessment & Plan (1) Major neurocognitive disorder due to multiple etiologies, with psychotic disturbance: Status: Acute Code(s): F02.82 - Dementia in other diseases classified elsewhere, unspecified severity, with psychotic disturbance Plan psychotic disorder, anti-psychotic recently stopped for unclear reasons. mina's order reviewed (abilify to 5 mg daily, seroquel to 50 mg daily are on the order). 07/04: restart abilify 5 mg at HS. seroquel 25 BID PRN agitation. 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 07/05: DC wellbutrin as it may increase anxiety and restlessness, increasing agitation. awake and alert today. no aggressive behaviors. continue current mgmt. 07/06: remains calm and pleasant. 2 episodes of head-banging yesterday evening. commitment paperwork filed. 07/07: intermittent head-banging continues in response to CAH. change seroquel from PRN to scheduled. otherwise continue current mgmt. 07/08: head-banging yesterday simon. slept well overnight. continue current mgmt. 07/09: needing redirection from head-banging. slept 8 hours. pleasant, cooperative. continue current mgmt. 07/10: some head-banging yesterday afternoon. self-dialoguing eves. none overnight, slept well. hearing continued to 07/26. continue current mgmt. 07/11: No head-banging today. Still hears voices but they have not instructed her to bang her head today. Self-dialoguing. Slept well. Pleasantly confused. Continue current treatment regimen. 07/12: can't recall last head banging or CAH to do so. sleeping well, eating well. no SIB in the past 24H. continue current mgmt. 07/13: head-banging again last night, say she doesn't recall it. calm, pleasant, cooperative today. continue current mgmt. 07/15: No changes 07/16: no SIB for the past few days. as per usual, cannot recall any AH or SIB episodes. continue current mgmt. 07/17: tried on Q5 min checks yesterday but started head-banging, placed back on 1:1. today denies any recollection of the event, denies Sx. continue current mgmt. affidavit for extension of Tx plan completed. 07/18: no head-banging in past 24H. denies Sx. remains on 1:1. continue current mgmt. 07/19 continue current tx, may consider changing antipsychotic to more effective one such as risperidone. continue on one to one, but if stable will change to 5 minutes checks. 07/20 continue tx. try 5 minutes checks. 07/24 continue tx. no self injurious behaviors. 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 07/27: calm, cooperative. off of 1:1, can't recall last time head-banging. denies AH. continue current mgmt. 07/28/2025: Continue current management 07/31 continue tx. Reason for continued inpatient stay Substantial Risk for: inability to function Time Spent With Patient Time: Total time managing care of this patient today ____ minutes.
[2025-07-31 20:00] VITALS: BP 123/60; PULSE 70; RESP 16; TEMP 36.4; O2SAT 92
[2025-08-01 08:00] VITALS: BP 141/66; PULSE 94; RESP 14; TEMP 36.8; O2SAT 94
[2025-08-01 09:58] VITALS: BP 141/66
[2025-08-01] MEDS: Vitamin E (Dl,Tocopheryl Acet) 180 MG (400 UNIT) CAPSULE 540 MG PO (09:58)
[2025-08-01] MEDS: Calcium + Vitamin D 250 MG TABLET 500 MG PO ×2 (09:58→21:23)
[2025-08-01] MEDS: Aspirin Enteric Coated 81 MG TABLET.DR PO (09:59)
[2025-08-01] MEDS: Ketotifen Fumarate 0.025% Oph 5 ML DRPBTL 1 DROP EYE-BOTH ×2 (12:12→21:24)
--- NOTE | 2025-08-01 14:07 | HO.PM.IMCN ---
History of Present Illness Data of Consult Service Date: 08/01/25 Primary Care Provider: Unknown Physician HPI Reason for consult: Medical management 80-year-old female with a past medical history of neurocognitive disorder, dementia, hypertension, hyperlipidemia, hypothyroidism and GERD presented to the ED from a memory care unit due to auditory hallucinations and self-harming behavior. She is admitted to psychiatric for behavioral stabilization. Patient is seen on the unit, denies any health concerns. She is alert and pleasant. Denies any shortness of breath, dizziness, lightheadedness, headaches. No behavioral issues reported by nursing. Review of Systems Review of Systems: She denies any shortness of breath, chest pain, dizziness, headaches, abdominal discomfort or other concerning symptoms. [facility] Social History Household Members: Other Household Members Other:: Residential/Memory Housing: Long Term Do you presently have visiting nurse or other home services: Yes (Residential/Memory) Alcohol intake: former Patient Tobacco Use Status: Never used Tobacco Smoked in Last 30 Days: No Use of substances other than those prescribed or required for medical reasons: No Currently Displaying Signs/Symptoms of Drug Intoxication Withdrawal: No Have you been hit, kicked, punched, or otherwise hurt by someone within the past year? If so, by whom?: No Do you feel safe in your current relationship?: Yes Is there a partner from a previous relationship who is making you feel unsafe now?: No Are you made to feel afraid or neglected: No Advance Directives: No Advance Directives Information Provided: Yes Do you have thoughts of harming others: None Do you have a plan to hurt others: No Plan Recently lost weight without trying: No Nutrition Risks: No Nutritional Risk Patient : No : No Poor oral hygiene: Yes service: No Sexual orientation: Straight/Heterosexual Meds Allergies Allergy/AdvReac Type Severity Reaction Status Date / Time egg Allergy Intermediate Unknown Verified 07/10/25 03:24 monosodium glutamate (MSG) Allergy Intermediate Unknown Verified 07/10/25 03:25 caffeine Allergy Mild Unknown Verified 07/10/25 03:23 Active Medications: Current Medications Acetaminophen (Acetaminophen 325 Mg Tablet) 650 mg PO Q6H PRN PRN Reason: Pain (Scale Score 1-3) Al Hydroxide/Mg Hydroxide (Magnesium Hydrox/Alum Hydrox 30 Ml Oral.Susp) 30 ml PO Q6H PRN PRN Reason: Heartburn/Nausea Amlodipine Besylate (Amlodipine Besylate 2.5 Mg Tablet) 2.5 mg PO DAILY [facility]; Protocol Last Admin: 08/01/25 09:58 Dose: 2.5 mg Aripiprazole (Aripiprazole 15 Mg Tablet) 15 mg PO DAILY [facility] Last Admin: 08/01/25 09:57 Dose: 15 mg Ascorbic Acid (Ascorbic Acid 500 Mg Tablet) 500 mg PO BID [facility] Last Admin: 08/01/25 09:58 Dose: 500 mg Aspirin (Aspirin Enteric Coated 81 Mg Tablet.Dr) 81 mg PO DAILY [facility] Last Admin: 08/01/25 09:59 Dose: 81 mg Atorvastatin Calcium (Atorvastatin Calcium 80 Mg Tablet) 80 mg PO BEDTIME [facility] Last Admin: 07/31/25 20:56 Dose: 80 mg Calcium Carbonate/Cholecalciferol (Calcium + Vitamin D 250 Mg Tablet) 500 mg PO BID [facility] Last Admin: 08/01/25 09:58 Dose: 500 mg Docusate Sodium (Docusate Sodium 100 Mg Capsule) 100 mg PO BID [facility] Last Admin: 08/01/25 09:59 Dose: 100 mg Donepezil HCl (Donepezil Hcl 5 Mg Tablet) 5 mg PO DAILY [facility] Last Admin: 08/01/25 09:59 Dose: 5 mg Escitalopram Oxalate (Escitalopram Oxalate 10 Mg Tablet) 10 mg PO DAILY [facility] Last Admin: 08/01/25 09:59 Dose: 10 mg Fluticasone Propionate (Fluticasone Propionate Nasal 16 Gm [place]) 1 spray NOSTRIL-B DAILY [facility] Last Admin: 08/01/25 12:12 Dose: 1 spray Gabapentin (Gabapentin 100 Mg Capsule) 100 mg PO BEDTIME [facility] Last Admin: 07/31/25 20:56 Dose: 100 mg Hydroxyzine HCl (Hydroxyzine Hcl 25 Mg Tablet) 25 mg PO Q6H PRN PRN Reason: mild anxiety Last Admin: 07/12/25 14:44 Dose: 25 mg Ketotifen Fumarate (Ketotifen Fumarate 0.025% Oph 5 Ml Drpbtl) 1 drop EYE-BOTH BID [facility] Last Admin: 08/01/25 12:12 Dose: 1 drop Levothyroxine Sodium (Levothyroxine Sodium 75 Mcg Tablet) 75 mcg PO DAILY@0600 [facility] Last Admin: 08/01/25 05:00 Dose: 75 mcg Magnesium Hydroxide (Milk Of Magnesia 30 Ml Oral.Susp) 30 ml PO DAILY PRN PRN Reason: Constipation Melatonin (Melatonin 3 Mg Tablet) 6 mg PO BEDTIME [facility] Last Admin: 07/31/25 21:01 Dose: 6 mg Mirtazapine (Mirtazapine 15 Mg Tablet) 15 mg PO BEDTIME [facility] Last Admin: 07/31/25 20:56 Dose: 15 mg Multivitamins/Vitamin C (Multivitamin Tablet) 1 tab PO DAILY [facility] Last Admin: 08/01/25 09:59 Dose: 1 tab Nystatin (Nystatin Powder 15 Gm Bottle) 1 appl TOPICAL BID [facility]; Protocol Last Admin: 08/01/25 12:13 Dose: 1 appl Omeprazole (Omeprazole 20 Mg Capsule.Dr) 20 mg PO DAILY@0630 [facility] Last Admin: 08/01/25 05:27 Dose: 20 mg Propranolol HCl (Propranolol Hcl 10 Mg Tablet) 10 mg PO DAILY [facility]; Protocol Last Admin: 08/01/25 09:58 Dose: 10 mg Propranolol HCl (Propranolol Hcl 20 Mg Tablet) 20 mg PO BEDTIME [facility]; Protocol Last Admin: 07/31/25 20:56 Dose: 20 mg Pyridoxine HCl (Pyridoxine Hcl (Vitamin B6) 50 Mg Tablet) 100 mg PO BID [facility] Last Admin: 08/01/25 09:59 Dose: 100 mg Quetiapine Fumarate (Quetiapine Fumarate 50 Mg Tablet) 50 mg PO BEDTIME [facility] Last Admin: 07/31/25 20:56 Dose: 50 mg Senna (Sennosides 8.6 Mg Tablet) 17.2 mg PO BEDTIME [facility] Last Admin: 07/31/25 20:57 Dose: 17.2 mg Simethicone (Simethicone 80 Mg Tab.Chew) 80 mg PO BID [facility] Last Admin: 08/01/25 10:15 Dose: 80 mg Vitamin D (Cholecalciferol (Vitamin D3) 25 Mcg Tablet) 25 mcg PO DAILY [facility] Last Admin: 08/01/25 09:59 Dose: 25 mcg Vitamin E (Vitamin E (Dl,Tocopheryl Acet) 180 Mg (400 Unit) Capsule) 540 mg PO DAILY [facility] Last Admin: 08/01/25 09:58 Dose: 540 mg Home Medications ?Medication ?Instructions ?Recorded ?Confirmed ?Last Taken ?Type acetaminophen 325 mg tablet 650 mg PO Q6H PRN Pain (Scale 06/30/25 07/01/25 Unknown History Score 1-3) amlodipine 2.5 mg tablet 2.5 mg PO DAILY 06/30/25 07/01/25 Unknown History ascorbic acid (vitamin C) 500 mg 500 mg PO BID 06/30/25 07/01/25 Unknown History tablet aspirin 81 mg tablet,delayed 81 mg PO DAILY 06/30/25 07/01/25 Unknown History release atorvastatin 80 mg tablet 80 mg PO BEDTIME 06/30/25 07/01/25 Unknown History bupropion HCl 75 mg tablet 37.5 mg PO BID 06/30/25 07/01/25 Unknown History calcium 600 mg (as 1 tab PO BID 06/30/25 07/01/25 Unknown History carbonate)-vitamin D3 10 mcg (400 unit) tablet (Calcium 600 + D(3)) cholecalciferol (vitamin D3) 25 25 mcg PO DAILY 06/30/25 07/01/25 Unknown History mcg (1,000 unit) tablet (Vitamin D3) dextromethorphan HBr 15 mg capsule 30 mg PO Q6H PRN Cough 06/30/25 07/01/25 Unknown History docusate sodium 100 mg capsule 100 mg PO BID 06/30/25 07/01/25 Unknown History donepezil 5 mg tablet 5 mg PO DAILY 06/30/25 07/01/25 Unknown History gabapentin 100 mg capsule 100 mg PO BEDTIME 06/30/25 07/01/25 Unknown History levothyroxine 75 mcg tablet 75 mcg PO DAILY@0600 06/30/25 07/01/25 Unknown History melatonin 5 mg tablet 5 mg PO BEDTIME 06/30/25 07/01/25 Unknown History multivitamin 1 tab PO DAILY 06/30/25 07/01/25 Unknown History omeprazole 20 mg capsule,delayed 20 mg PO DAILY@0630 06/30/25 07/01/25 Unknown History release risedronate 35 mg tablet 35 mg PO THOMAS@0606/30/25 07/01/25 Unknown History sennosides 8.6 mg tablet (senna) 17.2 mg PO BEDTIME 06/30/25 07/01/25 Unknown History simethicone 80 mg chewable tablet 80 mg PO BID 06/30/25 07/01/25 Unknown History vitamin E (dl, acetate) 180 mg 540 mg PO DAILY 06/30/25 07/01/25 Unknown History (400 unit) capsule escitalopram oxalate 10 mg tablet 10 mg PO DAILY 07/01/25 07/01/25 Unknown History acetylcysteine 600 mg capsule 600 mg PO BID 07/02/25 07/02/25 Unknown History aripiprazole 5 mg tablet 5 mg PO DAILY 07/02/25 07/02/25 Unknown History bismuth subsalicylate 262 mg 2 tab PO Q6H PRN Diarrhea 07/02/25 07/02/25 Unknown History chewable tablet (Pepto-Bismol) fluticasone propionate 50 1 spray intranasal DAILY 07/02/25 07/02/25 Unknown History mcg/actuation nasal spray,suspension mupirocin 2 % topical ointment 1 appl topical BID 07/02/25 07/02/25 Unknown History olopatadine 0.2 % eye drops 1 drp ophthalmic (eye) DAILY 07/02/25 07/02/25 Unknown History (Pataday Once Daily Relief) ondansetron 4 mg disintegrating 4 mg PO Q8H PRN Nausea And Vomiting 07/02/25 07/02/25 Unknown History tablet trazodone 50 mg tablet 50 mg PO BEDTIME 07/02/25 07/02/25 Unknown History triamcinolone acetonide 0.025 % 1 appl topical BID 07/02/25 07/02/25 Unknown History topical cream Physical Exam Vital Signs and Narrative: Vital Signs: Last Vital Signs Temp 98.3 F 08/01/25 08:00 Pulse 94 08/01/25 08:00 Resp 14 08/01/25 08:00 BP 141/66 H 08/01/25 09:58 Pulse Ox 94 08/01/25 08:00 O2 Del Method Room Air 08/01/25 08:00 BMI result Body Mass Index 30.1 CONST: Alert and confused. pleasant, in NAD. Well nourished HEENT: Normocephalic, atraumatic, MMM, Eyes clear, Neck supple RESP: Lungs clear, RRR even and regular HEART:,RRR, S1, S2. No edema GI:Abdomen Soft NT, ND. + BS times four :Deferred SKIN: Warm dry and intact, no visible lesions or rashes NEURO:CN II-XII Intact bilaterally, Sensation intact. Speech clear PSYCH: Normal affect Results Labs 07/01/25 12:43 07/19/25 11:05 Assessment and Plan (1) HTN (hypertension): Status: Acute Plan 80-year-old [facility] after demonstrating self-injurious behavior and dementia with behavioral disturbance. Patient was admitted to psychiatric for further treatment Neurocognitive disorder, dementia with behavioral disturbances/self-injurious behavior Treatment per psychiatric team Hypertension/hyperlipidemia/CAD Continue baby aspirin, propranolol, Norvasc, and atorvastatin. Blood pressures reviewed and stable Liver function and renal function are stable. Lipid panel within normal limits Hypothyroidism Continue levothyroxine 75 mcg daily Most recent TSH 2.90 GERD Continue omeprazole Thank you for allowing me to participate in the care of this patient. We will continue to follow, please notify medical provider any acute concerns or issues arise.
--- NOTE | 2025-08-01 15:50 | P.PNPSI_ITS ---
Subjective Subjective Date of Service: 08/01/25 Reason For Visit: psychosis Subjective Notes: Conditional Voluntary Healthcare Proxy: Yes Interim History: Pt slept through the night.Pt reports doing well. She denies any physical concerns. She denies any fear or anxious mood. No self harm behaviors. VS stable SBP 140's. taking medication as prescribed. Review of Systems Review of Systems Nothing of note Yes all other systems are reviewed and are negative Mental Status Exam Mental Status Exam Narrative: adequately dressed and groomed, hospital attire. cooperative, no PMA/PMR. speech nml rate, decr amount, nml loudness, nml latency. thoughts linear and logical. affect flexible, normo-intense, non-labile. mood good. denies AH, SIBI. no SI/HI/VH expressed. Diagnostics Vital Signs (24Hr): Vital Signs - 24 hr 07/31/25 20:00 08/01/25 08:00 08/01/25 09:58 Temperature 97.6 F 98.3 F Pulse Rate 70 94 Respiratory Rate 16 14 Blood Pressure 123/60 141/66 H 141/66 H Pulse Oximetry 92 94 Oxygen Delivery Method Room Air Room Air 08/01/25 09:58 Temperature Pulse Rate Respiratory Rate Blood Pressure 141/66 H Pulse Oximetry Oxygen Delivery Method BMI result Body Mass Index 30.1 Labs 07/01/25 12:43 07/19/25 11:05 Imaging Radiology Impressions: ITS Impressions Head CT 07/04/25 16:13 IMPRESSION: 1. No acute intracranial findings. 2. Interval decrease in the right frontal scalp hematoma. Electronically signed by: Durga Beanvides MD 07/04/2025 06:14 PM EDT Medications Medications Current Medications Acetaminophen (Acetaminophen 325 Mg Tablet) 650 mg PO Q6H PRN PRN Reason: Pain (Scale Score 1-3) Al Hydroxide/Mg Hydroxide (Magnesium Hydrox/Alum Hydrox 30 Ml Oral.Susp) 30 ml PO Q6H PRN PRN Reason: Heartburn/Nausea Amlodipine Besylate (Amlodipine Besylate 2.5 Mg Tablet) 2.5 mg PO DAILY [facility]; Protocol Last Admin: 08/01/25 09:58 Dose: 2.5 mg Aripiprazole (Aripiprazole 15 Mg Tablet) 15 mg PO DAILY [facility] Last Admin: 08/01/25 09:57 Dose: 15 mg Ascorbic Acid (Ascorbic Acid 500 Mg Tablet) 500 mg PO BID [facility] Last Admin: 08/01/25 09:58 Dose: 500 mg Aspirin (Aspirin Enteric Coated 81 Mg Tablet.Dr) 81 mg PO DAILY [facility] Last Admin: 08/01/25 09:59 Dose: 81 mg Atorvastatin Calcium (Atorvastatin Calcium 80 Mg Tablet) 80 mg PO BEDTIME [facility] Last Admin: 07/31/25 20:56 Dose: 80 mg Calcium Carbonate/Cholecalciferol (Calcium + Vitamin D 250 Mg Tablet) 500 mg PO BID [facility] Last Admin: 08/01/25 09:58 Dose: 500 mg Docusate Sodium (Docusate Sodium 100 Mg Capsule) 100 mg PO BID [facility] Last Admin: 08/01/25 09:59 Dose: 100 mg Donepezil HCl (Donepezil Hcl 5 Mg Tablet) 5 mg PO DAILY [facility] Last Admin: 08/01/25 09:59 Dose: 5 mg Escitalopram Oxalate (Escitalopram Oxalate 10 Mg Tablet) 10 mg PO DAILY [facility] Last Admin: 08/01/25 09:59 Dose: 10 mg Fluticasone Propionate (Fluticasone Propionate Nasal 16 Gm [place]) 1 spray NOSTRIL-B DAILY [facility] Last Admin: 08/01/25 12:12 Dose: 1 spray Gabapentin (Gabapentin 100 Mg Capsule) 100 mg PO BEDTIME [facility] Last Admin: 07/31/25 20:56 Dose: 100 mg Hydroxyzine HCl (Hydroxyzine Hcl 25 Mg Tablet) 25 mg PO Q6H PRN PRN Reason: mild anxiety Last Admin: 07/12/25 14:44 Dose: 25 mg Ketotifen Fumarate (Ketotifen Fumarate 0.025% Oph 5 Ml Drpbtl) 1 drop EYE-BOTH BID [facility] Last Admin: 08/01/25 12:12 Dose: 1 drop Levothyroxine Sodium (Levothyroxine Sodium 75 Mcg Tablet) 75 mcg PO DAILY@0600 [facility] Last Admin: 08/01/25 05:00 Dose: 75 mcg Magnesium Hydroxide (Milk Of Magnesia 30 Ml Oral.Susp) 30 ml PO DAILY PRN PRN Reason: Constipation Melatonin (Melatonin 3 Mg Tablet) 6 mg PO BEDTIME [facility] Last Admin: 07/31/25 21:01 Dose: 6 mg Mirtazapine (Mirtazapine 15 Mg Tablet) 15 mg PO BEDTIME [facility] Last Admin: 09/09/25 20:56 Dose: 15 mg Multivitamins/Vitamin C (Multivitamin Tablet) 1 tab PO DAILY [facility] Last Admin: 08/01/25 09:59 Dose: 1 tab Nystatin (Nystatin Powder 15 Gm Bottle) 1 appl TOPICAL BID [facility]; Protocol Last Admin: 08/01/25 12:13 Dose: 1 appl Omeprazole (Omeprazole 20 Mg Capsule.Dr) 20 mg PO DAILY@0630 [facility] Last Admin: 08/01/25 05:27 Dose: 20 mg Propranolol HCl (Propranolol Hcl 10 Mg Tablet) 10 mg PO DAILY [facility]; Protocol Last Admin: 08/01/25 09:58 Dose: 10 mg Propranolol HCl (Propranolol Hcl 20 Mg Tablet) 20 mg PO BEDTIME [facility]; Protocol Last Admin: 07/31/25 20:56 Dose: 20 mg Pyridoxine HCl (Pyridoxine Hcl (Vitamin B6) 50 Mg Tablet) 100 mg PO BID [facility] Last Admin: 08/01/25 09:59 Dose: 100 mg Quetiapine Fumarate (Quetiapine Fumarate 50 Mg Tablet) 50 mg PO BEDTIME [facility] Last Admin: 07/31/25 20:56 Dose: 50 mg Senna (Sennosides 8.6 Mg Tablet) 17.2 mg PO BEDTIME [facility] Last Admin: 07/31/25 20:57 Dose: 17.2 mg Simethicone (Simethicone 80 Mg Tab.Chew) 80 mg PO BID [facility] Last Admin: 08/01/25 10:15 Dose: 80 mg Vitamin D (Cholecalciferol (Vitamin D3) 25 Mcg Tablet) 25 mcg PO DAILY [facility] Last Admin: 08/01/25 09:59 Dose: 25 mcg Vitamin E (Vitamin E (Dl,Tocopheryl Acet) 180 Mg (400 Unit) Capsule) 540 mg PO DAILY [facility] Last Admin: 08/01/25 09:58 Dose: 540 mg Allergies Allergies Allergy/AdvReac Type Severity Reaction Status Date / Time egg Allergy Intermediate Unknown Verified 07/10/25 03:24 monosodium glutamate (MSG) Allergy Intermediate Unknown Verified 07/10/25 03:25 caffeine Allergy Mild Unknown Verified 07/10/25 03:23 Assessment & Plan Assessment & Plan (1) Major neurocognitive disorder due to multiple etiologies, with psychotic disturbance: Status: Acute Code(s): F02.82 - Dementia in other diseases classified elsewhere, unspecified severity, with psychotic disturbance Plan psychotic disorder, anti-psychotic recently stopped for unclear reasons. mina's order reviewed (abilify to 5 mg daily, seroquel to 50 mg daily are on the order). 07/04: restart abilify 5 mg at HS. seroquel 25 BID PRN agitation. 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 07/05: DC wellbutrin as it may increase anxiety and restlessness, increasing agitation. awake and alert today. no aggressive behaviors. continue current mgmt. 07/06: remains calm and pleasant. 2 episodes of head-banging yesterday evening. commitment paperwork filed. 07/07: intermittent head-banging continues in response to CAH. change seroquel from PRN to scheduled. otherwise continue current mgmt. 07/08: head-banging yesterday simon. slept well overnight. continue current mgmt. 07/09: needing redirection from head-banging. slept 8 hours. pleasant, cooperative. continue current mgmt. 07/10: some head-banging yesterday afternoon. self-dialoguing eves. none overnight, slept well. hearing continued to 07/26. continue current mgmt. 07/11: No head-banging today. Still hears voices but they have not instructed her to bang her head today. Self-dialoguing. Slept well. Pleasantly confused. Continue current treatment regimen. 07/12: can't recall last head banging or CAH to do so. sleeping well, eating well. no SIB in the past 24H. continue current mgmt. 07/13: head-banging again last night, say she doesn't recall it. calm, pleasant, cooperative today. continue current mgmt. 07/15: No changes 07/16: no SIB for the past few days. as per usual, cannot recall any AH or SIB episodes. continue current mgmt. 07/17: tried on Q5 min checks yesterday but started head-banging, placed back on 1:1. today denies any recollection of the event, denies Sx. continue current mgmt. affidavit for extension of Tx plan completed. 07/18: no head-banging in past 24H. denies Sx. remains on 1:1. continue current mgmt. 07/19 continue current tx, may consider changing antipsychotic to more effective one such as risperidone. continue on one to one, but if stable will change to 5 minutes checks. 07/20 continue tx. try 5 minutes checks. 07/24 continue tx. no self injurious behaviors. 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 07/27: calm, cooperative. off of 1:1, can't recall last time head-banging. denies AH. continue current mgmt. 07/28/2025: Continue current management 07/31 continue tx. 08/01 continue tx. Reason for continued inpatient stay Substantial Risk for: inability to function Time Spent With Patient Time: Total time managing care of this patient today ____ minutes.
[2025-08-01 20:00] VITALS: BP 120/61; PULSE 62; RESP 16; TEMP 36.7; O2SAT 93
[2025-08-02 08:00] VITALS: BP 161/72; PULSE 56; RESP 14; TEMP 36; O2SAT 94
[2025-08-02 08:22] VITALS: BMI 30.2
[2025-08-02 08:30] LABS: Anion Gap 12 (12-20); Blood Urea Nitrogen 17 mg/dL (9-16); Calcium 8.6 mg/dL (8.4-10.2); Carbon Dioxide 23 mmol/L (22-29); Chloride 110 mmol/L (96-108); Creatinine Clr Calc Pharmacy 77.7; Estimated Glomerular Filt Rate > 60; Potassium 4.0 mmol/L (3.3-5.1); Sodium 141 mmol/L (135-145)
[2025-08-02] MEDS: Aspirin Enteric Coated 81 MG TABLET.DR PO (09:21)
[2025-08-02] MEDS: Vitamin E (Dl,Tocopheryl Acet) 180 MG (400 UNIT) CAPSULE 540 MG PO (09:22)
[2025-08-02] MEDS: Calcium + Vitamin D 250 MG TABLET 500 MG PO ×2 (09:22→20:17)
[2025-08-02] MEDS: Ketotifen Fumarate 0.025% Oph 5 ML DRPBTL 1 DROP EYE-BOTH ×2 (09:23→20:21)
--- NOTE | 2025-08-02 18:10 | HO.PSYCHPN ---
Subjective Subjective Date of Service: 08/02/25 Reason For Visit: psychosis Subjective Notes: Conditional Voluntary Guardianship: Yes Interim History: Pt slept through the night. She is ambulating. Her affect appears brighter, she denies any concerns. No recollection of times when she has engaged in self harm. Review of Systems Review of Systems She denies any shortness of breath, chest pain, dizziness, headaches, abdominal discomfort or other concerning symptoms. Yes all other systems are reviewed and are negative Mental Status Exam Mental Status Exam Narrative: adequately dressed and groomed, hospital attire. cooperative, no PMA/PMR. speech nml rate, decr amount, nml loudness, nml latency. thoughts linear and logical. affect flexible, normo-intense, non-labile. mood good. denies AH, SIBI. no SI/HI/VH expressed. Diagnostics Vital Signs (24Hr): Vital Signs - 24 hr 08/01/25 20:00 08/02/25 08:00 Temperature 98.1 F 96.8 F Pulse Rate 62 56 Respiratory Rate 16 14 Blood Pressure 120/61 161/72 H Pulse Oximetry 93 94 Oxygen Delivery Method Room Air Room Air BMI result Body Mass Index 30.2 Labs 07/01/25 12:43 08/02/25 07:38 Labs: Laboratory Results - last 48 hr 08/02/25 07:38 Hold Purple Top SEE NOTE Sodium 141 Potassium 4.0 Chloride 110 H Carbon Dioxide 23 Anion Gap 12 BUN 17 H Creatinine 0.59 Estim Creat Clear Calc 77.7 Estimated GFR > 60 Random Glucose 81 Calcium 8.6 Imaging Radiology Impressions: ITS Impressions Head CT 07/04/25 16:13 IMPRESSION: 1. No acute intracranial findings. 2. Interval decrease in the right frontal scalp hematoma. Electronically signed by: Durga Benavides MD 07/04/2025 06:14 PM EDT RP Medications Medications Current Medications Acetaminophen (Acetaminophen 325 Mg Tablet) 650 mg PO Q6H PRN PRN Reason: Pain (Scale Score 1-3) Al Hydroxide/Mg Hydroxide (Magnesium Hydrox/Alum Hydrox 30 Ml Oral.Susp) 30 ml PO Q6H PRN PRN Reason: Heartburn/Nausea Amlodipine Besylate (Amlodipine Besylate 2.5 Mg Tablet) 2.5 mg PO DAILY [facility]; Protocol Last Admin: 08/02/25 09:22 Dose: 2.5 mg Aripiprazole (Aripiprazole 15 Mg Tablet) 15 mg PO DAILY [facility] Last Admin: 08/02/25 09:21 Dose: 15 mg Ascorbic Acid (Ascorbic Acid 500 Mg Tablet) 500 mg PO BID [facility] Last Admin: 08/02/25 09:23 Dose: 500 mg Aspirin (Aspirin Enteric Coated 81 Mg Tablet.Dr) 81 mg PO DAILY [facility] Last Admin: 08/02/25 09:21 Dose: 81 mg Atorvastatin Calcium (Atorvastatin Calcium 80 Mg Tablet) 80 mg PO BEDTIME [facility] Last Admin: 08/01/25 21:23 Dose: 80 mg Calcium Carbonate/Cholecalciferol (Calcium + Vitamin D 250 Mg Tablet) 500 mg PO BID [facility] Last Admin: 08/02/25 09:22 Dose: 500 mg Docusate Sodium (Docusate Sodium 100 Mg Capsule) 100 mg PO BID [facility] Last Admin: 08/02/25 09:21 Dose: 100 mg Donepezil HCl (Donepezil Hcl 5 Mg Tablet) 5 mg PO DAILY [facility] Last Admin: 08/02/25 09:21 Dose: 5 mg Escitalopram Oxalate (Escitalopram Oxalate 10 Mg Tablet) 10 mg PO DAILY [facility] Last Admin: 08/02/25 09:37 Dose: 10 mg Fluticasone Propionate (Fluticasone Propionate Nasal 16 Gm [place]) 1 spray NOSTRIL-B DAILY [facility] Last Admin: 08/02/25 09:23 Dose: 1 spray Gabapentin (Gabapentin 100 Mg Capsule) 100 mg PO BEDTIME [facility] Last Admin: 08/01/25 21:23 Dose: 100 mg Hydroxyzine HCl (Hydroxyzine Hcl 25 Mg Tablet) 25 mg PO Q6H PRN PRN Reason: mild anxiety Last Admin: 07/12/25 14:44 Dose: 25 mg Ketotifen Fumarate (Ketotifen Fumarate 0.025% Oph 5 Ml Drpbtl) 1 drop EYE-BOTH BID [facility] Last Admin: 08/02/25 09:23 Dose: 1 drop Levothyroxine Sodium (Levothyroxine Sodium 75 Mcg Tablet) 75 mcg PO DAILY@0600 [facility] Last Admin: 08/02/25 05:48 Dose: 75 mcg Magnesium Hydroxide (Milk Of Magnesia 30 Ml Oral.Susp) 30 ml PO DAILY PRN PRN Reason: Constipation Melatonin (Melatonin 3 Mg Tablet) 6 mg PO BEDTIME [facility] Last Admin: 08/01/25 21:23 Dose: 6 mg Mirtazapine (Mirtazapine 15 Mg Tablet) 15 mg PO BEDTIME [facility] Last Admin: 08/01/25 21:23 Dose: 15 mg Multivitamins/Vitamin C (Multivitamin Tablet) 1 tab PO DAILY [facility] Last Admin: 08/02/25 09:22 Dose: 1 tab Nystatin (Nystatin Powder 15 Gm Bottle) 1 appl TOPICAL BID [facility]; Protocol Last Admin: 08/02/25 15:18 Dose: 1 appl Omeprazole (Omeprazole 20 Mg Capsule.Dr) 20 mg PO DAILY@0630 [facility] Last Admin: 08/02/25 06:32 Dose: 20 mg Propranolol HCl (Propranolol Hcl 10 Mg Tablet) 10 mg PO DAILY [facility]; Protocol Last Admin: 08/02/25 09:22 Dose: 10 mg Propranolol HCl (Propranolol Hcl 20 Mg Tablet) 20 mg PO BEDTIME [facility]; Protocol Last Admin: 08/01/25 21:23 Dose: 20 mg Pyridoxine HCl (Pyridoxine Hcl (Vitamin B6) 50 Mg Tablet) 100 mg PO BID [facility] Last Admin: 08/02/25 09:23 Dose: 100 mg Quetiapine Fumarate (Quetiapine Fumarate 50 Mg Tablet) 50 mg PO BEDTIME [facility] Last Admin: 08/01/25 21:23 Dose: 50 mg Senna (Sennosides 8.6 Mg Tablet) 17.2 mg PO BEDTIME [facility] Last Admin: 08/01/25 21:24 Dose: 17.2 mg Simethicone (Simethicone 80 Mg Tab.Chew) 80 mg PO BID [facility] Last Admin: 08/02/25 09:21 Dose: 80 mg Vitamin D (Cholecalciferol (Vitamin D3) 25 Mcg Tablet) 25 mcg PO DAILY [facility] Last Admin: 08/02/25 09:22 Dose: 25 mcg Vitamin E (Vitamin E (Dl,Tocopheryl Acet) 180 Mg (400 Unit) Capsule) 540 mg PO DAILY [facility] Last Admin: 08/02/25 09:22 Dose: 540 mg Allergies Allergies Allergy/AdvReac Type Severity Reaction Status Date / Time egg Allergy Intermediate Unknown Verified 07/10/25 03:24 monosodium glutamate (MSG) Allergy Intermediate Unknown Verified 07/10/25 03:25 caffeine Allergy Mild Unknown Verified 07/10/25 03:23 Assessment & Plan Assessment & Plan (1) Major neurocognitive disorder due to multiple etiologies, with psychotic disturbance: Status: Acute Code(s): F02.82 - Dementia in other diseases classified elsewhere, unspecified severity, with psychotic disturbance Plan psychotic disorder, anti-psychotic recently stopped for unclear reasons. mina's order reviewed (abilify to 5 mg daily, seroquel to 50 mg daily are on the order). 07/04: restart abilify 5 mg at HS. seroquel 25 BID PRN agitation. 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 07/05: DC wellbutrin as it may increase anxiety and restlessness, increasing agitation. awake and alert today. no aggressive behaviors. continue current mgmt. 07/06: remains calm and pleasant. 2 episodes of head-banging yesterday evening. commitment paperwork filed. 07/07: intermittent head-banging continues in response to CAH. change seroquel from PRN to scheduled. otherwise continue current mgmt. 07/08: head-banging yesterday simon. slept well overnight. continue current mgmt. 07/09: needing redirection from head-banging. slept 8 hours. pleasant, cooperative. continue current mgmt. 07/10: some head-banging yesterday afternoon. self-dialoguing eves. none overnight, slept well. hearing continued to 07/26. continue current mgmt. 07/11: No head-banging today. Still hears voices but they have not instructed her to bang her head today. Self-dialoguing. Slept well. Pleasantly confused. Continue current treatment regimen. 07/12: can't recall last head banging or CAH to do so. sleeping well, eating well. no SIB in the past 24H. continue current mgmt. 07/13: head-banging again last night, say she doesn't recall it. calm, pleasant, cooperative today. continue current mgmt. 07/15: No changes 07/16: no SIB for the past few days. as per usual, cannot recall any AH or SIB episodes. continue current mgmt. 07/17: tried on Q5 min checks yesterday but started head-banging, placed back on 1:1. today denies any recollection of the event, denies Sx. continue current mgmt. affidavit for extension of Tx plan completed. 07/18: no head-banging in past 24H. denies Sx. remains on 1:1. continue current mgmt. 07/19 continue current tx, may consider changing antipsychotic to more effective one such as risperidone. continue on one to one, but if stable will change to 5 minutes checks. 07/20 continue tx. try 5 minutes checks. 07/24 continue tx. no self injurious behaviors. 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 07/27: calm, cooperative. off of 1:1, can't recall last time head-banging. denies AH. continue current mgmt. 07/28/2025: Continue current management 07/31 continue tx. 08/01 continue tx. 08/02 continue tx. she is currently on 15 minutes checks. Reason for continued inpatient stay Substantial Risk for: inability to function Time Spent With Patient Time: Total time managing care of this patient today ____ minutes.
[2025-08-02 19:44] VITALS: BP 122/59; PULSE 63; RESP 16; TEMP 36; O2SAT 94
[2025-08-02 20:00] VITALS: BP 122/59; PULSE 63; RESP 17; TEMP 36; O2SAT 94
[2025-08-03 08:00] VITALS: BP 155/70; PULSE 63; RESP 16; TEMP 36.3; O2SAT 94
[2025-08-03] MEDS: Calcium + Vitamin D 250 MG TABLET 500 MG PO ×2 (08:57→20:51)
[2025-08-03] MEDS: Vitamin E (Dl,Tocopheryl Acet) 180 MG (400 UNIT) CAPSULE 540 MG PO (08:57)
[2025-08-03 08:58] VITALS: BP 155/70; PULSE 63
[2025-08-03 08:59] VITALS: BP 155/70
[2025-08-03] MEDS: Aspirin Enteric Coated 81 MG TABLET.DR PO (08:59)
[2025-08-03] MEDS: Ketotifen Fumarate 0.025% Oph 5 ML DRPBTL 1 DROP EYE-BOTH ×2 (09:01→20:54)
--- NOTE | 2025-08-03 15:31 | P.PNPSI_ITS ---
Subjective Subjective Date of Service: 08/03/25 Reason For Visit: psychosis Interim History: Pt slept through the night. She is ambulating. Her affect appears brighter, she denies any concerns. No recollection of times when she has engaged in self harm. Review of Systems Review of Systems She denies any shortness of breath, chest pain, dizziness, headaches, abdominal discomfort or other concerning symptoms. Yes all other systems are reviewed and are negative Mental Status Exam Mental Status Exam Narrative: adequately dressed and groomed, hospital attire. cooperative, no PMA/PMR. speech nml rate, decr amount, nml loudness, nml latency. thoughts linear and logical. affect flexible, normo-intense, non-labile. mood good. denies AH, SIBI. no SI/HI/VH expressed. Diagnostics Vital Signs (24Hr): Vital Signs - 24 hr 08/02/25 19:44 08/02/25 20:00 08/03/25 08:00 Temperature 96.8 F 96.8 F 97.3 F Pulse Rate 63 63 63 Respiratory Rate 16 17 16 Blood Pressure 122/59 L 122/59 L 155/70 H Pulse Oximetry 94 94 94 Oxygen Delivery Method Room Air Room Air Room Air 08/03/25 08:58 08/03/25 08:59 Temperature Pulse Rate 63 Respiratory Rate Blood Pressure 155/70 H 155/70 H Pulse Oximetry Oxygen Delivery Method BMI result Body Mass Index 30.2 Labs 07/01/25 12:43 08/02/25 07:38 Labs: Laboratory Results - last 48 hr 08/02/25 07:38 Hold Purple Top SEE NOTE Sodium 141 Potassium 4.0 Chloride 110 H Carbon Dioxide 23 Anion Gap 12 BUN 17 H Creatinine 0.59 Estim Creat Clear Calc 77.7 Estimated GFR > 60 Random Glucose 81 Calcium 8.6 Imaging Radiology Impressions: ITS Impressions Head CT 07/04/25 16:13 IMPRESSION: 1. No acute intracranial findings. 2. Interval decrease in the right frontal scalp hematoma. Electronically signed by: Durga Benavides MD 07/04/2025 06:14 PM EDT RP Medications Medications Current Medications Acetaminophen (Acetaminophen 325 Mg Tablet) 650 mg PO Q6H PRN PRN Reason: Pain (Scale Score 1-3) Al Hydroxide/Mg Hydroxide (Magnesium Hydrox/Alum Hydrox 30 Ml Oral.Susp) 30 ml PO Q6H PRN PRN Reason: Heartburn/Nausea Amlodipine Besylate (Amlodipine Besylate 2.5 Mg Tablet) 2.5 mg PO DAILY [facility]; Protocol Last Admin: 08/03/25 08:59 Dose: 2.5 mg Aripiprazole (Aripiprazole 15 Mg Tablet) 15 mg PO DAILY [facility] Last Admin: 08/03/25 08:59 Dose: 15 mg Ascorbic Acid (Ascorbic Acid 500 Mg Tablet) 500 mg PO BID [facility] Last Admin: 08/03/25 09:00 Dose: 500 mg Aspirin (Aspirin Enteric Coated 81 Mg Tablet.Dr) 81 mg PO DAILY [facility] Last Admin: 08/03/25 08:59 Dose: 81 mg Atorvastatin Calcium (Atorvastatin Calcium 80 Mg Tablet) 80 mg PO BEDTIME [facility] Last Admin: 08/02/25 20:18 Dose: 80 mg Calcium Carbonate/Cholecalciferol (Calcium + Vitamin D 250 Mg Tablet) 500 mg PO BID [facility] Last Admin: 08/03/25 08:57 Dose: 500 mg Docusate Sodium (Docusate Sodium 100 Mg Capsule) 100 mg PO BID [facility] Last Admin: 08/03/25 08:59 Dose: 100 mg Donepezil HCl (Donepezil Hcl 5 Mg Tablet) 5 mg PO DAILY [facility] Last Admin: 08/03/25 08:59 Dose: 5 mg Escitalopram Oxalate (Escitalopram Oxalate 10 Mg Tablet) 10 mg PO DAILY [facility] Last Admin: 08/03/25 08:59 Dose: 10 mg Fluticasone Propionate (Fluticasone Propionate Nasal 16 Gm [place]) 1 spray NOSTRIL-B DAILY [facility] Last Admin: 08/03/25 08:56 Dose: 1 spray Gabapentin (Gabapentin 100 Mg Capsule) 100 mg PO BEDTIME [facility] Last Admin: 08/02/25 20:17 Dose: 100 mg Hydroxyzine HCl (Hydroxyzine Hcl 25 Mg Tablet) 25 mg PO Q6H PRN PRN Reason: mild anxiety Last Admin: 07/12/25 14:44 Dose: 25 mg Ketotifen Fumarate (Ketotifen Fumarate 0.025% Oph 5 Ml Drpbtl) 1 drop EYE-BOTH BID [facility] Last Admin: 08/03/25 09:01 Dose: 1 drop Levothyroxine Sodium (Levothyroxine Sodium 75 Mcg Tablet) 75 mcg PO DAILY@0600 [facility] Last Admin: 08/03/25 05:52 Dose: 75 mcg Magnesium Hydroxide (Milk Of Magnesia 30 Ml Oral.Susp) 30 ml PO DAILY PRN PRN Reason: Constipation Melatonin (Melatonin 3 Mg Tablet) 6 mg PO BEDTIME [facility] Last Admin: 08/02/25 20:18 Dose: 6 mg Mirtazapine (Mirtazapine 15 Mg Tablet) 15 mg PO BEDTIME [facility] Last Admin: 08/02/25 20:18 Dose: 15 mg Multivitamins/Vitamin C (Multivitamin Tablet) 1 tab PO DAILY [facility] Last Admin: 08/03/25 08:59 Dose: 1 tab Nystatin (Nystatin Powder 15 Gm Bottle) 1 appl TOPICAL BID [facility]; Protocol Last Admin: 08/03/25 08:57 Dose: 1 appl Omeprazole (Omeprazole 20 Mg Capsule.Dr) 20 mg PO DAILY@0630 [facility] Last Admin: 08/03/25 06:29 Dose: 20 mg Propranolol HCl (Propranolol Hcl 10 Mg Tablet) 10 mg PO DAILY [facility]; Protocol Last Admin: 08/03/25 08:58 Dose: 10 mg Propranolol HCl (Propranolol Hcl 20 Mg Tablet) 20 mg PO BEDTIME [facility]; Protocol Last Admin: 08/02/25 20:18 Dose: 20 mg Pyridoxine HCl (Pyridoxine Hcl (Vitamin B6) 50 Mg Tablet) 100 mg PO BID [facility] Last Admin: 08/03/25 08:59 Dose: 100 mg Quetiapine Fumarate (Quetiapine Fumarate 50 Mg Tablet) 50 mg PO BEDTIME [facility] Last Admin: 08/02/25 20:18 Dose: 50 mg Senna (Sennosides 8.6 Mg Tablet) 17.2 mg PO BEDTIME [facility] Last Admin: 08/02/25 20:18 Dose: 17.2 mg Simethicone (Simethicone 80 Mg Tab.Chew) 80 mg PO BID [facility] Last Admin: 08/03/25 08:59 Dose: 80 mg Vitamin D (Cholecalciferol (Vitamin D3) 25 Mcg Tablet) 25 mcg PO DAILY [facility] Last Admin: 08/03/25 09:00 Dose: 25 mcg Vitamin E (Vitamin E (Dl,Tocopheryl Acet) 180 Mg (400 Unit) Capsule) 540 mg PO DAILY [facility] Last Admin: 08/03/25 08:57 Dose: 540 mg Allergies Allergies Allergy/AdvReac Type Severity Reaction Status Date / Time egg Allergy Intermediate Unknown Verified 07/10/25 03:24 monosodium glutamate (MSG) Allergy Intermediate Unknown Verified 07/10/25 03:25 caffeine Allergy Mild Unknown Verified 07/10/25 03:23 Assessment & Plan Assessment & Plan (1) Major neurocognitive disorder due to multiple etiologies, with psychotic disturbance: Status: Acute Code(s): F02.82 - Dementia in other diseases classified elsewhere, unspecified severity, with psychotic disturbance Plan psychotic disorder, anti-psychotic recently stopped for unclear reasons. mina's order reviewed (abilify to 5 mg daily, seroquel to 50 mg daily are on the order). 07/04: restart abilify 5 mg at HS. seroquel 25 BID PRN agitation. 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 07/05: DC wellbutrin as it may increase anxiety and restlessness, increasing agitation. awake and alert today. no aggressive behaviors. continue current mgmt. 07/06: remains calm and pleasant. 2 episodes of head-banging yesterday evening. commitment paperwork filed. 07/07: intermittent head-banging continues in response to CAH. change seroquel from PRN to scheduled. otherwise continue current mgmt. 07/08: head-banging yesterday simon. slept well overnight. continue current mgmt. 07/09: needing redirection from head-banging. slept 8 hours. pleasant, cooperative. continue current mgmt. 07/10: some head-banging yesterday afternoon. self-dialoguing eves. none overnight, slept well. hearing continued to 07/26. continue current mgmt. 07/11: No head-banging today. Still hears voices but they have not instructed her to bang her head today. Self-dialoguing. Slept well. Pleasantly confused. Continue current treatment regimen. 07/12: can't recall last head banging or CAH to do so. sleeping well, eating well. no SIB in the past 24H. continue current mgmt. 07/13: head-banging again last night, say she doesn't recall it. calm, pleasant, cooperative today. continue current mgmt. 07/15: No changes 07/16: no SIB for the past few days. as per usual, cannot recall any AH or SIB episodes. continue current mgmt. 07/17: tried on Q5 min checks yesterday but started head-banging, placed back on 1:1. today denies any recollection of the event, denies Sx. continue current mgmt. affidavit for extension of Tx plan completed. 07/18: no head-banging in past 24H. denies Sx. remains on 1:1. continue current mgmt. 07/19 continue current tx, may consider changing antipsychotic to more effective one such as risperidone. continue on one to one, but if stable will change to 5 minutes checks. 07/20 continue tx. try 5 minutes checks. 07/24 continue tx. no self injurious behaviors. 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 07/27: calm, cooperative. off of 1:1, can't recall last time head-banging. denies AH. continue current mgmt. 07/28/2025: Continue current management 07/31 continue tx. 08/01 continue tx. 08/02 continue tx. she is currently on 15 minutes checks. 08/03 continue tx. Reason for continued inpatient stay Substantial Risk for: inability to function Time Spent With Patient Time: Total time managing care of this patient today ____ minutes.
[2025-08-03 20:00] VITALS: BP 138/65; PULSE 66; RESP 16; TEMP 36.6; O2SAT 92
[2025-08-04 08:00] VITALS: BP 136/78; PULSE 64; RESP 16; TEMP 36.4; O2SAT 94
[2025-08-04] MEDS: Ketotifen Fumarate 0.025% Oph 5 ML DRPBTL 1 DROP EYE-BOTH ×2 (10:07→20:22)
[2025-08-04] MEDS: Calcium + Vitamin D 250 MG TABLET 500 MG PO ×2 (10:09→20:22)
[2025-08-04] MEDS: Vitamin E (Dl,Tocopheryl Acet) 180 MG (400 UNIT) CAPSULE 540 MG PO (10:09)
[2025-08-04 10:10] VITALS: BP 148/66
[2025-08-04] MEDS: Aspirin Enteric Coated 81 MG TABLET.DR PO (10:10)
[2025-08-04 20:00] VITALS: BP 134/68; PULSE 68; RESP 16; TEMP 36.6; O2SAT 95
--- NOTE | 2025-08-04 23:42 | P.PNPSI_ITS ---
Subjective Subjective Date of Service: 08/04/25 Reason For Visit: psychosis Subjective Notes: Section 8 Interim History: Patient was seen in her room today. She was calm, lying on bed. She described her mood as good. She denied SI/HI/AVH. She was oriented to person only. Medication Compliance: Yes Side effects from medications: No Review of Systems Acute medical concerns: No Medical Review of Systems: unchanged Review of Systems Review of Systems Yes all other systems are reviewed and are negative Mental Status Exam Mental Status Exam Narrative: adequately dressed and groomed, hospital attire. cooperative, no PMA/PMR. speech nml rate, decr amount, nml loudness, nml latency. thoughts linear and logical. affect flexible, normo-intense, non-labile. mood good. denies AH, SIBI. no SI/HI/VH expressed. Diagnostics Vital Signs (24Hr): Vital Signs - 24 hr 08/04/25 08:00 08/04/25 10:10 08/04/25 20:00 Temperature 97.6 F 97.9 F Pulse Rate 64 68 Respiratory Rate 16 16 Blood Pressure 136/78 148/66 H 134/68 Pulse Oximetry 94 95 Oxygen Delivery Method Room Air Room Air BMI result Body Mass Index 30.2 Labs 07/01/25 12:43 08/02/25 07:38 Imaging Radiology Impressions: ITS Impressions Head CT 07/04/25 16:13 IMPRESSION: 1. No acute intracranial findings. 2. Interval decrease in the right frontal scalp hematoma. Electronically signed by: Durga Benavides MD 07/04/2025 06:14 PM EDT Medications Medications Current Medications Acetaminophen (Acetaminophen 325 Mg Tablet) 650 mg PO Q6H PRN PRN Reason: Pain (Scale Score 1-3) Al Hydroxide/Mg Hydroxide (Magnesium Hydrox/Alum Hydrox 30 Ml Oral.Susp) 30 ml PO Q6H PRN PRN Reason: Heartburn/Nausea Amlodipine Besylate (Amlodipine Besylate 2.5 Mg Tablet) 2.5 mg PO DAILY [facility]; Protocol Last Admin: 08/04/25 10:08 Dose: 2.5 mg Aripiprazole (Aripiprazole 15 Mg Tablet) 15 mg PO DAILY [facility] Last Admin: 08/04/25 10:08 Dose: 15 mg Ascorbic Acid (Ascorbic Acid 500 Mg Tablet) 500 mg PO BID [facility] Last Admin: 08/04/25 20:22 Dose: 500 mg Aspirin (Aspirin Enteric Coated 81 Mg Tablet.Dr) 81 mg PO DAILY [facility] Last Admin: 08/04/25 10:10 Dose: 81 mg Atorvastatin Calcium (Atorvastatin Calcium 80 Mg Tablet) 80 mg PO BEDTIME [facility] Last Admin: 08/04/25 20:22 Dose: 80 mg Calcium Carbonate/Cholecalciferol (Calcium + Vitamin D 250 Mg Tablet) 500 mg PO BID [facility] Last Admin: 08/04/25 20:22 Dose: 500 mg Docusate Sodium (Docusate Sodium 100 Mg Capsule) 100 mg PO BID [facility] Last Admin: 08/04/25 20:22 Dose: 100 mg Donepezil HCl (Donepezil Hcl 5 Mg Tablet) 5 mg PO DAILY [facility] Last Admin: 08/04/25 10:10 Dose: 5 mg Escitalopram Oxalate (Escitalopram Oxalate 10 Mg Tablet) 10 mg PO DAILY [facility] Last Admin: 08/04/25 10:11 Dose: 10 mg Fluticasone Propionate (Fluticasone Propionate Nasal 16 Gm [place]) 1 spray NOSTRIL-B DAILY [facility] Last Admin: 08/04/25 10:07 Dose: 1 spray Gabapentin (Gabapentin 100 Mg Capsule) 100 mg PO BEDTIME [facility] Last Admin: 08/04/25 20:21 Dose: 100 mg Hydroxyzine HCl (Hydroxyzine Hcl 25 Mg Tablet) 25 mg PO Q6H PRN PRN Reason: mild anxiety Last Admin: 07/12/25 14:44 Dose: 25 mg Ketotifen Fumarate (Ketotifen Fumarate 0.025% Oph 5 Ml Drpbtl) 1 drop EYE-BOTH BID [facility] Last Admin: 08/04/25 20:22 Dose: 1 drop Levothyroxine Sodium (Levothyroxine Sodium 75 Mcg Tablet) 75 mcg PO DAILY@0600 [facility] Last Admin: 08/04/25 05:42 Dose: 75 mcg Magnesium Hydroxide (Milk Of Magnesia 30 Ml Oral.Susp) 30 ml PO DAILY PRN PRN Reason: Constipation Melatonin (Melatonin 3 Mg Tablet) 6 mg PO BEDTIME [facility] Last Admin: 08/04/25 20:21 Dose: 6 mg Mirtazapine (Mirtazapine 15 Mg Tablet) 15 mg PO BEDTIME [facility] Last Admin: 08/04/25 20:21 Dose: 15 mg Multivitamins/Vitamin C (Multivitamin Tablet) 1 tab PO DAILY [facility] Last Admin: 08/04/25 10:10 Dose: 1 tab Nystatin (Nystatin Powder 15 Gm Bottle) 1 appl TOPICAL BID [facility]; Protocol Last Admin: 08/04/25 20:23 Dose: 1 appl Omeprazole (Omeprazole 20 Mg Capsule.Dr) 20 mg PO DAILY@0630 [facility] Last Admin: 08/04/25 06:33 Dose: 20 mg Propranolol HCl (Propranolol Hcl 10 Mg Tablet) 10 mg PO DAILY [facility]; Protocol Last Admin: 08/04/25 10:10 Dose: 10 mg Propranolol HCl (Propranolol Hcl 20 Mg Tablet) 20 mg PO BEDTIME [facility]; Protocol Last Admin: 08/04/25 20:21 Dose: 20 mg Pyridoxine HCl (Pyridoxine Hcl (Vitamin B6) 50 Mg Tablet) 100 mg PO BID [facility] Last Admin: 08/04/25 20:22 Dose: 100 mg Quetiapine Fumarate (Quetiapine Fumarate 50 Mg Tablet) 50 mg PO BEDTIME [facility] Last Admin: 08/04/25 20:21 Dose: 50 mg Senna (Sennosides 8.6 Mg Tablet) 17.2 mg PO BEDTIME [facility] Last Admin: 08/04/25 20:22 Dose: 17.2 mg Simethicone (Simethicone 80 Mg Tab.Chew) 80 mg PO BID [facility] Last Admin: 08/04/25 20:22 Dose: 80 mg Vitamin D (Cholecalciferol (Vitamin D3) 25 Mcg Tablet) 25 mcg PO DAILY [facility] Last Admin: 08/04/25 10:08 Dose: 25 mcg Vitamin E (Vitamin E (Dl,Tocopheryl Acet) 180 Mg (400 Unit) Capsule) 540 mg PO DAILY [facility] Last Admin: 08/04/25 10:09 Dose: 540 mg Allergies Allergies Allergy/AdvReac Type Severity Reaction Status Date / Time egg Allergy Intermediate Unknown Verified 07/10/25 03:24 monosodium glutamate (MSG) Allergy Intermediate Unknown Verified 07/10/25 03:25 caffeine Allergy Mild Unknown Verified 07/10/25 03:23 Assessment & Plan Assessment & Plan (1) Major neurocognitive disorder due to multiple etiologies, with psychotic disturbance: Status: Acute Code(s): F02.82 - Dementia in other diseases classified elsewhere, unspecified severity, with psychotic disturbance Plan psychotic disorder, anti-psychotic recently stopped for unclear reasons. mina's order reviewed (abilify to 5 mg daily, seroquel to 50 mg daily are on the order). 07/04: restart abilify 5 mg at HS. seroquel 25 BID PRN agitation. 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 07/05: DC wellbutrin as it may increase anxiety and restlessness, increasing agitation. awake and alert today. no aggressive behaviors. continue current mgmt. 07/06: remains calm and pleasant. 2 episodes of head-banging yesterday evening. commitment paperwork filed. 07/07: intermittent head-banging continues in response to CAH. change seroquel from PRN to scheduled. otherwise continue current mgmt. 07/08: head-banging yesterday simon. slept well overnight. continue current mgmt. 07/09: needing redirection from head-banging. slept 8 hours. pleasant, cooperative. continue current mgmt. 07/10: some head-banging yesterday afternoon. self-dialoguing eves. none overnight, slept well. hearing continued to 07/26. continue current mgmt. 07/11: No head-banging today. Still hears voices but they have not instructed her to bang her head today. Self-dialoguing. Slept well. Pleasantly confused. Continue current treatment regimen. 07/12: can't recall last head banging or CAH to do so. sleeping well, eating well. no SIB in the past 24H. continue current mgmt. 07/13: head-banging again last night, say she doesn't recall it. calm, pleasant, cooperative today. continue current mgmt. 07/15: No changes 07/16: no SIB for the past few days. as per usual, cannot recall any AH or SIB episodes. continue current mgmt. 07/17: tried on Q5 min checks yesterday but started head-banging, placed back on 1:1. today denies any recollection of the event, denies Sx. continue current mgmt. affidavit for extension of Tx plan completed. 07/18: no head-banging in past 24H. denies Sx. remains on 1:1. continue current mgmt. 07/19 continue current tx, may consider changing antipsychotic to more effective one such as risperidone. continue on one to one, but if stable will change to 5 minutes checks. 07/20 continue tx. try 5 minutes checks. 07/24 continue tx. no self injurious behaviors. 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 07/27: calm, cooperative. off of 1:1, can't recall last time head-banging. denies AH. continue current mgmt. 07/28/2025: Continue current management 07/31 continue tx. 08/01 continue tx. 08/02 continue tx. she is currently on 15 minutes checks. 08/03 continue tx. 08/04: no change today Reason for continued inpatient stay Substantial Risk for: rapid decompensation Time Spent With Patient Time: Total time managing care of this patient today _15___ minutes.
[2025-08-05 07:50] VITALS: BP 146/77; PULSE 65; RESP 16; TEMP 36.3; O2SAT 98
[2025-08-05] MEDS: Ketotifen Fumarate 0.025% Oph 5 ML DRPBTL 1 DROP EYE-BOTH ×2 (08:56→21:00)
[2025-08-05] MEDS: Aspirin Enteric Coated 81 MG TABLET.DR PO (08:57)
[2025-08-05] MEDS: Calcium + Vitamin D 250 MG TABLET 500 MG PO ×2 (08:57→20:54)
[2025-08-05] MEDS: Vitamin E (Dl,Tocopheryl Acet) 180 MG (400 UNIT) CAPSULE 540 MG PO (08:57)
--- NOTE | 2025-08-05 10:21 | HO.PSYCHPN ---
Subjective Subjective Date of Service: 08/05/25 Reason For Visit: psychosis Subjective Notes: Section 8 Healthcare Proxy: No Medical Problems Affecting Mental Status: No Interim History: Patient seen in the sensory room this morning. She was cooperative with the encounter. Ambulated slowly, bumped into a chair. She was oriented to person only, stated that she was at [facility]. She reported that her mood was good, and denied SI/HI/AVH. She did not having any immediate concerns about her treatment or any questions at this time. Per nursing staff, her rash is improving. Medication Compliance: Yes Side effects from medications: No Attending Groups: Intermittent Review of Systems Acute medical concerns: No Review of Systems Review of Systems Yes all other systems are reviewed and are negative Mental Status Exam Mental Status Exam Narrative: Patient Appearance: Well Groomed, adequate hygiene Patient Behavior: Appropriate Ability to Follow Directions: Excellent Level of Consciousness: Awake, alert Patient Orientation: Person only Memory: impaired recent and remote Psychomotor: slowing Speech: normal rate, tone, volume Mood: ?okay? Affect: appropriate range Thought Process: Goal Oriented Thought Content: denies SI/HI; focused on treatment questions Hallucinations: Denies; does not appear preoccupied Delusions: None evinced Insight: impaired Judgment: impaired Impulsivity: low Diagnostics Vital Signs (24Hr): Vital Signs - 24 hr 08/04/25 20:00 08/05/25 07:50 Temperature 97.9 F 97.3 F Pulse Rate 68 65 Respiratory Rate 16 16 Blood Pressure 134/68 146/77 H Pulse Oximetry 95 98 Oxygen Delivery Method Room Air Room Air BMI result Body Mass Index 30.2 Labs 07/01/25 12:43 08/02/25 07:38 Imaging Radiology Impressions: ITS Impressions Head CT 07/04/25 16:13 IMPRESSION: 1. No acute intracranial findings. 2. Interval decrease in the right frontal scalp hematoma. Electronically signed by: Durga Benavides MD 07/04/2025 06:14 PM EDT Medications Medications Current Medications Acetaminophen (Acetaminophen 325 Mg Tablet) 650 mg PO Q6H PRN PRN Reason: Pain (Scale Score 1-3) Al Hydroxide/Mg Hydroxide (Magnesium Hydrox/Alum Hydrox 30 Ml Oral.Susp) 30 ml PO Q6H PRN PRN Reason: Heartburn/Nausea Amlodipine Besylate (Amlodipine Besylate 2.5 Mg Tablet) 2.5 mg PO DAILY [facility]; Protocol Last Admin: 08/05/25 08:58 Dose: 2.5 mg Aripiprazole (Aripiprazole 15 Mg Tablet) 15 mg PO DAILY [facility] Last Admin: 08/05/25 08:57 Dose: 15 mg Ascorbic Acid (Ascorbic Acid 500 Mg Tablet) 500 mg PO BID [facility] Last Admin: 08/05/25 08:57 Dose: 500 mg Aspirin (Aspirin Enteric Coated 81 Mg Tablet.Dr) 81 mg PO DAILY [facility] [place] Last Admin: 08/05/25 08:57 Dose: 81 mg Atorvastatin Calcium (Atorvastatin Calcium 80 Mg Tablet) 80 mg PO BEDTIME [facility] [place] Last Admin: 08/04/25 20:22 Dose: 80 mg Calcium Carbonate/Cholecalciferol (Calcium + Vitamin D 250 Mg Tablet) 500 mg PO BID [facility] [place] Last Admin: 08/05/25 08:57 Dose: 500 mg Docusate Sodium (Docusate Sodium 100 Mg Capsule) 100 mg PO BID [facility] Last Admin: 08/05/25 08:58 Dose: 100 mg Donepezil HCl (Donepezil Hcl 5 Mg Tablet) 5 mg PO DAILY [facility] [place] Last Admin: 08/05/25 08:57 Dose: 5 mg Escitalopram Oxalate (Escitalopram Oxalate 10 Mg Tablet) 10 mg PO DAILY [facility] [place] Last Admin: 08/05/25 08:57 Dose: 10 mg Fluticasone Propionate (Fluticasone Propionate Nasal 16 Gm [place]) 1 spray NOSTRIL-B DAILY [facility] [place] Last Admin: 08/05/25 08:56 Dose: 1 spray Gabapentin (Gabapentin 100 Mg Capsule) 100 mg PO BEDTIME [facility] Last Admin: 08/04/25 20:21 Dose: 100 mg Hydroxyzine HCl (Hydroxyzine Hcl 25 Mg Tablet) 25 mg PO Q6H PRN PRN Reason: mild anxiety Last Admin: 07/12/25 14:44 Dose: 25 mg Ketotifen Fumarate (Ketotifen Fumarate 0.025% Oph 5 Ml Drpbtl) 1 drop EYE-BOTH BID [facility] [place] Last Admin: 08/05/25 08:56 Dose: 1 drop Levothyroxine Sodium (Levothyroxine Sodium 75 Mcg Tablet) 75 mcg PO DAILY@0600 [facility] Last Admin: 08/05/25 05:51 Dose: 75 mcg Magnesium Hydroxide (Milk Of Magnesia 30 Ml Oral.Susp) 30 ml PO DAILY PRN PRN Reason: Constipation Melatonin (Melatonin 3 Mg Tablet) 6 mg PO BEDTIME [facility] Last Admin: 08/04/25 20:21 Dose: 6 mg Mirtazapine (Mirtazapine 15 Mg Tablet) 15 mg PO BEDTIME [facility] Last Admin: 08/04/25 20:21 Dose: 15 mg Multivitamins/Vitamin C (Multivitamin Tablet) 1 tab PO DAILY [facility] Last Admin: 08/05/25 08:57 Dose: 1 tab Nystatin (Nystatin Powder 15 Gm Bottle) 1 appl TOPICAL BID [facility] [place]; Protocol Last Admin: 08/05/25 08:56 Dose: 1 appl Omeprazole (Omeprazole 20 Mg Capsule.Dr) 20 mg PO DAILY@0630 [facility] [place] Last Admin: 08/05/25 06:25 Dose: 20 mg Propranolol HCl (Propranolol Hcl 10 Mg Tablet) 10 mg PO DAILY [facility]; Protocol Last Admin: 08/05/25 08:58 Dose: 10 mg Propranolol HCl (Propranolol Hcl 20 Mg Tablet) 20 mg PO BEDTIME [facility]; Protocol Last Admin: 08/04/25 20:21 Dose: 20 mg Pyridoxine HCl (Pyridoxine Hcl (Vitamin B6) 50 Mg Tablet) 100 mg PO BID [facility] [place] Last Admin: 08/05/25 08:58 Dose: 100 mg Quetiapine Fumarate (Quetiapine Fumarate 50 Mg Tablet) 50 mg PO BEDTIME [facility] [place] Last Admin: 08/04/25 20:21 Dose: 50 mg Senna (Sennosides 8.6 Mg Tablet) 17.2 mg PO BEDTIME [facility] Last Admin: 08/04/25 20:22 Dose: 17.2 mg Simethicone (Simethicone 80 Mg Tab.Chew) 80 mg PO BID [facility] [place] Last Admin: 08/05/25 08:57 Dose: 80 mg Vitamin D (Cholecalciferol (Vitamin D3) 25 Mcg Tablet) 25 mcg PO DAILY [facility] Last Admin: 08/05/25 08:57 Dose: 25 mcg Vitamin E (Vitamin E (Dl,Tocopheryl Acet) 180 Mg (400 Unit) Capsule) 540 mg PO DAILY [facility] [place] Last Admin: 08/05/25 08:57 Dose: 540 mg Allergies Allergies Allergy/AdvReac Type Severity Reaction Status Date / Time egg Allergy Intermediate Unknown Verified 07/10/25 03:24 monosodium glutamate (MSG) Allergy Intermediate Unknown Verified 07/10/25 03:25 caffeine Allergy Mild Unknown Verified 07/10/25 03:23 Assessment & Plan Assessment & Plan (1) Major neurocognitive disorder due to multiple etiologies, with psychotic disturbance: Status: Acute Code(s): F02.82 - Dementia in other diseases classified elsewhere, unspecified severity, with psychotic disturbance Plan psychotic disorder, anti-psychotic recently stopped for unclear reasons. mina's order reviewed (abilify to 5 mg daily, seroquel to 50 mg daily are on the order). 07/04: restart abilify 5 mg at HS. seroquel 25 BID PRN agitation. 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 07/05: DC wellbutrin as it may increase anxiety and restlessness, increasing agitation. awake and alert today. no aggressive behaviors. continue current mgmt. 07/06: remains calm and pleasant. 2 episodes of head-banging yesterday evening. commitment paperwork filed. 07/07: intermittent head-banging continues in response to CAH. change seroquel from PRN to scheduled. otherwise continue current mgmt. 07/08: head-banging yesterday simon. slept well overnight. continue current mgmt. 07/09: needing redirection from head-banging. slept 8 hours. pleasant, cooperative. continue current mgmt. 07/10: some head-banging yesterday afternoon. self-dialoguing eves. none overnight, slept well. hearing continued to 07/26. continue current mgmt. 07/11: No head-banging today. Still hears voices but they have not instructed her to bang her head today. Self-dialoguing. Slept well. Pleasantly confused. Continue current treatment regimen. 07/12: can't recall last head banging or CAH to do so. sleeping well, eating well. no SIB in the past 24H. continue current mgmt. 07/13: head-banging again last night, say she doesn't recall it. calm, pleasant, cooperative today. continue current mgmt. 07/15: No changes 07/16: no SIB for the past few days. as per usual, cannot recall any AH or SIB episodes. continue current mgmt. 07/17: tried on Q5 min checks yesterday but started head-banging, placed back on 1:1. today denies any recollection of the event, denies Sx. continue current mgmt. affidavit for extension of Tx plan completed. 07/18: no head-banging in past 24H. denies Sx. remains on 1:1. continue current mgmt. 07/19 continue current tx, may consider changing antipsychotic to more effective one such as risperidone. continue on one to one, but if stable will change to 5 minutes checks. 07/20 continue tx. try 5 minutes checks. 07/24 continue tx. no self injurious behaviors. 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 07/27: calm, cooperative. off of 1:1, can't recall last time head-banging. denies AH. continue current mgmt. 07/28/2025: Continue current management 07/31 continue tx. 08/01 continue tx. 08/02 continue tx. she is currently on 15 minutes checks. 08/03 continue tx. 08/04: no change today 08/05: no change Patient educated on: diagnosis Informed Consent: further education needed Reason for continued inpatient stay Substantial Risk for: rapid decompensation Time Spent With Patient Time: Total time managing care of this patient today __15__ minutes.
[2025-08-05 20:09] VITALS: BP 124/57; PULSE 71; RESP 17; TEMP 35.9; O2SAT 96
[2025-08-05 20:55] VITALS: BP 124/57; PULSE 71
[2025-08-06 08:00] VITALS: BP 155/67; PULSE 73; RESP 16; TEMP 36.3; O2SAT 94
[2025-08-06] MEDS: Ketotifen Fumarate 0.025% Oph 5 ML DRPBTL 1 DROP EYE-BOTH ×2 (08:29→20:37)
[2025-08-06 08:31] VITALS: BP 155/67; PULSE 73
[2025-08-06] MEDS: Vitamin E (Dl,Tocopheryl Acet) 180 MG (400 UNIT) CAPSULE 540 MG PO (08:31)
[2025-08-06] MEDS: Calcium + Vitamin D 250 MG TABLET 500 MG PO ×2 (08:31→20:36)
[2025-08-06] MEDS: Aspirin Enteric Coated 81 MG TABLET.DR PO (08:31)
[2025-08-06 08:32] VITALS: BP 155/67
--- NOTE | 2025-08-06 08:42 | P.PNPSI_ITS ---
Subjective Subjective Date of Service: 08/06/25 Reason For Visit: psychosis Subjective Notes: Conditional Voluntary Healthcare Proxy: Yes Interim History: Pt slept through the night. She denies any physical concerns or concerns about being here. No overt delusional content noted or reported. She quickly dismisses this verse writer reporting she is good. She denies SI/HI. Taking medications as prescribed. No behavioral concerns. Medication Compliance: Yes Review of Systems Review of Systems She denies any shortness of breath, chest pain, dizziness, headaches, abdominal discomfort or other concerning symptoms. Yes all other systems are reviewed and are negative Mental Status Exam Mental Status Exam Narrative: Patient Appearance: Well Groomed, adequate hygiene Patient Behavior: Appropriate Ability to Follow Directions: Excellent Level of Consciousness: Awake, alert Patient Orientation: Person only Memory: impaired recent and remote Psychomotor: slowing Speech: normal rate, tone, volume Mood: ?okay? Affect: appropriate range Thought Process: Goal Oriented Thought Content: denies SI/HI; focused on treatment questions Hallucinations: Denies; does not appear preoccupied Delusions: None evinced Insight: impaired Judgment: impaired Impulsivity: low Diagnostics Vital Signs (24Hr): Vital Signs - 24 hr 08/05/25 20:09 08/05/25 20:55 08/06/25 08:31 Temperature 96.6 F L Pulse Rate 71 71 73 Respiratory Rate 17 Blood Pressure 124/57 L 124/57 L 155/67 H Pulse Oximetry 96 08/06/25 08:32 Temperature Pulse Rate Respiratory Rate Blood Pressure 155/67 H Pulse Oximetry BMI result Body Mass Index 30.2 Labs 07/01/25 12:43 08/02/25 07:38 Imaging Radiology Impressions: ITS Impressions Head CT 07/04/25 16:13 IMPRESSION: 1. No acute intracranial findings. 2. Interval decrease in the right frontal scalp hematoma. Electronically signed by: Durga Benavides MD 07/04/2025 06:14 PM EDT Medications Medications Current Medications Acetaminophen (Acetaminophen 325 Mg Tablet) 650 mg PO Q6H PRN PRN Reason: Pain (Scale Score 1-3) Al Hydroxide/Mg Hydroxide (Magnesium Hydrox/Alum Hydrox 30 Ml Oral.Susp) 30 ml PO Q6H PRN PRN Reason: Heartburn/Nausea Amlodipine Besylate (Amlodipine Besylate 2.5 Mg Tablet) 2.5 mg PO DAILY [facility]; Protocol Last Admin: 08/06/25 08:32 Dose: 2.5 mg Aripiprazole (Aripiprazole 15 Mg Tablet) 15 mg PO DAILY [facility] Last Admin: 08/06/25 08:31 Dose: 15 mg Ascorbic Acid (Ascorbic Acid 500 Mg Tablet) 500 mg PO BID [facility] Last Admin: 08/06/25 08:32 Dose: 500 mg Aspirin (Aspirin Enteric Coated 81 Mg Tablet.Dr) 81 mg PO DAILY [facility] Last Admin: 08/06/25 08:31 Dose: 81 mg Atorvastatin Calcium (Atorvastatin Calcium 80 Mg Tablet) 80 mg PO BEDTIME [facility] Last Admin: 08/05/25 20:57 Dose: 80 mg Calcium Carbonate/Cholecalciferol (Calcium + Vitamin D 250 Mg Tablet) 500 mg PO BID [facility] Last Admin: 08/06/25 08:31 Dose: 500 mg Docusate Sodium (Docusate Sodium 100 Mg Capsule) 100 mg PO BID [facility] Last Admin: 08/06/25 08:31 Dose: 100 mg Donepezil HCl (Donepezil Hcl 5 Mg Tablet) 5 mg PO DAILY [facility] Last Admin: 08/06/25 08:32 Dose: 5 mg Escitalopram Oxalate (Escitalopram Oxalate 10 Mg Tablet) 10 mg PO DAILY [facility] Last Admin: 08/06/25 08:31 Dose: 10 mg Fluticasone Propionate (Fluticasone Propionate Nasal 16 Gm [place]) 1 spray NOSTRIL-B DAILY [facility] Last Admin: 08/06/25 08:34 Dose: 1 spray Gabapentin (Gabapentin 100 Mg Capsule) 100 mg PO BEDTIME [facility] Last Admin: 08/05/25 20:55 Dose: 100 mg Hydroxyzine HCl (Hydroxyzine Hcl 25 Mg Tablet) 25 mg PO Q6H PRN PRN Reason: mild anxiety Last Admin: 07/12/25 14:44 Dose: 25 mg Ketotifen Fumarate (Ketotifen Fumarate 0.025% Oph 5 Ml Drpbtl) 1 drop EYE-BOTH BID [facility] Last Admin: 08/06/25 08:29 Dose: 1 drop Levothyroxine Sodium (Levothyroxine Sodium 75 Mcg Tablet) 75 mcg PO DAILY@0600 [facility] Last Admin: 08/06/25 06:39 Dose: 75 mcg Magnesium Hydroxide (Milk Of Magnesia 30 Ml Oral.Susp) 30 ml PO DAILY PRN PRN Reason: Constipation Melatonin (Melatonin 3 Mg Tablet) 6 mg PO BEDTIME [facility] Last Admin: 08/05/25 20:57 Dose: 6 mg Mirtazapine (Mirtazapine 15 Mg Tablet) 15 mg PO BEDTIME [facility] Last Admin: 08/05/25 20:56 Dose: 15 mg Multivitamins/Vitamin C (Multivitamin Tablet) 1 tab PO DAILY [facility] Last Admin: 08/06/25 08:31 Dose: 1 tab Nystatin (Nystatin Powder 15 Gm Bottle) 1 appl TOPICAL BID [facility]; Protocol Last Admin: 08/06/25 08:30 Dose: 1 appl Omeprazole (Omeprazole 20 Mg Capsule.Dr) 20 mg PO DAILY@0630 [facility] Last Admin: 08/06/25 06:39 Dose: 20 mg Propranolol HCl (Propranolol Hcl 10 Mg Tablet) 10 mg PO DAILY [facility]; Protocol Last Admin: 08/06/25 08:31 Dose: 10 mg Propranolol HCl (Propranolol Hcl 20 Mg Tablet) 20 mg PO BEDTIME [facility]; Protocol Last Admin: 08/05/25 20:55 Dose: 20 mg Pyridoxine HCl (Pyridoxine Hcl (Vitamin B6) 50 Mg Tablet) 100 mg PO BID [facility] Last Admin: 08/06/25 08:32 Dose: 100 mg Quetiapine Fumarate (Quetiapine Fumarate 50 Mg Tablet) 50 mg PO BEDTIME [facility] Last Admin: 08/05/25 20:57 Dose: 50 mg Senna (Sennosides 8.6 Mg Tablet) 17.2 mg PO BEDTIME [facility] Last Admin: 08/05/25 20:56 Dose: 17.2 mg Simethicone (Simethicone 80 Mg Tab.Chew) 80 mg PO BID [facility] Last Admin: 08/06/25 08:31 Dose: 80 mg Vitamin D (Cholecalciferol (Vitamin D3) 25 Mcg Tablet) 25 mcg PO DAILY [facility] Last Admin: 08/06/25 08:32 Dose: 25 mcg Vitamin E (Vitamin E (Dl,Tocopheryl Acet) 180 Mg (400 Unit) Capsule) 540 mg PO DAILY [facility] Last Admin: 08/06/25 08:31 Dose: 540 mg Allergies Allergies Allergy/AdvReac Type Severity Reaction Status Date / Time egg Allergy Intermediate Unknown Verified 07/10/25 03:24 monosodium glutamate (MSG) Allergy Intermediate Unknown Verified 07/10/25 03:25 caffeine Allergy Mild Unknown Verified 07/10/25 03:23 Assessment & Plan Assessment & Plan (1) Major neurocognitive disorder due to multiple etiologies, with psychotic disturbance: Status: Acute Code(s): F02.82 - Dementia in other diseases classified elsewhere, unspecified severity, with psychotic disturbance Plan psychotic disorder, anti-psychotic recently stopped for unclear reasons. mina's order reviewed (abilify to 5 mg daily, seroquel to 50 mg daily are on the order). 07/04: restart abilify 5 mg at HS. seroquel 25 BID PRN agitation. 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 07/05: DC wellbutrin as it may increase anxiety and restlessness, increasing agitation. awake and alert today. no aggressive behaviors. continue current mgmt. 07/06: remains calm and pleasant. 2 episodes of head-banging yesterday evening. commitment paperwork filed. 07/07: intermittent head-banging continues in response to CAH. change seroquel from PRN to scheduled. otherwise continue current mgmt. 07/08: head-banging yesterday simon. slept well overnight. continue current mgmt. 07/09: needing redirection from head-banging. slept 8 hours. pleasant, cooperative. continue current mgmt. 07/10: some head-banging yesterday afternoon. self-dialoguing eves. none overnight, slept well. hearing continued to 07/26. continue current mgmt. 07/11: No head-banging today. Still hears voices but they have not instructed her to bang her head today. Self-dialoguing. Slept well. Pleasantly confused. Continue current treatment regimen. 07/12: can't recall last head banging or CAH to do so. sleeping well, eating well. no SIB in the past 24H. continue current mgmt. 07/13: head-banging again last night, say she doesn't recall it. calm, pleasant, cooperative today. continue current mgmt. 07/15: No changes 07/16: no SIB for the past few days. as per usual, cannot recall any AH or SIB episodes. continue current mgmt. 07/17: tried on Q5 min checks yesterday but started head-banging, placed back on 1:1. today denies any recollection of the event, denies Sx. continue current mgmt. affidavit for extension of Tx plan completed. 07/18: no head-banging in past 24H. denies Sx. remains on 1:1. continue current mgmt. 07/19 continue current tx, may consider changing antipsychotic to more effective one such as risperidone. continue on one to one, but if stable will change to 5 minutes checks. 07/20 continue tx. try 5 minutes checks. 07/24 continue tx. no self injurious behaviors. 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 07/27: calm, cooperative. off of 1:1, can't recall last time head-banging. denies AH. continue current mgmt. 07/28/2025: Continue current management 07/31 continue tx. 08/01 continue tx. 08/02 continue tx. she is currently on 15 minutes checks. 08/03 continue tx. 08/04: no change today 08/05: no change 08/06 continue tx. Reason for continued inpatient stay Substantial Risk for: inability to function Time Spent With Patient Time: Total time managing care of this patient today ____ minutes.
[2025-08-06 20:00] VITALS: BP 134/65; PULSE 62; RESP 16; TEMP 36; O2SAT 93
[2025-08-07 08:00] VITALS: BP 145/68; PULSE 59; RESP 16; O2SAT 95
[2025-08-07] MEDS: Calcium + Vitamin D 250 MG TABLET 500 MG PO ×2 (08:53→20:11)
[2025-08-07] MEDS: Ketotifen Fumarate 0.025% Oph 5 ML DRPBTL 1 DROP EYE-BOTH ×2 (08:53→20:22)
[2025-08-07] MEDS: Aspirin Enteric Coated 81 MG TABLET.DR PO (08:54)
[2025-08-07] MEDS: Vitamin E (Dl,Tocopheryl Acet) 180 MG (400 UNIT) CAPSULE 540 MG PO (08:54)
--- NOTE | 2025-08-07 11:37 | P.PNPSI_ITS ---
Subjective Subjective Date of Service: 08/07/25 Reason For Visit: psychosis Subjective Notes: Conditional Voluntary Guardianship: Yes Interim History: Pt sleeping through the night. She denies any concerns. Not oriented to place, month nor situation. She is taking medications as prescribed. No behavioral concerns. Review of Systems Review of Systems She denies any shortness of breath, chest pain, dizziness, headaches, abdominal discomfort or other concerning symptoms. Yes all other systems are reviewed and are negative Mental Status Exam Mental Status Exam Narrative: adequately dressed and groomed, hospital attire. cooperative, no PMA/PMR. speech nml rate, decr amount, nml loudness, nml latency. thoughts linear and logical. affect flexible, normo-intense, non-labile. mood good. denies AH, SIBI. no SI/HI/VH expressed. Diagnostics Vital Signs (24Hr): Vital Signs - 24 hr 08/06/25 20:00 08/07/25 08:00 Temperature 96.8 F Pulse Rate 62 59 Respiratory Rate 16 16 Blood Pressure 134/65 145/68 H Pulse Oximetry 93 95 Oxygen Delivery Method Room Air Room Air BMI result Body Mass Index 30.2 Labs 07/01/25 12:43 08/02/25 07:38 Imaging Radiology Impressions: ITS Impressions Head CT 07/04/25 16:13 IMPRESSION: 1. No acute intracranial findings. 2. Interval decrease in the right frontal scalp hematoma. Electronically signed by: Durga Benavides MD 07/04/2025 06:14 PM EDT RP Medications Medications Current Medications Acetaminophen (Acetaminophen 325 Mg Tablet) 650 mg PO Q6H PRN PRN Reason: Pain (Scale Score 1-3) Al Hydroxide/Mg Hydroxide (Magnesium Hydrox/Alum Hydrox 30 Ml Oral.Susp) 30 ml PO Q6H PRN PRN Reason: Heartburn/Nausea Amlodipine Besylate (Amlodipine Besylate 2.5 Mg Tablet) 2.5 mg PO DAILY [facility]; Protocol Last Admin: 08/07/25 08:54 Dose: 2.5 mg Aripiprazole (Aripiprazole 15 Mg Tablet) 15 mg PO DAILY [facility] Last Admin: 08/07/25 08:54 Dose: 15 mg Ascorbic Acid (Ascorbic Acid 500 Mg Tablet) 500 mg PO BID [facility] Last Admin: 08/07/25 08:54 Dose: 500 mg Aspirin (Aspirin Enteric Coated 81 Mg Tablet.Dr) 81 mg PO DAILY [facility] Last Admin: 08/07/25 08:54 Dose: 81 mg Atorvastatin Calcium (Atorvastatin Calcium 80 Mg Tablet) 80 mg PO BEDTIME [facility] Last Admin: 08/06/25 20:36 Dose: 80 mg Calcium Carbonate/Cholecalciferol (Calcium + Vitamin D 250 Mg Tablet) 500 mg PO BID [facility] Last Admin: 08/07/25 08:53 Dose: 500 mg Docusate Sodium (Docusate Sodium 100 Mg Capsule) 100 mg PO BID [facility] Last Admin: 08/07/25 08:54 Dose: 100 mg Donepezil HCl (Donepezil Hcl 5 Mg Tablet) 5 mg PO DAILY [facility] Last Admin: 08/07/25 08:56 Dose: 5 mg Escitalopram Oxalate (Escitalopram Oxalate 10 Mg Tablet) 10 mg PO DAILY [facility] Last Admin: 08/07/25 08:55 Dose: 10 mg Fluticasone Propionate (Fluticasone Propionate Nasal 16 Gm [place]) 1 spray NOSTRIL-B DAILY [facility] Last Admin: 08/07/25 08:53 Dose: 1 spray Gabapentin (Gabapentin 100 Mg Capsule) 100 mg PO BEDTIME [facility] Last Admin: 08/06/25 20:36 Dose: 100 mg Hydroxyzine HCl (Hydroxyzine Hcl 25 Mg Tablet) 25 mg PO Q6H PRN PRN Reason: mild anxiety Last Admin: 07/12/25 14:44 Dose: 25 mg Ketotifen Fumarate (Ketotifen Fumarate 0.025% Oph 5 Ml Drpbtl) 1 drop EYE-BOTH BID [facility] Last Admin: 08/07/25 08:53 Dose: 1 drop Levothyroxine Sodium (Levothyroxine Sodium 75 Mcg Tablet) 75 mcg PO DAILY@0600 [facility] Last Admin: 08/07/25 05:30 Dose: 75 mcg Magnesium Hydroxide (Milk Of Magnesia 30 Ml Oral.Susp) 30 ml PO DAILY PRN PRN Reason: Constipation Melatonin (Melatonin 3 Mg Tablet) 6 mg PO BEDTIME [facility] Last Admin: 08/06/25 20:35 Dose: 6 mg Mirtazapine (Mirtazapine 15 Mg Tablet) 15 mg PO BEDTIME [facility] Last Admin: 08/06/25 20:36 Dose: 15 mg Multivitamins/Vitamin C (Multivitamin Tablet) 1 tab PO DAILY [facility] Last Admin: 08/07/25 08:54 Dose: 1 tab Nystatin (Nystatin Powder 15 Gm Bottle) 1 appl TOPICAL BID [facility]; Protocol Last Admin: 08/07/25 08:55 Dose: 1 appl Omeprazole (Omeprazole 20 Mg Capsule.Dr) 20 mg PO DAILY@0630 [facility] Last Admin: 08/07/25 06:18 Dose: 20 mg Propranolol HCl (Propranolol Hcl 10 Mg Tablet) 10 mg PO DAILY [facility]; Protocol Last Admin: 08/07/25 08:54 Dose: 10 mg Propranolol HCl (Propranolol Hcl 20 Mg Tablet) 20 mg PO BEDTIME [facility]; Protocol Last Admin: 08/06/25 20:36 Dose: 20 mg Pyridoxine HCl (Pyridoxine Hcl (Vitamin B6) 50 Mg Tablet) 100 mg PO BID [facility] Last Admin: 08/07/25 08:54 Dose: 100 mg Quetiapine Fumarate (Quetiapine Fumarate 50 Mg Tablet) 50 mg PO BEDTIME [facility] Last Admin: 08/06/25 20:36 Dose: 50 mg Senna (Sennosides 8.6 Mg Tablet) 17.2 mg PO BEDTIME [facility] Last Admin: 08/06/25 20:36 Dose: 17.2 mg Simethicone (Simethicone 80 Mg Tab.Chew) 80 mg PO BID [facility] Last Admin: 08/07/25 08:53 Dose: 80 mg Vitamin D (Cholecalciferol (Vitamin D3) 25 Mcg Tablet) 25 mcg PO DAILY [facility] Last Admin: 08/07/25 08:54 Dose: 25 mcg Vitamin E (Vitamin E (Dl,Tocopheryl Acet) 180 Mg (400 Unit) Capsule) 540 mg PO DAILY [facility] Last Admin: 08/07/25 08:54 Dose: 540 mg Allergies Allergies Allergy/AdvReac Type Severity Reaction Status Date / Time egg Allergy Intermediate Unknown Verified 07/10/25 03:24 monosodium glutamate (MSG) Allergy Intermediate Unknown Verified 07/10/25 03:25 caffeine Allergy Mild Unknown Verified 07/10/25 03:23 Assessment & Plan Assessment & Plan (1) Major neurocognitive disorder due to multiple etiologies, with psychotic disturbance: Status: Acute Code(s): F02.82 - Dementia in other diseases classified elsewhere, unspecified severity, with psychotic disturbance Plan psychotic disorder, anti-psychotic recently stopped for unclear reasons. mina's order reviewed (abilify to 5 mg daily, seroquel to 50 mg daily are on the order). 07/04: restart abilify 5 mg at HS. seroquel 25 BID PRN agitation. 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 07/05: DC wellbutrin as it may increase anxiety and restlessness, increasing agitation. awake and alert today. no aggressive behaviors. continue current mgmt. 07/06: remains calm and pleasant. 2 episodes of head-banging yesterday evening. commitment paperwork filed. 07/07: intermittent head-banging continues in response to CAH. change seroquel from PRN to scheduled. otherwise continue current mgmt. 07/08: head-banging yesterday simon. slept well overnight. continue current mgmt. 07/09: needing redirection from head-banging. slept 8 hours. pleasant, cooperative. continue current mgmt. 07/10: some head-banging yesterday afternoon. self-dialoguing eves. none overnight, slept well. hearing continued to 07/26. continue current mgmt. 07/11: No head-banging today. Still hears voices but they have not instructed her to bang her head today. Self-dialoguing. Slept well. Pleasantly confused. Continue current treatment regimen. 07/12: can't recall last head banging or CAH to do so. sleeping well, eating well. no SIB in the past 24H. continue current mgmt. 07/13: head-banging again last night, say she doesn't recall it. calm, pleasant, cooperative today. continue current mgmt. 07/15: No changes 07/16: no SIB for the past few days. as per usual, cannot recall any AH or SIB episodes. continue current mgmt. 07/17: tried on Q5 min checks yesterday but started head-banging, placed back on 1:1. today denies any recollection of the event, denies Sx. continue current mgmt. affidavit for extension of Tx plan completed. 07/18: no head-banging in past 24H. denies Sx. remains on 1:1. continue current mgmt. 07/19 continue current tx, may consider changing antipsychotic to more effective one such as risperidone. continue on one to one, but if stable will change to 5 minutes checks. 07/20 continue tx. try 5 minutes checks. 07/24 continue tx. no self injurious behaviors. 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 07/27: calm, cooperative. off of 1:1, can't recall last time head-banging. denies AH. continue current mgmt. 07/28/2025: Continue current management 07/31 continue tx. 08/01 continue tx. 08/02 continue tx. she is currently on 15 minutes checks. 08/03 continue tx. 08/04: no change today 08/05: no change 08/06 continue tx. 08/07 continue tx. Reason for continued inpatient stay Substantial Risk for: inability to function Time Spent With Patient Time: Total time managing care of this patient today ____ minutes.
[2025-08-07 20:00] VITALS: BP 141/67; PULSE 88; RESP 16; TEMP 36.1; O2SAT 94
[2025-08-08 08:00] VITALS: BP 173/81; PULSE 66; O2SAT 93
[2025-08-08] MEDS: Calcium + Vitamin D 250 MG TABLET 500 MG PO ×2 (08:38→21:13)
[2025-08-08] MEDS: Vitamin E (Dl,Tocopheryl Acet) 180 MG (400 UNIT) CAPSULE 540 MG PO (08:38)
[2025-08-08] MEDS: Aspirin Enteric Coated 81 MG TABLET.DR PO (08:39)
[2025-08-08] MEDS: Ketotifen Fumarate 0.025% Oph 5 ML DRPBTL 1 DROP EYE-BOTH ×2 (08:40→21:19)
--- NOTE | 2025-08-08 19:33 | P.PNPSI_ITS ---
Subjective Subjective Date of Service: 08/08/25 Reason For Visit: psychosis Subjective Notes: Conditional Voluntary Interim History: Pt slept through the night. Pt reports doing well. She denies any complains. taking medications. VS stable. No behavioral concerns. plan for d/c this week. Spoke with OP [employer] T[employer]AS[employer] CONSULTANT Denise to give update. Medication Compliance: Yes Review of Systems Review of Systems She denies any shortness of breath, chest pain, dizziness, headaches, abdominal discomfort or other concerning symptoms. Yes all other systems are reviewed and are negative Mental Status Exam Mental Status Exam Narrative: adequately dressed and groomed, hospital attire. cooperative, no PMA/PMR. speech nml rate, decr amount, nml loudness, nml latency. thoughts linear and logical. affect flexible, normo-intense, non-labile. mood good. denies AH, SIBI. no SI/HI/VH expressed. Diagnostics Vital Signs (24Hr): Vital Signs - 24 hr 08/07/25 20:00 08/08/25 08:00 Temperature 97 F Pulse Rate 88 66 Respiratory Rate 16 Blood Pressure 141/67 H 173/81 H Pulse Oximetry 94 93 Oxygen Delivery Method Room Air Room Air BMI result Body Mass Index 30.2 Labs 07/01/25 12:43 08/02/25 07:38 Imaging Radiology Impressions: ITS Impressions Head CT 07/04/25 16:13 IMPRESSION: 1. No acute intracranial findings. 2. Interval decrease in the right frontal scalp hematoma. Electronically signed by: Druga Benavides MD 07/04/2025 06:14 PM EDT RP Medications Medications Current Medications Acetaminophen (Acetaminophen 325 Mg Tablet) 650 mg PO Q6H PRN PRN Reason: Pain (Scale Score 1-3) Al Hydroxide/Mg Hydroxide (Magnesium Hydrox/Alum Hydrox 30 Ml Oral.Susp) 30 ml PO Q6H PRN PRN Reason: Heartburn/Nausea Amlodipine Besylate (Amlodipine Besylate 2.5 Mg Tablet) 2.5 mg PO DAILY [facility]; Protocol Last Admin: 08/08/25 08:39 Dose: 2.5 mg Aripiprazole (Aripiprazole 5 Mg Tablet) 5 mg PO DAILY [facility] Ascorbic Acid (Ascorbic Acid 500 Mg Tablet) 500 mg PO BID [facility] Last Admin: 08/08/25 08:39 Dose: 500 mg Aspirin (Aspirin Enteric Coated 81 Mg Tablet.) 81 mg PO DAILY [facility] Last Admin: 08/08/25 08:39 Dose: 81 mg Atorvastatin Calcium (Atorvastatin Calcium 80 Mg Tablet) 80 mg PO BEDTIME [facility] Last Admin: 08/07/25 20:10 Dose: 80 mg Calcium Carbonate/Cholecalciferol (Calcium + Vitamin D 250 Mg Tablet) 500 mg PO BID [facility] Last Admin: 08/08/25 08:38 Dose: 500 mg Docusate Sodium (Docusate Sodium 100 Mg Capsule) 100 mg PO BID [facility] Last Admin: 08/08/25 08:39 Dose: 100 mg Donepezil HCl (Donepezil Hcl 5 Mg Tablet) 5 mg PO DAILY [facility] Last Admin: 08/08/25 08:39 Dose: 5 mg Escitalopram Oxalate (Escitalopram Oxalate 10 Mg Tablet) 10 mg PO DAILY [facility] Last Admin: 08/08/25 08:39 Dose: 10 mg Fluticasone Propionate (Fluticasone Propionate Nasal 16 Gm [place]) 1 spray NOSTRIL-B DAILY [facility] Last Admin: 08/08/25 08:40 Dose: 1 spray Gabapentin (Gabapentin 100 Mg Capsule) 100 mg PO BEDTIME [facility] Last Admin: 08/07/25 20:10 Dose: 100 mg Hydroxyzine HCl (Hydroxyzine Hcl 25 Mg Tablet) 25 mg PO Q6H PRN PRN Reason: mild anxiety Last Admin: 07/12/25 14:44 Dose: 25 mg Ketotifen Fumarate (Ketotifen Fumarate 0.025% Oph 5 Ml Drpbtl) 1 drop EYE-BOTH BID [facility] Last Admin: 08/08/25 08:40 Dose: 1 drop Levothyroxine Sodium (Levothyroxine Sodium 75 Mcg Tablet) 75 mcg PO DAILY@0600 [facility] Last Admin: 08/08/25 06:00 Dose: 75 mcg Magnesium Hydroxide (Milk Of Magnesia 30 Ml Oral.Susp) 30 ml PO DAILY PRN PRN Reason: Constipation Melatonin (Melatonin 3 Mg Tablet) 6 mg PO BEDTIME [facility] Last Admin: 08/07/25 20:10 Dose: 6 mg Mirtazapine (Mirtazapine 15 Mg Tablet) 15 mg PO BEDTIME [facility] Last Admin: 08/07/25 20:10 Dose: 15 mg Multivitamins/Vitamin C (Multivitamin Tablet) 1 tab PO DAILY [facility] Last Admin: 08/08/25 08:40 Dose: 1 tab Nystatin (Nystatin Powder 15 Gm Bottle) 1 appl TOPICAL BID [facility]; Protocol Last Admin: 08/08/25 14:39 Dose: 1 appl Omeprazole (Omeprazole 20 Mg Capsule.Dr) 20 mg PO DAILY@0630 [facility] Last Admin: 08/08/25 06:25 Dose: 20 mg Propranolol HCl (Propranolol Hcl 20 Mg Tablet) 20 mg PO BID [facility]; Protocol Pyridoxine HCl (Pyridoxine Hcl (Vitamin B6) 50 Mg Tablet) 100 mg PO BID [facility] Last Admin: 08/08/25 08:38 Dose: 100 mg Quetiapine Fumarate (Quetiapine Fumarate 50 Mg Tablet) 50 mg PO BEDTIME [facility] Senna (Sennosides 8.6 Mg Tablet) 17.2 mg PO BEDTIME [facility] Last Admin: 08/07/25 20:10 Dose: 17.2 mg Simethicone (Simethicone 80 Mg Tab.Chew) 80 mg PO BID [facility] Last Admin: 08/08/25 08:39 Dose: 80 mg Vitamin D (Cholecalciferol (Vitamin D3) 25 Mcg Tablet) 25 mcg PO DAILY [facility] Last Admin: 08/08/25 08:39 Dose: 25 mcg Vitamin E (Vitamin E (Dl,Tocopheryl Acet) 180 Mg (400 Unit) Capsule) 540 mg PO DAILY [facility] Last Admin: 08/08/25 08:38 Dose: 540 mg Allergies Allergies Allergy/AdvReac Type Severity Reaction Status Date / Time egg Allergy Intermediate Unknown Verified 07/10/25 03:24 monosodium glutamate (MSG) Allergy Intermediate Unknown Verified 07/10/25 03:25 caffeine Allergy Mild Unknown Verified 07/10/25 03:23 Assessment & Plan Assessment & Plan (1) Major neurocognitive disorder due to multiple etiologies, with psychotic disturbance: Status: Acute Code(s): F02.82 - Dementia in other diseases classified elsewhere, unspecified severity, with psychotic disturbance Plan psychotic disorder, anti-psychotic recently stopped for unclear reasons. mina's order reviewed (abilify to 5 mg daily, seroquel to 50 mg daily are on the order). 07/04: restart abilify 5 mg at HS. seroquel 25 BID PRN agitation. 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 07/05: DC wellbutrin as it may increase anxiety and restlessness, increasing agitation. awake and alert today. no aggressive behaviors. continue current mgmt. 07/06: remains calm and pleasant. 2 episodes of head-banging yesterday evening. commitment paperwork filed. 07/07: intermittent head-banging continues in response to CAH. change seroquel from PRN to scheduled. otherwise continue current mgmt. 07/08: head-banging yesterday simno. slept well overnight. continue current mgmt. 07/09: needing redirection from head-banging. slept 8 hours. pleasant, cooperative. continue current mgmt. 07/10: some head-banging yesterday afternoon. self-dialoguing eves. none overnight, slept well. hearing continued to 07/26. continue current mgmt. 07/11: No head-banging today. Still hears voices but they have not instructed her to bang her head today. Self-dialoguing. Slept well. Pleasantly confused. Continue current treatment regimen. 07/12: can't recall last head banging or CAH to do so. sleeping well, eating well. no SIB in the past 24H. continue current mgmt. 07/13: head-banging again last night, say she doesn't recall it. calm, pleasant, cooperative today. continue current mgmt. 07/15: No changes 07/16: no SIB for the past few days. as per usual, cannot recall any AH or SIB episodes. continue current mgmt. 07/17: tried on Q5 min checks yesterday but started head-banging, placed back on 1:1. today denies any recollection of the event, denies Sx. continue current mgmt. affidavit for extension of Tx plan completed. 07/18: no head-banging in past 24H. denies Sx. remains on 1:1. continue current mgmt. 07/19 continue current tx, may consider changing antipsychotic to more effective one such as risperidone. continue on one to one, but if stable will change to 5 minutes checks. 07/20 continue tx. try 5 minutes checks. 07/24 continue tx. no self injurious behaviors. 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 07/27: calm, cooperative. off of 1:1, can't recall last time head-banging. denies AH. continue current mgmt. 07/28/2025: Continue current management 07/31 continue tx. 08/01 continue tx. 08/02 continue tx. she is currently on 15 minutes checks. 08/03 continue tx. 08/04: no change today 08/05: no change 08/06 continue tx. 08/07 continue tx. 08/08 current magi max dose of abilify is 5mg, amend mina does include higher dose up to 30mg/day. Reason for continued inpatient stay Substantial Risk for: inability to function Time Spent With Patient Time: Total time managing care of this patient today ____ minutes.
[2025-08-08 19:49] VITALS: BP 148/82; PULSE 69; RESP 16; TEMP 36.4; O2SAT 93
[2025-08-09 08:00] VITALS: BP 147/66; PULSE 54; RESP 14; TEMP 36; O2SAT 95
[2025-08-09 08:40] VITALS: BMI 29.8
[2025-08-09] MEDS: Aspirin Enteric Coated 81 MG TABLET.DR PO (08:40)
[2025-08-09] MEDS: Calcium + Vitamin D 250 MG TABLET 500 MG PO ×2 (08:41→20:53)
[2025-08-09] MEDS: Vitamin E (Dl,Tocopheryl Acet) 180 MG (400 UNIT) CAPSULE 540 MG PO (08:42)
[2025-08-09] MEDS: Ketotifen Fumarate 0.025% Oph 5 ML DRPBTL 1 DROP EYE-BOTH ×2 (08:49→20:52)
--- NOTE | 2025-08-09 09:05 | HO.PSYCHPN ---
Subjective Subjective Date of Service: 08/09/25 Reason For Visit: psychosis Subjective Notes: Conditional Voluntary Healthcare Proxy: Yes Interim History: Pt slept through the night. She reports doing well. 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 Noticeable action/resting tremors. propanolol may not be as effective. she is taking medications. Review of Systems Review of Systems She denies any shortness of breath, chest pain, dizziness, headaches, abdominal discomfort or other concerning symptoms. Yes all other systems are reviewed and are negative Mental Status Exam Mental Status Exam Narrative: adequately dressed and groomed, hospital attire. cooperative, no PMA/PMR. speech nml rate, decr amount, nml loudness, nml latency. thoughts linear and logical. affect flexible, normo-intense, non-labile. mood good. denies AH, SIBI. no SI/HI/VH expressed. Diagnostics Vital Signs (24Hr): Vital Signs - 24 hr 08/08/25 19:49 08/09/25 08:00 Temperature 97.6 F 96.8 F Pulse Rate 69 54 Respiratory Rate 16 14 Blood Pressure 148/82 H 147/66 H Pulse Oximetry 93 95 Oxygen Delivery Method Room Air Room Air BMI result Body Mass Index 29.8 Labs 07/01/25 12:43 08/02/25 07:38 Imaging Radiology Impressions: ITS Impressions Head CT 07/04/25 16:13 IMPRESSION: 1. No acute intracranial findings. 2. Interval decrease in the right frontal scalp hematoma. Electronically signed by: Durga Benavides MD 07/04/2025 06:14 PM EDT Medications Medications Current Medications Acetaminophen (Acetaminophen 325 Mg Tablet) 650 mg PO Q6H PRN PRN Reason: Pain (Scale Score 1-3) Last Admin: 08/09/25 08:40 Dose: 650 mg Al Hydroxide/Mg Hydroxide (Magnesium Hydrox/Alum Hydrox 30 Ml Oral.Susp) 30 ml PO Q6H PRN PRN Reason: Heartburn/Nausea Amlodipine Besylate (Amlodipine Besylate 2.5 Mg Tablet) 2.5 mg PO DAILY [facility]; Protocol Last Admin: 08/09/25 08:43 Dose: 2.5 mg Aripiprazole (Aripiprazole 5 Mg Tablet) 5 mg PO DAILY [facility] Last Admin: 08/09/25 08:43 Dose: 5 mg Ascorbic Acid (Ascorbic Acid 500 Mg Tablet) 500 mg PO BID [facility] Last Admin: 08/09/25 08:42 Dose: 500 mg Aspirin (Aspirin Enteric Coated 81 Mg Tablet.Dr) 81 mg PO DAILY [facility] Last Admin: 08/09/25 08:40 Dose: 81 mg Atorvastatin Calcium (Atorvastatin Calcium 80 Mg Tablet) 80 mg PO BEDTIME [facility] Last Admin: 08/08/25 21:12 Dose: 80 mg Calcium Carbonate/Cholecalciferol (Calcium + Vitamin D 250 Mg Tablet) 500 mg PO BID [facility] Last Admin: 08/09/25 08:41 Dose: 500 mg Docusate Sodium (Docusate Sodium 100 Mg Capsule) 100 mg PO BID [facility] Last Admin: 08/09/25 08:43 Dose: 100 mg Donepezil HCl (Donepezil Hcl 5 Mg Tablet) 5 mg PO DAILY [facility] Last Admin: 08/09/25 08:43 Dose: 5 mg Escitalopram Oxalate (Escitalopram Oxalate 10 Mg Tablet) 10 mg PO DAILY [facility] Last Admin: 08/09/25 08:43 Dose: 10 mg Fluticasone Propionate (Fluticasone Propionate Nasal 16 Gm [place]) 1 spray NOSTRIL-B DAILY [facility] Last Admin: 08/09/25 08:49 Dose: 1 spray Gabapentin (Gabapentin 100 Mg Capsule) 100 mg PO BEDTIME [facility] Last Admin: 08/08/25 21:13 Dose: 100 mg Hydroxyzine HCl (Hydroxyzine Hcl 25 Mg Tablet) 25 mg PO Q6H PRN PRN Reason: mild anxiety Last Admin: 07/12/25 14:44 Dose: 25 mg Ketotifen Fumarate (Ketotifen Fumarate 0.025% Oph 5 Ml Drpbtl) 1 drop EYE-BOTH BID [facility] Last Admin: 08/09/25 08:49 Dose: 1 drop Levothyroxine Sodium (Levothyroxine Sodium 75 Mcg Tablet) 75 mcg PO DAILY@0600 [facility] Last Admin: 08/09/25 05:35 Dose: 75 mcg Magnesium Hydroxide (Milk Of Magnesia 30 Ml Oral.Susp) 30 ml PO DAILY PRN PRN Reason: Constipation Melatonin (Melatonin 3 Mg Tablet) 6 mg PO BEDTIME [facility] Last Admin: 08/08/25 21:13 Dose: 6 mg Mirtazapine (Mirtazapine 15 Mg Tablet) 15 mg PO BEDTIME [facility] Last Admin: 08/08/25 21:12 Dose: 15 mg Multivitamins/Vitamin C (Multivitamin Tablet) 1 tab PO DAILY [facility] Last Admin: 08/09/25 08:43 Dose: 1 tab Nystatin (Nystatin Powder 15 Gm Bottle) 1 appl TOPICAL BID [facility]; Protocol Last Admin: 08/09/25 08:50 Dose: 1 appl Omeprazole (Omeprazole 20 Mg Capsule.Dr) 20 mg PO DAILY@0630 [facility] Last Admin: 08/09/25 06:19 Dose: 20 mg Propranolol HCl (Propranolol Hcl 20 Mg Tablet) 20 mg PO BID [facility]; Protocol Last Admin: 08/09/25 08:42 Dose: 20 mg Pyridoxine HCl (Pyridoxine Hcl (Vitamin B6) 50 Mg Tablet) 100 mg PO BID [facility] Last Admin: 08/09/25 08:43 Dose: 100 mg Quetiapine Fumarate (Quetiapine Fumarate 50 Mg Tablet) 50 mg PO BEDTIME [facility] Last Admin: 08/08/25 21:12 Dose: 50 mg Senna (Sennosides 8.6 Mg Tablet) 17.2 mg PO BEDTIME [facility] Last Admin: 08/08/25 21:13 Dose: 17.2 mg Simethicone (Simethicone 80 Mg Tab.Chew) 80 mg PO BID [facility] Last Admin: 08/09/25 08:42 Dose: 80 mg Vitamin D (Cholecalciferol (Vitamin D3) 25 Mcg Tablet) 25 mcg PO DAILY [facility] Last Admin: 08/09/25 08:42 Dose: 25 mcg Vitamin E (Vitamin E (Dl,Tocopheryl Acet) 180 Mg (400 Unit) Capsule) 540 mg PO DAILY [facility] Last Admin: 08/09/25 08:42 Dose: 540 mg Allergies Allergies Allergy/AdvReac Type Severity Reaction Status Date / Time egg Allergy Intermediate Unknown Verified 07/10/25 03:24 monosodium glutamate (MSG) Allergy Intermediate Unknown Verified 07/10/25 03:25 caffeine Allergy Mild Unknown Verified 07/10/25 03:23 Assessment & Plan Assessment & Plan (1) Major neurocognitive disorder due to multiple etiologies, with psychotic disturbance: Status: Acute Code(s): F02.82 - Dementia in other diseases classified elsewhere, unspecified severity, with psychotic disturbance Plan psychotic disorder, anti-psychotic recently stopped for unclear reasons. mina's order reviewed (abilify to 5 mg daily, seroquel to 50 mg daily are on the order). 07/04: restart abilify 5 mg at HS. seroquel 25 BID PRN agitation. 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 07/05: DC wellbutrin as it may increase anxiety and restlessness, increasing agitation. awake and alert today. no aggressive behaviors. continue current mgmt. 07/06: remains calm and pleasant. 2 episodes of head-banging yesterday evening. commitment paperwork filed. 07/07: intermittent head-banging continues in response to CAH. change seroquel from PRN to scheduled. otherwise continue current mgmt. 07/08: head-banging yesterday simon. slept well overnight. continue current mgmt. 07/09: needing redirection from head-banging. slept 8 hours. pleasant, cooperative. continue current mgmt. 07/10: some head-banging yesterday afternoon. self-dialoguing eves. none overnight, slept well. hearing continued to 07/26. continue current mgmt. 07/11: No head-banging today. Still hears voices but they have not instructed her to bang her head today. Self-dialoguing. Slept well. Pleasantly confused. Continue current treatment regimen. 07/12: can't recall last head banging or CAH to do so. sleeping well, eating well. no SIB in the past 24H. continue current mgmt. 07/13: head-banging again last night, say she doesn't recall it. calm, pleasant, cooperative today. continue current mgmt. 07/15: No changes 07/16: no SIB for the past few days. as per usual, cannot recall any AH or SIB episodes. continue current mgmt. 07/17: tried on Q5 min checks yesterday but started head-banging, placed back on 1:1. today denies any recollection of the event, denies Sx. continue current mgmt. affidavit for extension of Tx plan completed. 07/18: no head-banging in past 24H. denies Sx. remains on 1:1. continue current mgmt. 07/19 continue current tx, may consider changing antipsychotic to more effective one such as risperidone. continue on one to one, but if stable will change to 5 minutes checks. 07/20 continue tx. try 5 minutes checks. 07/24 continue tx. no self injurious behaviors. 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 07/27: calm, cooperative. off of 1:1, can't recall last time head-banging. denies AH. continue current mgmt. 07/28/2025: Continue current management 07/31 continue tx. 08/01 continue tx. 08/02 continue tx. she is currently on 15 minutes checks. 08/03 continue tx. 08/04: no change today 08/05: no change 08/06 continue tx. 08/07 continue tx. 08/08 current magi max dose of abilify is 5mg, amend mina does include higher dose up to 30mg/day. 08/09 continue tx. propanolol increased to 20mg po BID for tremors. Reason for continued inpatient stay Substantial Risk for: inability to function Time Spent With Patient Time: Total time managing care of this patient today ____ minutes.
[2025-08-09 20:00] VITALS: BP 145/62; PULSE 68; RESP 16; TEMP 36.1; O2SAT 92
[2025-08-10 08:00] VITALS: BP 172/77; PULSE 62; RESP 16; O2SAT 90
[2025-08-10] MEDS: Ketotifen Fumarate 0.025% Oph 5 ML DRPBTL 1 DROP EYE-BOTH ×2 (08:23→20:49)
[2025-08-10] MEDS: Aspirin Enteric Coated 81 MG TABLET.DR PO (08:23)
[2025-08-10] MEDS: Calcium + Vitamin D 250 MG TABLET 500 MG PO ×2 (08:24→20:51)
[2025-08-10] MEDS: Vitamin E (Dl,Tocopheryl Acet) 180 MG (400 UNIT) CAPSULE 540 MG PO (08:25)
--- NOTE | 2025-08-10 15:55 | HO.PSYCHPN ---
Subjective Subjective Date of Service: 08/10/25 Reason For Visit: psychosis Interim History: Pt slept through the night. She reports doing well. 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 Noticeable action/resting tremors. propanolol may not be as effective. she is taking medications. Review of Systems Review of Systems She denies any shortness of breath, chest pain, dizziness, headaches, abdominal discomfort or other concerning symptoms. Yes all other systems are reviewed and are negative Mental Status Exam Mental Status Exam Narrative: adequately dressed and groomed, hospital attire. cooperative, no PMA/PMR. speech nml rate, decr amount, nml loudness, nml latency. thoughts linear and logical. affect flexible, normo-intense, non-labile. mood good. denies AH, SIBI. no SI/HI/VH expressed. Diagnostics Vital Signs (24Hr): Vital Signs - 24 hr 08/09/25 20:00 08/10/25 08:00 Temperature 97 F Pulse Rate 68 62 Respiratory Rate 16 16 Blood Pressure 145/62 H 172/77 H Pulse Oximetry 92 90 L Oxygen Delivery Method Room Air Room Air BMI result Body Mass Index 29.8 Labs 07/01/25 12:43 08/02/25 07:38 Imaging Radiology Impressions: ITS Impressions Head CT 07/04/25 16:13 IMPRESSION: 1. No acute intracranial findings. 2. Interval decrease in the right frontal scalp hematoma. Electronically signed by: Durga Benavides MD 07/04/2025 06:14 PM EDT RP Medications Medications Current Medications Acetaminophen (Acetaminophen 325 Mg Tablet) 650 mg PO Q6H PRN PRN Reason: Pain (Scale Score 1-3) Last Admin: 08/09/25 08:40 Dose: 650 mg Al Hydroxide/Mg Hydroxide (Magnesium Hydrox/Alum Hydrox 30 Ml Oral.Susp) 30 ml PO Q6H PRN PRN Reason: Heartburn/Nausea Amlodipine Besylate (Amlodipine Besylate 2.5 Mg Tablet) 2.5 mg PO DAILY [facility]; Protocol Last Admin: 08/10/25 08:24 Dose: 2.5 mg Aripiprazole (Aripiprazole 5 Mg Tablet) 5 mg PO DAILY [facility] Last Admin: 08/10/25 08:23 Dose: 5 mg Ascorbic Acid (Ascorbic Acid 500 Mg Tablet) 500 mg PO BID [facility] Last Admin: 08/10/25 08:25 Dose: 500 mg Aspirin (Aspirin Enteric Coated 81 Mg Tablet.Dr) 81 mg PO DAILY [facility] Last Admin: 08/10/25 08:23 Dose: 81 mg Atorvastatin Calcium (Atorvastatin Calcium 80 Mg Tablet) 80 mg PO BEDTIME [facility] Last Admin: 08/09/25 20:52 Dose: 80 mg Calcium Carbonate/Cholecalciferol (Calcium + Vitamin D 250 Mg Tablet) 500 mg PO BID [facility] Last Admin: 08/10/25 08:24 Dose: 500 mg Docusate Sodium (Docusate Sodium 100 Mg Capsule) 100 mg PO BID [facility] Last Admin: 08/10/25 08:25 Dose: 100 mg Donepezil HCl (Donepezil Hcl 5 Mg Tablet) 5 mg PO DAILY [facility] Last Admin: 08/10/25 08:24 Dose: 5 mg Escitalopram Oxalate (Escitalopram Oxalate 10 Mg Tablet) 10 mg PO DAILY [facility] Last Admin: 08/10/25 08:24 Dose: 10 mg Fluticasone Propionate (Fluticasone Propionate Nasal 16 Gm [place]) 1 spray NOSTRIL-B DAILY [facility] Last Admin: 08/10/25 08:23 Dose: 1 spray Gabapentin (Gabapentin 100 Mg Capsule) 100 mg PO BEDTIME [facility] Last Admin: 08/09/25 20:52 Dose: 100 mg Hydroxyzine HCl (Hydroxyzine Hcl 25 Mg Tablet) 25 mg PO Q6H PRN PRN Reason: mild anxiety Last Admin: 07/12/25 14:44 Dose: 25 mg Ketotifen Fumarate (Ketotifen Fumarate 0.025% Oph 5 Ml Drpbtl) 1 drop EYE-BOTH BID [facility] Last Admin: 08/10/25 08:23 Dose: 1 drop Levothyroxine Sodium (Levothyroxine Sodium 75 Mcg Tablet) 75 mcg PO DAILY@0600 [facility] Last Admin: 08/10/25 05:30 Dose: 75 mcg Magnesium Hydroxide (Milk Of Magnesia 30 Ml Oral.Susp) 30 ml PO DAILY PRN PRN Reason: Constipation Melatonin (Melatonin 3 Mg Tablet) 6 mg PO BEDTIME [facility] Last Admin: 08/09/25 20:53 Dose: 6 mg Mirtazapine (Mirtazapine 15 Mg Tablet) 15 mg PO BEDTIME [facility] Last Admin: 08/09/25 20:53 Dose: 15 mg Multivitamins/Vitamin C (Multivitamin Tablet) 1 tab PO DAILY [facility] Last Admin: 08/10/25 08:23 Dose: 1 tab Nystatin (Nystatin Powder 15 Gm Bottle) 1 appl TOPICAL BID [facility]; Protocol Last Admin: 08/10/25 08:25 Dose: 1 appl Omeprazole (Omeprazole 20 Mg Capsule.Dr) 20 mg PO DAILY@0630 [facility] Last Admin: 08/10/25 06:00 Dose: 20 mg Propranolol HCl (Propranolol Hcl 20 Mg Tablet) 20 mg PO BID [facility]; Protocol Last Admin: 08/10/25 08:24 Dose: 20 mg Pyridoxine HCl (Pyridoxine Hcl (Vitamin B6) 50 Mg Tablet) 100 mg PO BID [facility] Last Admin: 08/10/25 08:23 Dose: 100 mg Quetiapine Fumarate (Quetiapine Fumarate 50 Mg Tablet) 50 mg PO BEDTIME [facility] Last Admin: 08/09/25 20:53 Dose: 50 mg Senna (Sennosides 8.6 Mg Tablet) 17.2 mg PO BEDTIME [facility] Last Admin: 08/09/25 20:53 Dose: 17.2 mg Simethicone (Simethicone 80 Mg Tab.Chew) 80 mg PO BID [facility] Last Admin: 08/10/25 08:24 Dose: 80 mg Vitamin D (Cholecalciferol (Vitamin D3) 25 Mcg Tablet) 25 mcg PO DAILY [facility] Last Admin: 08/10/25 08:25 Dose: 25 mcg Vitamin E (Vitamin E (Dl,Tocopheryl Acet) 180 Mg (400 Unit) Capsule) 540 mg PO DAILY [facility] Last Admin: 08/10/25 08:25 Dose: 540 mg Allergies Allergies Allergy/AdvReac Type Severity Reaction Status Date / Time egg Allergy Intermediate Unknown Verified 07/10/25 03:24 monosodium glutamate (MSG) Allergy Intermediate Unknown Verified 07/10/25 03:25 caffeine Allergy Mild Unknown Verified 07/10/25 03:23 Assessment & Plan Assessment & Plan (1) Major neurocognitive disorder due to multiple etiologies, with psychotic disturbance: Status: Acute Code(s): F02.82 - Dementia in other diseases classified elsewhere, unspecified severity, with psychotic disturbance Plan psychotic disorder, anti-psychotic recently stopped for unclear reasons. mina's order reviewed (abilify to 5 mg daily, seroquel to 50 mg daily are on the order). 07/04: restart abilify 5 mg at HS. seroquel 25 BID PRN agitation. 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 07/05: DC wellbutrin as it may increase anxiety and restlessness, increasing agitation. awake and alert today. no aggressive behaviors. continue current mgmt. 07/06: remains calm and pleasant. 2 episodes of head-banging yesterday evening. commitment paperwork filed. 07/07: intermittent head-banging continues in response to CAH. change seroquel from PRN to scheduled. otherwise continue current mgmt. 07/08: head-banging yesterday simon. slept well overnight. continue current mgmt. 07/09: needing redirection from head-banging. slept 8 hours. pleasant, cooperative. continue current mgmt. 07/10: some head-banging yesterday afternoon. self-dialoguing eves. none overnight, slept well. hearing continued to 07/26. continue current mgmt. 07/11: No head-banging today. Still hears voices but they have not instructed her to bang her head today. Self-dialoguing. Slept well. Pleasantly confused. Continue current treatment regimen. 07/12: can't recall last head banging or CAH to do so. sleeping well, eating well. no SIB in the past 24H. continue current mgmt. 07/13: head-banging again last night, say she doesn't recall it. calm, pleasant, cooperative today. continue current mgmt. 07/15: No changes 07/16: no SIB for the past few days. as per usual, cannot recall any AH or SIB episodes. continue current mgmt. 07/17: tried on Q5 min checks yesterday but started head-banging, placed back on 1:1. today denies any recollection of the event, denies Sx. continue current mgmt. affidavit for extension of Tx plan completed. 07/18: no head-banging in past 24H. denies Sx. remains on 1:1. continue current mgmt. 07/19 continue current tx, may consider changing antipsychotic to more effective one such as risperidone. continue on one to one, but if stable will change to 5 minutes checks. 07/20 continue tx. try 5 minutes checks. 07/24 continue tx. no self injurious behaviors. 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 07/27: calm, cooperative. off of 1:1, can't recall last time head-banging. denies AH. continue current mgmt. 07/28/2025: Continue current management 07/31 continue tx. 08/01 continue tx. 08/02 continue tx. she is currently on 15 minutes checks. 08/03 continue tx. 08/04: no change today 08/05: no change 08/06 continue tx. 08/07 continue tx. 08/08 current magi max dose of abilify is 5mg, amend mina does include higher dose up to 30mg/day. 08/09 continue tx. propanolol increased to 20mg po BID for tremors. 08/11 provided update to pt's guardian. plan to d/c Wednesday. Reason for continued inpatient stay Substantial Risk for: inability to function Time Spent With Patient Time: Total time managing care of this patient today ____ minutes.
[2025-08-10 20:00] VITALS: BP 148/70; PULSE 70; RESP 16; TEMP 36.3; O2SAT 93
[2025-08-11 09:32] VITALS: BP 143/72; PULSE 61; RESP 16; TEMP 36.5; O2SAT 96
[2025-08-11] MEDS: Calcium + Vitamin D 250 MG TABLET 500 MG PO ×2 (09:48→20:28)
[2025-08-11] MEDS: Aspirin Enteric Coated 81 MG TABLET.DR PO (09:48)
[2025-08-11] MEDS: Vitamin E (Dl,Tocopheryl Acet) 180 MG (400 UNIT) CAPSULE 540 MG PO (09:48)
[2025-08-11] MEDS: Ketotifen Fumarate 0.025% Oph 5 ML DRPBTL 1 DROP EYE-BOTH ×2 (09:49→20:33)
--- NOTE | 2025-08-11 10:14 | HO.PSYCHPN ---
Subjective Subjective Date of Service: 08/11/25 Reason For Visit: psychosis Interim History: Pt slept through the night. She reports doing well. She is adherent medications. Denies psychosis, SI/HI. She is pleasant. Visible on the unit mainly for meals. Review of Systems Review of Systems She denies any shortness of breath, chest pain, dizziness, headaches, abdominal discomfort or other concerning symptoms. Yes all other systems are reviewed and are negative Mental Status Exam Mental Status Exam Narrative: adequately dressed and groomed, hospital attire. cooperative, no PMA/PMR. speech nml rate, decr amount, nml loudness, nml latency. thoughts linear and logical. affect flexible, normo-intense, non-labile. mood good. denies AH, SIBI. no SI/HI/VH expressed. Diagnostics Vital Signs (24Hr): Vital Signs - 24 hr 08/10/25 20:00 08/11/25 09:32 Temperature 97.4 F 97.7 F Pulse Rate 70 61 Respiratory Rate 16 16 Blood Pressure 148/70 H 143/72 H Pulse Oximetry 93 96 Oxygen Delivery Method Room Air Room Air BMI result Body Mass Index 29.8 Labs 07/01/25 12:43 08/02/25 07:38 Imaging Radiology Impressions: [facility] Impressions Head CT 07/04/25 16:13 IMPRESSION: 1. No acute intracranial findings. 2. Interval decrease in the right frontal scalp hematoma. Electronically signed by: Durga Benavides MD 07/04/2025 06:14 PM EDT RP Medications Medications Current Medications Acetaminophen (Acetaminophen 325 Mg Tablet) 650 mg PO Q6H PRN PRN Reason: Pain (Scale Score 1-3) Last Admin: 08/09/25 08:40 Dose: 650 mg Al Hydroxide/Mg Hydroxide (Magnesium Hydrox/Alum Hydrox 30 Ml Oral.Susp) 30 ml PO Q6H PRN PRN Reason: Heartburn/Nausea Amlodipine Besylate (Amlodipine Besylate 2.5 Mg Tablet) 2.5 mg PO DAILY [facility]; Protocol Last Admin: 08/10/25 08:24 Dose: 2.5 mg Aripiprazole (Aripiprazole 5 Mg Tablet) 5 mg PO DAILY [facility] Last Admin: 08/11/25 09:48 Dose: 5 mg Ascorbic Acid (Ascorbic Acid 500 Mg Tablet) 500 mg PO BID [facility] Last Admin: 08/11/25 09:49 Dose: 500 mg Aspirin (Aspirin Enteric Coated 81 Mg Tablet.Dr) 81 mg PO DAILY [facility] Last Admin: 08/11/25 09:48 Dose: 81 mg Atorvastatin Calcium (Atorvastatin Calcium 80 Mg Tablet) 80 mg PO BEDTIME [facility] Last Admin: 08/10/25 20:50 Dose: 80 mg Calcium Carbonate/Cholecalciferol (Calcium + Vitamin D 250 Mg Tablet) 500 mg PO BID [facility] Last Admin: 08/11/25 09:48 Dose: 500 mg Docusate Sodium (Docusate Sodium 100 Mg Capsule) 100 mg PO BID [facility] Last Admin: 08/11/25 09:49 Dose: 100 mg Donepezil HCl (Donepezil Hcl 5 Mg Tablet) 5 mg PO DAILY [facility] Last Admin: 08/11/25 09:50 Dose: 5 mg Escitalopram Oxalate (Escitalopram Oxalate 10 Mg Tablet) 10 mg PO DAILY [facility] Last Admin: 08/11/25 09:49 Dose: 10 mg Fluticasone Propionate (Fluticasone Propionate Nasal 16 Gm [place]) 1 spray NOSTRIL-B DAILY [facility] Last Admin: 08/11/25 09:49 Dose: 1 spray Gabapentin (Gabapentin 100 Mg Capsule) 100 mg PO BEDTIME [facility] Last Admin: 08/10/25 20:50 Dose: 100 mg Hydroxyzine HCl (Hydroxyzine Hcl 25 Mg Tablet) 25 mg PO Q6H PRN PRN Reason: mild anxiety Last Admin: 07/12/25 14:44 Dose: 25 mg Ketotifen Fumarate (Ketotifen Fumarate 0.025% Oph 5 Ml Drpbtl) 1 drop EYE-BOTH BID [facility] Last Admin: 08/11/25 09:49 Dose: 1 drop Levothyroxine Sodium (Levothyroxine Sodium 75 Mcg Tablet) 75 mcg PO DAILY@0600 [facility] Last Admin: 08/11/25 05:30 Dose: 75 mcg Magnesium Hydroxide (Milk Of Magnesia 30 Ml Oral.Susp) 30 ml PO DAILY PRN PRN Reason: Constipation Melatonin (Melatonin 3 Mg Tablet) 6 mg PO BEDTIME [facility] Last Admin: 08/10/25 20:51 Dose: 6 mg Mirtazapine (Mirtazapine 15 Mg Tablet) 15 mg PO BEDTIME [facility] Last Admin: 08/10/25 20:50 Dose: 15 mg Multivitamins/Vitamin C (Multivitamin Tablet) 1 tab PO DAILY [facility] Last Admin: 08/11/25 09:49 Dose: 1 tab Nystatin (Nystatin Powder 15 Gm Bottle) 1 appl TOPICAL BID [facility]; Protocol Last Admin: 08/11/25 09:49 Dose: 1 appl Omeprazole (Omeprazole 20 Mg Capsule.Dr) 20 mg PO DAILY@0630 [facility] Last Admin: 08/11/25 06:07 Dose: 20 mg Propranolol HCl (Propranolol Hcl 20 Mg Tablet) 20 mg PO BID [facility]; Protocol Last Admin: 08/11/25 09:49 Dose: 20 mg Pyridoxine HCl (Pyridoxine Hcl (Vitamin B6) 50 Mg Tablet) 100 mg PO BID [facility] Last Admin: 08/11/25 09:48 Dose: 100 mg Quetiapine Fumarate (Quetiapine Fumarate 50 Mg Tablet) 50 mg PO BEDTIME [facility] Last Admin: 08/10/25 20:51 Dose: 50 mg Senna (Sennosides 8.6 Mg Tablet) 17.2 mg PO BEDTIME [facility] Last Admin: 08/10/25 20:50 Dose: 17.2 mg Simethicone (Simethicone 80 Mg Tab.Chew) 80 mg PO BID [facility] Last Admin: 08/11/25 09:49 Dose: 80 mg Vitamin D (Cholecalciferol (Vitamin D3) 25 Mcg Tablet) 25 mcg PO DAILY [facility] Last Admin: 08/11/25 09:49 Dose: 25 mcg Vitamin E (Vitamin E (Dl,Tocopheryl Acet) 180 Mg (400 Unit) Capsule) 540 mg PO DAILY [facility] Last Admin: 08/11/25 09:48 Dose: 540 mg Allergies Allergies Allergy/AdvReac Type Severity Reaction Status Date / Time egg Allergy Intermediate Unknown Verified 07/10/25 03:24 monosodium glutamate (MSG) Allergy Intermediate Unknown Verified 07/10/25 03:25 caffeine Allergy Mild Unknown Verified 07/10/25 03:23 Assessment & Plan Assessment & Plan (1) Major neurocognitive disorder due to multiple etiologies, with psychotic disturbance: Status: Acute Code(s): F02.82 - Dementia in other diseases classified elsewhere, unspecified severity, with psychotic disturbance Plan psychotic disorder, anti-psychotic recently stopped for unclear reasons. mina's order reviewed (abilify to 5 mg daily, seroquel to 50 mg daily are on the order). 07/04: restart abilify 5 mg at HS. seroquel 25 BID PRN agitation. 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 07/05: DC wellbutrin as it may increase anxiety and restlessness, increasing agitation. awake and alert today. no aggressive behaviors. continue current mgmt. 07/06: remains calm and pleasant. 2 episodes of head-banging yesterday evening. commitment paperwork filed. 07/07: intermittent head-banging continues in response to CAH. change seroquel from PRN to scheduled. otherwise continue current mgmt. 07/08: head-banging yesterday simon. slept well overnight. continue current mgmt. 07/09: needing redirection from head-banging. slept 8 hours. pleasant, cooperative. continue current mgmt. 07/10: some head-banging yesterday afternoon. self-dialoguing eves. none overnight, slept well. hearing continued to 07/26. continue current mgmt. 07/11: No head-banging today. Still hears voices but they have not instructed her to bang her head today. Self-dialoguing. Slept well. Pleasantly confused. Continue current treatment regimen. 07/12: can't recall last head banging or CAH to do so. sleeping well, eating well. no SIB in the past 24H. continue current mgmt. 07/13: head-banging again last night, say she doesn't recall it. calm, pleasant, cooperative today. continue current mgmt. 07/15: No changes 07/16: no SIB for the past few days. as per usual, cannot recall any AH or SIB episodes. continue current mgmt. 07/17: tried on Q5 min checks yesterday but started head-banging, placed back on 1:1. today denies any recollection of the event, denies Sx. continue current mgmt. affidavit for extension of Tx plan completed. 07/18: no head-banging in past 24H. denies Sx. remains on 1:1. continue current mgmt. 07/19 continue current tx, may consider changing antipsychotic to more effective one such as risperidone. continue on one to one, but if stable will change to 5 minutes checks. 07/20 continue tx. try 5 minutes checks. 07/24 continue tx. no self injurious behaviors. 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 07/27: calm, cooperative. off of 1:1, can't recall last time head-banging. denies AH. continue current mgmt. 07/28/2025: Continue current management 07/31 continue tx. 08/01 continue tx. 08/02 continue tx. she is currently on 15 minutes checks. 08/03 continue tx. 08/04: no change today 08/05: no change 08/06 continue tx. 08/07 continue tx. 08/08 current magi max dose of abilify is 5mg, amend mina does include higher dose up to 30mg/day. 08/09 continue tx. propanolol increased to 20mg po BID for tremors. 08/10: provided update to pt's guardian. plan to d/c Wednesday. 08/11: continue current management and treatment plan. Reason for continued inpatient stay Substantial Risk for: inability to function and rapid decompensation Time Spent With Patient Time: Total time managing care of this patient today ____ minutes.
[2025-08-11 20:00] VITALS: BP 148/70; PULSE 100; RESP 16; TEMP 36.3; O2SAT 93
[2025-08-12 08:15] VITALS: BP 136/94; PULSE 70; RESP 18; TEMP 36.2; O2SAT 94
[2025-08-12] MEDS: Vitamin E (Dl,Tocopheryl Acet) 180 MG (400 UNIT) CAPSULE 540 MG PO (08:34)
[2025-08-12] MEDS: Aspirin Enteric Coated 81 MG TABLET.DR PO (08:35)
[2025-08-12] MEDS: Calcium + Vitamin D 250 MG TABLET 500 MG PO ×2 (08:36→20:25)
[2025-08-12] MEDS: Ketotifen Fumarate 0.025% Oph 5 ML DRPBTL 1 DROP EYE-BOTH ×2 (08:45→20:23)
--- NOTE | 2025-08-12 15:46 | HO.PSYCHPN ---
Subjective Subjective Date of Service: 08/12/25 Reason For Visit: psychosis Interim History: Pt slept through the night. She reports doing well. She is adherent medications. Denies psychosis, SI/HI. She is pleasant. Visible on the unit mainly for meals. Review of Systems Review of Systems She denies any shortness of breath, chest pain, dizziness, headaches, abdominal discomfort or other concerning symptoms. Yes all other systems are reviewed and are negative Mental Status Exam Mental Status Exam Narrative: adequately dressed and groomed, hospital attire. cooperative, no PMA/PMR. speech nml rate, decr amount, nml loudness, nml latency. thoughts linear and logical. affect flexible, normo-intense, non-labile. mood good. denies AH, SIBI. no SI/HI/VH expressed. Diagnostics Vital Signs (24Hr): Vital Signs - 24 hr 08/11/25 20:00 08/12/25 08:15 Temperature 97.4 F 97.2 F Pulse Rate 100 70 Respiratory Rate 16 18 Blood Pressure 148/70 H 136/94 H Pulse Oximetry 93 94 Oxygen Delivery Method Room Air Room Air BMI result Body Mass Index 29.8 Labs 07/01/25 12:43 08/02/25 07:38 Imaging Radiology Impressions: ITS Impressions Head CT 07/04/25 16:13 IMPRESSION: 1. No acute intracranial findings. 2. Interval decrease in the right frontal scalp hematoma. Electronically signed by: Durga Benavides MD 07/04/2025 06:14 PM EDT RP Medications Medications Current Medications Acetaminophen (Acetaminophen 325 Mg Tablet) 650 mg PO Q6H PRN PRN Reason: Pain (Scale Score 1-3) Last Admin: 08/09/25 08:40 Dose: 650 mg Al Hydroxide/Mg Hydroxide (Magnesium Hydrox/Alum Hydrox 30 Ml Oral.Susp) 30 ml PO Q6H PRN PRN Reason: Heartburn/Nausea Amlodipine Besylate (Amlodipine Besylate 2.5 Mg Tablet) 2.5 mg PO DAILY [facility]; Protocol Last Admin: 08/12/25 08:36 Dose: 2.5 mg Aripiprazole (Aripiprazole 5 Mg Tablet) 5 mg PO DAILY [facility] Last Admin: 08/12/25 08:34 Dose: 5 mg Ascorbic Acid (Ascorbic Acid 500 Mg Tablet) 500 mg PO BID [facility] Last Admin: 08/12/25 08:35 Dose: 500 mg Aspirin (Aspirin Enteric Coated 81 Mg Tablet.Dr) 81 mg PO DAILY [facility] Last Admin: 08/12/25 08:35 Dose: 81 mg Atorvastatin Calcium (Atorvastatin Calcium 80 Mg Tablet) 80 mg PO BEDTIME [facility] Last Admin: 08/11/25 20:34 Dose: 80 mg Calcium Carbonate/Cholecalciferol (Calcium + Vitamin D 250 Mg Tablet) 500 mg PO BID [facility] Last Admin: 08/12/25 08:36 Dose: 500 mg Docusate Sodium (Docusate Sodium 100 Mg Capsule) 100 mg PO BID [facility] Last Admin: 08/12/25 08:34 Dose: 100 mg Donepezil HCl (Donepezil Hcl 5 Mg Tablet) 5 mg PO DAILY [facility] Last Admin: 08/12/25 08:36 Dose: 5 mg Escitalopram Oxalate (Escitalopram Oxalate 10 Mg Tablet) 10 mg PO DAILY [facility] Last Admin: 08/12/25 08:35 Dose: 10 mg Fluticasone Propionate (Fluticasone Propionate Nasal 16 Gm [place]) 1 spray NOSTRIL-B DAILY [facility] Last Admin: 08/12/25 08:45 Dose: 1 spray Gabapentin (Gabapentin 100 Mg Capsule) 100 mg PO BEDTIME [facility] Last Admin: 08/11/25 20:27 Dose: 100 mg Hydroxyzine HCl (Hydroxyzine Hcl 25 Mg Tablet) 25 mg PO Q6H PRN PRN Reason: mild anxiety Last Admin: 07/12/25 14:44 Dose: 25 mg Ketotifen Fumarate (Ketotifen Fumarate 0.025% Oph 5 Ml Drpbtl) 1 drop EYE-BOTH BID [facility] Last Admin: 08/12/25 08:45 Dose: 1 drop Levothyroxine Sodium (Levothyroxine Sodium 75 Mcg Tablet) 75 mcg PO DAILY@0600 [facility] Last Admin: 08/12/25 05:30 Dose: 75 mcg Magnesium Hydroxide (Milk Of Magnesia 30 Ml Oral.Susp) 30 ml PO DAILY PRN PRN Reason: Constipation Melatonin (Melatonin 3 Mg Tablet) 6 mg PO BEDTIME [facility] Last Admin: 08/11/25 20:27 Dose: 6 mg Mirtazapine (Mirtazapine 15 Mg Tablet) 15 mg PO BEDTIME [facility] Last Admin: 08/11/25 20:27 Dose: 15 mg Multivitamins/Vitamin C (Multivitamin Tablet) 1 tab PO DAILY [facility] Last Admin: 08/12/25 08:34 Dose: 1 tab Nystatin (Nystatin Powder 15 Gm Bottle) 1 appl TOPICAL BID [facility]; Protocol Last Admin: 08/12/25 08:45 Dose: 1 appl Omeprazole (Omeprazole 20 Mg Capsule.Dr) 20 mg PO DAILY@0630 [facility] Last Admin: 08/12/25 06:07 Dose: 20 mg Propranolol HCl (Propranolol Hcl 20 Mg Tablet) 20 mg PO BID [facility]; Protocol Last Admin: 08/12/25 08:36 Dose: 20 mg Pyridoxine HCl (Pyridoxine Hcl (Vitamin B6) 50 Mg Tablet) 100 mg PO BID [facility] Last Admin: 08/12/25 08:34 Dose: 100 mg Quetiapine Fumarate (Quetiapine Fumarate 50 Mg Tablet) 50 mg PO BEDTIME [facility] Last Admin: 08/11/25 20:27 Dose: 50 mg Senna (Sennosides 8.6 Mg Tablet) 17.2 mg PO BEDTIME [facility] Last Admin: 08/11/25 20:28 Dose: 17.2 mg Simethicone (Simethicone 80 Mg Tab.Chew) 80 mg PO BID [facility] Last Admin: 08/12/25 08:36 Dose: 80 mg Vitamin D (Cholecalciferol (Vitamin D3) 25 Mcg Tablet) 25 mcg PO DAILY [facility] Last Admin: 08/12/25 08:36 Dose: 25 mcg Vitamin E (Vitamin E (Dl,Tocopheryl Acet) 180 Mg (400 Unit) Capsule) 540 mg PO DAILY [facility] Last Admin: 08/12/25 08:34 Dose: 540 mg Allergies Allergies Allergy/AdvReac Type Severity Reaction Status Date / Time egg Allergy Intermediate Unknown Verified 07/10/25 03:24 monosodium glutamate (MSG) Allergy Intermediate Unknown Verified 07/10/25 03:25 caffeine Allergy Mild Unknown Verified 07/10/25 03:23 Assessment & Plan Assessment & Plan (1) Major neurocognitive disorder due to multiple etiologies, with psychotic disturbance: Status: Acute Code(s): F02.82 - Dementia in other diseases classified elsewhere, unspecified severity, with psychotic disturbance Plan psychotic disorder, anti-psychotic recently stopped for unclear reasons. mina's order reviewed (abilify to 5 mg daily, seroquel to 50 mg daily are on the order). 07/04: restart abilify 5 mg at HS. seroquel 25 BID PRN agitation. 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 07/05: DC wellbutrin as it may increase anxiety and restlessness, increasing agitation. awake and alert today. no aggressive behaviors. continue current mgmt. 07/06: remains calm and pleasant. 2 episodes of head-banging yesterday evening. commitment paperwork filed. 07/07: intermittent head-banging continues in response to CAH. change seroquel from PRN to scheduled. otherwise continue current mgmt. 07/08: head-banging yesterday simon. slept well overnight. continue current mgmt. 07/09: needing redirection from head-banging. slept 8 hours. pleasant, cooperative. continue current mgmt. 07/10: some head-banging yesterday afternoon. self-dialoguing eves. none overnight, slept well. hearing continued to 07/26. continue current mgmt. 07/11: No head-banging today. Still hears voices but they have not instructed her to bang her head today. Self-dialoguing. Slept well. Pleasantly confused. Continue current treatment regimen. 07/12: can't recall last head banging or CAH to do so. sleeping well, eating well. no SIB in the past 24H. continue current mgmt. 07/13: head-banging again last night, say she doesn't recall it. calm, pleasant, cooperative today. continue current mgmt. 07/15: No changes 07/16: no SIB for the past few days. as per usual, cannot recall any AH or SIB episodes. continue current mgmt. 07/17: tried on Q5 min checks yesterday but started head-banging, placed back on 1:1. today denies any recollection of the event, denies Sx. continue current mgmt. affidavit for extension of Tx plan completed. 07/18: no head-banging in past 24H. denies Sx. remains on 1:1. continue current mgmt. 07/19 continue current tx, may consider changing antipsychotic to more effective one such as risperidone. continue on one to one, but if stable will change to 5 minutes checks. 07/20 continue tx. try 5 minutes checks. 07/24 continue tx. no self injurious behaviors. 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 07/27: calm, cooperative. off of 1:1, can't recall last time head-banging. denies AH. continue current mgmt. 07/28/2025: Continue current management 07/31 continue tx. 08/01 continue tx. 08/02 continue tx. she is currently on 15 minutes checks. 08/03 continue tx. 08/04: no change today 08/05: no change 08/06 continue tx. 08/07 continue tx. 08/08 current magi max dose of abilify is 5mg, amend mina does include higher dose up to 30mg/day. 08/09 continue tx. propanolol increased to 20mg po BID for tremors. 08/10: provided update to pt's guardian. plan to d/c Wednesday. 08/11: continue current management and treatment plan. 08/12: continue current management and treatment plan. Reason for continued inpatient stay Substantial Risk for: inability to function and rapid decompensation Time Spent With Patient Time: Total time managing care of this patient today ____ minutes.
[2025-08-12 20:00] VITALS: BP 119/68; PULSE 88; RESP 16; TEMP 36.2; O2SAT 94
--- NOTE | 2025-08-13 08:45 | PM.PSYDC ---
DS: Providers Provider Date of Service: 08/13/25 Date of admission: 07/03/25 14:35 Date of discharge: 08/13/25 Primary care physician: Unknown Physician DS: Diagnosis Discharge Diagnosis (1) Major neurocognitive disorder due to multiple etiologies, with psychotic disturbance: Status: Acute DS: Medications Discharge Medications Home Medications: Home Medications ?Medication ?Instructions ?Recorded ?Confirmed acetaminophen 325 mg tablet 650 mg PO Q6H PRN Pain (Scale 06/30/25 07/01/25 Score 1-3) amlodipine 2.5 mg tablet 2.5 mg PO DAILY 06/30/25 07/01/25 ascorbic acid (vitamin C) 500 mg 500 mg PO BID 06/30/25 07/01/25 tablet aspirin 81 mg tablet,delayed 81 mg PO DAILY 06/30/25 07/01/25 release atorvastatin 80 mg tablet 80 mg PO BEDTIME 06/30/25 07/01/25 bupropion HCl 75 mg tablet 37.5 mg PO BID 06/30/25 07/01/25 calcium 600 mg (as 1 tab PO BID 06/30/25 07/01/25 carbonate)-vitamin D3 10 mcg (400 unit) tablet (Calcium 600 + D(3)) cholecalciferol (vitamin D3) 25 25 mcg PO DAILY 06/30/25 07/01/25 mcg (1,000 unit) tablet (Vitamin D3) dextromethorphan HBr 15 mg capsule 30 mg PO Q6H PRN Cough 06/30/25 07/01/25 docusate sodium 100 mg capsule 100 mg PO BID 06/30/25 07/01/25 donepezil 5 mg tablet 5 mg PO DAILY 06/30/25 07/01/25 gabapentin 100 mg capsule 100 mg PO BEDTIME 06/30/25 07/01/25 levothyroxine 75 mcg tablet 75 mcg PO DAILY@0606/30/25 07/01/25 melatonin 5 mg tablet 5 mg PO BEDTIME 06/30/25 07/01/25 multivitamin 1 tab PO DAILY 06/30/25 07/01/25 omeprazole 20 mg capsule,delayed 20 mg PO DAILY@0630 06/30/25 07/01/25 release risedronate 35 mg tablet 35 mg PO THOMAS@0600 06/30/25 07/01/25 sennosides 8.6 mg tablet (senna) 17.2 mg PO BEDTIME 06/30/25 07/01/25 simethicone 80 mg chewable tablet 80 mg PO BID 06/30/25 07/01/25 vitamin E (dl, acetate) 180 mg 540 mg PO DAILY 06/30/25 07/01/25 (400 unit) capsule escitalopram oxalate 10 mg tablet 10 mg PO DAILY 07/01/25 07/01/25 acetylcysteine 600 mg capsule 600 mg PO BID 07/02/25 07/02/25 aripiprazole 5 mg tablet 5 mg PO DAILY 07/02/25 07/02/25 bismuth subsalicylate 262 mg 2 tab PO Q6H PRN Diarrhea 07/02/25 07/02/25 chewable tablet (Pepto-Bismol) fluticasone propionate 50 1 spray intranasal DAILY 07/02/25 07/02/25 mcg/actuation nasal spray,suspension mupirocin 2 % topical ointment 1 appl topical BID 07/02/25 07/02/25 olopatadine 0.2 % eye drops 1 drp ophthalmic (eye) DAILY 07/02/25 07/02/25 (Pataday Once Daily Relief) ondansetron 4 mg disintegrating 4 mg PO Q8H PRN Nausea And Vomiting 07/02/25 07/02/25 tablet trazodone 50 mg tablet 50 mg PO BEDTIME 07/02/25 07/02/25 triamcinolone acetonide 0.025 % 1 appl topical BID 07/02/25 07/02/25 topical cream Previous Rx's ?Medication ?Instructions ?Recorded amlodipine 2.5 mg tablet 2.5 mg PO DAILY #30 tabs 08/09/25 aripiprazole 5 mg tablet (Abilify) 5 mg PO DAILY #30 tabs 08/09/25 ascorbic acid (vitamin C) 500 mg 500 mg PO BID #60 tabs 08/09/25 tablet (Vitamin C) aspirin 81 mg tablet,delayed 81 mg PO DAILY #30 tabs 08/09/25 release atorvastatin 80 mg tablet 80 mg PO BEDTIME #30 tabs 08/09/25 calcium 250 mg (as 2 tab PO BID #60 tabs 08/09/25 carbonate)-vitamin D3 3.125 mcg (125 unit) tablet cholecalciferol (vitamin D3) 25 25 mcg PO DAILY #30 tabs 08/09/25 mcg (1,000 unit) tablet docusate sodium 100 mg capsule 100 mg PO BID #60 caps 08/09/25 donepezil 5 mg tablet 5 mg PO DAILY #30 tabs 08/09/25 escitalopram oxalate 10 mg tablet 10 mg PO DAILY #30 tabs 08/09/25 fluticasone propionate 50 1 spray intranasal DAILY #16 grams 08/09/25 mcg/actuation nasal spray,suspension gabapentin 100 mg capsule 100 mg PO BEDTIME #30 caps 08/09/25 levothyroxine 75 mcg tablet 75 mcg PO DAILY@0600 #30 tabs 08/09/25 melatonin 3 mg tablet 6 mg (2 x 3 mg) PO BEDTIME #60 tabs 08/09/25 mirtazapine 15 mg tablet 15 mg PO BEDTIME #30 tabs 08/09/25 multivitamin (Daily-He tablet) 1 tab PO DAILY #30 tabs 08/09/25 nystatin 100,000 unit/gram topical 1 appl topical BID #60 grams 08/09/25 powder omeprazole 20 mg capsule,delayed 20 mg PO DAILY@0630 #30 caps 08/09/25 release propranolol 20 mg tablet 20 mg PO BID #60 tabs 08/09/25 pyridoxine (vitamin B6) 50 mg 100 mg (2 x 50 mg) PO BID #60 tabs 08/09/25 tablet quetiapine 50 mg tablet 50 mg PO BEDTIME #30 tabs 08/09/25 sennosides 8.6 mg tablet (Senna 17.2 mg (2 x 8.6 mg) PO BEDTIME 08/09/25 Lax) #30 tabs simethicone 80 mg chewable tablet 80 mg PO BID #60 tabs 08/09/25 vitamin E (dl, acetate) 180 mg 540 mg (3 x 180 mg (400 unit)) PO 08/09/25 (400 unit) capsule DAILY #30 caps Mental Status Exam Mental Status Exam Narrative: adequately dressed and groomed, hospital attire. cooperative, no PMA/PMR. speech nml rate, decr amount, nml loudness, nml latency. thoughts linear and logical. affect flexible, normo-intense, non-labile. mood good. denies AH, SIBI. no SI/HI/VH expressed. Data Data Completed and Pending Completed studies during hospitalization [Text1]: 07/01/25 16:35 Urine clean catch - Clean Catch Midstream Urine Culture - Final Imaging Diagnostic Imaging Impressions Head CT 07/04/25 16:13 IMPRESSION: 1. No acute intracranial findings. 2. Interval decrease in the right frontal scalp hematoma. Electronically signed by: Durga Benavides MD 07/04/2025 06:14 PM EDT RP DS: Summary Hospital Course Hospital Course: per CARE team claus, dennis MALLORY from [facility] memory care unit due to exacerbation of AH and self-harming behaviors (head-banging). reported h/o dementia, psychosis, depression. she was described as being not oriented to person, place, or time upon evaluation. she reported CAH of god telling me to hit myself. pt was recently tapered off of abilify for unclear reasons. presentation was described as off-baseline by legal guardian. on interview with , pt was quite sedated, very difficult to rouse. she was able to answer only a few questions briefly. history taken from chart and MIKAYLA Thao. Past Psychiatric History: Full information not available at this time. Remote history of being on a Yo's order. Medical Evaluation Reviewed: Yes HOSPITAL COURSE On the unit, pt was admitted on sect 12b, then sect 7. She presented with episodes of banging head on the table and reporting hearing voices telling her to do so. SHe had been off abilify due to misunderstanding about her [place] and whether it was still active or not. She was restarted on abilify 5mg po daily and seroquel 50mg po qhs. She was noted to have an action tremor on both hands. She had been on propanolol, which was increased to 20mg po BID. Some improvement in action tremor. No perioral involuntary movements. She was eating and sleeping well. Her thought content is positive for poverty of thoughts. She was visible on the unit but not overly social. She would attend some groups, with minimal participation but calm. She was sleeping and eating well. Gradually she stopped any self harm and her affect appeared much brighter. She was taking medications as prescribed. Medical Summary: Hypertension/hyperlipidemia/CAD Continue baby aspirin, propranolol, Norvasc, and atorvastatin. Blood pressures reviewed and stable Liver function and renal function are stable. Lipid panel within normal limits Hypothyroidism Continue levothyroxine 75 mcg daily Most recent TSH 2.90 Status at Discharge Cognitive/behavioral status at discharge: Pt with brighter affect. No SI/HI. No aggression towards self or others. No overt psychosis or delusions. Functional status at discharge: independent ambulation Overall status at discharge: patient is back to baseline Time Spent with Patient Time attestation: Total time managing care of this patient today __45__ minutes. Discharge Plan Discharge Anticipated Discharge Date/Time: 08/13/25 08:46 Patient Disposition: Home, Self-Care Discharge Diagnosis: Major Neurocognitive Disorder Referrals: [facility] [Other] - 08/13/25 11:00 am Referral Note: Follow up with [facility] outpatient providers Celena Walker, solar installer pv and Sophia Parrish on their regular visits to [facility]. Discharge Medications: New atorvastatin 80 mg Tablet 80 mg PO BEDTIME Qty: 30 0RF donepezil 5 mg Tablet 5 mg PO DAILY Qty: 30 0RF amlodipine 2.5 mg Tablet 2.5 mg PO DAILY Qty: 30 0RF Protocol: Hold for SBP< HOLD for SBP < : 90 aspirin 81 mg Tablet,Delayed Release (Dr/Ec) 81 mg PO DAILY Qty: 30 0RF propranolol 20 mg Tablet 20 mg PO BID Qty: 60 0RF Protocol: Hold for SBP/HR < HOLD for SBP < : 90 HOLD for HR < : 60 escitalopram oxalate 10 mg Tablet 10 mg PO DAILY Qty: 30 0RF aripiprazole [Abilify] 5 mg Tablet 5 mg PO DAILY Qty: 30 0RF mirtazapine 15 mg Tablet 15 mg PO BEDTIME Qty: 30 0RF gabapentin 100 mg Capsule 100 mg PO BEDTIME Qty: 30 0RF calcium carbonate-vitamin D3 250 mg-3.125 mcg (125 unit) Tablet 2 tab PO BID Qty: 60 0RF quetiapine 50 mg Tablet 50 mg PO BEDTIME Qty: 30 0RF sennosides [Senna Lax] 8.6 mg Tablet 17.2 mg PO BEDTIME Qty: 30 0RF melatonin 3 mg Tablet 6 mg PO BEDTIME Qty: 60 0RF levothyroxine 75 mcg Tablet 75 mcg PO DAILY@0600 Qty: 30 0RF docusate sodium 100 mg Capsule 100 mg PO BID Qty: 60 0RF omeprazole 20 mg Capsule,Delayed Release(Dr/Ec) 20 mg PO DAILY@0630 Qty: 30 0RF fluticasone propionate 50 mcg/actuation spray,suspension 1 spray intranasal DAILY Qty: 16 0RF Rx Instructions: administer into each nostril simethicone 80 mg Tablet,Chewable 80 mg PO BID Qty: 60 0RF multivitamin [Daily-He] Tablet 1 tab PO DAILY Qty: 30 0RF ascorbic acid (vitamin C) [Vitamin C] 500 mg Tablet 500 mg PO BID Qty: 60 0RF pyridoxine (vitamin B6) 50 mg Tablet 100 mg PO BID Qty: 60 0RF nystatin 100,000 unit/gram powder 1 appl topical BID Qty: 60 0RF cholecalciferol (vitamin D3) 25 mcg (1,000 unit) Tablet 25 mcg PO DAILY Qty: 30 0RF vitamin E (dl, acetate) 180 mg (400 unit) Capsule 540 mg PO DAILY Qty: 30 0RF Continued olopatadine [Pataday Once Daily Relief] 0.2 % Drops 1 drp ophthalmic (eye) DAILY Discontinued amlodipine 2.5 mg Tablet 2.5 mg PO DAILY aspirin 81 mg Tablet,Delayed Release (Dr/Ec) 81 mg PO DAILY atorvastatin 80 mg Tablet 80 mg PO BEDTIME bupropion HCl 75 mg Tablet 37.5 mg PO BID calcium carbonate-vitamin D3 [Calcium 600 + D(3)] 600 mg-10 mcg (400 unit) Tablet 1 tab PO BID dextromethorphan HBr 15 mg Capsule 30 mg PO Q6H PRN (Reason: Cough) Rx Instructions: DO NOT EXCEED 120 MG IN 24 HOURS docusate sodium 100 mg Capsule 100 mg PO BID donepezil 5 mg Tablet 5 mg PO DAILY gabapentin 100 mg Capsule 100 mg PO BEDTIME levothyroxine 75 mcg Tablet 75 mcg PO DAILY@0600 melatonin 5 mg Tablet 5 mg PO BEDTIME multivitamin Tablet 1 tab PO DAILY omeprazole 20 mg Capsule,Delayed Release(Dr/Ec) 20 mg PO DAILY@0630 risedronate 35 mg Tablet 35 mg PO THOMAS@0600 Rx Instructions: administer at least 30 minutes before the first food or drink of the day other than water. sennosides [senna] 8.6 mg Tablet 17.2 mg PO BEDTIME simethicone 80 mg Tablet,Chewable 80 mg PO BID acetaminophen 325 mg Tablet 650 mg PO Q6H PRN (Reason: Pain (Scale Score 1-3)) ascorbic acid (vitamin C) 500 mg Tablet 500 mg PO BID cholecalciferol (vitamin D3) [Vitamin D3] 25 mcg (1,000 unit) Tablet 25 mcg PO DAILY vitamin E (dl, acetate) 180 mg (400 unit) capsule 540 mg PO DAILY escitalopram oxalate 10 mg tablet 10 mg PO DAILY aripiprazole 5 mg Tablet 5 mg PO DAILY bismuth subsalicylate [Pepto-Bismol] 262 mg Tablet,Chewable 2 tab PO Q6H PRN (Reason: Diarrhea) Rx Instructions: do not exceed 16 tabs per 24 hrs fluticasone propionate [Flonase] 50 mcg/actuation Waterflow,Suspension 1 spray INTRANASAL DAILY Rx Instructions: administer into each nostril acetylcysteine 600 mg Capsule 600 mg PO BID mupirocin 2 % Ointment 1 appl TOPICAL BID Protocol: Apply to: Apply to: LEFT SHOULDER trazodone 50 mg Tablet 50 mg PO BEDTIME triamcinolone acetonide 0.025 % Cream 1 appl TOPICAL BID Protocol: Apply to: Apply to: BELOW EYE/NOSE ondansetron 4 mg Tablet,Disintegrating 4 mg PO Q8H PRN (Reason: Nausea And Vomiting) Discharge Orders: Discharge Order (Routine); Ordered 08/13/25 Ordered By: Alona Pederson Diet: Regular diet Activity on Discharge: As tolerated Stand Alone Forms: Patient Portal Discharge page Print Language: Citizen Of [place] Care Plan Goals: Maintain mood No aggression towards self or others No SI/HI. Health Concerns: Follow up with PCP for routine care Plan of Treatment: 1.Take medications as prescribed. 2. Go to ER or call 911 in event of emergency Assessment: Pt with brighter affect. No SI/HI. No self harm behaviors. Sleeping and eating well. Taking medications as prescribed. Discharge Date/Time: 08/13/25 11:30
[2025-08-13] MEDS: Calcium + Vitamin D 250 MG TABLET 500 MG PO (09:16)
[2025-08-13] MEDS: Vitamin E (Dl,Tocopheryl Acet) 180 MG (400 UNIT) CAPSULE 540 MG PO (09:16)
[2025-08-13] MEDS: Aspirin Enteric Coated 81 MG TABLET.DR PO (09:18)
[2025-08-13] MEDS: Ketotifen Fumarate 0.025% Oph 5 ML DRPBTL 1 DROP EYE-BOTH (09:27)
== END 2025-08-13 11:30 | disposition home or self-care (01) | DRG 42 ==
LOC: HO.ED 07-02 09:35 → HO.PGERI 07-03 14:42
PROVIDERS: Nurse Practitioner Family; Physician Assistant; Psychiatry & Neurology Psychiatry; Social Worker; Admitting Provider Psychiatry & Neurology Psychiatry; Emergency Provider Emergency Medicine; Visit Provider Psychiatry & Neurology Psychiatry
DX: F03.92 Unspecified dementia, unspecified severity, with psychotic disturbance (principal); E03.9 Hypothyroidism, unspecified; E78.5 Hyperlipidemia, unspecified; K21.9 Gastro-esophageal reflux disease without esophagitis; S60.222A Contusion of left hand, initial encounter; X58.XXXA Exposure to other specified factors, initial encounter; I25.10 Atherosclerotic heart disease of native coronary artery without angina pectoris; Z91.52 Personal history of nonsuicidal self-harm; Z79.51 Long term (current) use of inhaled steroids; Z79.890 Hormone replacement therapy; Z79.82 Long term (current) use of aspirin; Z79.899 Other long term (current) drug therapy
CPT/HCPCS: 36415; 70450; 73110; 73130; 80048; 80053; 80061; 81001; 81003; 83735; 84443; 85025; 86038; 87086; 99285; S9485

== ENCOUNTER → 2025-07-01 13:25 | Outpatient (BNV) | payer BC, SELFPAY | PROVIDERS: Emergency Provider Emergency Medicine; Visit Provider Radiology Diagnostic Radiology | DX: M79.642 Pain in left hand (principal); M25.531 Pain in right wrist | CPT/HCPCS: 73110; 73130 ==

== ENCOUNTER 2025-07-03 14:35 | Outpatient (BNV) | payer BC, SELFPAY | END 2025-07-04 16:13 | PROVIDERS: Admitting Provider Psychiatry & Neurology Psychiatry; Emergency Provider Emergency Medicine; Visit Provider Radiology Body Imaging | DX: S09.90XA Unspecified injury of head, initial encounter (principal); F29 Unspecified psychosis not due to a substance or known physiological condition | CPT/HCPCS: 70450 ==

== ENCOUNTER → 2025-07-03 14:35 | Outpatient (BNV) | payer BC, SELFPAY | PROVIDERS: Admitting Provider Psychiatry & Neurology Psychiatry; Emergency Provider Emergency Medicine; Visit Provider Psychiatry & Neurology Psychiatry | DX: F29 Unspecified psychosis not due to a substance or known physiological condition (principal); F03.90 Unspecified dementia, unspecified severity, without behavioral disturbance, psychotic disturbance, mood disturbance, and anxiety | CPT/HCPCS: 90792; 99231; 99232 ==

== ENCOUNTER → 2025-07-03 14:35 | Outpatient (BNV) | payer BC, SELFPAY | PROVIDERS: Admitting Provider Psychiatry & Neurology Psychiatry; Emergency Provider Emergency Medicine; Visit Provider Nurse Practitioner Family | DX: Z02.2 Encounter for examination for admission to residential institution (principal) | CPT/HCPCS: 99429 ==